=== PATIENT | female | born 1970 | race Caucasian/White ===

== ENCOUNTER → 2016-11-12 | Outpatient (CLI) | payer MEDICARE, OTHER ==
--- NOTE | 2016-11-12 15:37 | MR ---
EXAMINATION TYPE: MR shoulder RT wo con DATE OF EXAM: 11/12/2016 3:28 PM COMPARISON: NONE HISTORY: right shoulder pain TECHNIQUE: Multiplanar, multisequence imaging of the right shoulder is performed without contrast. FINDINGS: There is no evidence of an os acromiale. There are mild hypertrophic and inflammatory grijalva es in the right AC joint. There is a downward sloping acromion. The pseudocystic change in the humeral head, an indirect sign of impingement. There is diffuse tendinosis of the supraspinatus tendon there is a 6.7 mm intrasubstance tear in the anterior fibers of the infraspinatus tendon. The subscapularis tendon appears normal. The cartilaginous glenoid labrum appears intact. Biceps tendon is normally situated within the biceps tendon groove and inserts normally upon the johny ps anchor. IMPRESSION: 1. DIFFUSE TENDINOSIS OF THE SUPRASPINATUS TENDON. 2. 7 MM INTRASUBSTANCE TEAR INVOLVING THE ANTERIOR FIBERS OF THE INFRASPINATUS TENDON. 3. HYPERTROPHIC AND INFLAMMATORY CHANGES IN THE RIGHT AC JOINT. 4. PSEUDOCYSTIC CHANGE IN THE HUMERAL HEAD, INDIRECT SIGN OF IMPINGEMENT.
== END | disposition home or self-care (01) ==
LOC: RADMRIMAIN 14:56
PROVIDERS: ATTEND Orthopaedic Surgery
DX: S46.811A Strain of other muscles, fascia and tendons at shoulder and upper arm level, right arm, initial encounter (principal); M67.813 Other specified disorders of tendon, right shoulder; M13.811 Other specified arthritis, right shoulder

== ENCOUNTER → 2016-12-06 | Outpatient (CLI) | payer MEDICARE, OTHER ==
[2016-12-06 16:46] LABS: Basophils % (A) 0 %; CH 30.4; Eosinophils # (A) 0.2 k/uL (0-0.7); Eosinophils % (A) 2 %; HCT 42.2 % (34.0-46.0); HDW 2.92; HGB 14.5 gm/dL (11.4-16.0); Luc # (Auto) 0.11; Luc % (Auto) 1; Lymphocytes # (A) 3.7 k/uL (1.0-4.8); Lymphocytes % (A) 31 %; MCH 30.8 pg (25.0-35.0); MCHC 34.3 g/dL (31.0-37.0); MCV 89.9 fL (80.0-100.0); Mean Platelet Volume 6.8; Monocytes # (A) 0.4 k/uL (0-1.0); Monocytes % (A) 3 %; Neutrophils # (A) 7.7 k/uL (1.3-7.7); Neutrophils % (A) 63 %; RDW 13.6 % (11.5-15.5); WBC 12.2 k/uL (3.8-10.6); WBC (Perox) 12.28
[2016-12-06 16:56] LABS: Potassium 4.1 mmol/L (3.5-5.1)
== END ==
LOC: LABWHC1 15:52
PROVIDERS: ATTEND Orthopaedic Surgery
DX: Z01.812 Encounter for preprocedural laboratory examination (principal); M75.41 Impingement syndrome of right shoulder
CPT/HCPCS: 80051; 85025

== ENCOUNTER 2016-12-07 06:41 | Day surgery (SDC) | payer MEDICARE, OTHER ==
[2016-12-05 15:52] VITALS: BMI 32.8
--- NOTE | 2016-12-06 12:22 | HP ---
DATE OF ADMISSION: CHIEF COMPLAINT: Right shoulder pain and stiffness. HISTORY OF PRESENT ILLNESS: The patient is a 46-year-old, left-hand dominant female on disability who presents with progressive right shoulder pain and stiffness for the past several months. She has tried an injection along with therapy with only partial temporary relief. She continues to have pain with overhead use and at night. She has been taking Bucklin twice daily for this. PAST MEDICAL HISTORY: Significant for hypertension, postural orthostatic tachycardia syndrome, reflux disease, irritable bowel syndrome. PAST SURGICAL HISTORY: Significant for previous ankle surgery, left shoulder arthroscopic rotator cuff repair, previous knee surgery, cholecystectomy, hysterectomy. CURRENT MEDICATIONS: 1. Amiodarone. 2. Labetalol. 3. Seroquel. 4. Topamax. She has allergies to PENICILLIN and MORPHINE. FAMILY HISTORY: Significant for heart disease and hypertension. SOCIAL HISTORY: Negative for current tobacco or alcohol use. Sixteen-point review of systems otherwise reviewed and is noncontributory. On examination, the patient is approximately 5 feet 3 inches, 190 pounds of endomorphic habitus. HEENT exam is nonfocal. Neck is supple. On examination of her right shoulder, she is tender about the anterior subacromial space. She has moderate crepitus. Active range of motion, forward elevation 95 degrees, external rotation with arm at the side 15 degrees, internal rotation to the buttock. Motor strength is 5 minus over 5 for external rotation with the arm at the side and 5 minus over 5 for abduction. [place]ie, Neer and speed tests are positive. She has painless cross body adduction. Her distal neurovascular exam appears be intact in the right upper extremity. MRI report for the right shoulder from 11/12/2016 shows evidence of supraspinatus tendinosis with possible partial-thickness tear along with a AC joint synovitis. IMPRESSION: 1. Right shoulder impingement with possible partial-thickness rotator cuff tear. 2. Right shoulder adhesive capsulitis. 3. Right acromioclavicular joint synovitis. RECOMMENDATIONS: I talked to the patient at length regarding her treatment options. She remains quite symptomatic despite conservative measures. After thorough discussion, she opts to proceed with surgery. We will plan to proceed with arthroscopic evaluation with probable subacromial decompression, rotator cuff debridement versus repair, possible distal clavicular resection, and shoulder manipulation. Risks and benefits are discussed at length in layman's terms. We will likely perform that as an outpatient procedure.
[~2016-12-07 06:41] MED LIST: CLINDAMYCIN 900 MG in DEXTROSE 5% IN WATER 50 ML IVPB ONE; DEXAMETHASONE SOD PHOSPHATE 10 MG/ML 1 ML VIAL IV ONE; LACTATED RINGERS 1,000 ML IV SCH; MIDAZOLAM 2 MG/2 ML VIAL IV PRN; ONDANSETRON 4 MG/2 ML VIAL IVP ONE; SCOPOLAMINE 1.5MG/72HR PATCH TRANSDERM ONE
[2016-12-07 07:21] LABS: Glucose,Whole Blood 123 mg/dL (75-99)
[2016-12-07] MEDS ORDERED: LIDOCAINE 1% 20 ML VIAL (10MG/ML) FOR IV START INTRADERMA ONE (07:22)
[2016-12-07] MEDS ORDERED: GLYCOPYRROLATE 0.2 MG/ML 2 ML VIAL ONE (08:07)
[2016-12-07] MEDS ORDERED: PROPOFOL 10 MG/ML 20 ML VIAL IV ONE (08:07)
[2016-12-07] MEDS ORDERED: fentaNYL (PF) 50 MCG/ML 2 ML AMP ONE (08:07)
[2016-12-07] MEDS ORDERED: ROCURONIUM BROMIDE 10 MG/ML 10 ML VIAL IV ONE (08:07)
[2016-12-07] MEDS ORDERED: NEOSTIGMINE 1 MG/ML 10 ML VIAL ONE (08:07)
[2016-12-07] MEDS ORDERED: MIDAZOLAM 2 MG/2 ML VIAL ONE (08:07)
[2016-12-07] MEDS ORDERED: SUCCINYLCHOLINE CHLORIDE 100 MG/5 ML SYR IV ONE (08:07)
[2016-12-07] MEDS ORDERED: LIDOCAINE 1% INJ 10MG/ML (20 ML MDV) ONE (08:07)
[2016-12-07] MEDS ORDERED: SODIUM CHLORIDE 0.9% 100 ML with CLINDAMYCIN 900 MG IV ONE ×2 (08:27)
[2016-12-07] MEDS ORDERED: EPINEPHrine (PF) 1 ML in SODIUM CHLORIDE 0.9% IRRIGATIO 3,000 ML IRRIGATION ONE ×8 (08:36)
--- NOTE | 2016-12-07 09:26 | P.OP ---
Date of Procedure: 12/07/16 Preoperative Diagnosis: Right shoulder impingement/adhesive capsulitis/rotator cuff tendinitis Postoperative Diagnosis: Right total thickness rotator cuff tear/partial thickness biceps tendon tear Procedure(s) Performed: Right shoulder arthroscopic subacromial decompression/biceps tenotomy/rotator cuff debridement/manipulation under anesthesia Implants: Anesthesia: NOLAA Surgeon: Stephane Mazariegos Crew Clerk #1: [place] Estimated Blood Loss (ml): 10 Pathology: none sent Condition: stable Disposition: PACU Indications for Procedure: The patient's a 46-year-old female who presents with progressive right shoulder pain/ stiffness despite extensive conservative treatment. A discussion of the risks and benefits of operative intervention versus continued conservative measures was made with patient. She opted to proceed with surgery. Operative options were also discussed to include manipulation under anesthesia in addition to possible arthroscopic evaluation and treatment. She opted to proceed with surgery. Operative risks to include infection, neurovascular injury, development of blood clots, possible recurrence of stiffness, possible need for subsequent procedures was discussed. Informed consent was obtained. Operative Findings: As below Description of Procedure: The patient was brought to the operating room, and after induction of general anesthesia was positioned in the beachchair position. Bony prominences were appropriately padded. I examined the right shoulder and found significant mechanical blocks to external rotation and forward elevation. I gently manipulated her shoulder initially with the arm at the side externally rotating to 70 and then forward elevating fully. Moderate adhesions were encountered. The right upper extremity was then prepped and draped in normal fashion. The bony outlines of the acromion, distal clavicle, and coracoid process were outlined with a skin marker. A posterior portal was made through a 5 mm skin incision 1 cm medial and inferior to the posterior lateral border of the acromion. A blunt trocar was used to easily into the joint. Diagnostic arthroscopy was performed. An anterior portals made just lateral to the coracoid process entering the joint above the subscapularis tendon. The anterior labrum appeared to be intact. There was marked synovitis involving the rotator interval that was debrided with a motorized shaver. On inspection of the biceps, significant erythema and a high-grade partial-thickness tear was noted involving the intra-articular portion. It was elected to proceed with tenotomy at this point. The biceps was released from the superior labrum with electrocautery and lateral to retract to the bicipital groove. The subscapularis tendon appear to be intact. The rotator cuff tendons appeared to be intact on the articular surface. The posterior labrum was intact. No significant cartilage damage was noted. The arthroscope was then placed into the acromial space. An anterior portals made 2 cm lateral to the anterolateral border of the acromion. The soft tissue on the undersurface the acromion was debrided with a motorized shaver and with electrocautery. The anterior medial and lateral borders acromion in addition to the distal clavicle were then visualized. The coracoacromial ligament was detached from the anterior acromion with electrocautery. An anterior inferior acromioplasty was performed starting anterolateral then extending this posteriorly, then extending this medially. I was able to convert to a flat acromion. This was verified from the posterior and lateral viewing portals. Attention was then paid towards the rotator cuff. Significant bursitis was present and this was debrided with a motorized shaver. A partial thickness bursal surface tear involving the supraspinatus was noted involving approximately 10% of the tendon thickness. This was debrided back to stable base with a motorized shaver. The remaining supraspinatus and infraspinatus tendons appeared to be intact as well as the teres minor. The arthroscope was then removed. The portals were closed with Steri-Strips. A sterile dressing was applied in addition to a shoulder brace. The patient was awoken from general anesthesia and transferred to the recovery room in good condition. Blood loss was estimated at 10 mL. No complications were incurred. Sponge and needle counts were correct at the end the case.
[2016-12-07 09:41] VITALS: TEMP 97.2
[2016-12-07] MEDS: HYDROmorphone 1 MG/ML 1 ML SYRINGE IVP ONE ×6 (09:58→10:38)
[2016-12-07] MEDS ORDERED: KETOROLAC 30 MG/ML 1 ML VIAL IVP ONE (10:03)
[2016-12-07] MEDS ORDERED: LACTATED RINGERS 1,000 ML IV ONE ×2 (10:20)
[2016-12-07] MEDS ORDERED: ONDANSETRON 4 MG/2 ML VIAL IVP ONE (10:46)
[2016-12-07 11:36] VITALS: RESP 16
[2016-12-07] MEDS ORDERED: HYDROcodone/APAP 7.5-325MG 1 EACH TAB PO ONE (12:18)
[2016-12-07 15:09] VITALS: BP 104/60; PULSE 86
== END 2016-12-07 15:44 | disposition home or self-care (01) ==
LOC: OR 06:41
PROVIDERS: ATTEND Orthopaedic Surgery
DX: S46.011A Strain of muscle(s) and tendon(s) of the rotator cuff of right shoulder, initial encounter (principal); S46.211A Strain of muscle, fascia and tendon of other parts of biceps, right arm, initial encounter; M65.9 Synovitis and tenosynovitis, unspecified; M75.41 Impingement syndrome of right shoulder; I10 Essential (primary) hypertension; M75.01 Adhesive capsulitis of right shoulder; G43.909 Migraine, unspecified, not intractable, without status migrainosus; F41.1 Generalized anxiety disorder; I47.1 Supraventricular tachycardia; E66.9 Obesity, unspecified; E78.5 Hyperlipidemia, unspecified; F41.9 Anxiety disorder, unspecified; Z79.891 Long term (current) use of opiate analgesic; Z79.899 Other long term (current) drug therapy; Z88.5 Allergy status to narcotic agent; Z88.0 Allergy status to penicillin; Z82.49 Family history of ischemic heart disease and other diseases of the circulatory system; X58.XXXA Exposure to other specified factors, initial encounter
CPT/HCPCS: 29826; 29822; J2250; J1100; J2710; J2405; J0171; J2001; J3010; J1885; J1170; J0330; J2704

== ENCOUNTER 2017-02-26 08:55 | Day surgery (SDC) | payer MEDICARE, OTHER ==
[2017-02-25 09:25] VITALS: BMI 32.8
--- NOTE | 2017-02-25 18:05 | HP ---
CHIEF COMPLAINT: Right shoulder stiffness. HISTORY OF PRESENT ILLNESS: The patient is a 46-year-old left hand dominant female on disability who presents with left shoulder stiffness after undergoing previous arthroscopy in November of 2016. She notes some soreness intermittently as well. She has tried therapy and home exercises with minimal relief. PAST MEDICAL HISTORY: Significant for postural orthostatic tachycardia syndrome , depression, hypertension, and migraines. PAST SURGICAL HISTORY: Significant for previous ankle surgery, cholecystectomy , hysterectomy, left knee surgery and appendectomy along with right shoulder arthroscopy. CURRENT MEDICATIONS: Ambien, amiodarone, labetalol, Seroquel, Topamax. ALLERGIES: PENICILLIN AND MORPHINE. FAMILY HISTORY: Significant for heart disease, cancer and hypertension. SOCIAL HISTORY: Negative for current tobacco or alcohol use. Sixteen point review of systems otherwise reviewed and is noncontributory. On examination the patient is approximately 5'3", 190 pounds with endomorphic habitus. HEENT: Nonfocal. NECK: Supple. On examination of her right shoulder she is mildly tender about the anterior subacromial space. There is no warmth or erythema. Active range of motion. Forward elevation 95 degrees. External rotation with arm to side 20 degrees. Internal rotation to the buttock, passively I am able to forward elevate her to 100 degrees. Motor strength is 5/5 for external rotation with arm to the side. 5-/5 for abduction. Her distal neurovascular exam appears intact in the right upper extremity. IMPRESSION: Status post right shoulder arthroscopy with recurrent adhesive capsulitis. RECOMMENDATIONS: I talked to the patient at length regarding her treatment options. At this point she is quite limited because of stiffness. She opts to proceed with manipulation under anesthesia with subacromial cortisone injection. Risks and benefits were discussed at length in layman's terms. STEPHEN
[~2017-02-26 08:55] MED LIST changes: -CLINDAMYCIN 900 MG in DEXTROSE 5% IN WATER 50 ML IVPB ONE; -DEXAMETHASONE SOD PHOSPHATE 10 MG/ML 1 ML VIAL IV ONE; -MIDAZOLAM 2 MG/2 ML VIAL IV PRN; -ONDANSETRON 4 MG/2 ML VIAL IVP ONE; +Pre Op ABX Message 1 EACH MISC MISCELLANE ONE; -SCOPOLAMINE 1.5MG/72HR PATCH TRANSDERM ONE
[2017-02-26] MEDS ORDERED: LIDOCAINE 1% 20 ML VIAL (10MG/ML) FOR IV START INTRADERMA ONE (09:44)
[2017-02-26 09:55] LABS: Glucose,Whole Blood 148 mg/dL (75-99)
[2017-02-26] MEDS ORDERED: fentaNYL (PF) 50 MCG/ML 2 ML AMP ONE (10:06)
[2017-02-26] MEDS ORDERED: MIDAZOLAM 2 MG/2 ML VIAL ONE (10:06)
[2017-02-26] MEDS ORDERED: PROPOFOL 10 MG/ML 20 ML VIAL IV ONE (10:06)
[2017-02-26] MEDS ORDERED: LIDOCAINE 1% INJ 10MG/ML (20 ML MDV) ONE (10:06)
[2017-02-26] MEDS ORDERED: ONDANSETRON 4 MG/2 ML VIAL IVP ONE (10:08)
[2017-02-26] MEDS ORDERED: DEXAMETHASONE SOD PHOSPHATE 10 MG/ML 1 ML VIAL IV ONE (10:08)
[2017-02-26] MEDS ORDERED: BUPIVACAINE (PF) 0.25% 30 ML VIAL MISCELLANE ONE (10:23)
[2017-02-26] MEDS ORDERED: methylPREDNISolone ACETATE 80 MG/ML 1 ML VIAL MISCELLANE ONE (10:23)
--- NOTE | 2017-02-26 10:26 | P.OP ---
Date of Procedure: 02/26/17 Preoperative Diagnosis: Right shoulder adhesive capsulitis Postoperative Diagnosis: Same Procedure(s) Performed: right shoulder manipulation under anesthesia with subacromial cortisone injection Implants: Anesthesia: MAC Surgeon: Stephane Mazariegos Estimated Blood Loss (ml): 0 Pathology: none sent Condition: stable Disposition: PACU Indications for Procedure: The patient's a 46-year-old female who presents with persistent right shoulder stiffness after previous arthroscopy despite adequate rehabilitation. A discussion of the risks and benefits of manipulation under anesthesia was made with patient. She opted to proceed. Operative risks to include fracture, dislocation, possible tendon rerupture, possible recurrence of stiffness and need for subsequent procedures was discussed. Informed consent was obtained. Operative Findings: As below Description of Procedure: The patient was brought to the recovery room, and after induction of IV sedation I then gently manipulated the right shoulder. Initially with the arm at the side is able to obtain full external rotation. Moderate adhesions were encountered. I then obtained full forward elevation. Again there was moderate adhesions. I felt there was adequate release of the adhesions at this point. The posterior aspect the shoulder was prepped with ChloraPrep. 80 mg of Depo- Medrol along with 5 mL of quarter percent plain Marcaine was injected in the subacromial space. The patient was then monitored until fully awake. No complications were incurred.
[2017-02-26 10:39] VITALS: TEMP 97.2
[2017-02-26] MEDS: HYDROmorphone 1 MG/ML 1 ML SYRINGE IVP ONE ×2 (10:44→10:49)
[2017-02-26] MEDS ORDERED: KETOROLAC 30 MG/ML 1 ML VIAL IVP ONE (10:53)
[2017-02-26 11:05] VITALS: RESP 16
[2017-02-26] MEDS ORDERED: HYDROcodone/APAP 7.5-325MG 1 EACH TAB PO ONE (11:36)
[2017-02-26 12:27] VITALS: BP 100/53; PULSE 80
== END 2017-02-26 12:41 | disposition home or self-care (01) ==
LOC: OR 08:55
PROVIDERS: ATTEND Orthopaedic Surgery
DX: I11.9 Hypertensive heart disease without heart failure (principal); E78.5 Hyperlipidemia, unspecified; K21.9 Gastro-esophageal reflux disease without esophagitis; Z79.891 Long term (current) use of opiate analgesic; Z79.899 Other long term (current) drug therapy; Z88.5 Allergy status to narcotic agent; Z88.0 Allergy status to penicillin; Z91.030 Bee allergy status
CPT/HCPCS: 23700; 20610; J2250; J1040; J1100; J2405; J2001; J3010; J1885; J1170; J2704

== ENCOUNTER → 2017-07-26 | Outpatient (CLI) | payer MEDICARE, OTHER ==
[2017-07-26 15:21] LABS: Basophils % (A) 0 %; Eosinophils # (A) 0.1 k/uL (0-0.7); Eosinophils % (A) 1 %; HCT 46.3 % (34.0-46.0); HGB 14.8 gm/dL (11.4-16.0); Lymphocytes # (A) 3.1 k/uL (1.0-4.8); Lymphocytes % (A) 29 %; MCH 29.2 pg (25.0-35.0); MCHC 31.9 g/dL (31.0-37.0); MCV 91.5 fL (80.0-100.0); Mean Platelet Volume 7.7; Monocytes # (A) 0.4 k/uL (0-1.0); Monocytes % (A) 3 %; Neutrophils # (A) 6.8 k/uL (1.3-7.7); Neutrophils % (A) 65 %; Platelet Count 271 k/uL (150-450); RBC 5.06 m/uL (3.80-5.40); RDW 14.5 % (11.5-15.5); WBC 10.5 k/uL (3.8-10.6)
[2017-07-26 15:23] LABS: Appearance,Urine Cloudy (Clear); Bacteria,Urine Few /hpf; Bilirubin,Urine Negative (Negative); Blood,Urine Negative (Negative); Color,Urine Yellow; Glucose,Urine (UA) Negative (Negative); Hyaline Casts,Urine 1 /lpf (0-2); Ketones,Urine Negative (Negative); Leukocyte Esterase,Urine Negative (Negative); Mucus,Urine Few /hpf; Nitrite,Urine Negative (Negative); PH, Urine 5.5 (5.0-8.0); Protein,Urine Trace (Negative); RBC,Urine 1 /hpf (0-5); Specific Gravity,Urine 1.013 (1.001-1.035); Squamous Epithelial Cell,Urine 1 /hpf (0-4); WBC,Urine 2 /hpf (0-5)
[2017-07-26 15:24] LABS: ALT 46 U/L (9-52); AST 38 U/L (14-36); Albumin 4.3 g/dL (3.5-5.0); Alkaline Phosphatase 103 U/L (38-126); Anion Gap 15 mmol/L; Blood Urea Nitrogen 8 mg/dL (7-17); Calcium 9.3 mg/dL (8.4-10.2); Carbon Dioxide 24 mmol/L (22-30); Chloride 105 mmol/L (98-107); Cholesterol 228 mg/dL (<200); Glucose 199 mg/dL (74-99); HDL Cholesterol 29 mg/dL (40-60); LDL Cholesterol,Calculated 144 mg/dL (0-99); Potassium 3.5 mmol/L (3.5-5.1); Sodium 144 mmol/L (137-145); Total Bilirubin 0.4 mg/dL (0.2-1.3); Total Protein 7.3 g/dL (6.3-8.2); Triglycerides 273 mg/dL (<150)
== END | disposition home or self-care (01) ==
LOC: LABWHC1 14:46
PROVIDERS: ATTEND Internal Medicine
DX: E55.9 Vitamin D deficiency, unspecified (principal); I10 Essential (primary) hypertension; R41.3 Other amnesia
CPT/HCPCS: 36415; 80053; 80061; 81001; 82306; 82607; 84443; 85025

== ENCOUNTER → 2017-08-06 | Outpatient (CLI) | payer MEDICARE, OTHER ==
--- NOTE | 2017-08-07 07:47 | US ---
EXAMINATION TYPE: US pelvic complete DATE OF EXAM: 08/06/2017 COMPARISON: CLINICAL HISTORY: R10.32 Left Lower Quadrant Pain. Left side pain. Partial hysterectomy x 10 years a go, still has Left ovary TECHNIQUE: Transabdominal (TA) Date of LMP: Hysterectomy EXAM MEASUREMENTS: Left Ovary: 3.0 x 2.3 x 2.0 cm 1. Uterus: Surgically absent 2. Endometrium: Surgically absent 3. Right Ovary: Surgically absent 4. Left Ovary: wnl Color doppler imaging shows good vascular flow within the ovary; there is no evidence for ovarian t orsion. 5. Bilateral Adnexa: wnl, peristalsing bowel seen 6. Posterior cul-de-sac: no free fluid IMPRESSION: Postsurgical changes
== END | disposition home or self-care (01) ==
LOC: RADUSWWP 15:43
PROVIDERS: ATTEND Internal Medicine
DX: R10.32 Left lower quadrant pain (principal); Z98.890 Other specified postprocedural states
CPT/HCPCS: 76856

== ENCOUNTER → 2017-08-22 | Outpatient (CLI) | payer MEDICARE, OTHER ==
--- NOTE | 2017-08-23 10:57 | MM ---
Reason for exam: screening (asymptomatic). Last mammogram was performed 2 years and 8 months ago. History: Patient has history of breast cancer at age 37. Family history of premenopausal breast cancer in aunt and breast cancer in mother at age 59. Benign right breast needle localzation of both breasts, July 29, 2013. Excisional biopsy of the right breast, 2007. Benign excisional biopsy of the right breast, May 05, 2007. Physical Findings: A clinical breast exam by your physician is recommended on an annual basis and results should be correlated with mammographic findings. MG 3D Screening Mammo W/Cad Bilateral CC and MLO view(s) were taken. Prior study comparison: December 09, 2014, bilateral MG diagnostic mammo w CAD JENNI. January 26, 2011, CAD bilateral diagnostic mammogram. Finding: There is a 4 mm equal density (isodense), circumscribed oval mass located 5 cm from the nipple in the upper outer quadrant, middle position of the left breast. New finding since December 09, 2014 and January 26, 2011. ASSESSMENT: Incomplete: need additional imaging evaluation, BI-RAD 0 RECOMMENDATION: Special view mammogram of the left breast. Manage on a clinical basis with regard to nipple discharge. If lesion persists on supplemental views, image directed ultrasound is recommended. [facility] will attempt to contact patient to return for supplemental views and ultrasound if indicated.
== END | disposition home or self-care (01) ==
LOC: RADMAMWWP 15:21
PROVIDERS: ATTEND Internal Medicine
DX: Z12.31 Encounter for screening mammogram for malignant neoplasm of breast (principal)
CPT/HCPCS: 77063; 77067

== ENCOUNTER → 2017-08-28 | Outpatient (CLI) | payer MEDICARE, OTHER ==
--- NOTE | 2017-08-28 11:53 | MM ---
Reason for exam: additional evaluation requested from abnormal screening. Last mammogram was performed less than 1 month ago. History: Patient has history of breast cancer at age 37. Family history of premenopausal breast cancer in aunt and breast cancer in mother at age 59. Benign right breast needle localzation of both breasts, July 29, 2013. Excisional biopsy of the right breast, 2007. Benign excisional biopsy of the right breast, May 05, 2007. Lumpectomy of the right breast, 2006. Physical Findings: Nurse did not find any significant physical abnormalities on exam. MG 3D Work Up W/Cad LT Spot compression CC and LM view(s) were taken of the left breast. Prior study comparison: August 22, 2017, bilateral MG 3d screening mammo w/cad. December 09, 2014, bilateral MG diagnostic mammo w CAD JENNI. Finding: There is a 4 mm mass in the upper outer quadrant of the left breast. These results were verbally communicated with the patient and result sheet given to the patient on 08/28/17. ASSESSMENT: Probably benign, BI-RAD 3 RECOMMENDATION: Follow-up diagnostic mammogram of the left breast in 6 months.
--- NOTE | 2017-08-28 11:54 | USB ---
Reason for exam: additional evaluation requested from abnormal screening. History: Patient has history of breast cancer at age 37. Family history of premenopausal breast cancer in aunt and breast cancer in mother at age 59. Benign right breast needle localzation of both breasts, July 29, 2013. Excisional biopsy of the right breast, 2007. Benign excisional biopsy of the right breast, May 05, 2007. Lumpectomy of the right breast, 2006. US Breast Workup Limited LT Left breast ultrasound demonstrates a 0.4 x 0.4 x 0.2cm oval, cystic lesion at 3 o'clock. These results were verbally communicated with the patient and result sheet given to the patient on 08/28/17. ASSESSMENT: Probably benign, BI-RAD 3 RECOMMENDATION: Follow-up diagnostic mammogram of the left breast in 6 months.
== END | disposition home or self-care (01) ==
LOC: RADMAMWWP 10:11
PROVIDERS: ATTEND Internal Medicine
DX: N64.52 Nipple discharge (principal); R92.8 Other abnormal and inconclusive findings on diagnostic imaging of breast
CPT/HCPCS: 77065; 76642; G0279

== ENCOUNTER 2017-09-19 18:40 | Emergency (ER) | payer MEDICARE, OTHER ==
[2017-09-19 18:48] VITALS: TEMP 98.4
--- NOTE | 2017-09-19 19:14 | ED ---
General Adult HPI - General Chief complaint: Head Injury Stated complaint: Fall-Head Injury, Numbness in leg, blurredvision Time Seen by Provider: 09/19/17 18:49 Source: patient Mode of arrival: wheelchair Limitations: no limitations - History of Present Illness Initial comments: 47-year-old female patient presents to the emergency department today for evaluation of headache, neck pain, back pain, and numbness and tingling to her right arm and leg. Patient is also reporting visual disturbance on the right side. Patient reports that the vision on the right intermittently goes completely rinaldi. States that she is seeing black spots bilaterally in her vision. She states that last evening she fell out of bed. Family reports that that is approximately 3 feet off the ground. Patient states she landed on carpet. States that she laid on the ground for 20-25 minutes where she was unable to move. States that she did try to move her limbs and roll over, but states she felt paralyzed and was unable to move. Patient states today she is having numbness down her right leg to her knee. States she is having lower back spasms. States that she is having spinal pain from her neck down to her low back. States that she is having pain in the right shoulder and numbness down the right arm. States that she feels weak on her right side. She is also reporting severe generalized headache. Denies ever having headache similar to this. States she did take ibuprofen without relief. Patient denies any recent rash, fever, chills, shortness breath, chest pain, abdominal pain, nausea, vomiting, diarrhea, constipation, back pain, dizziness, weakness, hematuria, dysuria, urinary urgency, urinary frequency, or any other complaints. - Related Data Home Medications Medication Instructions Recorded Confirmed QUEtiapine XR [SEROquel XR] 50 mg PO HS 09/27/14 09/19/17 Zolpidem Tartrate [Ambien Cr] 12.5 mg PO HS 09/27/14 09/19/17 Butalb/APAP/Caff 50-325-40Mg 1 - 2 tab PO QID PRN 04/08/16 09/19/17 [Fioricet 50-325-40] Topiramate 100 mg PO BID 04/08/16 09/19/17 clonazePAM [Clonazepam] 1 mg PO BID 04/08/16 09/19/17 traZODone HCL [Desyrel] 100 mg PO BID 04/08/16 09/19/17 Atorvastatin Calcium [Lipitor] 10 mg PO HS 12/05/16 09/19/17 Sertraline HCl [Zoloft] 100 mg PO HS 12/05/16 09/19/17 amLODIPine [Norvasc] 2.5 mg PO DAILY 12/05/16 09/19/17 Alosetron HCl [Lotronex] 2 mg PO HS 09/19/17 09/19/17 Baclofen 10 mg PO TID 09/19/17 09/19/17 Cholestyramine (with Sugar) 4 gm PO DAILY 09/19/17 09/19/17 [Cholestyramine Powder] Colestipol HCl 2 gm PO DAILY 09/19/17 09/19/17 Digoxin [Lanoxin] 125 mcg PO DAILY 09/19/17 09/19/17 Ergocalciferol (Vitamin D2) 50,000 unit PO Q7D 09/19/17 09/19/17 [Vitamin D2] Januvia(Unknown Dose) 1 tab PO DAILY 09/19/17 09/19/17 cloNIDine HCL 0.3 mg PO BID 09/19/17 09/19/17 Previous Rx's Medication Instructions Recorded Acetaminophen-Codeine 300-30mg 1 tab PO Q6H PRN #15 tablet 09/19/17 [Tylenol #3] Cyclobenzaprine [Flexeril] 10 mg PO TID #15 tab 09/19/17 Allergies Allergy/AdvReac Type Severity Reaction Status Date / Time morphine Allergy Swelling, Verified 09/19/17 19:24 diff breathing Penicillins Allergy Unknown Verified 09/19/17 19:24 Childhood venom-honey bee Allergy Anaphylaxis-has Verified 09/19/17 19:24 [bee venom (honey bee)] epi-pen Review of Systems ROS Statement: Those systems with pertinent positive or pertinent negative responses have been documented in the HPI. ROS Other: All systems not noted in ROS Statement are negative. Past Medical History Past Medical History: Atrial Fibrillation, Diabetes Mellitus, Hyperlipidemia, Hypertension Additional Past Medical History / Comment(s): postural orthostatic tachycardia syndrome, migraines, IBS History of Any Multi-Drug Resistant Organisms: None Reported Past Surgical History: Appendectomy, Breast Surgery, Cardiac Ablation, Cholecystectomy, Heart Catheterization, Hysterectomy, Orthopedic Surgery Additional Past Surgical History / Comment(s): BIOPSY- RT BREAST x2, LT KNEE SURGERY X4 (2 arthroscopic), left ankle x 2, CARDIAC ABLATION X 2 Past Anesthesia/Blood Transfusion Reactions: No Reported Reaction Additional Past Anesthesia/Blood Transfusion Reaction / Comment(s): DIFFICULT INTUBATION-Can't find letter Past Psychological History: Anxiety, Depression Smoking Status: Never smoker Past Alcohol Use History: Rare Past Drug Use History: None Reported - Past Family History Father Family Medical History: Hypertension, Myocardial Infarction ([place]) Mother Family Medical History: Cancer Additional Family Medical History / Comment(s): Lymphatic [place] General Exam Limitations: no limitations General appearance: alert, in no apparent distress, other (This is a well- developed, well-nourished adult female patient in no acute distress. Vital signs upon presentation are temperature 98.4F, pulse 73, respirations 18, blood pressure 128/73, pulse ox 100% on room air.) Head exam: Present: atraumatic, normocephalic, normal inspection Eye exam: Present: normal appearance, PERRL, EOMI. Absent: scleral icterus, conjunctival injection, periorbital swelling ENT exam: Present: normal exam, normal oropharynx, mucous membranes moist Neck exam: Present: normal inspection, tenderness (Tenderness from C1 to C7.), full ROM (Increased pain with movement). Absent: meningismus, lymphadenopathy Respiratory exam: Present: normal lung sounds bilaterally. Absent: respiratory distress, wheezes, rales, rhonchi, stridor Cardiovascular Exam: Present: regular rate, normal rhythm, normal heart sounds. Absent: systolic murmur, diastolic murmur, rubs, gallop, clicks GI/Abdominal exam: Present: soft, normal bowel sounds. Absent: distended, tenderness, guarding, rebound, rigid Extremities exam: Present: normal inspection, full ROM, normal capillary refill. Absent: tenderness, pedal edema, joint swelling, calf tenderness Back exam: Present: normal inspection, vertebral tenderness (Midthoracic and lumbar tenderness) Neurological exam: Present: alert, oriented X3, CN II-XII intact Expanded Speech: Present: fluid speech Cranial nerves: EOM's Intact: Normal, Tongue Deviation: Normal, Nystagmus: Normal, Facial Sensation: Normal Motor strength exam: RUE: 3, LUE: 5, RLE: 4, LLE: 4 Eye Response: (4) open spontaneously Motor Response: (6) obeys commands Verbal Response: (5) oriented Psychiatric exam: Present: normal affect, normal mood Skin exam: Present: warm, dry, intact, normal color. Absent: rash Course Vital Signs 09/19/17 09/19/17 18:45 21:25 Temperature 98.4 F Pulse Rate 73 71 Respiratory 18 18 Rate Blood Pressure 128/73 140/67 O2 Sat by Pulse 100 96 Oximetry EKG Findings - EKG Comments: EKG Findings:: EKG obtained in 1919 shows normal sinus rhythm with a prolonged QT and nonspecific T-wave abnormality. Ventricular rate is 77, IN interval 164 , QRS duration 80, QT 420, QTC 475. No evidence of ST elevation or depression. Medical Decision Making - Medical Decision Making 47 year-old female patient presents to the emergency department today with multiple complaints. Patient is complaining of headache, visual disturbance, pain and tingling to her right arm, and numbness to the right lateral and anterior thigh down to her knee. NIH score was 0. CT of the C-spine and brain were negative for any acute process. X-rays of the thoracic and lumbar spines were negative. My attending Dr. Simpson did come in to evaluate patient at this time, added CT of the lumbar spine. CT of the lumbar spine did show some degenerative changes and requested correlation for S1 radiculopathy. I did discuss results with the patient. She did have a fall last evening there is concern for concussion. Patient is also experiencing muscle spasms in her lower back. We will treat her for muscle spasm, concussion, and lumbar radiculopathy. She is instructed to follow-up with her primary care physician and pre fabricator as soon as possible for reevaluation. Return parameters discussed in detail. She is instructed to return here immediately for any other new, worsening, or concerning symptoms. She verbalizes understanding and agrees with this plan. - Lab Data Result diagrams: 09/19/17 19:30 09/19/17 19:30 Lab Results 09/19/17 09/19/17 09/19/17 Range/Units 19:30 19:30 19:30 WBC 13.6 H (3.8-10.6) k/uL RBC 4.44 (3.80-5.40) m/uL Hgb 13.6 (11.4-16.0) gm/dL Hct 38.7 (34.0-46.0) % MCV 87.0 (80.0-100.0) fL MCH 30.6 (25.0-35.0) pg MCHC 35.2 (31.0-37.0) g/dL RDW 14.2 (11.5-15.5) % Plt Count 271 (150-450) k/uL Neutrophils % 65 % Lymphocytes % 29 % Monocytes % 4 % Eosinophils % 1 % Basophils % 0 % Neutrophils # 8.8 H (1.3-7.7) k/uL Lymphocytes # 3.9 (1.0-4.8) k/uL Monocytes # 0.5 (0-1.0) k/uL Eosinophils # 0.2 (0-0.7) k/uL Basophils # 0.1 (0-0.2) k/uL PT (9.0-12.0) sec INR (<1.2) APTT (22.0-30.0) sec Sodium 144 (137-145) mmol/L Potassium 3.5 (3.5-5.1) mmol/L Chloride 110 H (98-107) mmol/L Carbon Dioxide 22 (22-30) mmol/L Anion Gap 12 mmol/L BUN 10 (7-17) mg/dL Creatinine 0.70 (0.52-1.04) mg/dL Est GFR (CKD-EPI)AfAm >90 (>60 ml/min/1.73 sqM) Est GFR (CKD-EPI)NonAf >90 (>60 ml/min/1.73 sqM) Glucose 107 H (74-99) mg/dL Calcium 9.1 (8.4-10.2) mg/dL Total Bilirubin 0.4 (0.2-1.3) mg/dL AST 44 H (14-36) U/L ALT 48 (9-52) U/L Alkaline Phosphatase 104 (38-126) U/L Total Creatine Kinase 49 (30-135) U/L CK-MB (CK-2) <0.2 (0.0-2.4) ng/mL CK-MB (CK-2) Rel Index Troponin I <0.012 (0.000-0.034) ng/mL Total Protein 7.0 (6.3-8.2) g/dL Albumin 4.0 (3.5-5.0) g/dL 09/19/17 Range/Units 19:30 WBC (3.8-10.6) k/uL RBC (3.80-5.40) m/uL Hgb (11.4-16.0) gm/dL Hct (34.0-46.0) % MCV (80.0-100.0) fL MCH (25.0-35.0) pg MCHC (31.0-37.0) g/dL RDW (11.5-15.5) % Plt Count (150-450) k/uL Neutrophils % % Lymphocytes % % Monocytes % % Eosinophils % % Basophils % % Neutrophils # (1.3-7.7) k/uL Lymphocytes # (1.0-4.8) k/uL Monocytes # (0-1.0) k/uL Eosinophils # (0-0.7) k/uL Basophils # (0-0.2) k/uL PT 10.6 (9.0-12.0) sec INR 1.1 (<1.2) APTT 24.2 (22.0-30.0) sec Sodium (137-145) mmol/L Potassium (3.5-5.1) mmol/L Chloride (98-107) mmol/L Carbon Dioxide (22-30) mmol/L Anion Gap mmol/L BUN (7-17) mg/dL Creatinine (0.52-1.04) mg/dL Est GFR (CKD-EPI)AfAm (>60 ml/min/1.73 sqM) Est GFR (CKD-EPI)NonAf (>60 ml/min/1.73 sqM) Glucose (74-99) mg/dL Calcium (8.4-10.2) mg/dL Total Bilirubin (0.2-1.3) mg/dL AST (14-36) U/L ALT (9-52) U/L Alkaline Phosphatase (38-126) U/L Total Creatine Kinase (30-135) U/L CK-MB (CK-2) (0.0-2.4) ng/mL CK-MB (CK-2) Rel Index Troponin I (0.000-0.034) ng/mL Total Protein (6.3-8.2) g/dL Albumin (3.5-5.0) g/dL - Radiology Data Radiology results: report reviewed, image reviewed CT of the brain and C-spine without contrast was performed, report was reviewed in its entirety. Impression by Dr. Pabon shows no acute fracture or dislocation evident in the cervical spine. No acute intracranial hemorrhage, mass effect, or midline shift is seen. 5 views of the lumbosacral spine were obtained, report was reviewed in its entirety. Impression by Dr. Pabon shows no acute fracture or subluxation. 3 views of the thoracic spine are obtained, thoracic vertebral body show preserved height, alignment, and bone mineralization. There is multilevel spondylosis. This spaces are maintained. Impression by Dr. Pabon shows thoracic spondylosis, no acute fracture or subluxation. CT of the lumbar spine with contrast was obtained. A report was reviewed and entirety. Impression by Dr. Pabon shows no paraspinal masses are identified. Lumbar segments are intact. Degenerative disc disease, correlate for a right S1 radiculopathy. Additional findings as above. No acute fracture or subluxation. Disposition Clinical Impression: Spasm of muscle of lower back, Lumbar radiculopathy, Concussion Disposition: HOME SELF-CARE Condition: Good Instructions: Concussion (ED), Lumbar Radiculopathy (ED), Muscle Spasm (ED) Additional Instructions: Take medications as directed. Return here immediately for any new, worsening, or concerning symptoms. Follow-up with your primary care physician for recheck as soon as possible. Follow-up with ophthalmology as soon as possible. Return here immediately for any new, worsening, or concerning symptoms. Prescriptions: Acetaminophen-Codeine 300-30mg [Tylenol #3] 1 tab PO Q6H PRN #15 tablet PRN Reason: Pain Cyclobenzaprine [Flexeril] 10 mg PO TID #15 tab Referrals: Scott Johnson MD [Primary Care Provider] - 1-2 days Devon Wilkins MD [STAFF PHYSICIAN] - 1-2 days Time of Disposition: 22:58
[2017-09-19 19:44] LABS: Basophils # (A) 0.1 k/uL (0-0.2); Basophils % (A) 0 %; Eosinophils # (A) 0.2 k/uL (0-0.7); Eosinophils % (A) 1 %; HCT 38.7 % (34.0-46.0); HGB 13.6 gm/dL (11.4-16.0); Lymphocytes # (A) 3.9 k/uL (1.0-4.8); Lymphocytes % (A) 29 %; MCH 30.6 pg (25.0-35.0); MCHC 35.2 g/dL (31.0-37.0); Mean Platelet Volume 6.8; Monocytes # (A) 0.5 k/uL (0-1.0); Monocytes % (A) 4 %; Neutrophils # (A) 8.8 k/uL (1.3-7.7); Neutrophils % (A) 65 %; Platelet Count 271 k/uL (150-450); RBC 4.44 m/uL (3.80-5.40); RDW 14.2 % (11.5-15.5); WBC 13.6 k/uL (3.8-10.6)
[2017-09-19 20:01] LABS: ALT 48 U/L (9-52); AST 44 U/L (14-36); Alkaline Phosphatase 104 U/L (38-126); Anion Gap 12 mmol/L; Blood Urea Nitrogen 10 mg/dL (7-17); Calcium 9.1 mg/dL (8.4-10.2); Carbon Dioxide 22 mmol/L (22-30); Chloride 110 mmol/L (98-107); Glucose 107 mg/dL (74-99); Potassium 3.5 mmol/L (3.5-5.1); Sodium 144 mmol/L (137-145); Total Bilirubin 0.4 mg/dL (0.2-1.3)
[2017-09-19 20:03] LABS: Creatine Kinase 49 U/L (30-135)
[2017-09-19 20:16] LABS: Creatine Kinase MB <0.2 ng/mL (0.0-2.4); INR 1.1 (<1.2); Partial Thromboplastin Time 24.2 sec (22.0-30.0); Prothrombin Time 10.6 sec (9.0-12.0); Troponin I <0.012 ng/mL (0.000-0.034)
--- NOTE | 2017-09-19 20:29 | CT ---
EXAMINATION TYPE: CT brain zaine wo con DATE OF EXAM: 09/19/2017 COMPARISON: Prior head CT 10/21/2012 HISTORY: Fall injury, LUNA and neck pain CT DLP: 1499 mGycm Automated exposure control for dose reduction was used. TECHNIQUE: CT scan of the head and cervical spine are performed without contrast. FINDINGS: There is no acute intracranial hemorrhage, mass effect, or midline shift identified. The ventricles and sulci are within normal limits in size. The globes are intact and the visualized sin uses are clear. Cervical spine is visualized in its entirety from C1 through upper thoracic levels and demonstrates s atisfactory alignment without evidence of acute fracture or dislocation. Prevertebral soft tissue ap pears within normal limits. The C1-C2 articulation is unremarkable. IMPRESSION: 1. There is no acute fracture or dislocation evident in the cervical spine. 2. No acute intracranial hemorrhage, mass effect, or midline shift is seen.
--- NOTE | 2017-09-19 20:33 | XR ---
Lumbosacral spine HISTORY: Back pain 5 views of the lumbosacral spine Surgical clips present in the right upper quadrant. Lumbar vertebral bodies show preserved height, al ignment, and bone mineralization is mildly reduced. No spondylolysis. There is multilevel spondylosis . Loss of disc height at the intervertebral levels. Sclerosis present in the posterior elements of th e lower lumbar spine. IMPRESSION: No acute fracture or subluxation.
--- NOTE | 2017-09-19 20:34 | XR ---
Thoracic spine HISTORY: Trauma and pain 3 views of the thoracic spine Thoracic vertebral bodies show preserved height, alignment, and bone mineralization. There is multile trisha spondylosis. Disc spaces are maintained. IMPRESSION: Thoracic spondylosis. No acute fracture or subluxation.
[2017-09-19] MEDS ORDERED: diphenhydrAMINE 50 MG/ML 1 ML VIAL IVP STA (21:00)
[2017-09-19] MEDS ORDERED: KETOROLAC 30 MG/ML 1 ML VIAL IVP STA (21:00)
[2017-09-19] MEDS ORDERED: RX INFO: IV CONTRAST WAS GIVEN 1 EACH MISC MISCELLANE PRN (21:00)
[2017-09-19] MEDS ORDERED: SODIUM CHLORIDE 0.9% 500 ML IV ONE (21:00)
[2017-09-19] MEDS ORDERED: METOCLOPRAMIDE 5 MG/ML 2 ML VIAL IVP STA (21:00)
--- NOTE | 2017-09-19 21:44 | CT ---
EXAMINATION TYPE: CT lumbar spine w con DATE OF EXAM: 09/19/2017 COMPARISON: Plain film same date HISTORY: Fall injury with back pain CT DLP: 982 mGycm Automated exposure control for dose reduction was used. CONTRAST: CT scan of the lumbar is performed with IV Contrast, patient injected with 100 mL of Omnipaque [address] of the lumbar spine was performed. Bone and soft tissue window settings are submitted as well as coronal and sagittal reconstructions. FINDINGS: Lumbar vertebral bodies show preserved height and alignment. There is multilevel spondylosis as noted on plain film. No abnormal enhancement following contrast administration. Sclerotic focus within the fifth lumbar vertebral body is likely insurance representative of bone [place]. Visualized portions of the abdo jazz aorta are unremarkable. Right posterior paracentral extension of endplate disc complex at L5-S1 causes local mass effect on t he right S1 nerve root, anterior aspect of the thecal sac greater than left. Circumferential extensio n of endplate disc complex causes some foraminal encroachment on the right. L1-L2: Normal disc space height. No disc herniation protrusion or central stenosis. No facet joint arthropathy. No evidence for foraminal encroachment. L2-L3: Normal disc space height. No disc herniation protrusion or central stenosis. No facet joint arthropathy. No evidence for foraminal encroachment. L3-L4: Normal disc space height. No disc herniation protrusion or central stenosis. No facet joint arthropathy. No evidence for foraminal encroachment. L4-L5: Normal disc space height. No disc herniation protrusion or central stenosis. No facet joint arthropathy. No evidence for foraminal encroachment. IMPRESSION: No paraspinal masses are identified. Lumbar segments are intact. Degenerative disc disease, correlat e for right S1 radiculopathy. Additional findings above. No acute fracture or subluxation.
[2017-09-19 23:35] VITALS: BP 114/60; PULSE 70; RESP 19
== END 2017-09-19 23:35 | disposition home or self-care (01) ==
LOC: EC 18:40
DX: S06.0X0A Concussion without loss of consciousness, initial encounter (principal); M51.16 Intervertebral disc disorders with radiculopathy, lumbar region; M47.26 Other spondylosis with radiculopathy, lumbar region; M47.814 Spondylosis without myelopathy or radiculopathy, thoracic region; R29.700 NIHSS score 0; M54.2 Cervicalgia; M25.511 Pain in right shoulder; M79.601 Pain in right arm; R20.0 Anesthesia of skin; H53.8 Other visual disturbances; E78.5 Hyperlipidemia, unspecified; I10 Essential (primary) hypertension; I48.91 Unspecified atrial fibrillation; E11.9 Type 2 diabetes mellitus without complications; K58.9 Irritable bowel syndrome, unspecified; F32.9 Major depressive disorder, single episode, unspecified; F41.9 Anxiety disorder, unspecified; Z79.84 Long term (current) use of oral hypoglycemic drugs; Z79.899 Other long term (current) drug therapy; Z88.0 Allergy status to penicillin; Z88.5 Allergy status to narcotic agent; Z91.030 Bee allergy status; W06.XXXA Fall from bed, initial encounter
CPT/HCPCS: 36415; 93005; 80053; 80201; 82550; 82553; 80162; 84484; 85025; 85610; 85730; 72072; 72110; 72125; 72132; 70450; 99284; 96374; 96375 ×2; J1200; J2765; J1885; Q9967

== ENCOUNTER → 2018-06-13 | Outpatient (CLI) | payer MEDICARE, OTHER ==
[2018-06-13 18:07] LABS: HCT 44.4 % (34.0-46.0); HGB 14.7 gm/dL (11.4-16.0); MCH 30.5 pg (25.0-35.0); MCV 92.3 fL (80.0-100.0); Mean Platelet Volume 7.4; Platelet Count 248 k/uL (150-450); RBC 4.81 m/uL (3.80-5.40); RDW 13.9 % (11.5-15.5); WBC 9.7 k/uL (3.8-10.6)
[2018-06-14 03:14] LABS: Protein, Total 6.5 g/dL (6.2-8.2)
[2018-06-16 15:48] LABS: Gamma Globulin 0.96 g/dL (0.70-1.50)
== END | disposition home or self-care (01) ==
LOC: LABWHC1 15:38
PROVIDERS: ATTEND Orthopaedic Surgery Orthopaedic Surgery of the Spine
DX: M51.17 Intervertebral disc disorders with radiculopathy, lumbosacral region (principal); M50.322 Other cervical disc degeneration at C5-C6 level; M47.812 Spondylosis without myelopathy or radiculopathy, cervical region; R53.1 Weakness; I51.9 Heart disease, unspecified; I10 Essential (primary) hypertension; E78.5 Hyperlipidemia, unspecified; M54.5 Low back pain; E66.9 Obesity, unspecified; Z68.32 Body mass index [BMI] 32.0-32.9, adult
CPT/HCPCS: 36415; 84165; 85027

== ENCOUNTER → 2018-06-17 | Outpatient (CLI) | payer MEDICARE, OTHER ==
--- NOTE | 2018-06-17 16:14 | NM ---
EXAMINATION TYPE: NM bone scan whole body DATE OF EXAM: 06/17/2018 COMPARISON: NONE HISTORY: Lower back pain Delayed whole-body scanning was performed following the injection of 23.1 mCi Tc 99m MDP. Images acq uired 3.5 hours post injection. FINDINGS: There is degenerative uptake noted about the shoulders, sternoclavicular joints, mid thoracic spine, bilateral hips, knees and mid feet and ankles. No intense uptake to suggest bony lesion or fracture. IMPRESSION: Degenerative uptake as noted.
== END | disposition home or self-care (01) ==
LOC: RADNMMAIN 11:33
PROVIDERS: ATTEND Orthopaedic Surgery Orthopaedic Surgery of the Spine
DX: R94.8 Abnormal results of function studies of other organs and systems (principal)
CPT/HCPCS: 78306; A9503

== ENCOUNTER → 2018-06-23 | Outpatient (CLI) | payer MEDICARE, OTHER ==
[2018-06-23 16:29] LABS: Basophils % (A) 1 %; Eosinophils # (A) 0.1 k/uL (0-0.7); Eosinophils % (A) 1 %; HCT 45.9 % (34.0-46.0); HGB 14.7 gm/dL (11.4-16.0); Lymphocytes # (A) 2.7 k/uL (1.0-4.8); Lymphocytes % (A) 29 %; MCH 29.5 pg (25.0-35.0); MCHC 32.1 g/dL (31.0-37.0); Mean Platelet Volume 6.6; Monocytes # (A) 0.4 k/uL (0-1.0); Monocytes % (A) 4 %; Neutrophils # (A) 5.9 k/uL (1.3-7.7); Neutrophils % (A) 64 %; Platelet Count 234 k/uL (150-450); RBC 4.99 m/uL (3.80-5.40); RDW 13.6 % (11.5-15.5); WBC 9.2 k/uL (3.8-10.6)
[2018-06-23 16:39] LABS: ALT 43 U/L (9-52); AST 55 U/L (14-36); Albumin 4.3 g/dL (3.5-5.0); Alkaline Phosphatase 110 U/L (38-126); Anion Gap 7 mmol/L; Blood Urea Nitrogen 7 mg/dL (7-17); Calcium 9.2 mg/dL (8.4-10.2); Carbon Dioxide 23 mmol/L (22-30); Chloride 112 mmol/L (98-107); Glucose 109 mg/dL (74-99); LDH 371 U/L (313-618); Potassium 4.4 mmol/L (3.5-5.1); Sodium 142 mmol/L (137-145); Total Bilirubin 0.3 mg/dL (0.2-1.3); Total Protein 7.5 g/dL (6.3-8.2)
[2018-06-23 17:18] LABS: Erythrocyte Sedimentation Rate 58 mm/hr (0-20)
--- NOTE | 2018-06-23 22:29 | US ---
EXAMINATION TYPE: US liver DATE OF EXAM: 06/23/2018 COMPARISON: CT abdomen and pelvis 2015, CT lumbar spine September 19, 2017 CLINICAL HISTORY: K76.9 Liver disease. Liver disease, history of cholecystectomy EXAM MEASUREMENTS: Liver Length: 20.5 cm Gallbladder Wall: surgically absent CBD: 0.7 cm Right Kidney: 12.0 x 4.7 x 4.6 cm Difficult and limited study due to patient body habitus Pancreas: visualized portions wnl, limited by overlying midline bowel gas Liver: heterogeneous Gallbladder: surgically absent Evidence for sonographic Rodrigues's sign: no CBD: wnl Right Kidney: wnl There is heterogeneous hyperechoic liver redemonstrated consistent with diffuse fatty infiltration. E valuation for focal masses is suboptimal due to the heterogeneity. No suspicious ductal dilatation is noted. Gallbladder is surgically absent. IMPRESSION: Fatty infiltration of liver is redemonstrated.
[2018-06-24 06:19] LABS: Protein, Total 6.5 g/dL (6.2-8.2)
[2018-06-24 09:09] LABS: Immunoglobulin M 61.7 mg/dL (40.0-280.0)
[2018-06-25 10:17] LABS: Albumin 3.71 g/dL (3.20-5.60); Gamma Globulin 0.95 g/dL (0.50-1.60)
== END | disposition home or self-care (01) ==
LOC: RADUSWWP 15:50
PROVIDERS: ATTEND Internal Medicine
DX: K76.0 Fatty (change of) liver, not elsewhere classified (principal); R93.89 Abnormal findings on diagnostic imaging of other specified body structures
CPT/HCPCS: 76705; 80053; 82784; 82785; 83615; 84165; 85025; 85652

== ENCOUNTER → 2018-06-26 | Outpatient (CLI) | payer MEDICARE, OTHER | LOC: LABWHC1 16:01 | PROVIDERS: ATTEND Internal Medicine | DX: R93.89 Abnormal findings on diagnostic imaging of other specified body structures (principal) ==

== ENCOUNTER → 2018-07-14 | Outpatient (CLI) | payer MEDICARE, OTHER ==
[2018-07-14 12:36] LABS: Blood Urea Nitrogen 9 mg/dL (7-17)
--- NOTE | 2018-07-14 13:12 | CT ---
EXAMINATION TYPE: CT abdomen w con DATE OF EXAM: 07/14/2018 COMPARISON: 04/07/2016 INDICATION: Upper Abdominal pain with abnormal labs DLP: 1268.7 mGycm, Automated exposure control for dose reduction was used. CONTRAST: 100 mL of Isovue 300. Study performed with Oral Contrast TECHNIQUE: Axial images were obtained from above the diaphragm to the pubic rami in the axial plane a t 5 mm thick sections. Reconstructed images are reviewed on the computer in the coronal plane. FINDINGS: Limited CT sections are obtained the lung bases. The lung bases are clear. CT ABDOMEN: Liver: Normal Spleen: Normal Pancreas: Normal Adrenal glands: The adrenal glands are normal. Gallbladder: Surgically absent. Kidneys: No masses are evident. No hydronephrosis is present. No cysts are present. Delayed images were obtained through the kidneys, which remain unremarkable. Aorta: Normal Inferior vena cava: Normal. Loops of bowel within the abdomen and pelvis are normal. There are loops of bowel which are incom pletely distended or lack oral contrast limiting their evaluation. IMPRESSIONS: 1. No suspicious acute changes CT abdomen.
== END | disposition home or self-care (01) ==
LOC: RADCTMAIN 11:53
PROVIDERS: ATTEND Internal Medicine
DX: K76.9 Liver disease, unspecified (principal)
CPT/HCPCS: 82565; 84520; 74160; Q9967

== ENCOUNTER → 2018-07-24 | Outpatient (CLI) | payer MEDICARE, OTHER ==
[2018-07-25 03:29] LABS: Rheumatoid Factor 6 IU/mL (0-15)
== END ==
LOC: LABWHC1 16:04
PROVIDERS: ATTEND Internal Medicine
DX: R70.0 Elevated erythrocyte sedimentation rate (principal)
CPT/HCPCS: 36415; 82553; 86038; 86200; 86235; 86431

== ENCOUNTER → 2018-09-15 | Outpatient (CLI) | payer MEDICARE, OTHER ==
--- NOTE | 2018-09-15 17:04 | XR ---
EXAMINATION TYPE: XR Hip LT and AP Pelvis DATE OF EXAM: 09/15/2018 COMPARISON: NONE HISTORY: Pain in left hip TECHNIQUE: A single AP view of the pelvis is obtained. Two views of the left hip are obtained. FINDINGS: There is no acute fracture/dislocation evident in the pelvis. The hip and sacroiliac join ts appear symmetric and unremarkable. The overlying soft tissue appears unremarkable. Two views of left hip show no acute fracture or dislocation. Mild prominence along the femoral neck l aterally. No focal lytic or sclerotic lesion seen in the proximal left femur. The overlying soft tis wili is unremarkable. Probable vascular calcifications in the pelvis. IMPRESSION: There is no acute fracture or dislocation in the pelvis or left hip. Correlate for possi ble acetabular femoral impingement.
== END | disposition home or self-care (01) ==
LOC: RADXRMAIN 14:36
PROVIDERS: ATTEND Internal Medicine
DX: M25.552 Pain in left hip (principal)
CPT/HCPCS: 73502

== ENCOUNTER → 2018-09-22 | Outpatient (CLI) | payer MEDICARE, OTHER ==
--- NOTE | 2018-09-22 14:19 | MM ---
Reason for exam: additional evaluation requested from prior study. Last mammogram was performed 1 year and 1 month ago. History: Patient has history of breast cancer at age 37. Family history of premenopausal breast cancer in aunt and breast cancer in mother at age 59. Benign right breast needle localzation of both breasts, July 29, 2013. Excisional biopsy of the right breast, 2007. Benign excisional biopsy of the right breast, May 05, 2007. Lumpectomy of the right breast, 2006. Physical Findings: Nurse did not find any significant physical abnormalities on exam. MG 3D Diag Mammo W/Cad JENNI Bilateral CC and MLO view(s) were taken. Prior study comparison: August 28, 2017, left breast MG 3d work up w/cad LT. August 22, 2017, bilateral MG 3d screening mammo w/cad. There are scattered fibroglandular densities. Finding: Architectural distortion in the upper outer quadrant of the right breast consistent with known excisional biopsy changes. There is no discrete abnormality. These results were verbally communicated with the patient and result sheet given to the patient on 09/22/18. ASSESSMENT: Negative, BI-RAD 1 RECOMMENDATION: Follow-up diagnostic mammogram of both breasts in 1 year.
== END ==
LOC: RADMAMWWP 13:07
PROVIDERS: ATTEND Internal Medicine
DX: R92.8 Other abnormal and inconclusive findings on diagnostic imaging of breast (principal)
CPT/HCPCS: 77066; G0279; 77062

== ENCOUNTER 2018-10-15 08:28 | Day surgery (SDC) | payer MEDICARE, OTHER ==
[2018-10-13 18:23] VITALS: BMI 33.3
[~2018-10-15 08:28] MED LIST changes: -Pre Op ABX Message 1 EACH MISC MISCELLANE ONE
[2018-10-15 08:44] VITALS: TEMP 97.6
[2018-10-15] MEDS ORDERED: LIDOCAINE 1% 20 ML VIAL (10MG/ML) FOR IV START INTRADERMA ONE (08:55)
[2018-10-15 08:59] LABS: Glucose,Whole Blood 127 mg/dL (75-99)
[2018-10-15] MEDS ORDERED: MIDAZOLAM 2 MG/2 ML VIAL IVP ONE (09:00)
[2018-10-15] MEDS ORDERED: PROPOFOL 10 MG/ML 20 ML VIAL IV ONE (09:01)
--- NOTE | 2018-10-15 09:19 | P.PCN ---
Date of Procedure: 10/15/18 Procedure(s) Performed: BRIEF HISTORY: Patient is a 48-year-old pleasant female, scheduled for an elective colonoscopy as a part of lower abdominal pain and chronic diarrhea for the last 2 years duration. She has bowel movements anywhere from 10-12 a day which are loose to watery in consistency but denies any blood or mucus in the stool. PROCEDURE PERFORMED: Colonoscopy with random biopsy. PREOPERATIVE DIAGNOSIS: Chronic diarrhea and lower abdominal pain of 2 years duration. IV sedation per Anesthesia. PROCEDURE: After informed consent was obtained, the patient, was brought into the endoscopy unit. IV sedation was administered by Anesthesia under continuous monitoring. Digital rectal examination was normal. Initially the Olympus CF-160 flexible video colonoscope was then inserted in the rectum, gradually advanced into the cecum without any difficulty. Careful examination was performed as the scope was gradually being withdrawn. Ileocecal valve and the appendiceal orifice were visualized and appeared normal. Terminal ileum was intubated and 20 cm visualized and appeared normal. Prep was excellent. Mucosa of the cecum, ascending colon, transverse colon, descending colon, sigmoid colon, and rectum appeared normal. Random biopsies were done from ascending and descending colon to rule out microscopic/collagenous colitis. Retroflexion was performed in the rectum and no lesions were seen. The patient tolerated the procedure well. IMPRESSION: Normal-appearing colon from rectum to cecum with no evidence of colitis or colorectal neoplasia. RECOMMENDATIONS: Findings of this examination were discussed with the patient as well as her family. She was advised to follow with the biopsy results. She will continue with her current medications for irritable bowel syndrome..
[2018-10-15 09:33] VITALS: RESP 18
[2018-10-15 09:45] VITALS: BP 100/63; PULSE 80
== END 2018-10-15 10:24 | disposition home or self-care (01) ==
LOC: ORWHC2ENDO 08:28
PROVIDERS: ATTEND Internal Medicine Gastroenterology
DX: K52.9 Noninfective gastroenteritis and colitis, unspecified (principal); I10 Essential (primary) hypertension; E78.5 Hyperlipidemia, unspecified; E11.9 Type 2 diabetes mellitus without complications; I48.91 Unspecified atrial fibrillation; Z79.84 Long term (current) use of oral hypoglycemic drugs; Z88.0 Allergy status to penicillin; Z88.5 Allergy status to narcotic agent; Z79.899 Other long term (current) drug therapy; Z88.8 Allergy status to other drugs, medicaments and biological substances
CPT/HCPCS: 88305; 45380; J2250; J2704

== ENCOUNTER 2018-12-10 19:06 | Inpatient (IN) | payer MEDICARE, OTHER ==
[2018-12-10 19:51] LABS: ALT 59 U/L (9-52); AST 106 U/L (14-36); Albumin 4.9 g/dL (3.5-5.0); Alkaline Phosphatase 123 U/L (38-126); Anion Gap 13 mmol/L; Blood Urea Nitrogen 6 mg/dL (7-17); Calcium 9.5 mg/dL (8.4-10.2); Carbon Dioxide 21 mmol/L (22-30); Chloride 108 mmol/L (98-107); Glucose 109 mg/dL (74-99); Magnesium 2.2 mg/dL (1.6-2.3); Potassium 3.8 mmol/L (3.5-5.1); Sodium 142 mmol/L (137-145); Total Bilirubin 0.9 mg/dL (0.2-1.3)
[2018-12-10] MEDS ORDERED: ASPIRIN 81 MG PO STA (20:00)
[2018-12-10] MEDS ORDERED: NITROGLYCERIN SL TABS 0.4 MG TAB SUBLINGUAL STA ×2 (20:00)
[2018-12-10 20:03] LABS: Basophils % (A) 0 %; Eosinophils # (A) 0.1 k/uL (0-0.7); Eosinophils % (A) 1 %; HCT 45.9 % (34.0-46.0); HGB 15.2 gm/dL (11.4-16.0); Lymphocytes # (A) 3.8 k/uL (1.0-4.8); Lymphocytes % (A) 34 %; MCHC 33.2 g/dL (31.0-37.0); MCV 87.2 fL (80.0-100.0); Mean Platelet Volume 7.3; Monocytes # (A) 0.4 k/uL (0-1.0); Monocytes % (A) 4 %; Neutrophils # (A) 6.6 k/uL (1.3-7.7); Neutrophils % (A) 59 %; Platelet Count 212 k/uL (150-450); RBC 5.26 m/uL (3.80-5.40); RDW 15.2 % (11.5-15.5); WBC 11.2 k/uL (3.8-10.6)
--- NOTE | 2018-12-10 20:07 | ED ---
General Adult HPI - General Chief complaint: Chest Pain Stated complaint: Chest pain Time Seen by Provider: 12/10/18 19:49 Source: patient, family, RN notes reviewed Mode of arrival: wheelchair Limitations: no limitations - History of Present Illness Initial comments: Patient is a pleasant 48-year-old female presenting to the emergency Department with chest discomfort. Onset of symptoms was today. Symptoms have been waxing and waning throughout the day however is somewhat severe at this time. There may be some radiation towards the left jaw. Patient does have associated nausea and did vomit once. No sweating. Patient does feel slightly short of breath. No history of similar symptoms previously. Daughter is present and does add that patient has been having some symptoms over the past couple of days. She also adds that patient has had a couple episodes of incontinence over the past week. Patient is agreeable to the symptoms. Patient states she does have mild increase of her chronic back pain that was diagnosed one year ago. Patient did have a questionable MRI that was done approximately 6 months. Patient denies any urinary incontinence however states she does not know if she is actually urinated yet today. No abdominal pain. No upper back pain. - Related Data Home Medications Medication Instructions Recorded Confirmed QUEtiapine XR [SEROquel XR] 50 mg PO HS 09/27/14 10/15/18 Zolpidem Tartrate [Ambien Cr] 12.5 mg PO HS 09/27/14 10/15/18 Topiramate 100 mg PO BID 04/08/16 10/15/18 clonazePAM [Clonazepam] 0.5 mg PO TID 04/08/16 10/15/18 traZODone HCL [Desyrel] 100 mg PO BID 04/08/16 10/15/18 Atorvastatin Calcium [Lipitor] 10 mg PO HS 12/05/16 10/15/18 Sertraline HCl [Zoloft] 100 mg PO HS 12/05/16 10/15/18 amLODIPine [Norvasc] 2.5 mg PO DAILY 12/05/16 10/15/18 Alosetron HCl [Lotronex] 2 mg PO HS 09/19/17 10/15/18 cloNIDine HCL 0.1 mg PO DAILY PRN 09/19/17 10/15/18 Triamcinolone 0.1% Ointment 1 applic TOPICAL BID PRN 10/13/18 10/15/18 [Kenalog 0.1% Ointment] cloNIDine HCL [Catapres] 0.1 mg PO HS 10/13/18 10/15/18 sitaGLIPtin PHOSPHATE [Januvia] 100 mg PO DAILY 10/13/18 10/15/18 Allergies Allergy/AdvReac Type Severity Reaction Status Date / Time morphine Allergy Swelling, Verified 12/10/18 21:07 diff breathing Penicillins Allergy Unknown Verified 12/10/18 21:07 Childhood venom-honey bee Allergy Anaphylaxis-has Verified 12/10/18 21:07 [bee venom (honey bee)] epi-pen baclofen AdvReac Diarrhea Verified 12/10/18 21:07 Review of Systems ROS Statement: Those systems with pertinent positive or pertinent negative responses have been documented in the HPI. ROS Other: All systems not noted in ROS Statement are negative. Constitutional: Denies: fever Eyes: Denies: eye pain ENT: Denies: ear pain Respiratory: Reports: as per HPI. Denies: cough Cardiovascular: Reports: chest pain Endocrine: Reports: fatigue Gastrointestinal: Reports: nausea, vomiting. Denies: abdominal pain Genitourinary: Denies: dysuria Musculoskeletal: Reports: as per HPI, back pain Skin: Reports: rash (Chronic rash related to some autoimmune disease the patient is not aware of the name. This affects mostly her feet) Past Medical History Past Medical History: Atrial Fibrillation, Diabetes Mellitus, Hyperlipidemia, Hypertension Additional Past Medical History / Comment(s): Postural orthostatic tachycardia syndrome, Migraines, IBS. 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 History of Any Multi-Drug Resistant Organisms: None Reported Past Surgical History: Appendectomy, Breast Surgery, Cardiac Ablation, Cholecystectomy, Heart Catheterization, Hysterectomy, Orthopedic Surgery Additional Past Surgical History / Comment(s): BIOPSY- RT BREAST x2, RT LUMPECTOMY; LT KNEE SURGERY X4 (2 arthroscopic), Left ankle x 2, CARDIAC ABLATION X 2. COLONOSCOPY Past Anesthesia/Blood Transfusion Reactions: Previous Problems w/ Anesthesia Additional Past Anesthesia/Blood Transfusion Reaction / Comment(s): DIFFICULT INTUBATION W/ EMERG APPENDECTOMY-Can't find letter Past Psychological History: Anxiety, Depression Smoking Status: Never smoker Past Alcohol Use History: None Reported Past Drug Use History: None Reported - Past Family History Father Family Medical History: Hypertension, Myocardial Infarction ([place]), Pulmonary Embolus Mother Family Medical History: Cancer Additional Family Medical History / Comment(s): Lymphatic CA General Exam Limitations: no limitations General appearance: alert, in no apparent distress Head exam: Present: atraumatic Eye exam: Present: normal appearance, PERRL ENT exam: Present: normal oropharynx Neck exam: Present: normal inspection Respiratory exam: Present: normal lung sounds bilaterally Cardiovascular Exam: Present: regular rate, normal rhythm Expanded Peripheral pulses: 2+: Radial (R), Radial (L), Posterior Tibialis (R), Posterior Tibialis (L), Dorsalis Pedis (R), Dorsalis Pedis (L) GI/Abdominal exam: Present: soft. Absent: distended, tenderness Rectal exam: Present: normal rectal tone (RN Nirmala K is present) Extremities exam: Present: normal inspection, full ROM Back exam: Present: tenderness (Mild tenderness lumbar spine) Neurological exam: Present: alert. Absent: motor sensory deficit Expanded Sensory exam: Lower Extremity Light Touch: Normal Motor strength exam: RLE: 5, LLE: 5 Eye Response: (4) open spontaneously Motor Response: (6) obeys commands Verbal Response: (5) oriented Psychiatric exam: Present: normal affect, normal mood Skin exam: Present: rash (Discoloration left More than the right foot on the dorsal side) Course Vital Signs 12/10/18 12/10/18 12/10/18 19:08 20:40 20:51 Temperature 99.0 F Pulse Rate 85 81 92 Respiratory 16 18 18 Rate Blood Pressure 126/72 137/87 105/89 O2 Sat by Pulse 95 97 94 L Oximetry EKG Findings - EKG Comments: EKG Findings:: Normal sinus rhythm 78. ND 134. QRS 76. QT 456. QTC 519. Right axis. Normal QRS. No acute ST change. Medical Decision Making - Medical Decision Making Patient reevaluated and resting comfortably in bed. Patient and family updated on results and plan. Bladder scan has 42 mL present. Case was discussed in detail with Dr. Snell, covering for Dr. royal, who admits for Dr. Osborne. He will admit. Ramsey to be consult. He will review case before determining further imaging on the back or consult for Dr. Boswell as needed. - Lab Data Result diagrams: 12/10/18 19:36 12/10/18 19:36 Lab Results 12/10/18 12/10/18 12/10/18 Range/Units 19:36 19:36 19:36 WBC 11.2 H (3.8-10.6) k/uL RBC 5.26 (3.80-5.40) m/uL Hgb 15.2 (11.4-16.0) gm/dL Hct 45.9 (34.0-46.0) % MCV 87.2 (80.0-100.0) fL MCH 29.0 (25.0-35.0) pg MCHC 33.2 (31.0-37.0) g/dL RDW 15.2 (11.5-15.5) % Plt Count 212 (150-450) k/uL Neutrophils % 59 % Lymphocytes % 34 % Monocytes % 4 % Eosinophils % 1 % Basophils % 0 % Neutrophils # 6.6 (1.3-7.7) k/uL Lymphocytes # 3.8 (1.0-4.8) k/uL Monocytes # 0.4 (0-1.0) k/uL Eosinophils # 0.1 (0-0.7) k/uL Basophils # 0.0 (0-0.2) k/uL PT (9.0-12.0) sec INR (<1.2) APTT (22.0-30.0) sec D-Dimer (<0.60) mg/L FEU Sodium 142 (137-145) mmol/L Potassium 3.8 (3.5-5.1) mmol/L Chloride 108 H (98-107) mmol/L Carbon Dioxide 21 L (22-30) mmol/L Anion Gap 13 mmol/L BUN 6 L (7-17) mg/dL Creatinine 0.79 (0.52-1.04) mg/dL Est GFR (CKD-EPI)AfAm >90 (>60 ml/min/1.73 sqM) Est GFR (CKD-EPI)NonAf >90 (>60 ml/min/1.73 sqM) Glucose 109 H (74-99) mg/dL Calcium 9.5 (8.4-10.2) mg/dL Magnesium 2.2 (1.6-2.3) mg/dL Total Bilirubin 0.9 (0.2-1.3) mg/dL AST 106 H (14-36) U/L ALT 59 H (9-52) U/L Alkaline Phosphatase 123 (38-126) U/L Creatine Kinase (30-135) U/L Troponin I <0.012 (0.000-0.034) ng/mL Total Protein 8.0 (6.3-8.2) g/dL Albumin 4.9 (3.5-5.0) g/dL 12/10/18 12/10/18 Range/Units 19:36 20:14 WBC (3.8-10.6) k/uL RBC (3.80-5.40) m/uL Hgb (11.4-16.0) gm/dL Hct (34.0-46.0) % MCV (80.0-100.0) fL MCH (25.0-35.0) pg MCHC (31.0-37.0) g/dL RDW (11.5-15.5) % Plt Count (150-450) k/uL Neutrophils % % Lymphocytes % % Monocytes % % Eosinophils % % Basophils % % Neutrophils # (1.3-7.7) k/uL Lymphocytes # (1.0-4.8) k/uL Monocytes # (0-1.0) k/uL Eosinophils # (0-0.7) k/uL Basophils # (0-0.2) k/uL PT 10.9 (9.0-12.0) sec INR 1.0 (<1.2) APTT 25.7 (22.0-30.0) sec D-Dimer 0.20 (<0.60) mg/L FEU Sodium (137-145) mmol/L Potassium (3.5-5.1) mmol/L Chloride (98-107) mmol/L Carbon Dioxide (22-30) mmol/L Anion Gap mmol/L BUN (7-17) mg/dL Creatinine (0.52-1.04) mg/dL Est GFR (CKD-EPI)AfAm (>60 ml/min/1.73 sqM) Est GFR (CKD-EPI)NonAf (>60 ml/min/1.73 sqM) Glucose (74-99) mg/dL Calcium (8.4-10.2) mg/dL Magnesium (1.6-2.3) mg/dL Total Bilirubin (0.2-1.3) mg/dL AST (14-36) U/L ALT (9-52) U/L Alkaline Phosphatase (38-126) U/L Creatine Kinase 1016 H* (30-135) U/L Troponin I (0.000-0.034) ng/mL Total Protein (6.3-8.2) g/dL Albumin (3.5-5.0) g/dL - Radiology Data Interpreted by me: Chest x-ray interpreted by myself shows no acute process Disposition Clinical Impression: Chest pain Disposition: ADMITTED IP TO THIS HOSP Is patient prescribed a controlled substance at d/c from ED?: No Referrals: Scott Johnson MD [Primary Care Provider] - 1-2 days Decision Time: 21:13
[2018-12-10 20:38] LABS: D-Dimer 0.2 mg/L FEU (<0.60); Partial Thromboplastin Time 25.7 sec (22.0-30.0); Prothrombin Time 10.9 sec (9.0-12.0)
[2018-12-10] MEDS: NITROGLYCERIN SL TABS 0.4 MG TAB SUBLINGUAL STA ×2 (20:51→20:52)
[2018-12-10] MEDS ORDERED: NITROGLYCERIN SL TABS 0.4 MG TAB SUBLINGUAL PRN (21:13)
--- NOTE | 2018-12-10 21:32 | XR ---
EXAMINATION: XR chest 2V DATE AND TIME: 12/10/2018 8:58 PM CLINICAL INDICATION: PHH; Chest Pain TECHNIQUE: Departmental protocol COMPARISON: 06/07/2014 FINDINGS: The lungs are clear. The pleural spaces are negative. The cardiac silhouette is not enlarged. The remainder of the mediastinal silhouette is unremarkable. The skeletal structures and soft tissues are negative for acute findings. IMPRESSION: NO ACUTE PROCESS.
[2018-12-10 22:16] LABS: Appearance,Urine Turbid (Clear); Bacteria,Urine Many /hpf; Bilirubin,Urine Negative (Negative); Blood,Urine Negative (Negative); Color,Urine Yellow; Glucose,Urine (UA) Negative (Negative); Ketones,Urine Negative (Negative); Leukocyte Esterase,Urine Large (Negative); Mucus,Urine Many /hpf; Nitrite,Urine Negative (Negative); Protein,Urine 1+ (Negative); RBC,Urine 5 /hpf (0-5); Specific Gravity,Urine 1.023 (1.001-1.035); Squamous Epithelial Cell,Urine 33 /hpf (0-4); WBC,Urine 56 /hpf (0-5)
[2018-12-10 22:46] LABS: Glucose,Whole Blood 102 mg/dL (75-99)
[2018-12-11] MEDS ORDERED: cloNIDine HCL 0.1 MG TAB PO PRN (00:37)
[2018-12-11] MEDS ORDERED: ATORVASTATIN 10 MG TAB PO SCH (00:45)
[2018-12-11] MEDS ORDERED: [UNRECOGNIZED DRUG - OTHER] PO SCH (00:45)
[2018-12-11] MEDS ORDERED: ZOLPIDEM 5 MG TAB PO SCH (00:45)
[2018-12-11] MEDS ORDERED: MAG HYDROX/AL HYDROX/SIMETH 30 ML CUP PO PRN (00:59)
--- NOTE | 2018-12-11 01:05 | P.HPIM ---
History of Present Illness H&P Date: 12/10/18 Chief Complaint: chest pain 48-year-old female with history of by mouth TS, A. fib status post ablation no pacemaker, diabetes mellitus, hypertension. Patient came into the hospital due to chest pain mainly. She reports it started in the afternoon while laying down doing nothing and resting. She claims that she felt pressure central chest rated 8 out of 10 in severity radiating to the neck and jaw. Was associated with some sweating nausea and vomiting she actually threw up. Then she adds it lasted 10 minutes and then the pain improved however she kept on getting frequent episodes of milder form of the pain and discomfort. She tried nitro at home but didn't help with the pain. She reports that she was having frequent episodes of nausea and vomiting over the past week for which her primary care doctor prescribed her Protonix. EKG in the ED showed prolonged QT interval. She reports that she had a left heart cath done over a year ago and was negative Patient then adds that she has frequent loose bowel movements she had 10 episodes since last night. Then she reports having loose bowel movements for the past 2-1/2 years, she also gets episodes of stool incontinence that happens very frequently this has been going on for the past 2 months for which she follows up with GI as an outpatient she had a colonoscopy and EGD over 5 years ago and was reported to be normal then she had another colonoscopy recently however she did not get the results yet. She also have chronic low back pain which has been increasing in severity over the past couple months. She reports that all started back in September 2017 when she fell out of the bed she was later diagnosed with L4 5 ruptured disc she is to follow-up with Dr. Elliott, she received a steroid shot in her low back September [address] and she walks around on her own does not use any assistive devices. She denies any focal weakness numbness or tingling in her lower extremities. Patient reports decreased urine output she claims that over the past 20 hours she only had 10 drops of urine that denies any lower abdominal pain, any urinary incontinence, any urgency to peak, any dysuria or hematuria, bladder scan in the ED showed that she has less than 47 mL of urine further workup in the ED suggested elevated creatine kinase at 1016. However her basic metabolic panel was unremarkable Patient also questioning the possibility of autoimmune disease that she has, due to the rash that has over her bilateral feet. Then she indicates that she followed up with dermatology who performed a punch biopsy and diagnosed her with granuloma annulare. Review of Systems Pertinent positives as noted in HPI. All other systems were reviewed and are negative Past Medical History Past Medical History: Atrial Fibrillation, Diabetes Mellitus, Hyperlipidemia, Hypertension Additional Past Medical History / Comment(s): Postural orthostatic tachycardia syndrome, Migraines, IBS. 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 Granuloma annulare History of Any Multi-Drug Resistant Organisms: None Reported Past Surgical History: Appendectomy, Breast Surgery, Cardiac Ablation, Cholecystectomy, Heart Catheterization, Hysterectomy, Orthopedic Surgery Additional Past Surgical History / Comment(s): BIOPSY- RT BREAST x2, RT LUM PECTOMY; LT KNEE SURGERY X4 (2 arthroscopic), Left ankle x 2, CARDIAC ABLATION X 2. COLONOSCOPY Past Anesthesia/Blood Transfusion Reactions: Previous Problems w/ Anesthesia Additional Past Anesthesia/Blood Transfusion Reaction / Comment(s): DIFFICULT INTUBATION W/ EMERG APPENDECTOMY-Can't find letter Past Psychological History: Anxiety, Depression Smoking Status: Never smoker Past Alcohol Use History: None Reported Past Drug Use History: None Reported - Past Family History Father Family Medical History: Hypertension, Myocardial Infarction ([place]), Pulmonary Embolus Mother Family Medical History: Cancer Additional Family Medical History / Comment(s): Lymphatic CA Medications and Allergies Home Medications Medication Instructions Recorded Confirmed Type Zolpidem Tartrate [Ambien Cr] 12.5 mg PO HS 09/27/14 12/10/18 History Topiramate 100 mg PO BID 04/08/16 12/10/18 History clonazePAM [Clonazepam] 1 mg PO BID 04/08/16 12/10/18 History traZODone HCL [Desyrel] 100 mg PO BID 04/08/16 12/10/18 History Atorvastatin Calcium [Lipitor] 10 mg PO HS 12/05/16 12/10/18 History Sertraline HCl [Zoloft] 100 mg PO HS 12/05/16 12/10/18 History Alosetron HCl [Lotronex] 2 mg PO HS 09/19/17 12/10/18 History cloNIDine HCL 0.1 mg PO DAILY PRN 09/19/17 12/10/18 History Diltiazem HCl [Cartia Xt] 120 mg PO HS 12/10/18 12/10/18 History Galcanezumab-Gnlm [Emgality] 120 mg SQ Q30D 12/10/18 12/10/18 History Pantoprazole Sodium [Protonix] 20 mg PO DAILY 12/10/18 12/10/18 History Allergies Allergy/AdvReac Type Severity Reaction Status Date / Time morphine Allergy Swelling, Verified 12/10/18 21:07 diff breathing Penicillins Allergy Unknown Verified 12/10/18 21:07 Childhood venom-honey bee Allergy Anaphylaxis-has Verified 12/10/18 21:07 [bee venom (honey bee)] epi-pen baclofen AdvReac Diarrhea Verified 12/10/18 21:07 Physical Exam Vitals: Vital Signs Temp Pulse Pulse Resp BP BP Pulse Ox 12/10/18 23:21 73 16 12/10/18 23:08 98.3 F 73 15 112/64 98 12/10/18 21:48 98.0 F 74 18 122/78 96 12/10/18 20:51 92 18 105/89 94 L 12/10/18 20:40 81 18 137/87 97 12/10/18 19:08 99.0 F 85 16 126/72 95 Intake and Output 12/10/18 12/10/18 12/11/18 14:59 22:59 06:59 Other: Voiding Method Toilet # Voids 1 1 Weight 80.286 kg Constitutional: No acute distress, conversant, pleasant Eyes: Anicteric sclerae, moist conjunctiva, no lid-lag Pupils equal round reactive to light ENMT: NC/AT Oropharynx clear, no erythema, or exudates Neck: Supple, FROM, no masses, or JVD No carotid bruits No thyromegaly Lungs: Clear to auscultation Clear to percussion Normal respiratory effort, no accessory muscle use Cardiovascular: Heart regular in rate and rhythm, No murmurs, gallops, or rubs No peripheral edema Abdominal: Soft, multiple stria over lower abdomen Nontender, no guarding, rebound or rigidity Abdomen moving with respiration Normoactive bowel sounds No hepatomegaly, No splenomegaly No palpable mass No abdominal wall hernia noted Skin: Normal temperature, tone, texture, turgor No induration No subcutaneous nodules Annular rash over bilateral feet No ulcers Extremities: No digital cyanosis No clubbing Pedal pulses intact and symmetrical Radial pulses intact and symmetrical No calf tenderness Psychiatric: Alert and oriented to person, place and time Appropriate affect fair judgment Neuro Muscles Strength 5/5 in all 4 extremities Sensation to light touch grossly present throughout Cranial nerves II-XII grossly intact No focal sensory deficits Lymphatics: no palpable cervical or supraclavicular , or inguinal lymph nodes Results CBC & Chem 7: 12/10/18 19:36 12/10/18 19:36 Labs: Abnormal Lab Results - Last 24 Hours (Table) 12/10/18 12/10/18 12/10/18 Range/Units 19:36 19:36 19:36 WBC 11.2 H (3.8-10.6) k/uL Chloride 108 H (98-107) mmol/L Carbon Dioxide 21 L (22-30) mmol/L BUN 6 L (7-17) mg/dL Glucose 109 H (74-99) mg/dL POC Glucose (mg/dL) (75-99) mg/dL AST 106 H (14-36) U/L ALT 59 H (9-52) U/L Creatine Kinase 1016 H* (30-135) U/L Urine Appearance (Clear) Urine Protein (Negative) Ur Leukocyte Esterase (Negative) Urine WBC (0-5) /hpf Urine WBC Clumps (None) /hpf Ur Squamous Epith Cells (0-4) /hpf Urine Bacteria (None) /hpf Urine Mucus (None) /hpf 12/10/18 12/10/18 Range/Units 20:47 22:44 WBC (3.8-10.6) k/uL Chloride (98-107) mmol/L Carbon Dioxide (22-30) mmol/L BUN (7-17) mg/dL Glucose (74-99) mg/dL POC Glucose (mg/dL) 102 H (75-99) mg/dL AST (14-36) U/L ALT (9-52) U/L Creatine Kinase (30-135) U/L Urine Appearance Turbid H (Clear) Urine Protein 1+ H (Negative) Ur Leukocyte Esterase Large H (Negative) Urine WBC 56 H (0-5) /hpf Urine WBC Clumps Occasional H (None) /hpf Ur Squamous Epith Cells 33 H (0-4) /hpf Urine Bacteria Many H (None) /hpf Urine Mucus Many H (None) /hpf Thrombosis Risk Factor Assmnt - Choose All That Apply Each Factor Represents 1 point: Age 41-60 years, Hx of IBD, Obesity (BMI >25) Thrombosis Risk Factor Assessment Total Risk Factor Score: 3 Thrombosis Risk Factor Assessment Level: Moderate Risk Assessment and Plan Assessment: 48-year-old female with history of diabetes hypertension hyperlipidemia A. fib nothing by mouth TS. 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 Boswell who patient seen in the past Decreased urine output, rule out acute kidney injury. Close monitoring on urine output. Continue with IV fluid hydration for now, urine analysis reviewed contaminated sample Diabetes mellitus, insulin sliding scale A. fib status post ablation currently rate controlled continue with aspirin History of breast cancer status post lumpectomy Bilateral feet rash secondary to granuloma annulare currently stable Prophylaxis heparin subcu 3 times a day Surrogate decision-maker: Patient daughter CODE STATUS: Full code Discussed with: Patient, ER, RN Anticipated discharge: Less than [address]: Home A total of 60 minutes was spent on the care of this complex patient more than 50% of the time was spent in counseling and care coordination.
[2018-12-11] MEDS: NITROGLYCERIN OINT 1 INCH/GM PACKET TOPICAL SCH ×3 (01:33→12:48)
[2018-12-11] MEDS: clonazePAM 1 MG TAB PO SCH ×3 (01:46→21:03)
[2018-12-11] MEDS: DILTIAZEM CD 120 MG CAP.ER.24H PO SCH ×2 (01:47→21:03)
[2018-12-11] MEDS: SERTRALINE 100 MG TAB PO SCH ×2 (01:47→21:03)
[2018-12-11] MEDS: traZODone HCL 100 MG TAB PO SCH ×3 (01:48→21:03)
[2018-12-11] MEDS: SODIUM CHLORIDE 0.9% 1,000 ML IV SCH ×2 (01:48→13:10)
[2018-12-11] MEDS: TOPIRAMATE 100 MG TAB PO SCH ×3 (01:48→21:03)
[2018-12-11 06:56] LABS: Glucose,Whole Blood 110 mg/dL (75-99)
[2018-12-11 08:10] LABS: Basophils % (A) 0 %; Eosinophils # (A) 0.1 k/uL (0-0.7); Eosinophils % (A) 1 %; HCT 42.1 % (34.0-46.0); HGB 13.8 gm/dL (11.4-16.0); Lymphocytes # (A) 3.3 k/uL (1.0-4.8); Lymphocytes % (A) 35 %; MCH 28.6 pg (25.0-35.0); MCHC 32.7 g/dL (31.0-37.0); MCV 87.4 fL (80.0-100.0); Mean Platelet Volume 7.3; Monocytes # (A) 0.4 k/uL (0-1.0); Monocytes % (A) 4 %; Neutrophils # (A) 5.6 k/uL (1.3-7.7); Neutrophils % (A) 59 %; Platelet Count 204 k/uL (150-450); RBC 4.81 m/uL (3.80-5.40); RDW 14.8 % (11.5-15.5); WBC 9.6 k/uL (3.8-10.6)
[2018-12-11] MEDS ORDERED: DOBUTamine DRIP for NUC MED 500 MG in DEXTROSE/WATER 1 250ML.BAG IV ONE (08:14)
[2018-12-11 08:27] LABS: ALT 53 U/L (9-52); AST 78 U/L (14-36); Albumin 4.1 g/dL (3.5-5.0); Alkaline Phosphatase 95 U/L (38-126); Anion Gap 9 mmol/L; Blood Urea Nitrogen 6 mg/dL (7-17); Calcium 8.7 mg/dL (8.4-10.2); Carbon Dioxide 25 mmol/L (22-30); Chloride 110 mmol/L (98-107); Cholesterol 173 mg/dL (<200); Creatine Kinase 966 U/L (30-135); Glucose 110 mg/dL (74-99); HDL Cholesterol 28 mg/dL (40-60); LDL Cholesterol,Calculated 107 mg/dL (0-99); Sodium 144 mmol/L (137-145); Total Bilirubin 0.8 mg/dL (0.2-1.3); Total Protein 6.7 g/dL (6.3-8.2); Triglycerides 189 mg/dL (<150)
[2018-12-11 08:37] LABS: Potassium 2.7 mmol/L (3.5-5.1)
[2018-12-11] MEDS ORDERED: ASPIRIN 325 MG TAB PO SCH (09:00)
--- NOTE | 2018-12-11 10:06 | P.CNOR ---
History of Present Illness - HPI Consult date: 12/11/18 Consult reason: low back pain History of present illness: Patient's pleasant 48-year-old female who has long-standing history of low back pain. She had been seen Redd 7 months ago in our office for evaluation. She is experiencing back pain has continued extremes back pain since then. She also admits to some loose stools and urgency to having bowel movements. She also admits to having urgency with urination. She is admitted in observation in terms of new onset of chest pain yesterday and is continuing her workup for cardiac issues. In terms of her back she says that she has had continued problems with her back after seeing us. When we saw her she did not have significant stenosis or any evidence of instability at her lumbar spine. She had some bone signal inconsistency and had workup in terms of follow-up body bone scan and computed tomography scan and lab work with serum protein electrophoresis which apparently came back negative. Since that time she has had some further evaluation and [facility]. She still feels that the injections did make some difference for her in terms of improving her pain but she had such a bad experience that she no longer wants to return to [facility] for further care. She denies any weakness in her lower extremities. She is able to ambulate independently. She denies any fevers chills. Denies any new injury. Denies any specific trauma. Review of Systems As stated in HPI. She says her stools are loose and watery she has not had normal bowel movement in months. She says comes on with significant urgency where she occasionally has bowel movements without being able to make it to the bathroom. She is aware that she is having bowel movements when she has them. Past Medical History Past Medical History: Atrial Fibrillation, Diabetes Mellitus, Hyperlipidemia, Hypertension Additional Past Medical History / Comment(s): Postural orthostatic tachycardia syndrome, Migraines, IBS. 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 Granuloma annulare History of Any Multi-Drug Resistant Organisms: None Reported Past Surgical History: Appendectomy, Breast Surgery, Cardiac Ablation, Cholecystectomy, Heart Catheterization, Hysterectomy, Orthopedic Surgery Additional Past Surgical History / Comment(s): BIOPSY- RT BREAST x2, RT LUMPECTOMY; LT KNEE SURGERY X4 (2 arthroscopic), Left ankle x 2, CARDIAC ABLATION X 2. COLONOSCOPY Past Anesthesia/Blood Transfusion Reactions: Previous Problems w/ Anesthesia Additional Past Anesthesia/Blood Transfusion Reaction / Comm: DIFFICULT INTUBATION W/ EMERG APPENDECTOMY-Can't find letter Past Psychological History: Anxiety, Depression Smoking Status: Never smoker Past Alcohol Use History: None Reported Past Drug Use History: None Reported - Past Family History Father Family Medical History: Hypertension, Myocardial Infarction ([place]), Pulmonary Embolus Mother Family Medical History: Cancer Additional Family Medical History / Comment(s): Lymphatic CA Medications and Allergies Home Medications Medication Instructions Recorded Confirmed Type Zolpidem Tartrate [Ambien Cr] 12.5 mg PO HS 09/27/14 12/10/18 History Topiramate 100 mg PO BID 04/08/16 12/10/18 History clonazePAM [Clonazepam] 1 mg PO BID 04/08/16 12/10/18 History traZODone HCL [Desyrel] 100 mg PO BID 04/08/16 12/10/18 History Atorvastatin Calcium [Lipitor] 10 mg PO HS 12/05/16 12/10/18 History Sertraline HCl [Zoloft] 100 mg PO HS 12/05/16 12/10/18 History Alosetron HCl [Lotronex] 2 mg PO HS 09/19/17 12/10/18 History cloNIDine HCL 0.1 mg PO DAILY PRN 09/19/17 12/10/18 History Diltiazem HCl [Cartia Xt] 120 mg PO HS 12/10/18 12/10/18 History Galcanezumab-Gnlm [Emgality] 120 mg SQ Q30D 12/10/18 12/10/18 History Pantoprazole Sodium [Protonix] 20 mg PO DAILY 12/10/18 12/10/18 History Allergies Allergy/AdvReac Type Severity Reaction Status Date / Time morphine Allergy Swelling, Verified 12/10/18 21:07 diff breathing Penicillins Allergy Unknown Verified 12/10/18 21:07 Childhood venom-honey bee Allergy Anaphylaxis-has Verified 12/10/18 21:07 [bee venom (honey bee)] epi-pen baclofen AdvReac Diarrhea Verified 12/10/18 21:07 Physical Examination Osteopathic Statement: *. No significant issues noted on an osteopathic structural exam other than those noted in the History and Physical/Consult. - L Spine: dermatomal strength & reflexes bilateral Strength: hip flexion: 5/5 (Lower extremities she has full active and passive range of motion with 5 out of 5 strength. There is no pain with interelectrode dictation. There is no saddle paresthesias. She has some paravertebral spasm. Her abdomen is soft.) Results I reviewed her bone scan as well as her computed tomography scan from the end of 2018 as well as report from her MRI in 2018. Those show mild degenerative disc and facet at versus at her lumbar spine without significant stenosis. There is no significant herniation or stenotic change. There is no evidence of instability at her lumbar spine. - Labs Labs: Abnormal Lab Results - Last 24 Hours (Table) 12/10/18 12/10/18 12/10/18 Range/Units 19:36 19:36 19:36 WBC 11.2 H (3.8-10.6) k/uL Potassium (3.5-5.1) mmol/L Chloride 108 H (98-107) mmol/L Carbon Dioxide 21 L (22-30) mmol/L BUN 6 L (7-17) mg/dL Glucose 109 H (74-99) mg/dL POC Glucose (mg/dL) (75-99) mg/dL AST 106 H (14-36) U/L ALT 59 H (9-52) U/L Creatine Kinase 1016 H* (30-135) U/L Triglycerides (<150) mg/dL LDL Cholesterol, Calc (0-99) mg/dL HDL Cholesterol (40-60) mg/dL Urine Appearance (Clear) Urine Protein (Negative) Ur Leukocyte Esterase (Negative) Urine WBC (0-5) /hpf Urine WBC Clumps (None) /hpf Ur Squamous Epith Cells (0-4) /hpf Urine Bacteria (None) /hpf Urine Mucus (None) /hpf 12/10/18 12/10/18 12/11/18 Range/Units 20:47 22:44 06:55 WBC (3.8-10.6) k/uL Potassium (3.5-5.1) mmol/L Chloride (98-107) mmol/L Carbon Dioxide (22-30) mmol/L BUN (7-17) mg/dL Glucose (74-99) mg/dL POC Glucose (mg/dL) 102 H 110 H (75-99) mg/dL AST (14-36) U/L ALT (9-52) U/L Creatine Kinase (30-135) U/L Triglycerides (<150) mg/dL LDL Cholesterol, Calc (0-99) mg/dL HDL Cholesterol (40-60) mg/dL Urine Appearance Turbid H (Clear) Urine Protein 1+ H (Negative) Ur Leukocyte Esterase Large H (Negative) Urine WBC 56 H (0-5) /hpf Urine WBC Clumps Occasional H (None) /hpf Ur Squamous Epith Cells 33 H (0-4) /hpf Urine Bacteria Many H (None) /hpf Urine Mucus Many H (None) /hpf 12/11/18 Range/Units 07:47 WBC (3.8-10.6) k/uL Potassium 2.7 L* (3.5-5.1) mmol/L Chloride 110 H (98-107) mmol/L Carbon Dioxide (22-30) mmol/L BUN 6 L (7-17) mg/dL Glucose 110 H (74-99) mg/dL POC Glucose (mg/dL) (75-99) mg/dL AST 78 H (14-36) U/L ALT 53 H (9-52) U/L Creatine Kinase 966 H (30-135) U/L Triglycerides 189 H (<150) mg/dL LDL Cholesterol, Calc 107 H (0-99) mg/dL HDL Cholesterol 28 L (40-60) mg/dL Urine Appearance (Clear) Urine Protein (Negative) Ur Leukocyte Esterase (Negative) Urine WBC (0-5) /hpf Urine WBC Clumps (None) /hpf Ur Squamous Epith Cells (0-4) /hpf Urine Bacteria (None) /hpf Urine Mucus (None) /hpf H & H 12/10/18 12/11/18 Range/Units 19:36 07:47 Hgb 15.2 13.8 (11.4-16.0) gm/dL Hct 45.9 42.1 (34.0-46.0) % Coagulation 12/10/18 Range/Units 20:14 INR 1.0 (<1.2) Result Diagrams: 12/11/18 07:47 12/11/18 07:47 Assessment and Plan Assessment: Chronic low back pain without significant stenosis or instability Acute chest pain currently being worked up for cardiac etiology Bowel and bladder change, chronic Plan: Chronic low back pain without significant stenosis or instability Acute chest pain currently being worked up for cardiac etiology Bowel and bladder change, chronic It is difficult to ascertain the source of the patient's low back continued symptoms. She has significant pain and has been having chronic changes in bowel or bladder function with watery stools. She has had workup with GI as well as with our service and pain management. I do not think that she is a candidate for surgical intervention for her lumbar spine. She has no significant stenosis or inability to indicate or attribute to neurologic change at her conus or GI symptoms and I do not recommend surgical intervention. She should continue conservative management. She had some relief after doing injections at [facility]. She is unwilling to go back to [facility] due to her overall experience there but may have some benefit with return [facility] m anagement with Dr. King she is seen in the past. She can do this on an outpatient basis. It is difficult to determine her overall etiology for her GI and low back symptoms. Prior workup with bone scan labs and imaging and GI workup has not shown obvious source. She could consider further imaging at her mid and upper spine through her thoracic and cervical spine on outpatient basis if her s ymptoms persist though it is difficult to achieve with this to specific neurologic origin. I do not plan any specific intervention from a surgical spine standpoint and she can follow-up on an as-needed basis. I discussed this with her her and her daughter at length at bedside. I answered all their questions best my ability and they are agreeable. From a orthopedic spine standpoint is okay for her to discharge home when she is clear with cardiology and medicine in regards to her chest pain.
[2018-12-11] MEDS ORDERED: Potassium Replacement Protocol 1 EACH MISC MISCELLANE PRN (10:09)
--- NOTE | 2018-12-11 10:39 | P.CRDCN ---
History of Present Illness History of present illness: This is a pleasant 48-year-old female past medical history significant for diabetes mellitus, hypertension, dyslipidemia, POTS and history of ablation in the past. Exact details unknown, she states this was many years ago by Dr. Mascorro. She follows with an wooden furniture polisher out of [place] to manage her POTS. She has not followed in our office since 2014. We have been asked to see her in consultation for chest pain. She states for the last week or so she has been experiencing a burning in the mid-sternal region intermittently, not associated with oral intake. She saw her PCP and was started on protonix, which didn't really seem to the help. The discomfort was not related to exertion or activity. No specific aggravating or alleviating factors. She has also been experiencing palpitations with her heart rate getting as high as 200 per her pulse oximeter at home. The burning in her chest and palpitations don't seem to be related. Then yesterday while she was laying down trying to take a nap she started feeling a pain in the left jaw described as an ache. With all of her symptoms combined she came to ED to rule out an acute coronary event. EKG reveals sinus mechanism with non-specific T-wave abnormalities. Chest xray is negative for an acute cardiopulmonary process. Laboratory data reviewed, WBC 11.2 on admission repeat today 9.6, hemoglobin 13.8, platelets 204, d-dimer 0.2, sodium 144, potassium on admission 3. 8 repeat today 2.7, creatinine 0.76 with a GFR greater than 90, magnesium 2.2, AST 78, ALT 53, CPK and admission 1016 repeat 966, troponins negative 3, LDL 107, HDL 28 and TSH 3.22. Current cardiac medications include atorvastatin 10 mg daily, diltiazem 120 mg at bedtime and clonidine 0.1 mg daily as needed for tachycardia. Most recent cardiac catheterization performed May 2014 revealed normal coronary arteries, echocardiogram obtained at that time revealed preserved LV systolic function with ejection fraction 55-60%. At the time of my exam: CONSTITUTIONAL: Denies fever. Denies chills. EYES: Denies blurred vision. Denies vision changes. Denies eye pain. EARS, NOSE, MOUTH & THROAT: Denies headache. Denies sore throat. Denies ear pain. CARDIOVASCULAR: Denies chest pain. Denies shortness of breath. Denies orthopnea. Denies PND. Denies palpitations. RESPIRATORY: Denies cough. GASTROINTESTINAL: Denies abdominal pain. Denies diarrhea. Denies constipation. Denies nausea. Denies vomiting. MUSCULOSKELETAL: Denies myalgias. INTEGUMENTARY: Denies pruitis. Denies rash. NEUROLOGIC: Denies numbness. Denies tingling. Denies weakness. PSYCHIATRIC: Denies anxiety. Denies depression. ENDOCRINE: Denies fatigue. Denies weight change. Denies polydipsia. Denies polyurina. GENITOURINARY: Denies burning, hematuria or urgency with micturation. HEMATOLOGIC: Denies history of anemia. Denies bleeding. Blood pressure 114/74 heart rate 71 afebrile maintaining oxygen saturation on room air GENERAL: This is a 48-year-old female in no apparent distress at the time of my examination. HEENT: Head is atraumatic, normocephalic. Pupils are equal, round. Sclerae anicteric. Conjunctivae are clear. Mucous membranes of the mouth are moist. Neck is supple. There is no jugular venous distention. No carotid bruit is heard. LUNGS: Clear to auscultation no wheezes, rales or rhonchi. No chest wall tenderness is noted on palpation or with deep breathing. HEART: Regular rate and rhythm without murmurs, rubs or gallops. S1 and S2 heard. ABDOMEN: Soft, nontender. Bowel sounds are heard. No organomegaly noted. EXTREMITIES: No evidence of peripheral edema and no calf tenderness noted. VASCULAR: Radial and dorsalis pedis pulses palpated, no evidence of clubbing. NEUROLOGIC: Patient is awake, alert and oriented x3. ASSESSMENT Chest pain, atypical for angina. An acute coronary event has been ruled out. Palpitations, history of arrhythmia s/p ablation. Exact detail unavailable. Hypokalemia, severe Rhabdomyolysis Leukocytosis Urinary tract infection Diabetes mellitus Hypertension Dyslipidemia PLAN An acute coronary event has been ruled out. Will consider stress testing when electrolytes have normalized. Palpitations most likely related to hypokalemia. Replace potassium per protocol. Ongoing telemetry monitoring. Obtain 2D echocardiogram and doppler study to assess cardiac structure and function. TSH checked came in to be unremarkable. We will continue to follow and make recommendations accordingly. Thank you kindly for this consultation. Nurse Practitioner note has been reviewed, I agree with a documented findings and plan of care. Patient was seen and examined. Past Medical History Past Medical History: Atrial Fibrillation, Diabetes Mellitus, Hyperlipidemia, Hypertension Additional Past Medical History / Comment(s): Postural orthostatic tachycardia syndrome, Migraines, IBS. 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 Granuloma annulare History of Any Multi-Drug Resistant Organisms: None Reported Past Surgical History: Appendectomy, Breast Surgery, Cardiac Ablation, Cholecystectomy, Heart Catheterization, Hysterectomy, Orthopedic Surgery Additional Past Surgical History / Comment(s): BIOPSY- RT BREAST x2, RT LUMPECTOMY; LT KNEE SURGERY X4 (2 arthroscopic), Left ankle x 2, CARDIAC ABLATION X 2. COLONOSCOPY Past Anesthesia/Blood Transfusion Reactions: Previous Problems w/ Anesthesia Additional Past Anesthesia/Blood Transfusion Reaction / Comment(s): DIFFICULT INTUBATION W/ EMERG APPENDECTOMY-Can't find letter Past Psychological History: Anxiety, Depression Smoking Status: Never smoker Past Alcohol Use History: None Reported Past Drug Use History: None Reported - Past Family History Father Family Medical History: Hypertension, Myocardial Infarction ([place]), Pulmonary Embolus Mother Family Medical History: Cancer Additional Family Medical History / Comment(s): Lymphatic CA Medications and Allergies Home Medications Medication Instructions Recorded Confirmed Type Zolpidem Tartrate [Ambien Cr] 12.5 mg PO HS 09/27/14 12/10/18 History Topiramate 100 mg PO BID 04/08/16 12/10/18 History clonazePAM [Clonazepam] 1 mg PO BID 04/08/16 12/10/18 History traZODone HCL [Desyrel] 100 mg PO BID 04/08/16 12/10/18 History Atorvastatin Calcium [Lipitor] 10 mg PO HS 12/05/16 12/10/18 History Sertraline HCl [Zoloft] 100 mg PO HS 12/05/16 12/10/18 History Alosetron HCl [Lotronex] 2 mg PO HS 09/19/17 12/10/18 History cloNIDine HCL 0.1 mg PO DAILY PRN 09/19/17 12/10/18 History Diltiazem HCl [Cartia Xt] 120 mg PO HS 12/10/18 12/10/18 History Galcanezumab-Gnlm [Emgality] 120 mg SQ Q30D 12/10/18 12/10/18 History Pantoprazole Sodium [Protonix] 20 mg PO DAILY 12/10/18 12/10/18 History Allergies Allergy/AdvReac Type Severity Reaction Status Date / Time morphine Allergy Swelling, Verified 12/10/18 21:07 diff breathing Penicillins Allergy Unknown Verified 12/10/18 21:07 Childhood venom-honey bee Allergy Anaphylaxis-has Verified 12/10/18 21:07 [bee venom (honey bee)] epi-pen baclofen AdvReac Diarrhea Verified 12/10/18 21:07 Physical Exam Vitals: Vital Signs Temp Pulse Pulse Pulse Resp BP BP 12/11/18 08:00 98.2 F 71 16 114/74 12/11/18 05:02 97.9 F 66 14 128/74 12/11/18 04:00 75 16 12/10/18 23:21 73 16 12/10/18 23:08 98.3 F 73 15 112/64 12/10/18 21:48 98.0 F 74 18 122/78 12/10/18 20:51 92 18 105/89 12/10/18 20:40 81 18 137/87 12/10/18 19:08 99.0 F 85 16 126/72 Pulse Ox 12/11/18 08:00 98 12/11/18 05:02 98 12/11/18 04:00 12/10/18 23:21 12/10/18 23:08 98 12/10/18 21:48 96 12/10/18 20:51 94 L 12/10/18 20:40 97 12/10/18 19:08 95 Intake and Output 12/10/18 12/11/18 12/11/18 22:59 06:59 14:59 Intake Total 0 Balance 0 Intake: Oral 0 Other: Voiding Method Toilet # Voids 1 1 Weight 80.286 kg Results 12/11/18 07:47 12/11/18 07:47 Cardiac Enzymes 12/10/18 12/10/18 12/11/18 Range/Units 19:36 19:36 02:12 AST 106 H (14-36) U/L Troponin I <0.012 <0.012 (0.000-0.034) ng/mL 12/11/18 12/11/18 Range/Units 07:47 07:47 AST 78 H (14-36) U/L Troponin I <0.012 (0.000-0.034) ng/mL Coagulation 12/10/18 Range/Units 20:14 PT 10.9 (9.0-12.0) sec APTT 25.7 (22.0-30.0) sec Lipids 12/11/18 Range/Units 07:47 Triglycerides 189 H (<150) mg/dL Cholesterol 173 (<200) mg/dL HDL Cholesterol 28 L (40-60) mg/dL CBC 12/10/18 12/11/18 Range/Units 19:36 07:47 WBC 11.2 H 9.6 (3.8-10.6) k/uL RBC 5.26 4.81 (3.80-5.40) m/uL Hgb 15.2 13.8 (11.4-16.0) gm/dL Hct 45.9 42.1 (34.0-46.0) % Plt Count 212 204 (150-450) k/uL Comprehensive Metabolic Panel 12/10/18 12/11/18 Range/Units 19:36 07:47 Sodium 142 144 (137-145) mmol/L Potassium 3.8 2.7 L* (3.5-5.1) mmol/L Chloride 108 H 110 H (98-107) mmol/L Carbon Dioxide 21 L 25 (22-30) mmol/L BUN 6 L 6 L (7-17) mg/dL Creatinine 0.79 0.76 (0.52-1.04) mg/dL Glucose 109 H 110 H (74-99) mg/dL Calcium 9.5 8.7 (8.4-10.2) mg/dL AST 106 H 78 H (14-36) U/L ALT 59 H 53 H (9-52) U/L Alkaline Phosphatase 123 95 (38-126) U/L Total Protein 8.0 6.7 (6.3-8.2) g/dL Albumin 4.9 4.1 (3.5-5.0) g/dL Current Medications Generic Name Dose Route Start Last Admin Trade Name Freq PRN Reason Stop Dose Admin Al Hydroxide/Mg Hydroxide 30 ml 12/11/18 00:59 Maalox PO Q4HR PRN GI Upset Aspirin 325 mg 12/11/18 09:00 Aspirin PO DAILY STEPHEN Clonazepam 1 mg 12/11/18 00:45 12/11/18 01:46 Klonopin PO 1 mg BID STEPHEN Administration Diltiazem HCl 120 mg 12/11/18 00:45 12/11/18 01:47 Cardizem Cd PO 120 mg HS STEPHEN Administration Heparin Sodium (Porcine) 5,000 unit 12/11/18 08:00 Heparin SQ Q8HR STEPHEN Sodium Chloride 1,000 mls @ 150 mls/hr 12/11/18 01:00 12/11/18 01:48 Saline 0.9% IV 150 mls/hr .[id number] STEPHEN Administration Dobutamine HCl/Dextrose 500 mg 250 mls @ 24.086 mls/hr 12/11/18 08:14 / IV Solution IV 12/11/18 18:36 .[id number] ONE Protocol 10 MCG/KG/MIN Insulin Aspart 0 unit 12/11/18 07:30 Novolog SQ ACHS [facility] Protocol Nitroglycerin 1 inch 12/11/18 00:00 12/11/18 01:33 Nitro-Bid Oint TOPICAL Not Given Q6HR [facility] Nitroglycerin 0.4 mg 12/10/18 21:13 Nitrostat SUBLINGUAL Q5M PRN Chest Pain Non-Formulary Medication 2 mg 12/11/18 00:45 12/11/18 03:19 Alosetron Hcl [Lotronex] PO Not Given HS [facility] Pantoprazole Sodium 40 mg 12/11/18 09:00 Protonix PO DAILY [facility] Sertraline HCl 100 mg 12/11/18 01:00 12/11/18 01:47 Zoloft PO 100 mg HS STEPHEN Administration Topiramate 100 mg 12/11/18 01:00 12/11/18 01:48 Topamax PO 100 mg BID STEPHEN Administration Trazodone HCl 100 mg 12/11/18 01:00 12/11/18 01:48 Desyrel PO 100 mg BID STEPHEN Administration Zolpidem Tartrate 5 mg 12/11/18 00:45 12/11/18 01:47 Ambien PO Not Given HS STEPHEN Intake and Output 12/10/18 12/11/18 12/11/18 22:59 06:59 14:59 Intake Total 0 Balance 0 Intake: Oral 0 Other: Voiding Method Toilet # Voids 1 1 Weight 80.286 kg 12/11/18 07:47 12/11/18 07:47
[2018-12-11] MEDS: INSULIN ASPART (NovoLOG) 100 UNIT/ML VIAL SQ SCH ×4 (10:55→21:04)
[2018-12-11] MEDS ORDERED: POTASSIUM CHLORIDE 20 MEQ in WATER FOR INJECTION 1 100ML.BAG IVPB SCH (11:00)
[2018-12-11] MEDS: HEPARIN SODIUM,PORCINE 5,000 UNIT/ML 1 ML VIAL SQ SCH ×2 (11:40→16:22)
[2018-12-11] MEDS: PANTOPRAZOLE 40 MG TABLET PO SCH (11:41)
[2018-12-11 12:10] LABS: Glucose,Whole Blood 118 mg/dL (75-99)
[2018-12-11] MEDS ORDERED: 0.9% NACL WITH KCL 40 MEQ/L 1,000 ML IV ONE (12:13)
[2018-12-11] MEDS: POTASSIUM CHLORIDE ER 20 MEQ TAB.ER PO SCH ×3 (12:48→16:24)
--- NOTE | 2018-12-11 14:05 | P.CONS ---
History of Present Illness - Reason for Consult Consult date: 12/11/18 Diarrhea Requesting physician: Cathy Ghosh - Chief Complaint Chest discomfort - History of Present Illness 48-year-old female past medical history of chronic diarrhea 2 years duration IBS-D, diabetes, hypertension, hyperlipidemia, atrial fibrillation, cholecystectomy, admitted with chest discomfort nausea vomiting diarrhea. White count 9.6-11.2. Hemoglobin 13.8. Sodium 142. Potassium 3.8. BUN 6. creatinine 0.7. Creatinine kinase [id number]. Patient states her diarrhea 10-15 times a day nonbloody associated with diffuse abdominal discomfort cramping bloatedness sometimes incontinence and waking her up to the night. She was prescribed Lotonex her primary with no improvement. She has tried Imodium in the past without success but not Lomotil. No history of Bentyl. Diarrhea was evaluated last month Dr. Hough performed colonoscopy with findings of a normal-appearing colon from rectum to cecum with no evidence of colitis or colorectal neoplasia. Biopsies reported no features of chronicity acute self limited colitis of undetermined etiology result. Review of Systems Constitutional: Denies fever, chills, sweats, weight gain, or loss. HEENT: Negative for migraines, blurred vision or loss, earaches, drainage, ti nnitus, oral mucosal lesions, dysphagia, or odynophagia. CARDIAC: Positive for chest pain, denies arrhythmias, or palpitation. RESPIRATORY: Negative for shortness of breath, hemoptysis, cough, or sputum production. GI: See HPI for pertinent findings. : Negative for hematuria, urgency, frequency, polyuria, or dysuria. GYNc: Denies possibility of . Negative vaginal discharge. MUSCULOSKELETAL: Negative for muscle aches, swelling, arthritis, and arthralgias. NEUROLOGIC: Negative for stroke or TIA. ENDOCRINE: Negative for thyroid problems. SKIN: Negative for rash or itching. PSYCHIATRIC: Negative history for depression and anxiety Past Medical History Past Medical History: Atrial Fibrillation, Diabetes Mellitus, Hyperlipidemia, Hypertension Additional Past Medical History / Comment(s): Postural orthostatic tachycardia syndrome, Migraines, IBS. 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 Granuloma annulare History of Any Multi-Drug Resistant Organisms: None Reported Past Surgical History: Appendectomy, Breast Surgery, Cardiac Ablation, Cholecystectomy, Heart Catheterization, Hysterectomy, Orthopedic Surgery Additional Past Surgical History / Comment(s): BIOPSY- RT BREAST x2, RT LUMPECTOMY; LT KNEE SURGERY X4 (2 arthroscopic), Left ankle x 2, CARDIAC ABLATION X 2. COLONOSCOPY Past Anesthesia/Blood Transfusion Reactions: Previous Problems w/ Anesthesia Additional Past Anesthesia/Blood Transfusion Reaction / Comm: DIFFICULT INTUBATION W/ EMERG APPENDECTOMY-Can't find letter Past Psychological History: Anxiety, Depression Smoking Status: Never smoker Past Alcohol Use History: None Reported Past Drug Use History: None Reported - Past Family History Father Family Medical History: Hypertension, Myocardial Infarction (ND), Pulmonary Embolus Mother Family Medical History: Cancer Additional Family Medical History / Comment(s): Lymphatic CA Medications and Allergies Home Medications Medication Instructions Recorded Confirmed Type Zolpidem Tartrate [Ambien Cr] 12.5 mg PO HS 09/27/14 12/10/18 History Topiramate 100 mg PO BID 04/08/16 12/10/18 History clonazePAM [Clonazepam] 1 mg PO BID 04/08/16 12/10/18 History traZODone HCL [Desyrel] 100 mg PO BID 04/08/16 12/10/18 History Atorvastatin Calcium [Lipitor] 10 mg PO HS 12/05/16 12/10/18 History Sertraline HCl [Zoloft] 100 mg PO HS 12/05/16 12/10/18 History Alosetron HCl [Lotronex] 2 mg PO HS 09/19/17 12/10/18 History cloNIDine HCL 0.1 mg PO DAILY PRN 09/19/17 12/10/18 History Diltiazem HCl [Cartia Xt] 120 mg PO HS 12/10/18 12/10/18 History Galcanezumab-Gnlm [Emgality] 120 mg SQ Q30D 12/10/18 12/10/18 History Pantoprazole Sodium [Protonix] 20 mg PO DAILY 12/10/18 12/10/18 History Allergies Allergy/AdvReac Type Severity Reaction Status Date / Time morphine Allergy Swelling, Verified 12/10/18 21:07 diff breathing Penicillins Allergy Unknown Verified 12/10/18 21:07 Childhood venom-honey bee Allergy Anaphylaxis-has Verified 12/10/18 21:07 [bee venom (honey bee)] epi-pen baclofen AdvReac Diarrhea Verified 12/10/18 21:07 Physical Exam Vitals: Vital Signs Temp Pulse Pulse Pulse Resp BP BP 12/11/18 08:00 98.2 F 71 16 114/74 12/11/18 05:02 97.9 F 66 14 128/74 12/11/18 04:00 75 16 12/10/18 23:21 73 16 12/10/18 23:08 98.3 F 73 15 112/64 12/10/18 21:48 98.0 F 74 18 122/78 12/10/18 20:51 92 18 105/89 12/10/18 20:40 81 18 137/87 12/10/18 19:08 99.0 F 85 16 126/72 Pulse Ox 12/11/18 08:00 98 12/11/18 05:02 98 12/11/18 04:00 12/10/18 23:21 12/10/18 23:08 98 12/10/18 21:48 96 12/10/18 20:51 94 L 12/10/18 20:40 97 12/10/18 19:08 95 Intake and Output 12/10/18 12/11/18 12/11/18 22:59 06:59 14:59 Intake Total 0 Balance 0 Intake: Oral 0 Other: Voiding Method Toilet # Voids 1 1 Weight 80.286 kg General appearance: The patient is alert, oriented, in no acute distress. HET: Head is normocephalic and atraumatic. Pupils are equal and reactive. Oropharynx is clear without lesions. Neck: Supple without lymphadenopathy. Trachea midline. Heart: S1 S2. Regular rate and rhythm. Lungs: No crackles or wheezes are heard. Abdomen: Soft, nontender, nondistended with bowel sounds. No peritoneal signs. No palpable organomegaly or masses. Extremities: Normal skin color and turgor. No cyanosis, rash, ulceration, clubbing, or edema. Radial and pedal pulses are 2/4 bilaterally. Neurological: No focal deficits. Strength and sensation are grossly intact.m Results CBC & Chem 7: 12/11/18 07:47 12/11/18 07:47 Labs: Abnormal Lab Results - Last 24 Hours (Table) 12/10/18 12/10/18 12/10/18 Range/Units 19:36 19:36 19:36 WBC 11.2 H (3.8-10.6) k/uL Potassium (3.5-5.1) mmol/L Chloride 108 H (98-107) mmol/L Carbon Dioxide 21 L (22-30) mmol/L BUN 6 L (7-17) mg/dL Glucose 109 H (74-99) mg/dL POC Glucose (mg/dL) (75-99) mg/dL AST 106 H (14-36) U/L ALT 59 H (9-52) U/L Creatine Kinase 1016 H* (30-135) U/L Triglycerides (<150) mg/dL LDL Cholesterol, Calc (0-99) mg/dL HDL Cholesterol (40-60) mg/dL Urine Appearance (Clear) Urine Protein (Negative) Ur Leukocyte Esterase (Negative) Urine WBC (0-5) /hpf Urine WBC Clumps (None) /hpf Ur Squamous Epith Cells (0-4) /hpf Urine Bacteria (None) /hpf Urine Mucus (None) /hpf 12/10/18 12/10/18 12/11/18 Range/Units 20:47 22:44 06:55 WBC (3.8-10.6) k/uL Potassium (3.5-5.1) mmol/L Chloride (98-107) mmol/L Carbon Dioxide (22-30) mmol/L BUN (7-17) mg/dL Glucose (74-99) mg/dL POC Glucose (mg/dL) 102 H 110 H (75-99) mg/dL AST (14-36) U/L ALT (9-52) U/L Creatine Kinase (30-135) U/L Triglycerides (<150) mg/dL LDL Cholesterol, Calc (0-99) mg/dL HDL Cholesterol (40-60) mg/dL Urine Appearance Turbid H (Clear) Urine Protein 1+ H (Negative) Ur Leukocyte Esterase Large H (Negative) Urine WBC 56 H (0-5) /hpf Urine WBC Clumps Occasional H (None) /hpf Ur Squamous Epith Cells 33 H (0-4) /hpf Urine Bacteria Many H (None) /hpf Urine Mucus Many H (None) /hpf 12/11/18 Range/Units 07:47 WBC (3.8-10.6) k/uL Potassium 2.7 L* (3.5-5.1) mmol/L Chloride 110 H (98-107) mmol/L Carbon Dioxide (22-30) mmol/L BUN 6 L (7-17) mg/dL Glucose 110 H (74-99) mg/dL POC Glucose (mg/dL) (75-99) mg/dL AST 78 H (14-36) U/L ALT 53 H (9-52) U/L Creatine Kinase 966 H (30-135) U/L Triglycerides 189 H (<150) mg/dL LDL Cholesterol, Calc 107 H (0-99) mg/dL HDL Cholesterol 28 L (40-60) mg/dL Urine Appearance (Clear) Urine Protein (Negative) Ur Leukocyte Esterase (Negative) Urine WBC (0-5) /hpf Urine WBC Clumps (None) /hpf Ur Squamous Epith Cells (0-4) /hpf Urine Bacteria (None) /hpf Urine Mucus (None) /hpf Assessment and Plan (1) Chronic diarrhea Narrative/Plan: 48-year-old female admitted with chest discomfort and nausea vomiting acute on chronic diarrhea with a history of IBS-D. Patient was placed on Lotronex without success. Recent outpatient colonoscopy reported no evidence of colorectal neoplasia biopsies consistent with a resolving colitis without chronicity. Current Visit: Yes Status: Acute Code(s): K52.9 - NONINFECTIVE GASTROENTERITIS AND COLITIS, UNSPECIFIED SNOMED Code(s): 268455158 (2) History of IBS Current Visit: No Status: Acute Code(s): Z87.19 - PERSONAL HISTORY OF OTHER DISEASES OF THE DIGESTIVE SYSTEM SNOMED Code(s): 87404619381333 Plan: 1. Bentyl 10 mg 4 times a day may increase to 20 mg 4 times a day for abdominal discomfort spasms. Regards to diarrhea discontinue Lotronex will try Lomotil 2 .5 mg 4 times a day and titrate as needed. Patient declined Imodium as it has not helped in the past. We'll request celiac panel. 2. Patient has a scheduled GI follow-up next week with Dr. Hough. We'll follow closely with you. Thank you for this kind referral and the opportunity to participate in the care of your patient. This consultation was discussed with Dr. Luong. The impression and plan of care have been directed as dictated.
[2018-12-11] MEDS: DIPHENOX-ATROP 2.5-0.025 MG 1 EACH TAB PO SCH ×3 (14:36→22:24)
[2018-12-11] MEDS: DICYCLOMINE 10 MG CAP PO SCH ×3 (14:36→21:03)
[2018-12-11 16:48] LABS: Glucose,Whole Blood 105 mg/dL (75-99)
[2018-12-11 20:42] LABS: Glucose,Whole Blood 123 mg/dL (75-99)
[2018-12-11] MEDS ORDERED: ZOLPIDEM PO SCH (21:00)
[2018-12-11] MEDS ORDERED: ZOLPIDEM 12.5 MG PO SCH (21:00)
--- NOTE | 2018-12-11 22:50 | PN ---
PROGRESS NOTE DATE OF SERVICE: 12/11/2018 PRESENTING COMPLAINT: Multiple symptoms. INTERVAL HISTORY: This patient has multiple symptoms going on. The patient was diagnosed with POTS syndrome over 15 years ago. She did see Dr. Mascorro, and he referred her to an outside physician. Patient is being followed at [facility]. Different medications have been tried, not with much help, and some of these have been changed by Dr. Johnson because of side effects. The patient is not very active because of the POTS syndrome. Patient was also having episodes of diarrhea, for which she did see Dr. Daysi Hough and actually underwent a colonoscopy over 3 weeks ago. Descending colon revealed minimal nonspecific acute colitis. Rare neutrophil was identified. The patient also had some chest pain, for which Cardiology is working her up. The patient has also had some low back pain, and they are going to approach that conservatively. The patient's daughter and son are present. REVIEW OF SYSTEMS: Done for constitutional, cardiovascular, GI, pulmonary; relevant findings as above. CURRENT MEDICATIONS: Reviewed. PHYSICAL EXAMINATION: VITAL SIGNS: Temperature 98.3, pulse 73, respiration 16, blood pressure 111/71, pulse ox 97% on room air. GENERAL APPEARANCE: Lying in bed. BMI 31.4. EYES: Pupils equal. Conjunctivae normal. NECK: JVD unable to assess. Mass not palpable. RESPIRATORY: Effort normal. Lungs are clear. CARDIOVASCULAR: First and second sounds normal. No edema. ABDOMEN: Soft, non-tender. Liver and spleen not palpable. PSYCHIATRY: Alert and oriented x3. Mood and affect normal. DERMATOLOGICAL: There are areas of skin abnormality on the foot; has been diagnosed with granuloma annulare. INVESTIGATIONS: White count 9.6, hemoglobin 13.8, potassium 2.7. Repeat 3.6. BUN 6, creatinine 0.76. LDL 107. TSH normal. ASSESSMENT: 1. Intermittent diarrhea. Need to consider low-grade microscopic colitis. 2. Obesity; body mass index 31.4. 3. Severe hypokalemia from diarrhea which does appear to be non-infectious, is periodic. 4. Longstanding POTS syndrome. Not any particular medication has helped her. 5. Mild acute rhabdomyolysis. Could be from electrolyte abnormalities. 6. Diabetes mellitus, type 2, on oral hypoglycemic. 7. Hyperlipidemia. 8. Essential hypertension. 9. Granuloma annulare. Has followed up with Dr. Machado. 10.Anxiety and depression not otherwise specified. PLAN: I had a very lengthy talk with the patient and her family. Will see what GI has to offer. In the meantime, we will add Metamucil, hopefully to firm up the stool a bit more. Will have the patient follow up with Dr. Machado's office for the granuloma annulare, which has not really improved and may need more systemic treatment for the same. Will also get the patient to follow up with Neurology as an outpatient for further workup to make sure there is no autonomic dysfunction going on. Total of about 45 minutes was spent, with over 25 minutes of discussion. MMODL / IJN: [id number] /
[2018-12-11 23:29] LABS: Gliadin AB IgA, Unit <0.2 U/mL
[2018-12-12] MEDS: NITROGLYCERIN OINT 1 INCH/GM PACKET TOPICAL SCH ×4 (02:46→09:26)
[2018-12-12] MEDS: PSYLLIUM HUSK 100% 6 GM PACKET PO SCH ×2 (02:46→09:22)
[2018-12-12] MEDS ORDERED: POTASSIUM CHLORIDE ER 20 MEQ TAB.ER PO STA (07:03)
[2018-12-12 07:30] LABS: Glucose,Whole Blood 137 mg/dL (75-99)
[2018-12-12] MEDS: INSULIN ASPART (NovoLOG) 100 UNIT/ML VIAL SQ SCH (07:50)
--- NOTE | 2018-12-12 07:57 | P.PN ---
Subjective Progress Note Date: 12/12/18 Principal diagnosis: Atypical chest discomfort This is a pleasant 48-year-old female patient with a past medical history significant for diabetes, hypertension, dyslipidemia, was admitted to the hospital with atypical chest discomfort. An acute coronary syndrome was ruled out. Initially the patient scheduled to undergo dobutamine stress echocardiogram but she was found to be severe lead hypokalemic and because of that the stress test was canceled. Subsequently she was found to have urinary tract infection and also she has been complaining of diarrhea. On follow-up with the patient today, December 122018, the patient denies any symptoms of chest pain or discomfort. We would advise a conservative medical approach at this point. The potassium treated as well as the UTI and diarrhea. Please note that the patient underwent a heart catheterization in 2013 and that revealed normal coronaries. Objective - Vital Signs Vital signs: Vital Signs Temp 98.4 F 12/12/18 03:37 Pulse 82 12/12/18 04:00 Resp 16 12/12/18 04:00 BP 113/67 12/12/18 03:37 Pulse Ox 97 12/12/18 03:37 Intake & Output 12/11/18 12/12/18 12/12/18 18:59 06:59 18:59 Intake Total 342 490 Output Total 2 Balance 340 490 Weight 80.286 kg Intake: IV 10 0.9 10 Oral 342 480 Output: Stool 2 Other: Voiding Method Toilet # Voids 1 2 # Bowel Movements 2 - Constitutional General appearance: Present: no acute distress - Labs CBC & Chem 7: 12/11/18 07:47 12/12/18 06:07 Labs: Abnormal Lab Results - Last 24 Hours (Table) 12/11/18 12/11/18 12/11/18 Range/Units 07:47 12:07 16:45 Potassium 2.7 L* (3.5-5.1) mmol/L Chloride 110 H (98-107) mmol/L BUN 6 L (7-17) mg/dL Glucose 110 H (74-99) mg/dL POC Glucose (mg/dL) 118 H 105 H (75-99) mg/dL AST 78 H (14-36) U/L ALT 53 H (9-52) U/L Creatine Kinase 966 H (30-135) U/L Triglycerides 189 H (<150) mg/dL LDL Cholesterol, Calc 107 H (0-99) mg/dL HDL Cholesterol 28 L (40-60) mg/dL 12/11/18 12/12/18 Range/Units 20:16 07:04 Potassium (3.5-5.1) mmol/L Chloride (98-107) mmol/L BUN (7-17) mg/dL Glucose (74-99) mg/dL POC Glucose (mg/dL) 123 H 137 H (75-99) mg/dL AST (14-36) U/L ALT (9-52) U/L Creatine Kinase (30-135) U/L Triglycerides (<150) mg/dL LDL Cholesterol, Calc (0-99) mg/dL HDL Cholesterol (40-60) mg/dL Assessment and Plan Assessment: Assessment #1 atypical chest discomfort. The patient currently is chest pain-free #2 multiple comorbid conditions including diabetes, hypertension, dyslipidemia #3 urinary tract infection #4 diarrhea of unknown etiology #5 rhabdomyolysis Plan #1 the patient was ruled out for acute coronary event #2 I would advise conservative medical approach for the chest discomfort #3 follow-up with the patient on when necessary case
[2018-12-12 08:03] VITALS: RESP 15; TEMP 98.3
[2018-12-12] MEDS ORDERED: ASPIRIN 81 MG PO SCH (09:00)
[2018-12-12] MEDS ORDERED: ENOXAPARIN 40 MG/0.4 ML SYRINGE SQ SCH (09:00)
[2018-12-12] MEDS: clonazePAM 1 MG TAB PO SCH (09:22)
[2018-12-12] MEDS: DIPHENOX-ATROP 2.5-0.025 MG 1 EACH TAB PO SCH (09:22)
[2018-12-12] MEDS: traZODone HCL 100 MG TAB PO SCH (09:23)
[2018-12-12] MEDS: DICYCLOMINE 10 MG CAP PO SCH (09:23)
[2018-12-12] MEDS: PANTOPRAZOLE 40 MG TABLET PO SCH (09:23)
[2018-12-12] MEDS: TOPIRAMATE 100 MG TAB PO SCH (09:24)
--- NOTE | 2018-12-12 10:04 | ECHOF ---
Referral Reason: MEASUREMENTS -------- HEIGHT: 160.0 cm WEIGHT: 80.3 kg BP: 114/74 RVIDd: 2.8 cm (< 3.3) IVSd: 0.7 cm (0.6 - 1.1) LVIDd: 4.6 cm (3.9 - 5.3) LVPWd: 0.8 cm (0.6 - 1.1) IVSs: 1.2 cm LVIDs: 2.8 cm LVPWs: 1.4 cm LA Diam: 3.0 cm (2.7 - 3.8) LAESV Index (A-L): 10.03 ml/m Ao Diam: 2.5 cm (2.0 - 3.7) AV Cusp: 1.9 cm (1.5 - 2.6) MV EXCURSION: 17.202 mm (> 18.000) MV EF SLOPE: 62 mm/s (70 - 150) EPSS: 0.4 cm MV E Navid: 0.70 m/s MV DecT: 215 ms MV A Navid: 0.72 m/s MV E/A Ratio: 0.97 FINDINGS -------- Sinus rhythm. This was a technically good study. The left ventricular size is normal. Left ventricular wall thickness is normal. Overall left vent ricular systolic function is normal with, an EF between 55 - 60 %. The right ventricle is normal in size. Normal LA size by volume 22+/-6 ml/m2. The right atrium is normal in size. Interatrial and interventricular septum intact. The aortic valve is trileaflet and appears structurally normal. The mitral valve is normal. The tricuspid valve appears structurally normal. Trace/mild (physiologic) pulmonic regurgitation. The aortic root size is normal. There is no pericardial effusion. CONCLUSIONS -------- 1. Sinus rhythm. 2. This was a technically good study. 3. The left ventricular size is normal. 4. Left ventricular wall thickness is normal. 5. Overall left ventricular systolic function is normal with, an EF between 55 - 60 %. 6. The right ventricle is normal in size. 7. Normal LA size by volume 22+/-6 ml/m2. 8. The right atrium is normal in size. 9. Interatrial and interventricular septum intact. 10. The aortic valve is trileaflet and appears structurally normal. 11. The mitral valve is normal. 12. The tricuspid valve appears structurally normal. 13. Trace/mild (physiologic) pulmonic regurgitation. 14. The aortic root size is normal. 15. There is no pericardial effusion. CANVAS SHRINKER: Shelly Voss RDCS
[2018-12-12 11:05] VITALS: BP 114/74; PULSE 78
[2018-12-12] MEDS ORDERED: FLUDROCORTISONE 0.1 MG TAB PO STA (11:49)
[2018-12-12 12:05] LABS: Glucose,Whole Blood 116 mg/dL (75-99)
--- NOTE | 2018-12-12 23:06 | DS ---
DISCHARGE SUMMARY DATE OF ADMISSION: 12/11/2018 DATE OF DISCHARGE: 12/12/2018 FINAL DIAGNOSES: 1. Anterior chest wall pain. Could be musculoskeletal. 2. Intermittent diarrhea. Could be irritable bowel syndrome. 3. Obesity; body mass index 31.4. 4. Severe hypokalemia from diarrhea. 5. POTS syndrome. 6. Mild acute rhabdomyolysis. Could be from electrolyte abnormalities. 7. Diabetes mellitus, type 2, on oral hypoglycemia. 8. Hyperlipidemia. 9. Essential hypertension. 10.Granuloma annulare on both feet. 11.Anxiety, depression not otherwise specified. HOSPITAL COURSE: Please see my H&P for more details. Long-standing history of POTS. Did follow up in [place] and also with the family doctor, Dr. Johnson. Did have some chest pain and was seen by Cardiology; felt to be atypical. They will follow up the patient as an outpatient. Patient also has granuloma annulare and patient is due to follow up with Dr. Machado for the same. Also had mild rhabdomyolysis. Hypokalemia was corrected. Patient has been put on Metamucil to see if it helps with the diarrhea. The patient's 2 daughters have orthostatic hypotension. This may be more of a systematic autonomic dysfunction. Patient is being referred to Neurology for the same. Care was discussed in detail with the patient. Patient was given a cane. Patient did have a 2D echocardiogram that showed preserved LV function. CONSULTATIONS: 1. Dr. Linda from Cardiology. 2. Dr. Luong from GI. PHYSICAL EXAMINATION: Temperature 98.3, pulse 77, respiration 15, blood pressure 110/68, pulse ox 98% on room air. Lungs are clear. CARDIOVASCULAR: First and second sounds normal. DISCHARGE MEDICATIONS: 1. Ambien CR 12.5 p.o. at bedtime. 2. Topamax 100 mg b.i.d. 3. Clonazepam 1 mg b.i.d. 4. Desyrel 100 mg b.i.d. 5. Lipitor 10 mg at bedtime. 6. Zoloft 100 mg at bedtime. 7. Lotronex 2 mg p.o. at bedtime. 8. Cartia XT 120 mg at bedtime. 9. Emgality Pen 120 mg subcutaneously every 30 days. 10.Protonix 20 mg p.o. daily. 11.Aspirin 81 mg p.o. daily. 12.Bentyl 10 mg p.o. q.i.d. 13.Florinef 0.1 mg p.o. b.i.d. 14.Metamucil 6 grams p.o. b.i.d. 15.Clonidine discontinued. Follow up with Dr. Linda on 12/26/2018. Follow up with Dr. Machado in one week. Follow up with Dr. Daysi Hough on 12/15/2018. Follow up with Dr. Scott Johnson in 3-4 days. Follow up with Dr. Quijano in one week. MMODL / IJN: [id number] /
--- NOTE | 2018-12-14 13:08 | CONS ---
CONSULTATION Mrs. Hernandez is a 48-year-old female who is seen for cardiac evaluation. This patient was just recently discharged from the hospital 2 days ago. This patient has been having intermittent chest pain for last week. She describes is a sharp pain in the midsternal area which comes and goes. Patient has been feeling nauseated and as well as vomiting and diarrhea. The patient was hypokalemic during the last admission and so she was advised a stress test as an outpatient. The patient has a past history of atypical chest pain. Her physical activities are limited. She had a cardiac catheterization done in 2013, which was normal. Patient also has been followed by motor setter at [facility] and has been diagnosed to have a however patient cannot afford the medications. PAST MEDICAL HISTORY: Past medical history includes a history of diabetes, hyperlipidemia, hypertension, history of biopsy of the right breast, right lumpectomy, left knee surgery, history of appendicectomy and cholecystectomy and history of headaches, hysterectomy, orthopedic surgery. HOME MEDICATIONS: Home medications include Ambien, topiramate 100 mg b.i.d., clonazepam, Desyrel, Lipitor, Zoloft, Cartia and Protonix. PHYSICAL EXAMINATION: At present reveals a 48-year-old female who does not appear to be in any acute distress. Patient is feeling slightly nauseated. Her heart rate is 85 per minute, respiratory rate is 16. Head/ENT examination is negative. Neck is supple. There is no increase in jugular venous pressure. Both the carotid pulses are felt. There is no bruit. Chest is symmetrical. Heart: The PMI is not felt. First and second heart sounds are normal. There is no evidence of any murmur. Lungs are clinically clear to auscultation and percussion. Abdomen is negative. Extremities peripheral pulsations are 2+. EKG shows normal sinus rhythm with nonspecific T-wave changes. Cardiac enzymes are normal. Initial potassium was 3.9. Repeat potassium is 3.4. FINAL IMPRESSION: This patient's chest pains are atypical chest pain. EKGs and cardiac enzymes are normal. Patient had a previous cardiac catheterization was normal. The patient has a history of and multiple psychiatric problems. RECOMMENDATIONS: We will give her an additional supplementation with potassium and the potassium is about 3.5. We will consider doing dobutamine echo. MMODL / IJN: [id number] /
== END 2018-12-12 13:12 | disposition home or self-care (01) | DRG 392 ==
LOC: EC 19:06 → 1SOBS 21:14 → OBSVTOIN 12-11 07:10
PROVIDERS: ADMIT Hospitalist; ATTEND Hospitalist
DX: K58.0 Irritable bowel syndrome with diarrhea (principal); M62.82 Rhabdomyolysis; N39.0 Urinary tract infection, site not specified; R07.89 Other chest pain; G89.29 Other chronic pain; I48.91 Unspecified atrial fibrillation; E11.9 Type 2 diabetes mellitus without complications; E78.5 Hyperlipidemia, unspecified; I10 Essential (primary) hypertension; F32.9 Major depressive disorder, single episode, unspecified; F41.9 Anxiety disorder, unspecified; L92.0 Granuloma annulare; I49.8 Other specified cardiac arrhythmias; M54.5 Low back pain; G43.909 Migraine, unspecified, not intractable, without status migrainosus; R15.9 Full incontinence of feces; D89.89 Other specified disorders involving the immune mechanism, not elsewhere classified; R11.2 Nausea with vomiting, unspecified; E66.9 Obesity, unspecified; E87.6 Hypokalemia; Z79.899 Other long term (current) drug therapy; Z79.4 Long term (current) use of insulin; Z88.5 Allergy status to narcotic agent; Z88.8 Allergy status to other drugs, medicaments and biological substances; Z91.030 Bee allergy status; Z90.710 Acquired absence of both cervix and uterus; Z90.49 Acquired absence of other specified parts of digestive tract; Z91.81 History of falling; Z68.31 Body mass index [BMI] 31.0-31.9, adult; Z85.3 Personal history of malignant neoplasm of breast; Z98.890 Other specified postprocedural states; Z82.49 Family history of ischemic heart disease and other diseases of the circulatory system; Z80.9 Family history of malignant neoplasm, unspecified
CPT/HCPCS: 36415; 71046; 80053; 80061; 81001; 82550; 83516; 83735; 84132; 84443; 84484; 85025; 85379; 85610; 85730; 93306; 94760; 99285

== ENCOUNTER 2018-12-13 18:09 | Observation (INO) | payer MEDICARE, OTHER ==
[2018-12-13] MEDS ORDERED: ONDANSETRON 4 MG/2 ML VIAL IVP STA (18:36)
[2018-12-13] MEDS ORDERED: SODIUM CHLORIDE 0.9% 500 ML 500 ML IV STA (18:36)
[2018-12-13] MEDS ORDERED: HYDROmorphone 1 MG/ML 1 ML SYRINGE IVP STA (18:36)
[2018-12-13] MEDS ORDERED: LORazepam 2 MG/ML INJ IV STA (18:37)
--- NOTE | 2018-12-13 18:45 | ED ---
General Adult HPI - General Chief complaint: Chest Pain Stated complaint: chest pain Time Seen by Provider: 12/13/18 18:16 Source: patient Mode of arrival: wheelchair Limitations: no limitations - History of Present Illness Initial comments: 48-year-old female patient presents to the emergency department today for evaluation of chest pain. Patient states the pain is substernal to left-sided chest pain states it does radiate into her left neck and jaw. Patient states that she has had these symptoms on and off since Saturday. Patient states she was seen and evaluated at the hospital and admitted for hypokalemia and cardiology evaluation. Patient states they're unable to perform any stress testing due to the low potassium level and she is scheduled for outpatient appointments. Patient states that the pain continued today. States she has bee n nauseated and short of breath with this. Patient states that she has vomited twice. Denies any sweats. States she does continue to have diarrhea today as her medication was unavailable at the pharmacy. Patient states she has had intermittent episodes of dizziness. Denies any syncope, numbness, or tingling. Patient denies any recent rash, fever, chills, abdominal pain, back pain, numbness, tingling, dizziness, weakness, hematuria, dysuria, urinary urgency, urinary frequency, headache, visual changes, or any other complaints. - Related Data Home Medications Medication Instructions Recorded Confirmed Zolpidem Tartrate [Ambien Cr] 12.5 mg PO HS 09/27/14 12/10/18 Topiramate 100 mg PO BID 04/08/16 12/10/18 clonazePAM [Clonazepam] 1 mg PO BID 04/08/16 12/10/18 traZODone HCL [Desyrel] 100 mg PO BID 04/08/16 12/10/18 Atorvastatin Calcium [Lipitor] 10 mg PO HS 12/05/16 12/10/18 Sertraline HCl [Zoloft] 100 mg PO HS 12/05/16 12/10/18 Alosetron HCl [Lotronex] 2 mg PO HS 09/19/17 12/10/18 Diltiazem HCl [Cartia Xt] 120 mg PO HS 12/10/18 12/10/18 Galcanezumab-Gnlm [Emgality Pen] 120 mg SQ Q30D 12/10/18 12/10/18 Pantoprazole Sodium [Protonix] 20 mg PO DAILY 12/10/18 12/10/18 Previous Rx's Medication Instructions Recorded Aspirin 81 mg PO DAILY chew 12/12/18 Dicyclomine [Bentyl] 10 mg PO QID #60 cap 12/12/18 Fludrocortisone [Florinef] 0.1 mg PO BID #60 tablet 12/12/18 Psyllium Husk 100% [Metamucil 6 gm PO BID #60 packet 12/12/18 Packet] Allergies Allergy/AdvReac Type Severity Reaction Status Date / Time morphine Allergy Swelling, Verified 12/13/18 18:13 diff breathing Penicillins Allergy Unknown Verified 12/13/18 18:13 Childhood venom-honey bee Allergy Anaphylaxis-has Verified 12/13/18 18:13 [bee venom (honey bee)] epi-pen baclofen AdvReac Diarrhea Verified 12/13/18 18:13 Review of Systems ROS Statement: Those systems with pertinent positive or pertinent negative responses have been documented in the HPI. ROS Other: All systems not noted in ROS Statement are negative. Past Medical History Past Medical History: Atrial Fibrillation, Diabetes Mellitus, Hyperlipidemia, Hypertension Additional Past Medical History / Comment(s): Postural orthostatic tachycardia syndrome, Migraines, IBS. 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 Granuloma annulare History of Any Multi-Drug Resistant Organisms: None Reported Past Surgical History: Appendectomy, Breast Surgery, Cardiac Ablation, Cholecystectomy, Heart Catheterization, Hysterectomy, Orthopedic Surgery Additional Past Surgical History / Comment(s): BIOPSY- RT BREAST x2, RT LUMPECTOMY; LT KNEE SURGERY X4 (2 arthroscopic), Left ankle x 2, CARDIAC ABLATION X 2. COLONOSCOPY Past Anesthesia/Blood Transfusion Reactions: Previous Problems w/ Anesthesia Additional Past Anesthesia/Blood Transfusion Reaction / Comment(s): DIFFICULT INTUBATION W/ EMERG APPENDECTOMY-Can't find letter Past Psychological History: Anxiety, Depression Smoking Status: Never smoker Past Alcohol Use History: None Reported Past Drug Use History: None Reported - Past Family History Father Family Medical History: Hypertension, Myocardial Infarction ([place]), Pulmonary Em bolus Mother Family Medical History: Cancer Additional Family Medical History / Comment(s): Lymphatic CA General Exam Limitations: no limitations General appearance: alert, in no apparent distress, other (Physical well- developed, well-nourished adult female patient in no acute distress. Vital signs upon presentation are temperature 98.1F, pulse 88, respirations 18, blood pressure 136/75, pulse ox 98% on room air.) Eye exam: Present: normal appearance, PERRL, EOMI. Absent: scleral icterus, conjunctival injection, periorbital swelling ENT exam: Present: normal exam, normal oropharynx, mucous membranes moist Respiratory exam: Present: normal lung sounds bilaterally. Absent: respiratory distress, wheezes, rales, rhonchi, stridor Cardiovascular Exam: Present: regular rate, normal rhythm, normal heart sounds. Absent: systolic murmur, diastolic murmur, rubs, gallop, clicks GI/Abdominal exam: Present: soft, normal bowel sounds. Absent: distended, tenderness, guarding, rebound, rigid Neurological exam: Present: alert, oriented X3, CN II-XII intact Psychiatric exam: Present: normal affect, normal mood Skin exam: Present: warm, dry, intact, normal color. Absent: rash Course Vital Signs 12/13/18 18:11 Temperature 98.1 F Pulse Rate 88 Respiratory 18 Rate Blood Pressure 136/75 O2 Sat by Pulse 98 Oximetry EKG Findings - EKG Comments: EKG Findings:: EKG obtained at 1823 shows normal sinus rhythm with a ventricular rate of 84, WA interval 146, QRS duration 64, QT 392, QTc 463. No evidence of ST elevation or depression. Medical Decision Making - Medical Decision Making 48-year-old female patient presents to the emergency department today for evaluation of substernal chest pain radiating to the left jaw. Patient is also reporting nausea, vomiting, and shortness of breath with this. Physical examination is unremarkable. Lungs are clear to auscultation with good air movement. Vital signs are within normal limits. Labs reviewed and were relatively unremarkable. Initial troponin is negative. Patient was discharged from this facility yesterday after being admitted for hypokalemia and chest pain. Potassium level is normal today. Given patient's symptoms we will admit for further evaluation by cardiology. Patient is requesting [facility], Dr. Ghosh is accepting. - Lab Data Result diagrams: 12/13/18 18:33 12/13/18 18:33 Lab Results 12/13/18 12/13/18 12/13/18 Range/Units 18:33 18:33 18:33 WBC 10.9 H (3.8-10.6) k/uL RBC 4.86 (3.80-5.40) m/uL Hgb 13.7 (11.4-16.0) gm/dL Hct 42.3 (34.0-46.0) % MCV 87.0 (80.0-100.0) fL MCH 28.3 (25.0-35.0) pg MCHC 32.5 (31.0-37.0) g/dL RDW 15.1 (11.5-15.5) % Plt Count 233 (150-450) k/uL Neutrophils % 61 % Lymphocytes % 32 % Monocytes % 4 % Eosinophils % 2 % Basophils % 0 % Neutrophils # 6.6 (1.3-7.7) k/uL Lymphocytes # 3.4 (1.0-4.8) k/uL Monocytes # 0.5 (0-1.0) k/uL Eosinophils # 0.2 (0-0.7) k/uL Basophils # 0.0 (0-0.2) k/uL PT 10.6 (9.0-12.0) sec INR 1.0 (<1.2) APTT 24.1 (22.0-30.0) sec Sodium 145 (137-145) mmol/L Potassium 3.9 (3.5-5.1) mmol/L Chloride 113 H (98-107) mmol/L Carbon Dioxide 21 L (22-30) mmol/L Anion Gap 11 mmol/L BUN 7 (7-17) mg/dL Creatinine 0.70 (0.52-1.04) mg/dL Est GFR (CKD-EPI)AfAm >90 (>60 ml/min/1.73 sqM) Est GFR (CKD-EPI)NonAf >90 (>60 ml/min/1.73 sqM) Glucose 117 H (74-99) mg/dL Calcium 9.3 (8.4-10.2) mg/dL Magnesium 2.2 (1.6-2.3) mg/dL Total Bilirubin 0.5 (0.2-1.3) mg/dL AST 52 H (14-36) U/L ALT 43 (9-52) U/L Alkaline Phosphatase 96 (38-126) U/L Troponin I (0.000-0.034) ng/mL Total Protein 7.5 (6.3-8.2) g/dL Albumin 4.5 (3.5-5.0) g/dL 12/13/18 Range/Units 18:33 WBC (3.8-10.6) k/uL RBC (3.80-5.40) m/uL Hgb (11.4-16.0) gm/dL Hct (34.0-46.0) % MCV (80.0-100.0) fL MCH (25.0-35.0) pg MCHC (31.0-37.0) g/dL RDW (11.5-15.5) % Plt Count (150-450) k/uL Neutrophils % % Lymphocytes % % Monocytes % % Eosinophils % % Basophils % % Neutrophils # (1.3-7.7) k/uL Lymphocytes # (1.0-4.8) k/uL Monocytes # (0-1.0) k/uL Eosinophils # (0-0.7) k/uL Basophils # (0-0.2) k/uL PT (9.0-12.0) sec INR (<1.2) APTT (22.0-30.0) sec Sodium (137-145) mmol/L Potassium (3.5-5.1) mmol/L Chloride (98-107) mmol/L Carbon Dioxide (22-30) mmol/L Anion Gap mmol/L BUN (7-17) mg/dL Creatinine (0.52-1.04) mg/dL Est GFR (CKD-EPI)AfAm (>60 ml/min/1.73 sqM) Est GFR (CKD-EPI)NonAf (>60 ml/min/1.73 sqM) Glucose (74-99) mg/dL Calcium (8.4-10.2) mg/dL Magnesium (1.6-2.3) mg/dL Total Bilirubin (0.2-1.3) mg/dL AST (14-36) U/L ALT (9-52) U/L Alkaline Phosphatase (38-126) U/L Troponin I <0.012 (0.000-0.034) ng/mL Total Protein (6.3-8.2) g/dL Albumin (3.5-5.0) g/dL - Radiology Data Radiology results: report reviewed, image reviewed Two-view x-ray of the chest is obtained. Report was reviewed in its entirety. Impression by Dr. Acosta shows no acute cardio pulmonary process. No significant change from prior. Disposition Clinical Impression: Chest pain Disposition: ADMITTED IP TO THIS [facility] Condition: Serious Referrals: Scott Johnson MD [Primary Care Provider] - 1-2 days Decision to Admit Reason: Admit from [facility] Decision Date: 12/13/18 Decision Time: 20:39
[2018-12-13 18:51] LABS: Basophils % (A) 0 %; Eosinophils # (A) 0.2 k/uL (0-0.7); Eosinophils % (A) 2 %; HCT 42.3 % (34.0-46.0); HGB 13.7 gm/dL (11.4-16.0); Lymphocytes # (A) 3.4 k/uL (1.0-4.8); Lymphocytes % (A) 32 %; MCH 28.3 pg (25.0-35.0); MCHC 32.5 g/dL (31.0-37.0); Mean Platelet Volume 7.1; Monocytes # (A) 0.5 k/uL (0-1.0); Monocytes % (A) 4 %; Neutrophils # (A) 6.6 k/uL (1.3-7.7); Neutrophils % (A) 61 %; Platelet Count 233 k/uL (150-450); RBC 4.86 m/uL (3.80-5.40); RDW 15.1 % (11.5-15.5); WBC 10.9 k/uL (3.8-10.6)
[2018-12-13 19:00] LABS: Partial Thromboplastin Time 24.1 sec (22.0-30.0); Prothrombin Time 10.6 sec (9.0-12.0)
[2018-12-13 19:13] LABS: ALT 43 U/L (9-52); AST 52 U/L (14-36); Albumin 4.5 g/dL (3.5-5.0); Alkaline Phosphatase 96 U/L (38-126); Anion Gap 11 mmol/L; Blood Urea Nitrogen 7 mg/dL (7-17); Calcium 9.3 mg/dL (8.4-10.2); Carbon Dioxide 21 mmol/L (22-30); Chloride 113 mmol/L (98-107); Glucose 117 mg/dL (74-99); Magnesium 2.2 mg/dL (1.6-2.3); Potassium 3.9 mmol/L (3.5-5.1); Sodium 145 mmol/L (137-145); Total Bilirubin 0.5 mg/dL (0.2-1.3); Total Protein 7.5 g/dL (6.3-8.2)
--- NOTE | 2018-12-13 19:17 | XR ---
EXAMINATION TYPE: XR chest 2V DATE OF EXAM: 12/13/2018 COMPARISON: Chest x-ray October 10, 2018. HISTORY: Chest pain for a few days. TECHNIQUE: Frontal and lateral views of the chest are obtained. FINDINGS: Elevation and eventration anterior aspect right hemidiaphragm is redemonstrated. Overlying EKG leads are again seen. There is no focal air space opacity, pleural effusion, or pneumothorax seen . The cardiac silhouette size is within normal limits. The osseous structures are intact. IMPRESSION: No acute cardiopulmonary process. No significant change from prior.
[2018-12-13] MEDS ORDERED: NALOXONE 0.4 MG/ML 1 ML VIAL IV PRN (20:36)
[2018-12-13] MEDS ORDERED: ONDANSETRON 4 MG/2 ML VIAL IVP PRN (20:36)
[2018-12-13] MEDS ORDERED: HYDROmorphone 0.5 MG/0.5 ML SYRINGE IVP STA (21:31)
[2018-12-13] MEDS: HYDROmorphone 1 MG/ML 1 ML SYRINGE IVP PRN (21:38)
[2018-12-13 22:31] VITALS: BMI 31.3
--- NOTE | 2018-12-13 23:18 | P.HPIM ---
History of Present Illness H&P Date: 12/13/18 Chief Complaint: Atypical chest pain 48-year-old female with history of PTOT S, A. fib status post ablation, hypertension, diabetes. Patient was recently hospitalized under observation discharged yesterday from the hospital to rule out acute coronary syndrome. Cardiology evaluated the patient and recommended outpatient stress test however since yesterday patient continued to have chest pain she actually reports that chest pain has been the same symptoms started 4 days ago. She described it as central chest pain radiating to the left neck rated as 8 out of 10 in severity comes and frequent episodes lasting about 10 minutes each associated with feeling nauseous tired and dizzy. At times associated with vomiting nonbilious nonbloody. Patient also gets diaphoresis with these attacks. These attacks are not associated with any specific movement or activity most of them are actually happening at rest as she spending the whole day resting doing nothing. There is no certain position associated with worsening or improvement of pain no medications helping with the pain. Patient is growing increasingly concerned regarding her cardiac condition as she reports family history of massive heart attack and she is worried about her heart at this time. Currently she reports pain of 6 out of 10 in severity nitro is not helping much with the pain. She still reports her chronic conditions diarrhea which has happened twice today nonbloody patient was evaluated by GI who updated her with results of colonoscopy that were normal showing resolving colitis. GI recommended to continue the patient on Bentyl and Lomotil and to follow up outpatient She also reports act pain which was evaluated by orthopedic service during her most recent hospitalization and recommended no immediate surgical intervention and to follow up outpatient to continue steroid injections. Patient is also recalls that she had negative heart cath back in 2013. Today in the ER her initial workup and EKG and chest x-ray were all unremarkable Past Medical History Past Medical History: Atrial Fibrillation, Diabetes Mellitus, Hyperlipidemia, Hypertension Additional Past Medical History / Comment(s): Postural orthostatic tachycardia syndrome, Migraines, IBS. 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 Granuloma annulare History of Any Multi-Drug Resistant Organisms: None Reported Past Surgical History: Appendectomy, Breast Surgery, Cardiac Ablation, Cholecystectomy, Heart Catheterization, Hysterectomy, Orthopedic Surgery Additional Past Surgical History / Comment(s): BIOPSY- RT BREAST x2, RT LUMPECTOMY; LT KNEE SURGERY X4 (2 arthroscopic), Left ankle x 2, CARDIAC ABLATION X 2. COLONOSCOPY Past Anesthesia/Blood Transfusion Reactions: Previous Problems w/ Anesthesia Additional Past Anesthesia/Blood Transfusion Reaction / Comment(s): DIFFICULT INTUBATION W/ EMERG APPENDECTOMY-Can't find letter Past Psychological History: Anxiety, Depression Smoking Status: Never smoker Past Alcohol Use History: None Reported Past Drug Use History: None Reported - Past Family History Father Family Medical History: Hypertension, Myocardial Infarction ([place]), Pulmonary Embolus Mother Family Medical History: Cancer Additional Family Medical History / Comment(s): Lymphatic CA Medications and Allergies Home Medications Medication Instructions Recorded Confirmed Type Zolpidem Tartrate [Ambien Cr] 12.5 mg PO HS 09/27/14 12/13/18 History Topiramate 100 mg PO BID 04/08/16 12/13/18 History clonazePAM [Clonazepam] 1 mg PO BID 04/08/16 12/13/18 History traZODone HCL [Desyrel] 100 mg PO BID 04/08/16 12/13/18 History Atorvastatin Calcium [Lipitor] 10 mg PO HS 12/05/16 12/13/18 History Sertraline HCl [Zoloft] 100 mg PO HS 12/05/16 12/13/18 History Alosetron HCl [Lotronex] 2 mg PO HS 09/19/17 12/13/18 History Diltiazem HCl [Cartia Xt] 120 mg PO HS 12/10/18 12/13/18 History Galcanezumab-Gnlm [Emgality Pen] 120 mg SQ Q30D 12/10/18 12/13/18 History Pantoprazole Sodium [Protonix] 20 mg PO DAILY 12/10/18 12/13/18 History Aspirin 81 mg PO DAILY chew 12/12/18 12/13/18 Rx Dicyclomine [Bentyl] 10 mg PO QID #60 cap 12/12/18 12/13/18 Rx Fludrocortisone [Florinef] 0.1 mg PO BID #60 tablet 12/12/18 12/13/18 Rx Allergies Allergy/AdvReac Type Severity Reaction Status Date / Time morphine Allergy Swelling, Verified 12/13/18 22:32 diff breathing Penicillins Allergy Unknown Verified 12/13/18 22:32 Childhood venom-honey bee Allergy Anaphylaxis-has Verified 12/13/18 22:32 [bee venom (honey bee)] epi-pen baclofen AdvReac Diarrhea Verified 12/13/18 22:32 Physical Exam Vitals: Vital Signs Temp Pulse Pulse Resp BP BP Pulse Ox 12/13/18 22:00 98.4 F 73 18 138/87 97 12/13/18 18:11 98.1 F 88 18 136/75 98 Intake and Output 12/13/18 12/13/18 12/14/18 14:59 22:59 06:59 Other: Weight 80.286 kg Constitutional: No acute distress, conversant, pleasant Eyes: Anicteric sclerae, moist conjunctiva, no lid-lag Pupils equal round reactive to light ENMT: NC/AT Oropharynx clear, no erythema, exudates Neck: Supple, FROM, no masses, or JVD No carotid bruits No thyromegaly Lungs: Clear to auscultation Clear to percussion Normal respiratory effort, no accessory muscle use Cardiovascular: Heart regular in rate and rhythm, No murmurs, gallops, or rubs No peripheral edema Abdominal: Soft Nontender, no guarding, rebound or rigidity Abdomen moving with respiration Normoactive bowel sounds No hepatomegaly, No splenomegaly No palpable mass No abdominal wall hernia noted Skin: Rash over bilateral feet stable from last time due to granuloma annulare Normal temperature, tone, texture, turgor No induration No subcutaneous nodules No lesions No ulcers Extremities: No digital cyanosis No clubbing Pedal pulses intact and symmetrical Radial pulses intact and symmetrical No calf tenderness Psychiatric: Alert and oriented to person, place and time Appropriate affect fair judgment Neuro Muscles Strength 5/5 in all 4 extremities Sensation to light touch grossly present throughout Cranial nerves II-XII grossly intact No focal sensory deficits Lymphatics: no palpable cervical or supraclavicular , or inguinal lymph nodes Results CBC & Chem 7: 12/13/18 18:33 12/13/18 18:33 Labs: Abnormal Lab Results - Last 24 Hours (Table) 12/13/18 12/13/18 Range/Units 18:33 18:33 WBC 10.9 H (3.8-10.6) k/uL Chloride 113 H (98-107) mmol/L Carbon Dioxide 21 L (22-30) mmol/L Glucose 117 H (74-99) mg/dL AST 52 H (14-36) U/L Thrombosis Risk Factor Assmnt - Choose All That Apply Each Factor Represents 1 point: Age 41-60 years, Hx of IBD, Obesity (BMI >25) Thrombosis Risk Factor Assessment Total Risk Factor Score: 3 Thrombosis Risk Factor Assessment Level: Moderate Risk Assessment and Plan Assessment: 48-year-old female with history of diabetes mellitus, hypertension, hyperlipidemia, A. 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 fib status post ablation Hypertension Diabetes mellitus on insulin sliding scale Chronic diarrhea continue with Bentyl and Lomotil, based on GI recommendations from most recent visit, follow-up outpatient Chronic low back pain, pain control, patient was cleared by orthopedic service last visit no recommendations for any immediate surgical intervention Bilateral feet rash due to granuloma annulare follow-up outpatient dermatology History of breast cancer status post lumpectomy DVT prophylaxis heparin subcu 3 times a day Preformed a thorough record review from recent hospitalization patient hospitalized and discharged yesterday for atypical chest pain recommendations from cardiology was to perform outpatient stress test Surrogate decision-maker: Patient daughter CODE STATUS: Full code Discussed with: Patient, ER, RN Anticipated discharge: <[address]: Home A total of 60 minutes was spent on the care of this complex patient more than 50% of the time was spent in counseling and care coordination.
[2018-12-13] MEDS ORDERED: DIPHENOX-ATROP 2.5-0.025 MG 1 EACH TAB PO PRN (23:30)
[2018-12-13] MEDS ORDERED: DICYCLOMINE 20 MG TAB PO PRN (23:30)
[2018-12-13] MEDS: HEPARIN SODIUM,PORCINE 5,000 UNIT/ML 1 ML VIAL SQ SCH (23:42)
[2018-12-13] MEDS: SERTRALINE 100 MG TAB PO SCH (23:43)
[2018-12-13] MEDS: TOPIRAMATE 100 MG TAB PO SCH (23:43)
[2018-12-13] MEDS: ATORVASTATIN 10 MG TAB PO SCH (23:44)
[2018-12-13] MEDS: FLUDROCORTISONE 0.1 MG TAB PO SCH (23:44)
[2018-12-13] MEDS: DILTIAZEM CD 120 MG CAP.ER.24H PO SCH (23:44)
[2018-12-13] MEDS: ZOLPIDEM TARTRATE 12.5 MG PO SCH (23:45)
[2018-12-13] MEDS: clonazePAM 1 MG TAB PO SCH (23:52)
[2018-12-13] MEDS: traZODone HCL 100 MG TAB PO SCH (23:52)
[2018-12-13] MEDS: SODIUM CHLORIDE 0.9% 1,000 ML IV SCH (23:53)
[2018-12-14] MEDS ORDERED: MAG HYDROX/AL HYDROX/SIMETH 30 ML CUP PO PRN
[2018-12-14] MEDS: HYDROmorphone 1 MG/ML 1 ML SYRINGE IVP PRN ×4 (04:15→21:38)
[2018-12-14 06:29] LABS: Basophils % (A) 0 %; Eosinophils # (A) 0.1 k/uL (0-0.7); Eosinophils % (A) 1 %; HCT 39.8 % (34.0-46.0); Lymphocytes # (A) 2.9 k/uL (1.0-4.8); Lymphocytes % (A) 30 %; MCH 28.9 pg (25.0-35.0); MCHC 32.7 g/dL (31.0-37.0); MCV 88.3 fL (80.0-100.0); Mean Platelet Volume 6.6; Monocytes # (A) 0.3 k/uL (0-1.0); Monocytes % (A) 3 %; Neutrophils # (A) 6.3 k/uL (1.3-7.7); Neutrophils % (A) 65 %; Platelet Count 192 k/uL (150-450); RDW 14.4 % (11.5-15.5); WBC 9.7 k/uL (3.8-10.6)
[2018-12-14] MEDS: INSULIN ASPART (NovoLOG) 100 UNIT/ML VIAL SQ SCH ×4 (06:43→20:38)
[2018-12-14 06:45] LABS: Glucose,Whole Blood 115 mg/dL (75-99)
[2018-12-14 06:49] LABS: Calcium 8.5 mg/dL (8.4-10.2); Potassium 3.4 mmol/L (3.5-5.1)
[2018-12-14] MEDS: SODIUM CHLORIDE 0.9% 1,000 ML IV SCH ×3 (06:49→14:31)
[2018-12-14] MEDS ORDERED: Potassium Replacement Protocol 1 EACH MISC MISCELLANE PRN (07:51)
[2018-12-14] MEDS: clonazePAM 1 MG TAB PO SCH ×2 (08:08→20:38)
[2018-12-14] MEDS: traZODone HCL 100 MG TAB PO SCH ×2 (08:08→20:38)
[2018-12-14] MEDS: ASPIRIN 81 MG PO SCH (08:08)
[2018-12-14] MEDS: FLUDROCORTISONE 0.1 MG TAB PO SCH ×2 (08:08→20:38)
[2018-12-14] MEDS: TOPIRAMATE 100 MG TAB PO SCH ×2 (08:08→20:39)
[2018-12-14] MEDS: PANTOPRAZOLE 40 MG TABLET PO SCH ×2 (08:08→15:39)
[2018-12-14] MEDS: POTASSIUM CHLORIDE ER 20 MEQ TAB.ER PO SCH ×3 (08:08→20:37)
[2018-12-14] MEDS: HEPARIN SODIUM,PORCINE 5,000 UNIT/ML 1 ML VIAL SQ SCH ×3 (08:09→21:39)
[2018-12-14 11:45] LABS: Glucose,Whole Blood 120 mg/dL (75-99)
[2018-12-14] MEDS: ACETAMINOPHEN TAB 325 MG TAB PO PRN (14:31)
[2018-12-14 16:34] LABS: Glucose,Whole Blood 107 mg/dL (75-99)
[2018-12-14 20:09] LABS: Glucose,Whole Blood 147 mg/dL (75-99)
[2018-12-14] MEDS: DILTIAZEM CD 120 MG CAP.ER.24H PO SCH (20:38)
[2018-12-14] MEDS: ATORVASTATIN 10 MG TAB PO SCH (20:38)
[2018-12-14] MEDS: SERTRALINE 100 MG TAB PO SCH (20:39)
[2018-12-14] MEDS: ZOLPIDEM TARTRATE 12.5 MG PO SCH (21:39)
[2018-12-15] MEDS: HYDROmorphone 1 MG/ML 1 ML SYRINGE IVP PRN ×3 (03:53→14:19)
[2018-12-15 06:54] LABS: Glucose,Whole Blood 95 mg/dL (75-99)
[2018-12-15] MEDS: INSULIN ASPART (NovoLOG) 100 UNIT/ML VIAL SQ SCH ×4 (07:40→21:31)
--- NOTE | 2018-12-15 08:08 | P.CRDCN ---
History of Present Illness Consult date: 12/15/18 Chief complaint: Chest pain History of present illness: This is another admission for this 48-year-old female patient with a chest discomfort. She is a pleasant lady with known history of diabetes, hypertension, dyslipidemia, by POTS and history of ablation in the past. She was admitted to the hospital last week with a chest discomfort and ruled out for acute coronary event. Initially was scheduled the patient wondered with dobutamine stress echocardiogram unfortunately she was quite hypokalemic and also she was diagnosed with UTI and for that reason we canceled the stress test on her. The patient stated that she was in her usual state of health but yesterday when she was at home and started experiencing discomfort across the chest, as a pressure on the chest, without any radiation to the arm or neck or shoulders but it was associated with extreme sweating. No dizziness or lightheadedness, heart racing or fluttering, or syncope. Since then she has been chest pain-free. The EKG showed sinus rhythm without any significant ST or T-wave abnormalities. The cardiac enzymes were checked and came in to be unremarkable. The rest of the blood work came in to be unremarkable. The chest x-ray did not show any acute abnormalities as well. The patient underwent a heart catheterization in 2013 and that revealed normal coronaries. The last echocardiogram revealed normal LV function was only mild valvular abnormalities. Past Medical History Past Medical History: Atrial Fibrillation, Diabetes Mellitus, Hyperlipidemia, Hypertension Additional Past Medical History / Comment(s): Postural orthostatic tachycardia syndrome, Migraines, IBS. 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 Granuloma annulare History of Any Multi-Drug Resistant Organisms: None Reported Past Surgical History: Appendectomy, Breast Surgery, Cardiac Ablation, Cholecystectomy, Heart Catheterization, Hysterectomy, Orthopedic Surgery Additional Past Surgical History / Comment(s): BIOPSY- RT BREAST x2, RT LUMPECTOMY; LT KNEE SURGERY X4 (2 arthroscopic), Left ankle x 2, CARDIAC ABLATION X 2. COLONOSCOPY Past Anesthesia/Blood Transfusion Reactions: Previous Problems w/ Anesthesia Additional Past Anesthesia/Blood Transfusion Reaction / Comment(s): DIFFICULT INTUBATION W/ EMERG APPENDECTOMY-Can't find letter Past Psychological History: Anxiety, Depression Smoking Status: Never smoker Past Alcohol Use History: None Reported Past Drug Use History: None Reported - Past Family History Father Family Medical History: Hypertension, Myocardial Infarction ([place]), Pulmonary Embolus Mother Family Medical History: Cancer Additional Family Medical History / Comment(s): Lymphatic CA Medications and Allergies Home Medications Medication Instructions Recorded Confirmed Type Zolpidem Tartrate [Ambien Cr] 12.5 mg PO HS 09/27/14 12/13/18 History Topiramate 100 mg PO BID 04/08/16 12/13/18 History clonazePAM [Clonazepam] 1 mg PO BID 04/08/16 12/13/18 History traZODone HCL [Desyrel] 100 mg PO BID 04/08/16 12/13/18 History Atorvastatin Calcium [Lipitor] 10 mg PO HS 12/05/16 12/13/18 History Sertraline HCl [Zoloft] 100 mg PO HS 12/05/16 12/13/18 History Alosetron HCl [Lotronex] 2 mg PO HS 09/19/17 12/13/18 History Diltiazem HCl [Cartia Xt] 120 mg PO HS 12/10/18 12/13/18 History Galcanezumab-Gnlm [Emgality Pen] 120 mg SQ Q30D 12/10/18 12/13/18 History Pantoprazole Sodium [Protonix] 20 mg PO DAILY 12/10/18 12/13/18 History Aspirin 81 mg PO DAILY chew 12/12/18 12/13/18 Rx Dicyclomine [Bentyl] 10 mg PO QID #60 cap 12/12/18 12/13/18 Rx Fludrocortisone [Florinef] 0.1 mg PO BID #60 tablet 12/12/18 12/13/18 Rx Allergies Allergy/AdvReac Type Severity Reaction Status Date / Time morphine Allergy Swelling, Verified 12/13/18 22:32 diff breathing Penicillins Allergy Unknown Verified 12/13/18 22:32 Childhood venom-honey bee Allergy Anaphylaxis-has Verified 12/13/18 22:32 [bee venom (honey bee)] epi-pen baclofen AdvReac Diarrhea Verified 12/13/18 22:32 Physical Exam Vitals: Vital Signs Temp Pulse Resp BP BP Pulse Ox 12/15/18 07:17 98.1 F 83 16 122/77 95 12/15/18 04:00 98.2 F 67 15 105/68 96 12/15/18 03:58 76 16 12/14/18 23:26 97.8 F 76 15 100/62 96 12/14/18 19:37 98.3 F 70 15 111/72 98 12/14/18 16:00 98.5 F 81 16 117/77 97 12/14/18 15:43 16 12/14/18 12:00 98.2 F 86 16 104/72 96 Intake and Output 12/14/18 12/15/18 12/15/18 22:59 06:59 14:59 Intake Total 1250 Balance 1250 Intake: Intake, IV Titration 1250 Amount Sodium Chloride 0.9% 1, 1250 000 ml @ 125 mls/hr IV . Q8H [facility] Rx#:[id number] Other: Voiding Method Toilet Toilet # Voids 5 # Bowel Movements 1 - Constitutional General appearance: no acute distress - Respiratory Respiratory: bilateral: CTA - Cardiovascular Rhythm: regular Heart sounds: normal: S1, S2 Results 12/14/18 05:48 12/14/18 05:48 Current Medications Generic Name Dose Route Start Last Admin Trade Name Freq PRN Reason Stop Dose Admin Acetaminophen 650 mg 12/14/18 14:21 12/14/18 14:31 Tylenol Tab PO 650 mg Q6HR PRN Administration Fever and/ or Pain Al Hydroxide/Mg Hydroxide 30 ml 12/14/18 00:00 Maalox PO Q4HR PRN GI Upset Aspirin 81 mg 12/14/18 09:00 12/14/18 08:08 Aspirin PO 81 mg DAILY STEPHEN Administration Atorvastatin Calcium 10 mg 12/13/18 23:15 12/14/18 20:38 Lipitor PO 10 mg HS STEPHEN Administration Clonazepam 1 mg 12/13/18 23:30 12/14/18 20:38 Klonopin PO 1 mg BID STEPHEN Administration Dicyclomine HCl 20 mg 12/13/18 23:30 12/13/18 23:43 Bentyl PO 20 mg QID PRN Administration Dyspepsia Diltiazem HCl 120 mg 12/13/18 23:15 12/14/18 20:38 Cardizem Cd PO 120 mg HS STEPHEN Administration Diphenoxylate HCl/Atropine 1 each 12/13/18 23:30 Lomotil PO Q6HR PRN Diarrhea Fludrocortisone Acetate 0.1 mg 12/13/18 23:30 12/14/18 20:38 Florinef PO 0.1 mg BID STEPHEN Administration Heparin Sodium (Porcine) 5,000 unit 12/14/18 00:00 12/14/18 21:39 Heparin SQ 5,000 unit Q8HR STEPHEN Administration Hydromorphone HCl 1 mg 12/13/18 21:31 12/15/18 03:53 Dilaudid IVP 1 mg Q4HR PRN Administration Pain Sodium Chloride 1,000 mls @ 125 mls/hr 12/13/18 23:15 12/14/18 14:31 Saline 0.9% IV 125 mls/hr .Q8H STEPHEN Administration Dobutamine HCl/Dextrose 500 mg 250 mls @ 24.086 mls/hr 12/15/18 09:00 / IV Solution IV 12/15/18 19:22 .[id number] ONE Protocol 10 MCG/KG/MIN Insulin Aspart 0 unit 12/14/18 07:30 12/15/18 07:40 Novolog SQ Not Given ACHS [facility] Protocol Miscellaneous Information 1 each 12/14/18 07:51 Potassium Per Protocol MISCELLANE DAILY PRN Per Protocol Protocol Naloxone HCl 0.2 mg 12/13/18 20:36 Narcan IV Q2M PRN Opioid Reversal Non-Formulary Medication 12.5 mg 12/13/18 23:15 12/14/18 21:39 Zolpidem Tartrate [Ambien Cr] PO 12.5 mg HS STEPHEN Administration Ondansetron HCl 4 mg 12/13/18 20:36 12/14/18 08:25 Zofran IVP 4 mg Q8HR PRN Administration Nausea And Vomiting Pantoprazole Sodium 40 mg 12/14/18 07:30 12/14/18 15:39 Protonix PO 40 mg AC-BID STEPHEN Administration Potassium Chloride 40 meq 12/14/18 16:00 12/14/18 20:37 K-Dur 20 PO 40 meq TID STEPHEN Administration Sertraline HCl 100 mg 12/13/18 23:30 12/14/18 20:39 Zoloft PO 100 mg HS STEPHEN Administration Topiramate 100 mg 12/13/18 23:30 12/14/18 20:39 Topamax PO 100 mg BID STEPHEN Administration Trazodone HCl 100 mg 12/13/18 23:30 12/14/18 20:38 Desyrel PO 100 mg BID STEPHEN Administration Intake and Output 12/14/18 12/15/18 12/15/18 22:59 06:59 14:59 Intake Total 1250 Balance 1250 Intake: Intake, IV Titration 1250 Amount Sodium Chloride 0.9% 1, 1250 000 ml @ 125 mls/hr IV . Q8H [facility] Rx#:[id number] Other: Voiding Method Toilet Toilet # Voids 5 # Bowel Movements 1 12/14/18 05:48 12/14/18 05:48 Assessment and Plan Assessment: Assessment #1 atypical chest discomfort #2 multiple risk factors for CAD Plan #1 acute coronary event was ruled out #2 I did recommend the patient to undergo a stress test #3 follow-up with the patient Thank you for allowing us participate in her care
[2018-12-15 08:12] LABS: Basophils % (A) 0 %; Eosinophils # (A) 0.2 k/uL (0-0.7); Eosinophils % (A) 2 %; HCT 37.8 % (34.0-46.0); HGB 12.4 gm/dL (11.4-16.0); Lymphocytes # (A) 2.9 k/uL (1.0-4.8); Lymphocytes % (A) 37 %; MCH 29.1 pg (25.0-35.0); MCHC 32.9 g/dL (31.0-37.0); MCV 88.3 fL (80.0-100.0); Mean Platelet Volume 7.1; Monocytes # (A) 0.3 k/uL (0-1.0); Monocytes % (A) 3 %; Neutrophils # (A) 4.4 k/uL (1.3-7.7); Neutrophils % (A) 56 %; Platelet Count 164 k/uL (150-450); RBC 4.28 m/uL (3.80-5.40); RDW 15.2 % (11.5-15.5); WBC 7.9 k/uL (3.8-10.6)
[2018-12-15 08:25] LABS: ALT 55 U/L (9-52); AST 56 U/L (14-36); Albumin 3.4 g/dL (3.5-5.0); Alkaline Phosphatase 97 U/L (38-126); Anion Gap 6 mmol/L; Blood Urea Nitrogen 6 mg/dL (7-17); Calcium 8.5 mg/dL (8.4-10.2); Carbon Dioxide 25 mmol/L (22-30); Chloride 114 mmol/L (98-107); Creatine Kinase 131 U/L (30-135); Glucose 106 mg/dL (74-99); Potassium 3.7 mmol/L (3.5-5.1); Sodium 145 mmol/L (137-145); Total Bilirubin 0.5 mg/dL (0.2-1.3); Total Protein 5.9 g/dL (6.3-8.2)
[2018-12-15] MEDS ORDERED: DOBUTamine DRIP for NUC MED 500 MG in DEXTROSE/WATER 1 250ML.BAG IV ONE (09:00)
[2018-12-15 11:44] LABS: Glucose,Whole Blood 117 mg/dL (75-99)
[2018-12-15] MEDS: HEPARIN SODIUM,PORCINE 5,000 UNIT/ML 1 ML VIAL SQ SCH ×3 (11:59→23:20)
[2018-12-15] MEDS: traZODone HCL 100 MG TAB PO SCH ×2 (11:59→20:42)
[2018-12-15] MEDS: ASPIRIN 81 MG PO SCH (11:59)
[2018-12-15] MEDS: PANTOPRAZOLE 40 MG TABLET PO SCH ×2 (11:59→17:30)
[2018-12-15] MEDS: POTASSIUM CHLORIDE ER 20 MEQ TAB.ER PO SCH ×3 (11:59→20:41)
[2018-12-15] MEDS: clonazePAM 1 MG TAB PO SCH ×2 (11:59→20:42)
[2018-12-15] MEDS: TOPIRAMATE 100 MG TAB PO SCH ×2 (12:01→20:41)
[2018-12-15] MEDS: FLUDROCORTISONE 0.1 MG TAB PO SCH ×2 (12:10→20:42)
[2018-12-15] MEDS: SODIUM CHLORIDE 0.9% 1,000 ML IV SCH ×2 (12:11→20:43)
--- NOTE | 2018-12-15 13:37 | ECHOS ---
STRESS ECHOCARDIOGRAM DATE OF SERVICE: 12/15/2018 INDICATIONS: Chest pain. MEDICATIONS: BASELINE HEART RATE: 77 BASELINE BLOOD PRESSURE: 102/64 MAXIMUM HEART RATE: 153 MAXIMUM BLOOD PRESSURE: 162/52 85% MPHR: 147 100% MPHR: 173 METS: MAXIMUM STAGE REACHED: TOTAL EXERCISE TIME: CLINICAL INFORMATION: STRESS DATA: Pretesting physical examination showed a heart rate of 77, pressure is 102/64 mmHg. Baseline EKG showed sinus mechanism. Dobutamine infusion at a dose of 10 mcg/kg per minute was initiated and increased to /kg per minute. Max heart rate was 153, which is about 88% of maximum predicted heart rate. Maximum blood pressure was 162/52 mmHg. Clinically, the patient did not have any symptoms of chest pain or discomfort. The EKG did not show any significant ST or T-wave abnormalities concerning for ischemia. ECHOCARDIOGRAM IMAGES: On echocardiogram images from parasternal long axis view show, parasternal short axis view, apical 4 chamber and apical 2 chamber view were obtained at the baseline images, at low dose dobutamine infusion, at peak heart rate, as well as on recovery. The echocardiogram images showed good augmentation in the left ventricular systolic function without any evidence of wall motion abnormalities concerning for ischemia. CONCLUSION: 1. Normal EKG in response to dobutamine. 2. Normal echocardiogram in response to dobutamine. 3. Essentially normal dobutamine stress echocardiogram for the patient. MMODL / IJN: [id number] /
--- NOTE | 2018-12-15 15:22 | P.PN ---
Subjective Progress Note Date: 12/14/18 Principal diagnosis: Chest pain Patient was seen and examined. No acute events overnight. Objective - Vital Signs Vital signs: Vital Signs Temp 98.3 F 12/14/18 08:00 Pulse 85 12/14/18 08:00 Resp 16 12/14/18 08:00 BP 108/68 12/14/18 08:00 Pulse Ox 96 12/14/18 08:00 Intake & Output 12/13/18 12/14/18 12/14/18 18:59 06:59 18:59 Weight 80.286 kg Other: Voiding Method Toilet # Voids 1 - Exam General: [non toxic], [no distress], [appears at stated age] Derm: [warm], [dry] Head: [atraumatic], [normocephalic], [symmetric] Eyes: [EOMI], [no lid lag], [anicteric sclera] Mouth: [no lip lesion], [mucus membranes moist] Cardiovascular: [S1S2 reg], [no murmur], [positive posterior tibial pulse bilateral], Lungs: [CTA bilateral], [no rhonchi, no rales] , [no accessory muscle use] Abdominal: [soft], [ nontender to palpation], [no guarding], [no appreciable organomegaly] Ext: [no gross muscle atrophy], [no edema], [no contractures] Neuro: [ CN II-XI grossly intact], [no focal neuro deficits] Psych: [Alert], [oriented], [appropriate affect] - Labs CBC & Chem 7: 12/15/18 07:43 12/15/18 07:43 Labs: Abnormal Lab Results - Last 24 Hours (Table) 12/13/18 12/13/18 12/14/18 Range/Units 18:33 18:33 05:48 WBC 10.9 H (3.8-10.6) k/uL Potassium 3.4 L (3.5-5.1) mmol/L Chloride 113 H 111 H (98-107) mmol/L Carbon Dioxide 21 L (22-30) mmol/L Glucose 117 H 118 H (74-99) mg/dL POC Glucose (mg/dL) (75-99) mg/dL AST 52 H (14-36) U/L 12/14/18 Range/Units 06:39 WBC (3.8-10.6) k/uL Potassium (3.5-5.1) mmol/L Chloride (98-107) mmol/L Carbon Dioxide (22-30) mmol/L Glucose (74-99) mg/dL POC Glucose (mg/dL) 115 H (75-99) mg/dL AST (14-36) U/L Assessment and Plan Assessment: Assessment and Plan 1. Chest pain 2. Atrial fibrillation post ablation 3. Hypertension 4. Diabetes mellitus 5. Hyperlipidemia 6. History of POTS 7. Chronic diarrhea, evaluated by GI, underwent colonoscopy that was benign, advised to continue Bentyl and Lomotil Chronic conditions include chronic lower back pain, bilateral feet rash due to granuloma annular, history of breast cancer status post lumpectomy. 1. Atypical but concerns for ACS given family history. Troponin less than 0.0123, EKG showing normal sinus rhythm. Echocardiogram performed during last admission was within normal limits. Chest x-ray shows no acute changes. Plans: Cardiology consulted, plans for stress test tomorrow. ACS ruled out. Continue aspirin and Lipitor. Trial of Klonopin for anxiety. Follow CPK. Telemetry monitoring. Follow cardiology recommendations. 2. Plans: Post ablation. Currently sinus rhythm. Continue diltiazem. Follow cardiology recommendations. 3. BP 108/68. Plans: Continue diltiazem. Monitor vitals, adjust medications as necessary. 4. Qbdrl-ce-zlgz glucose 115. Plans: Insulin sliding scale. Regular Accu-Cheks. Hypoglycemic precautions. 5. Lipid panel during previous admission shows LDL of 107. Plans: Continue Lipitor. 6. Plans: Monitor vitals. Continue Florinef. Continue normal saline at 101 25 mL per hour. 7. Plans: Continue Bentyl and Lomotil. Follow GI in the outpatient setting. Plans for stress test tomorrow. Likely DC tomorrow depending on stress test results.
--- NOTE | 2018-12-15 15:55 | P.PN ---
Subjective Progress Note Date: 12/15/18 Principal diagnosis: Chest pain Patient was seen and examined. No acute events overnight. Patient continues to report excruciating chest pain, 10 out of 10 in severity. Patient reports since her pain is relieved with Dilaudid but the chest pressure remains despite pain medication. She denies any shortness of breath or palpitations. No nausea or vomiting. No fever or chills. Her father in her 50s due to [place]. Objective - Vital Signs Vital signs: Vital Signs Temp 98.3 F 12/15/18 11:35 Pulse 87 12/15/18 11:35 Resp 16 12/15/18 11:35 BP 122/83 12/15/18 11:35 Pulse Ox 96 12/15/18 11:35 Intake & Output 12/14/18 12/15/18 12/15/18 18:59 06:59 18:59 Intake Total 1250 Balance 1250 Intake: Intake, IV Titration 1250 Amount Sodium Chloride 0.9% 1, 1250 000 ml @ 125 mls/hr IV . Q8H [facility] Rx#:[id number] Other: Voiding Method Toilet Toilet Toilet # Voids 5 # Bowel Movements 1 - Exam General: [non toxic], [no distress], [appears at stated age] Derm: [warm], [dry] Head: [atraumatic], [normocephalic], [symmetric] Eyes: [EOMI], [no lid lag], [anicteric sclera] Mouth: [no lip lesion], [mucus membranes moist] Cardiovascular: [S1S2 reg], [no murmur], [positive posterior tibial pulse bilateral], Lungs: [CTA bilateral], [no rhonchi, no rales] , [no accessory muscle use] Abdominal: [soft], [ nontender to palpation], [no guarding], [no appreciable organomegaly] Ext: [no gross muscle atrophy], [no edema], [no contractures] Neuro: [ CN II-XI grossly intact], [no focal neuro deficits] Psych: [Alert], [oriented], [appropriate affect] - Labs CBC & Chem 7: 12/15/18 07:43 12/15/18 07:43 Labs: Abnormal Lab Results - Last 24 Hours (Table) 06/09/0212/14/18 12/15/18 Range/Units 16:32 20:07 07:43 Chloride 114 H (98-107) mmol/L BUN 6 L (7-17) mg/dL Glucose 106 H (74-99) mg/dL POC Glucose (mg/dL) 107 H 147 H (75-99) mg/dL AST 56 H (14-36) U/L ALT 55 H (9-52) U/L Total Protein 5.9 L (6.3-8.2) g/dL Albumin 3.4 L (3.5-5.0) g/dL 12/15/18 Range/Units 11:42 Chloride (98-107) mmol/L BUN (7-17) mg/dL Glucose (74-99) mg/dL POC Glucose (mg/dL) 117 H (75-99) mg/dL AST (14-36) U/L ALT (9-52) U/L Total Protein (6.3-8.2) g/dL Albumin (3.5-5.0) g/dL Assessment and Plan Assessment: Assessment and Plan 1. Chest pain 2. Atrial fibrillation post ablation 3. Hypertension 4. Diabetes mellitus 5. Hyperlipidemia 6. History of POTS 7. Chronic diarrhea, evaluated by GI, underwent colonoscopy that was benign, advised to continue Bentyl and Lomotil Chronic conditions include chronic lower back pain, bilateral feet rash due to granuloma annular, history of breast cancer status post lumpectomy. 1. Atypical but concerns for ACS given family history. Troponin less than 0.0123, EKG showing normal sinus rhythm. Echocardiogram performed during last admission was within normal limits. Chest x-ray shows no acute changes. Plans: Cardiology consulted, recommends overnight observation. Stress is negative. CPK is within normal limits. ACS ruled out. Continue aspirin and Lipitor. Trial of Klonopin for anxiety. Telemetry monitoring. Follow cardiology recommendations. 2. Plans: Post ablation. Currently sinus rhythm. Continue diltiazem. Follow cardiology recommendations. 3. BP 122/83. Plans: Continue diltiazem. Monitor vitals, adjust medications as necessary. 4. Ptfwd-be-fryw glucose 117. Plans: Insulin sliding scale. Regular Accu-Cheks. Hypoglycemic precautions. 5. Lipid panel during previous admission shows LDL of 107. Plans: Continue Lipitor. 6. Plans: Monitor vitals. Continue Florinef. Continue normal saline at 125 mL per hour. 7. Plans: Continue Bentyl and Lomotil. Follow GI in the outpatient setting. ACS ruled out. Stress test negative. Patient with continued chest pain, cardiology recommending overnight evaluation. Patient is pending clinical improvement. Likely DC tomorrow.
[2018-12-15 16:49] LABS: Glucose,Whole Blood 115 mg/dL (75-99)
[2018-12-15] MEDS: NITROGLYCERIN OINT 1 INCH/GM PACKET TOPICAL SCH ×2 (18:08→23:20)
[2018-12-15] MEDS: ATORVASTATIN 10 MG TAB PO SCH (20:40)
[2018-12-15] MEDS: DILTIAZEM CD 120 MG CAP.ER.24H PO SCH (20:41)
[2018-12-15] MEDS: ZOLPIDEM TARTRATE 12.5 MG PO SCH (20:42)
[2018-12-15] MEDS: SERTRALINE 100 MG TAB PO SCH (20:42)
[2018-12-15 21:00] LABS: Glucose,Whole Blood 150 mg/dL (75-99)
[2018-12-15] MEDS: ACETAMINOPHEN TAB 325 MG TAB PO PRN (23:20)
[2018-12-16] MEDS: SODIUM CHLORIDE 0.9% 1,000 ML IV SCH ×3 (00:08→17:35)
[2018-12-16] MEDS: NITROGLYCERIN OINT 1 INCH/GM PACKET TOPICAL SCH ×3 (06:11→17:36)
[2018-12-16 06:54] LABS: Glucose,Whole Blood 114 mg/dL (75-99)
[2018-12-16 07:52] VITALS: TEMP 98.3
[2018-12-16] MEDS ORDERED: NITROGLYCERIN SL TABS 0.4 MG TAB SUBLINGUAL PRN (07:59)
[2018-12-16] MEDS ORDERED: SODIUM CHLORIDE 0.9% 1,000 ML in EMPTY BAG 1 BAG IV ONE (07:59)
[2018-12-16] MEDS: INSULIN ASPART (NovoLOG) 100 UNIT/ML VIAL SQ SCH ×3 (08:20→17:35)
[2018-12-16] MEDS: ACETAMINOPHEN TAB 325 MG TAB PO PRN (08:23)
[2018-12-16] MEDS: traZODone HCL 100 MG TAB PO SCH (08:23)
[2018-12-16] MEDS: clonazePAM 1 MG TAB PO SCH (08:25)
[2018-12-16] MEDS: PANTOPRAZOLE 40 MG TABLET PO SCH ×2 (08:25→17:36)
[2018-12-16] MEDS: TOPIRAMATE 100 MG TAB PO SCH (08:25)
[2018-12-16] MEDS: FLUDROCORTISONE 0.1 MG TAB PO SCH (08:25)
[2018-12-16] MEDS ORDERED: ASPIRIN 325 MG TAB PO SCH (09:00)
--- NOTE | 2018-12-16 09:20 | P.PN ---
Subjective This is a pleasant 48-year-old female past medical history significant for hypertension, dyslipidemia, diabetes mellitus and POTS. She underwent a dobutamine stress echocardiogram yesterday that was negative for stress induced ischemia. However, she continued to have chest discomfort through the afternoon and evening. Her pain is described as a heavy/tight sensation in the left precordial region with radiation to the left jaw. She denies having any associated shortness of breath, dizziness, nausea, vomiting or diaphoresis. Pain is at rest and not associated with exertion. Nitropaste was applied and seemed to resolve her chest pain. She is seen and examined laying flat resting comfortably in bed in no acute distress. She states her chest discomfort from last night is mildly starting to return. Blood pressure 107/64 heart rate 88 afebrile maintaining oxygen saturation on room air. Currently maintained on aspirin 81 mg daily, atorvastatin 10 mg daily, diltiazem 120 mg daily and Florinef 0.1 mg twice a day. GENERAL: Well-appearing, well-nourished and in no acute distress. NECK: Supple without JVD or thyromegaly. LUNGS: Breath sounds clear to auscultation bilaterally. Respiration equal and unlabored. No wheezes, rales or rhonchi. HEART: Regular rate and rhythm without murmurs, rubs or gallops. S1 and S2 heard. EXTREMITIES: Normal range of motion, no edema. No clubbing or cyanosis. Peripheral pulses intact. ASSESSMENT Ongoing chest discomfort, atypical for angina however relieved with nitro with multiple risk factors for CAD including family history. Negative stress test yesterday. Hypertension Dyslipidemia Diabetes mellitus POTS PLAN Due to ongoing chest discomfort and multiple risk factors we will proceed with cardiac catheterization to assess for obstructive CAD. I have discussed the risks, benefits and alternative therapies for the above-mentioned procedure and for both sedation/analgesia as well as necessary blood product administration, if indicated, as they pertain to this patient. The patient has indicated understanding and acceptance of the risks and procedures discussed. Questions have been answered appropriately and she is agreeable to move forward with above stated procedure. If cath is normal she may be discharged home later today. Nurse Practitioner note has been reviewed, I agree with a documented findings and plan of care. Patient was seen and examined. Objective - Vital Signs Vital signs: Vital Signs Temp 98.6 F 12/16/18 03:47 Pulse 81 12/16/18 03:47 Resp 18 12/16/18 03:47 BP 99/62 12/16/18 03:47 Pulse Ox 96 12/16/18 03:47 Intake & Output 12/15/18 12/16/18 12/16/18 18:59 06:59 18:59 Other: Voiding Method Toilet Toilet # Voids 2 - Labs CBC & Chem 7: 12/15/18 07:43 12/15/18 07:43 Labs: Abnormal Lab Results - Last 24 Hours (Table) 12/15/18 12/15/18 12/15/18 Range/Units 07:43 11:42 16:43 Chloride 114 H (98-107) mmol/L BUN 6 L (7-17) mg/dL Glucose 106 H (74-99) mg/dL POC Glucose (mg/dL) 117 H 115 H (75-99) mg/dL AST 56 H (14-36) U/L ALT 55 H (9-52) U/L Total Protein 5.9 L (6.3-8.2) g/dL Albumin 3.4 L (3.5-5.0) g/dL 12/15/18 12/16/18 Range/Units 20:58 06:45 Chloride (98-107) mmol/L BUN (7-17) mg/dL Glucose (74-99) mg/dL POC Glucose (mg/dL) 150 H 114 H (75-99) mg/dL AST (14-36) U/L ALT (9-52) U/L Total Protein (6.3-8.2) g/dL Albumin (3.5-5.0) g/dL
[2018-12-16 11:39] LABS: Glucose,Whole Blood 106 mg/dL (75-99)
--- NOTE | 2018-12-16 12:10 | P.PN ---
Subjective Progress Note Date: 12/16/18 Principal diagnosis: chest pain Patient was seen and examined. No acute events overnight. Patient reports chest pain, unchanged from admission. Denies any shortness of breath or palpitations. No nausea or vomiting. No fever or chills. Objective - Vital Signs Vital signs: Vital Signs Temp 98.3 F 12/16/18 11:35 Pulse 83 12/16/18 11:35 Resp 18 12/16/18 11:35 BP 105/63 12/16/18 11:35 Pulse Ox 96 12/16/18 11:35 Intake & Output 12/15/18 12/16/18 12/16/18 18:59 06:59 18:59 Other: Voiding Method Toilet Toilet Toilet # Voids 2 1 - Exam General: [non toxic], [no distress], [appears at stated age] Derm: [warm], [dry] Head: [atraumatic], [normocephalic], [symmetric] Eyes: [EOMI], [no lid lag], [anicteric sclera] Mouth: [no lip lesion], [mucus membranes moist] Cardiovascular: [S1S2 reg], [no murmur], [positive posterior tibial pulse bilateral], Lungs: [CTA bilateral], [no rhonchi, no rales] , [no accessory muscle use] Abdominal: [soft], [ nontender to palpation], [no guarding], [no appreciable organomegaly] Ext: [no gross muscle atrophy], [no edema], [no contractures] Neuro: [ CN II-XI grossly intact], [no focal neuro deficits] Psych: [Alert], [oriented], [appropriate affect] - Labs CBC & Chem 7: 12/15/18 07:43 12/15/18 07:43 Labs: Abnormal Lab Results - Last 24 Hours (Table) 12/15/18 12/15/18 12/16/18 Range/Units 16:43 20:58 06:45 POC Glucose (mg/dL) 115 H 150 H 114 H (75-99) mg/dL 12/16/18 Range/Units 11:36 POC Glucose (mg/dL) 106 H (75-99) mg/dL Assessment and Plan Assessment: Assessment and Plan 1. Chest pain 2. Atrial fibrillation post ablation 3. Hypertension 4. Diabetes mellitus 5. Hyperlipidemia 6. History of POTS 7. Chronic diarrhea, evaluated by GI, underwent colonoscopy that was benign, advised to continue Bentyl and Lomotil Chronic conditions include chronic lower back pain, bilateral feet rash due to granuloma annular, history of breast cancer status post lumpectomy. 1. Atypical but concerns for ACS given family history. Troponin less than 0.0123, EKG showing normal sinus rhythm. Echocardiogram performed during last admission was within normal limits. Chest x-ray shows no acute changes. Stress is negative. Plans: Cardiology consulted, recommends overnight observation. Plans for coronary catheterization. CPK is within normal limits. ACS ruled out. Continue aspirin and Lipitor. Trial of Klonopin for anxiety. Telemetry monitoring. Follow cardiology recommendations. 2. Plans: Post ablation. Currently sinus rhythm. Continue diltiazem. Follow cardiology recommendations. 3. BP 105/63. Plans: Continue diltiazem. Monitor vitals, adjust medications as necessary. 4. Vgqdx-nv-ncjs glucose 106. Plans: Insulin sliding scale. Regular Accu-Cheks. Hypoglycemic precautions. 5. Lipid panel during previous admission shows LDL of 107. Plans: Continue Lipitor. 6. Plans: Monitor vitals. Continue Florinef. Continue normal saline at 125 mL per hour. 7. Plans: Continue Bentyl and Lomotil. Follow GI in the outpatient setting. ACS ruled out. Stress test negative. Patient with continued chest pain, cardiology recommending cardiac cath. Patient is pending clinical improvement. Likely DC tomorrow.
[2018-12-16] MEDS: POTASSIUM CHLORIDE ER 20 MEQ TAB.ER PO SCH ×2 (12:20→17:35)
[2018-12-16] MEDS: HEPARIN SODIUM,PORCINE 5,000 UNIT/ML 1 ML VIAL SQ SCH ×2 (12:20→17:35)
[2018-12-16] MEDS ORDERED: LIDOCAINE 1% INJ 10MG/ML (20 ML MDV) ONE (12:40)
[2018-12-16] MEDS ORDERED: MIDAZOLAM (PF) 2 MG/2 ML VIAL IVP ONE (13:00)
[2018-12-16] MEDS ORDERED: fentaNYL (PF) 50 MCG/ML 2 ML AMP ONE (13:01)
[2018-12-16] MEDS ORDERED: LIDOCAINE 1% INJ 10MG/ML (20 ML MDV) SQ ONE (13:02)
[2018-12-16] MEDS ORDERED: fentaNYL (PF) 50 MCG/ML 2 ML AMP IV ONE (13:04)
[2018-12-16] MEDS ORDERED: IOPAMIDOL-370 100ML BTL INJ ONE (13:11)
[2018-12-16] MEDS ORDERED: IV FLUID CONTINUATION 1,000 ML IV ONE (13:11)
[2018-12-16 16:59] LABS: Glucose,Whole Blood 106 mg/dL (75-99)
[2018-12-16 18:02] VITALS: BP 138/65; PULSE 69; RESP 16
--- NOTE | 2018-12-16 19:59 | CC ---
CARDIAC CATHETERIZATION REPORT DATE OF SERVICE: 12/16/2018 PERFORMING PHYSICIAN: Mark Linda MD, endocrinology nurse. PROCEDURES PERFORMED: 1. Selective right and left coronary angiogram. 2. Left heart catheterization. INDICATION: This is a 48-year-old female patient who was experiencing chest discomfort. She does have diabetes, hypertension and dyslipidemia. Because of the ongoing chest discomfort, heart catheterization was advised. APPROACH: Right common femoral artery. COMPLICATIONS: None. LEVEL OF SEDATION: Moderate, with sedation length of 13 minutes. PROCEDURE DESCRIPTION: After obtaining informed consent, the patient was brought to the cardiac research laboratory specialist. The right common femoral artery was cannulated using micropuncture technique. The micropuncture wire passed easily. Then I placed a 6-Cambodian sheath in the right common femoral artery and after that I did selective right and left coronary angiogram using JR4 and JL4 catheters. The procedure was completed without any complication. Left heart catheterization was performed using a 6-Cambodian pigtail catheter. The procedure was completed without any complication. SELECTIVE CORONARY ANGIOGRAM: 1. The right coronary artery is a small- to medium-caliber vessel. It is a nondominant vessel and appeared to be angiographically normal. 2. The left main is angiographically normal. It bifurcates into left circumflex and LAD. 3. The left circumflex is a large-caliber vessel. It is a dominant vessel and appeared to be angiographically normal. In the mid portion it gives rise to an OM branch and distally bifurcates into PDA and PLV branches; both appeared to be angiographically normal. 4. The LAD is angiographically normal as well. It gives rise in its mid portion to a diagonal branch, which seems to be normal. HEMODYNAMICS: The left ventricular end-diastolic pressure was about 20 mmHg without significant gradient across the aortic valve. CONCLUSION: 1. Normal coronaries. 2. Elevated left ventricular end-diastolic pressure. POST-PROCEDURE MANAGEMENT: Medical treatment. MMODL / IJN: [id number] /
--- NOTE | 2018-12-17 15:37 | P.DS ---
Providers Date of admission: 12/13/18 20:11 Expected date of discharge: 12/16/18 Attending physician: Cathy Ghosh MD Consults: 12/13/18 20:37 Consult Physician Routine Consulting Provider: [facility] Consult Reason/Comments: Chest Pain Do you want consulting provider notified?: Yes Primary care physician: [facility] Course: 48-year-old female with history of PTOT S, A. fib status post ablation, hypertension, diabetes. Patient was recently hospitalized under observation discharged yesterday from the hospital to rule out acute coronary syndrome. Cardiology evaluated the patient and recommended outpatient stress test however since yesterday patient continued to have chest pain she actually reports that chest pain has been the same symptoms started 4 days ago. She described it as central chest pain radiating to the left neck rated as 8 out of 10 in severity comes and frequent episodes lasting about 10 minutes each associated with feeling nauseous tired and dizzy. At times associated with vomiting nonbilious nonbloody. Patient also gets diaphoresis with these attacks. These attacks are not associated with any specific movement or activity most of them are actually happening at rest as she spending the whole day resting doing nothing. There is no certain position associated with worsening or improvement of pain no medications helping with the pain. Patient is growing increasingly concerned regarding her cardiac condition as she reports family history of massive heart attack and she is worried about her heart at this time. Currently she reports pain of 6 out of 10 in severity nitro is not helping much with the pain. She still reports her chronic conditions diarrhea which has happened twice today nonbloody patient was evaluated by GI who updated her with results of colonoscopy that were normal showing resolving colitis. GI recommended to continue the patient on Bentyl and Lomotil and to follow up outpatient She also reports act pain which was evaluated by orthopedic service during her most recent hospitalization and recommended no immediate surgical intervention and to follow up outpatient to continue steroid injections. Patient is also recalls that she had negative heart cath back in 2013. Today in the ER her initial workup and EKG and chest x-ray were all unremarkable. Troponins was less than 0.0123 with EKG showing normal sinus rhythm. Echocardiogram performed during last admission was within normal limits. Chest x-ray showed no acute changes. Stress test was negative. Patient's chest pain persisted beyond that, cardiology recommended cardiac catheterization. Cardiac catheterization was within normal limits. Otherwise, her home medications were resumed for atrial fibrillation, hypertensi on, diabetes mellitus, hyperlipidemia and history of POTS along with chronic diarrhea. 1. Chest pain 2. Atrial fibrillation post ablation 3. Hypertension 4. Diabetes mellitus 5. Hyperlipidemia 6. History of POTS 7. Chronic diarrhea, evaluated by GI, underwent colonoscopy that was benign, advised to continue Bentyl and Lomotil Pertinent Studies: Stress test, chest x-ray Procedures: Cardiac catheterization Patient Condition at Discharge: Stable Plan - Discharge Summary Discharge Rx Participant: No New Discharge Prescriptions: Continue Zolpidem Tartrate [Ambien Cr] 12.5 mg PO HS Topiramate 100 mg PO BID traZODone HCL [Desyrel] 100 mg PO BID clonazePAM [Clonazepam] 1 mg PO BID Sertraline HCl [Zoloft] 100 mg PO HS Atorvastatin Calcium [Lipitor] 10 mg PO HS Alosetron HCl [Lotronex] 2 mg PO HS Pantoprazole Sodium [Protonix] 20 mg PO DAILY Diltiazem HCl [Cartia Xt] 120 mg PO HS Galcanezumab-Gnlm [Emgality Pen] 120 mg SQ Q30D Aspirin 81 mg PO DAILY chew Dicyclomine [Bentyl] 10 mg PO QID #60 cap Fludrocortisone [Florinef] 0.1 mg PO BID #60 tablet Discharge Medication List Zolpidem Tartrate [Ambien Cr] 12.5 mg PO HS 09/27/14 [History] Topiramate 100 mg PO BID 04/08/16 [History] clonazePAM [Clonazepam] 1 mg PO BID 04/08/16 [History] traZODone HCL [Desyrel] 100 mg PO BID 04/08/16 [History] Atorvastatin Calcium [Lipitor] 10 mg PO HS 12/05/16 [History] Sertraline HCl [Zoloft] 100 mg PO HS 12/05/16 [History] Alosetron HCl [Lotronex] 2 mg PO HS 09/19/17 [History] Diltiazem HCl [Cartia Xt] 120 mg PO HS 12/10/18 [History] Galcanezumab-Gnlm [Emgality Pen] 120 mg SQ Q30D 12/10/18 [History] Pantoprazole Sodium [Protonix] 20 mg PO DAILY 12/10/18 [History] Aspirin 81 mg PO DAILY chew 12/12/18 [Rx] Dicyclomine [Bentyl] 10 mg PO QID #60 cap 12/12/18 [Rx] Fludrocortisone [Florinef] 0.1 mg PO BID #60 tablet 12/12/18 [Rx] Follow up Appointment(s)/Referral(s): Mark Linda MD [STAFF PHYSICIAN] - 12/26/18 4:30 pm Scott Johnson MD [Primary Care Provider] - 1-2 days Patient Instructions/Handouts: *Surgery [facility] - After Heart Catheterization - Commercial Illustrator Instructions, Left Heart Catheterization (DC), Angio-Seal (DC) Activity/Diet/Wound Care/Special Instructions: Right groin site care Discharge Disposition: HOME SELF-CARE
== END 2018-12-16 18:38 | disposition home or self-care (01) ==
LOC: EC 18:09 → 1SOBS 20:11
PROVIDERS: ADMIT Internal Medicine; ATTEND Internal Medicine
DX: R07.2 Precordial pain (principal); R42 Dizziness and giddiness; R06.02 Shortness of breath; R53.83 Other fatigue; R11.2 Nausea with vomiting, unspecified; R61 Generalized hyperhidrosis; I48.0 Paroxysmal atrial fibrillation; I10 Essential (primary) hypertension; E11.9 Type 2 diabetes mellitus without complications; I49.8 Other specified cardiac arrhythmias; K58.0 Irritable bowel syndrome with diarrhea; E78.5 Hyperlipidemia, unspecified; L92.0 Granuloma annulare; F41.9 Anxiety disorder, unspecified; F32.9 Major depressive disorder, single episode, unspecified; G43.909 Migraine, unspecified, not intractable, without status migrainosus; E66.9 Obesity, unspecified; G89.29 Other chronic pain; M54.5 Low back pain; Z68.31 Body mass index [BMI] 31.0-31.9, adult; Z79.899 Other long term (current) drug therapy; Z79.82 Long term (current) use of aspirin; Z85.3 Personal history of malignant neoplasm of breast; Z88.5 Allergy status to narcotic agent; Z88.0 Allergy status to penicillin; Z88.8 Allergy status to other drugs, medicaments and biological substances; Z90.49 Acquired absence of other specified parts of digestive tract; Z91.030 Bee allergy status; Z82.49 Family history of ischemic heart disease and other diseases of the circulatory system; Z83.6 Family history of other diseases of the respiratory system; Z80.7 Family history of other malignant neoplasms of lymphoid, hematopoietic and related tissues
CPT/HCPCS: 96361 ×4; 96372 ×3; 96376 ×3; 96374; 96375; 99285; 36415; 93005; 93351; 93458; 80053 ×2; 80048; 82550; 83735; 84484 ×2; 85025 ×3; 85610; 85730; 71046; G0378 ×4; C1760; C1894; C1769 ×2; J2060; J1644 ×3; J2405 ×2; J2001; J3010; J1170 ×3; Q9967; J2250

== ENCOUNTER → 2018-12-26 | Outpatient (CLI) | payer MEDICARE, OTHER ==
[2018-12-26 23:00] LABS: African American GFR (CKD) 88.2 (60.0-200.0); Anion Gap 11.1 mmol/L (4.00-12.00); Calcium 9.8 mg/dL (8.7-10.3); Carbon Dioxide 21.9 mmol/L (21.6-31.8); Potassium 4.2 mmol/L (3.5-5.5)
== END | disposition home or self-care (01) ==
LOC: LABWHC1 16:02
PROVIDERS: ATTEND Internal Medicine
DX: R74.8 Abnormal levels of other serum enzymes (principal); K52.9 Noninfective gastroenteritis and colitis, unspecified
CPT/HCPCS: 36415; 80048; 82550

== ENCOUNTER 2019-01-12 11:45 | Emergency (ER) | payer MEDICARE, OTHER ==
[2019-01-12 11:52] VITALS: TEMP 99.4
[2019-01-12] MEDS ORDERED: ASPIRIN 81 MG PO STA (12:23)
[2019-01-12] MEDS ORDERED: NITROGLYCERIN OINT 1 INCH/GM PACKET TOPICAL STA (12:23)
--- NOTE | 2019-01-12 12:29 | ED ---
General Adult HPI - General Chief complaint: Chest Pain Stated complaint: chest pain Time Seen by Provider: 01/12/19 11:53 Source: patient, RN notes reviewed Mode of arrival: wheelchair Limitations: no limitations - History of Present Illness Initial comments: Patient is a pleasant 48-year-old female presenting to the emergency Department with chest discomfort. Patient has had symptoms over the past several days. Discomfort feels sharp or pressure like in the mid chest. Patient does have some mild associated dyspnea. Patient has had some nausea and diaphoresis associated. Symptoms worsened around 3 AM patient took a nitroglycerin with resolution of symptoms. Patient does have history of similar symptoms previously. Patient did have heart catheterization done just over a month ago. This was reported as negative to her. Patient states her bath mixer told her there was concern for spasms. Currently patient is symptom-free. Patient has had syncopal episodes however this is chronic for her and has been evaluated for it previously. - Related Data Home Medications Medication Instructions Recorded Confirmed Zolpidem Tartrate [Ambien Cr] 12.5 mg PO HS 09/27/14 01/12/19 Topiramate 100 mg PO BID 04/08/16 01/12/19 clonazePAM [Clonazepam] 1 mg PO BID 04/08/16 01/12/19 traZODone HCL [Desyrel] 150 mg PO HS 04/08/16 01/12/19 Atorvastatin Calcium [Lipitor] 10 mg PO HS 12/05/16 01/12/19 Sertraline HCl [Zoloft] 100 mg PO HS 12/05/16 01/12/19 Alosetron HCl [Lotronex] 1 mg PO BID 09/19/17 01/12/19 Diltiazem HCl [Cartia Xt] 120 mg PO HS 12/10/18 01/12/19 Galcanezumab-Gnlm [Emgality Pen] 240 mg SQ QMONTH 12/10/18 01/12/19 Pantoprazole Sodium [Protonix] 20 mg PO DAILY 12/10/18 01/12/19 EPINEPHrine [Epipen 2-Deven] 0.3 mg IM ONCE PRN 01/12/19 01/12/19 Fludrocortisone [Florinef] 0.1 mg PO DAILY 01/12/19 01/12/19 Naproxen 500 mg PO BID 01/12/19 01/12/19 Rifaximin [Xifaxan] 550 mg PO TID 01/12/19 01/12/19 amLODIPine BESYLATE [Norvasc] 2.5 mg PO DAILY 01/12/19 01/12/19 cloNIDine HCL [Catapres] 0.3 mg PO BID 01/12/19 01/12/19 sitaGLIPtin PHOSPHATE [Januvia] 100 mg PO DAILY 01/12/19 01/12/19 tiZANidine HCL [Zanaflex] 2 mg PO DAILY 01/12/19 01/12/19 Previous Rx's Medication Instructions Recorded Aspirin 81 mg PO DAILY chew 12/12/18 Dicyclomine [Bentyl] 10 mg PO QID #60 cap 12/12/18 Allergies Allergy/AdvReac Type Severity Reaction Status Date / Time morphine Allergy Swelling, Verified 01/12/19 12:28 diff breathing Penicillins Allergy Unknown Verified 01/12/19 12:28 Childhood venom-honey bee Allergy Anaphylaxis-has Verified 01/12/19 12:28 [bee venom (honey bee)] epi-pen baclofen AdvReac Diarrhea Verified 01/12/19 12:28 Review of Systems ROS Statement: Those systems with pertinent positive or pertinent negative responses have been documented in the HPI. ROS Other: All systems not noted in ROS Statement are negative. Constitutional: Denies: fever Eyes: Denies: eye pain ENT: Denies: ear pain Respiratory: Denies: cough Cardiovascular: Reports: chest pain Endocrine: Denies: fatigue Gastrointestinal: Reports: nausea. Denies: abdominal pain Genitourinary: Denies: dysuria Musculoskeletal: Denies: back pain Skin: Denies: rash Neurological: Denies: headache Psychiatric: Denies: anxiety Past Medical History Past Medical History: Atrial Fibrillation, Diabetes Mellitus, Hyperlipidemia, Hypertension Additional Past Medical History / Comment(s): Postural orthostatic tachycardia syndrome, Migraines, IBS. 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 Granuloma annulare History of Any Multi-Drug Resistant Organisms: None Reported Past Surgical History: Appendectomy, Breast Surgery, Cardiac Ablation, Cholecystectomy, Heart Catheterization, Hysterectomy, Orthopedic Surgery Additional Past Surgical History / Comment(s): BIOPSY- RT BREAST x2, RT LUMPECTOMY; LT KNEE SURGERY X4 (2 arthroscopic), Left ankle x 2, CARDIAC ABLATION X 2. COLONOSCOPY Past Anesthesia/Blood Transfusion Reactions: Previous Problems w/ Anesthesia Additional Past Anesthesia/Blood Transfusion Reaction / Comment(s): DIFFICULT INTUBATION W/ EMERG APPENDECTOMY-Can't find letter Past Psychological History: Anxiety, Depression Smoking Status: Never smoker Past Alcohol Use History: None Reported Past Drug Use History: None Reported - Past Family History Father Family Medical History: Hypertension, Myocardial Infarction ([place]), Pulmonary Embolus Mother Family Medical History: Cancer Additional Family Medical History / Comment(s): Lymphatic CA General Exam Limitations: no limitations General appearance: alert, in no apparent distress Head exam: Present: atraumatic Eye exam: Present: normal appearance, PERRL ENT exam: Present: normal oropharynx Neck exam: Present: normal inspection Respiratory exam: Present: normal lung sounds bilaterally Cardiovascular Exam: Present: regular rate, normal rhythm Expanded Peripheral pulses: 2+: Radial (R), Radial (L), Dorsalis Pedis (R), Dorsalis Pedis (L) GI/Abdominal exam: Present: soft. Absent: tenderness Extremities exam: Present: normal inspection. Absent: pedal edema, calf tenderness Neurological exam: Present: alert Psychiatric exam: Present: normal affect, normal mood Skin exam: Present: other (Bilateral dorsal foot rash which patient states is chronic from autoimmune disease.) Course Vital Signs 01/12/19 01/12/19 01/12/19 11:50 12:36 12:45 Temperature 99.4 F Pulse Rate 115 H 96 Respiratory 18 20 Rate Blood Pressure 136/79 130/86 130/86 O2 Sat by Pulse 97 96 Oximetry 01/12/19 01/12/19 01/12/19 13:00 13:15 13:30 Temperature Pulse Rate 91 92 Respiratory 20 20 16 Rate Blood Pressure 122/90 128/83 128/83 O2 Sat by Pulse 96 100 Oximetry 01/12/19 01/12/19 13:52 14:30 Temperature Pulse Rate Respiratory 16 16 Rate Blood Pressure 124/71 124/71 O2 Sat by Pulse 98 98 Oximetry EKG Findings - EKG Comments: EKG Findings:: Sinus tachycardia 107. AK 152. QRS 90. QT 362. QTC 43. Normal axis. Normal QRS. No acute ST change. Medical Decision Making - Medical Decision Making Patient reevaluated and resting comfortably in bed. Patient updated on results and plan. Case was discussed with Dr. Pastor, who will admit covering for Dr. Arenas, who admits for Dr. Osborne. - Lab Data Result diagrams: 01/12/19 12:40 01/12/19 12:40 Lab Results 01/12/19 01/12/19 01/12/19 Range/Units 12:40 12:40 12:40 WBC 12.8 H (3.8-10.6) k/uL RBC 4.81 (3.80-5.40) m/uL Hgb 13.8 (11.4-16.0) gm/dL Hct 41.7 (34.0-46.0) % MCV 86.6 (80.0-100.0) fL MCH 28.7 (25.0-35.0) pg MCHC 33.1 (31.0-37.0) g/dL RDW 15.4 (11.5-15.5) % Plt Count 234 (150-450) k/uL Neutrophils % 71 % Lymphocytes % 24 % Monocytes % 3 % Eosinophils % 1 % Basophils % 0 % Neutrophils # 9.1 H (1.3-7.7) k/uL Lymphocytes # 3.0 (1.0-4.8) k/uL Monocytes # 0.4 (0-1.0) k/uL Eosinophils # 0.1 (0-0.7) k/uL Basophils # 0.0 (0-0.2) k/uL PT 10.5 (9.0-12.0) sec INR 1.0 (<1.2) APTT 25.1 (22.0-30.0) sec D-Dimer 0.25 (<0.60) mg/L FEU Sodium 143 (137-145) mmol/L Potassium 3.3 L (3.5-5.1) mmol/L Chloride 110 H (98-107) mmol/L Carbon Dioxide 19 L (22-30) mmol/L Anion Gap 14 mmol/L BUN 5 L (7-17) mg/dL Creatinine 0.75 (0.52-1.04) mg/dL Est GFR (CKD-EPI)AfAm >90 (>60 ml/min/1.73 sqM) Est GFR (CKD-EPI)NonAf >90 (>60 ml/min/1.73 sqM) Glucose 144 H (74-99) mg/dL Calcium 8.8 (8.4-10.2) mg/dL Magnesium 2.1 (1.6-2.3) mg/dL Total Bilirubin 0.5 (0.2-1.3) mg/dL AST 71 H (14-36) U/L ALT 46 (9-52) U/L Alkaline Phosphatase 116 (38-126) U/L Troponin I (0.000-0.034) ng/mL Total Protein 7.1 (6.3-8.2) g/dL Albumin 4.2 (3.5-5.0) g/dL 01/12/19 Range/Units 12:40 WBC (3.8-10.6) k/uL RBC (3.80-5.40) m/uL Hgb (11.4-16.0) gm/dL Hct (34.0-46.0) % MCV (80.0-100.0) fL MCH (25.0-35.0) pg MCHC (31.0-37.0) g/dL RDW (11.5-15.5) % Plt Count (150-450) k/uL Neutrophils % % Lymphocytes % % Monocytes % % Eosinophils % % Basophils % % Neutrophils # (1.3-7.7) k/uL Lymphocytes # (1.0-4.8) k/uL Monocytes # (0-1.0) k/uL Eosinophils # (0-0.7) k/uL Basophils # (0-0.2) k/uL PT (9.0-12.0) sec INR (<1.2) APTT (22.0-30.0) sec D-Dimer (<0.60) mg/L FEU Sodium (137-145) mmol/L Potassium (3.5-5.1) mmol/L Chloride (98-107) mmol/L Carbon Dioxide (22-30) mmol/L Anion Gap mmol/L BUN (7-17) mg/dL Creatinine (0.52-1.04) mg/dL Est GFR (CKD-EPI)AfAm (>60 ml/min/1.73 sqM) Est GFR (CKD-EPI)NonAf (>60 ml/min/1.73 sqM) Glucose (74-99) mg/dL Calcium (8.4-10.2) mg/dL Magnesium (1.6-2.3) mg/dL Total Bilirubin (0.2-1.3) mg/dL AST (14-36) U/L ALT (9-52) U/L Alkaline Phosphatase (38-126) U/L Troponin I <0.012 (0.000-0.034) ng/mL Total Protein (6.3-8.2) g/dL Albumin (3.5-5.0) g/dL - Radiology Data Radiology results: image reviewed ( x-ray shows no acute process) Disposition Clinical Impression: Chest pain Disposition: ADMITTED IP TO THIS HOSP Is patient prescribed a controlled substance at d/c from ED?: No Referrals: Scott Johnson MD [Primary Care Provider] - 1-2 days Decision Time: 14:55
[2019-01-12 13:07] LABS: Basophils % (A) 0 %; Eosinophils # (A) 0.1 k/uL (0-0.7); Eosinophils % (A) 1 %; HCT 41.7 % (34.0-46.0); HGB 13.8 gm/dL (11.4-16.0); Lymphocytes % (A) 24 %; MCH 28.7 pg (25.0-35.0); MCHC 33.1 g/dL (31.0-37.0); MCV 86.6 fL (80.0-100.0); Mean Platelet Volume 7.4; Monocytes # (A) 0.4 k/uL (0-1.0); Monocytes % (A) 3 %; Neutrophils # (A) 9.1 k/uL (1.3-7.7); Neutrophils % (A) 71 %; Platelet Count 234 k/uL (150-450); RBC 4.81 m/uL (3.80-5.40); RDW 15.4 % (11.5-15.5); WBC 12.8 k/uL (3.8-10.6)
[2019-01-12 13:21] LABS: D-Dimer 0.25 mg/L FEU (<0.60); Partial Thromboplastin Time 25.1 sec (22.0-30.0); Prothrombin Time 10.5 sec (9.0-12.0)
[2019-01-12 13:22] LABS: ALT 46 U/L (9-52); AST 71 U/L (14-36); African American GFR (CKD) >90 (>60 ml/min/1.73 sqM); Albumin 4.2 g/dL (3.5-5.0); Alkaline Phosphatase 116 U/L (38-126); Anion Gap 14 mmol/L; Blood Urea Nitrogen 5 mg/dL (7-17); Calcium 8.8 mg/dL (8.4-10.2); Carbon Dioxide 19 mmol/L (22-30); Chloride 110 mmol/L (98-107); Glucose 144 mg/dL (74-99); Magnesium 2.1 mg/dL (1.6-2.3); Sodium 143 mmol/L (137-145); Total Bilirubin 0.5 mg/dL (0.2-1.3); Total Protein 7.1 g/dL (6.3-8.2)
[2019-01-12 13:31] LABS: Potassium 3.3 mmol/L (3.5-5.1)
--- NOTE | 2019-01-12 13:41 | XR ---
EXAMINATION TYPE: XR chest 2V DATE OF EXAM: 01/12/2019 COMPARISON: 12/13/2018 TECHNIQUE: PA and lateral views submitted. HISTORY: Chest pain FINDINGS: The lungs are clear and there is no pneumothorax, pleural effusion, or focal pneumonia. Hypertrophi c change of the vertebral column. IMPRESSION: 1. No acute process.
[2019-01-12 14:39] VITALS: RESP 16
[2019-01-12] MEDS ORDERED: ONDANSETRON 4 MG/2 ML VIAL IVP STA (14:53)
[2019-01-12] MEDS ORDERED: HYDROmorphone 1 MG/ML 1 ML SYRINGE IVP STA (14:53)
[2019-01-12] MEDS ORDERED: NITROGLYCERIN SL TABS 0.4 MG TAB SUBLINGUAL PRN (14:55)
[2019-01-12] MEDS ORDERED: SODIUM CHLORIDE 0.9% 500 ML 500 ML IV STA (15:56)
[2019-01-12] MEDS ORDERED: SODIUM CHLORIDE 0.9% 500 ML 500 ML IV ONE (15:56)
--- NOTE | 2019-01-12 15:56 | ED ---
Medical Decision Making - Medical Decision Making Contacted by Dr. Gold and further discussion was had. He states with patient's presentation and recent negative heart catheterization patient does not qualify for admission and will need to be discharged. Patient was reevaluated and updated. Patient is advised close follow-up with her primary care physician as well as cardiology. - Lab Data Result diagrams: 01/12/19 12:40 01/12/19 12:40 Lab Results 01/12/19 01/12/19 01/12/19 Range/Units 12:40 12:40 12:40 WBC 12.8 H (3.8-10.6) k/uL RBC 4.81 (3.80-5.40) m/uL Hgb 13.8 (11.4-16.0) gm/dL Hct 41.7 (34.0-46.0) % MCV 86.6 (80.0-100.0) fL MCH 28.7 (25.0-35.0) pg MCHC 33.1 (31.0-37.0) g/dL RDW 15.4 (11.5-15.5) % Plt Count 234 (150-450) k/uL Neutrophils % 71 % Lymphocytes % 24 % Monocytes % 3 % Eosinophils % 1 % Basophils % 0 % Neutrophils # 9.1 H (1.3-7.7) k/uL Lymphocytes # 3.0 (1.0-4.8) k/uL Monocytes # 0.4 (0-1.0) k/uL Eosinophils # 0.1 (0-0.7) k/uL Basophils # 0.0 (0-0.2) k/uL PT 10.5 (9.0-12.0) sec INR 1.0 (<1.2) APTT 25.1 (22.0-30.0) sec D-Dimer 0.25 (<0.60) mg/L FEU Sodium 143 (137-145) mmol/L Potassium 3.3 L (3.5-5.1) mmol/L Chloride 110 H (98-107) mmol/L Carbon Dioxide 19 L (22-30) mmol/L Anion Gap 14 mmol/L BUN 5 L (7-17) mg/dL Creatinine 0.75 (0.52-1.04) mg/dL Est GFR (CKD-EPI)AfAm >90 (>60 ml/min/1.73 sqM) Est GFR (CKD-EPI)NonAf >90 (>60 ml/min/1.73 sqM) Glucose 144 H (74-99) mg/dL Calcium 8.8 (8.4-10.2) mg/dL Magnesium 2.1 (1.6-2.3) mg/dL Total Bilirubin 0.5 (0.2-1.3) mg/dL AST 71 H (14-36) U/L ALT 46 (9-52) U/L Alkaline Phosphatase 116 (38-126) U/L Troponin I (0.000-0.034) ng/mL Total Protein 7.1 (6.3-8.2) g/dL Albumin 4.2 (3.5-5.0) g/dL 01/12/19 Range/Units 12:40 WBC (3.8-10.6) k/uL RBC (3.80-5.40) m/uL Hgb (11.4-16.0) gm/dL Hct (34.0-46.0) % MCV (80.0-100.0) fL MCH (25.0-35.0) pg MCHC (31.0-37.0) g/dL RDW (11.5-15.5) % Plt Count (150-450) k/uL Neutrophils % % Lymphocytes % % Monocytes % % Eosinophils % % Basophils % % Neutrophils # (1.3-7.7) k/uL Lymphocytes # (1.0-4.8) k/uL Monocytes # (0-1.0) k/uL Eosinophils # (0-0.7) k/uL Basophils # (0-0.2) k/uL PT (9.0-12.0) sec INR (<1.2) APTT (22.0-30.0) sec D-Dimer (<0.60) mg/L FEU Sodium (137-145) mmol/L Potassium (3.5-5.1) mmol/L Chloride (98-107) mmol/L Carbon Dioxide (22-30) mmol/L Anion Gap mmol/L BUN (7-17) mg/dL Creatinine (0.52-1.04) mg/dL Est GFR (CKD-EPI)AfAm (>60 ml/min/1.73 sqM) Est GFR (CKD-EPI)NonAf (>60 ml/min/1.73 sqM) Glucose (74-99) mg/dL Calcium (8.4-10.2) mg/dL Magnesium (1.6-2.3) mg/dL Total Bilirubin (0.2-1.3) mg/dL AST (14-36) U/L ALT (9-52) U/L Alkaline Phosphatase (38-126) U/L Troponin I <0.012 (0.000-0.034) ng/mL Total Protein (6.3-8.2) g/dL Albumin (3.5-5.0) g/dL Disposition Clinical Impression: Chest pain Disposition: HOME SELF-CARE Instructions (If sedation given, give patient instructions): Chest Pain (ED) Additional Instructions: Please follow-up with your chief load dispatcher and primary care physician tomorrow. Return for increased pain, difficulty breathing, worsening or changing symptoms or other concerns. Is patient prescribed a controlled substance at d/c from ED?: No Referrals: Scott Johnson MD [Primary Care Provider] - 1-2 days Mark Linda MD [STAFF PHYSICIAN] - 1-2 days Time of Disposition: 15:55
[2019-01-12 16:58] VITALS: BP 106/67; PULSE 84
[2019-01-12] MEDS ORDERED: NITROGLYCERIN OINT 1 INCH/GM PACKET TOPICAL SCH (18:00)
[2019-01-13] MEDS ORDERED: ASPIRIN 325 MG TAB PO SCH (09:00)
== END 2019-01-12 17:15 | disposition home or self-care (01) ==
LOC: EC 11:45 → UNDOADMOB 14:55 → 1SOBS 14:55 → EC 17:15
DX: R07.89 Other chest pain (principal); Z76.0 Encounter for issue of repeat prescription; L92.0 Granuloma annulare; I48.91 Unspecified atrial fibrillation; E11.9 Type 2 diabetes mellitus without complications; E78.5 Hyperlipidemia, unspecified; I10 Essential (primary) hypertension; K58.9 Irritable bowel syndrome, unspecified; F32.9 Major depressive disorder, single episode, unspecified; F41.9 Anxiety disorder, unspecified; Z88.0 Allergy status to penicillin; Z88.5 Allergy status to narcotic agent; Z88.8 Allergy status to other drugs, medicaments and biological substances; Z91.030 Bee allergy status; Z79.1 Long term (current) use of non-steroidal anti-inflammatories (NSAID); Z79.52 Long term (current) use of systemic steroids; Z79.84 Long term (current) use of oral hypoglycemic drugs; Z79.899 Other long term (current) drug therapy; Z95.818 Presence of other cardiac implants and grafts; Z98.890 Other specified postprocedural states; Z86.69 Personal history of other diseases of the nervous system and sense organs; Z53.8 Procedure and treatment not carried out for other reasons
CPT/HCPCS: 36415; 93005; 85379; 80053; 83735; 84484; 85025; 85610; 85730; 71046; 99285; 96374; 96375; 96361; J2405; J1170

== ENCOUNTER 2019-01-15 07:51 | Emergency (ER) | payer MEDICARE, OTHER ==
[2019-01-15 07:57] VITALS: TEMP 98.7
[2019-01-15] MEDS ORDERED: ONDANSETRON 4 MG/2 ML VIAL IVP STA (08:19)
[2019-01-15] MEDS ORDERED: KETOROLAC 30 MG/ML 1 ML VIAL IVP STA (08:19)
[2019-01-15] MEDS ORDERED: SODIUM CHLORIDE 0.9% 500 ML 500 ML IV ONE (08:19)
[2019-01-15 08:20] LABS: Basophils % (A) 0 %; Eosinophils # (A) 0.2 k/uL (0-0.7); Eosinophils % (A) 2 %; HCT 43.8 % (34.0-46.0); HGB 14.4 gm/dL (11.4-16.0); Lymphocytes # (A) 2.9 k/uL (1.0-4.8); Lymphocytes % (A) 23 %; MCH 28.5 pg (25.0-35.0); MCHC 32.9 g/dL (31.0-37.0); MCV 86.5 fL (80.0-100.0); Mean Platelet Volume 6.8; Monocytes # (A) 0.4 k/uL (0-1.0); Monocytes % (A) 3 %; Neutrophils # (A) 9.1 k/uL (1.3-7.7); Neutrophils % (A) 72 %; Platelet Count 262 k/uL (150-450); RBC 5.07 m/uL (3.80-5.40); WBC 12.8 k/uL (3.8-10.6)
[2019-01-15 08:26] LABS: Partial Thromboplastin Time 26.5 sec (22.0-30.0); Prothrombin Time 10.5 sec (9.0-12.0)
[2019-01-15 08:30] LABS: ALT 67 U/L (9-52); AST 124 U/L (14-36); African American GFR (CKD) >90 (>60 ml/min/1.73 sqM); Albumin 4.5 g/dL (3.5-5.0); Alkaline Phosphatase 118 U/L (38-126); Anion Gap 13 mmol/L; Blood Urea Nitrogen 9 mg/dL (7-17); Calcium 9.3 mg/dL (8.4-10.2); Carbon Dioxide 24 mmol/L (22-30); Chloride 107 mmol/L (98-107); Glucose 144 mg/dL (74-99); Magnesium 2.1 mg/dL (1.6-2.3); Sodium 144 mmol/L (137-145); Total Bilirubin 0.7 mg/dL (0.2-1.3); Total Protein 7.5 g/dL (6.3-8.2)
--- NOTE | 2019-01-15 08:36 | XR ---
EXAMINATION TYPE: XR chest 2V DATE OF EXAM: 01/15/2019 COMPARISON: 01/12/2019 TECHNIQUE: PA and lateral views submitted. HISTORY: Chest pain FINDINGS: The lungs are clear and there is no pneumothorax, pleural effusion, or focal pneumonia. Hypertrophi c and degenerative change of the spine. Surgical clips in the abdomen noted. IMPRESSION: 1. No acute process.
[2019-01-15] MEDS ORDERED: POTASSIUM CHLORIDE ER 20 MEQ TAB.ER PO STA (08:58)
--- NOTE | 2019-01-15 09:17 | ED ---
Chest Pain HPI - General Chief Complaint: Chest Pain Stated Complaint: chest pain Time Seen by Provider: 01/15/19 07:56 Source: patient, RN notes reviewed Mode of arrival: wheelchair Limitations: no limitations - History of Present Illness Initial Comments: 48-year-old female presents emergency Department with chief chest pain. Patient states started around 2:30 this morning. Patient's been having ongoing chest pain issues in which she has been evaluated by cardiology. Patient has had cardiac cath just over one month ago which showed no blockage of her coronaries. Patient states that she does feel improved at this time. She did have some nausea and an episode of vomiting. Patient denies fever, chills, cough or chest congestion. Patient does take daily aspirin patient took nitroglycerin earlier today. Patient denies any current dizziness, headache or any pain and radiates from her chest. She does have a history of hyperlipidemia, diabetes and dyslipidemia - Related Data Home Medications Medication Instructions Recorded Confirmed Zolpidem Tartrate [Ambien Cr] 12.5 mg PO HS 09/27/14 01/15/19 Topiramate 100 mg PO BID 04/08/16 01/15/19 clonazePAM [Clonazepam] 1 mg PO BID 04/08/16 01/15/19 traZODone HCL [Desyrel] 150 mg PO HS 04/08/16 01/15/19 Atorvastatin Calcium [Lipitor] 10 mg PO HS 12/05/16 01/15/19 Sertraline HCl [Zoloft] 100 mg PO HS 12/05/16 01/15/19 Alosetron HCl [Lotronex] 1 mg PO BID 09/19/17 01/15/19 Diltiazem HCl [Cartia Xt] 120 mg PO HS 12/10/18 01/15/19 Galcanezumab-Gnlm [Emgality Pen] 240 mg SQ QMONTH 12/10/18 01/15/19 Pantoprazole Sodium [Protonix] 20 mg PO DAILY 12/10/18 01/15/19 EPINEPHrine [Epipen 2-Deven] 0.3 mg IM ONCE PRN 01/12/19 01/15/19 Fludrocortisone [Florinef] 0.1 mg PO DAILY 01/12/19 01/15/19 Naproxen 500 mg PO BID 01/12/19 01/15/19 Rifaximin [Xifaxan] 550 mg PO TID 01/12/19 01/15/19 amLODIPine BESYLATE [Norvasc] 2.5 mg PO DAILY 01/12/19 01/15/19 cloNIDine HCL [Catapres] 0.3 mg PO BID 01/12/19 01/15/19 sitaGLIPtin PHOSPHATE [Januvia] 100 mg PO DAILY 01/12/19 01/15/19 tiZANidine HCL [Zanaflex] 2 mg PO DAILY 01/12/19 01/15/19 Nitroglycerin Sl Tabs [Nitrostat] 0.4 mg SUBLINGUAL Q5M PRN 01/15/19 01/15/19 Previous Rx's Medication Instructions Recorded Aspirin 81 mg PO DAILY chew 12/12/18 Dicyclomine [Bentyl] 10 mg PO QID #60 cap 12/12/18 Dicyclomine [Bentyl] 20 mg PO QID #15 tablet 01/12/19 Allergies Allergy/AdvReac Type Severity Reaction Status Date / Time morphine Allergy Swelling, Verified 01/15/19 08:12 diff breathing Penicillins Allergy Unknown Verified 01/15/19 08:12 Childhood venom-honey bee Allergy Anaphylaxis-has Verified 01/15/19 08:12 [bee venom (honey bee)] epi-pen baclofen AdvReac Diarrhea Verified 01/15/19 08:12 Review of Systems ROS Statement: Those systems with pertinent positive or pertinent negative responses have been documented in the HPI. ROS Other: All systems not noted in ROS Statement are negative. EKG Findings - EKG Comments: EKG Findings:: EKG performed at 8:08 normal sinus rhythm with a rate of 90 NM 150 QRS 78 QT/QTC 398/46 no acute changes from prior EKG Past Medical History Past Medical History: Atrial Fibrillation, Diabetes Mellitus, Hyperlipidemia, Hypertension Additional Past Medical History / Comment(s): Postural orthostatic tachycardia syndrome, Migraines, IBS. 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 Granuloma annulare History of Any Multi-Drug Resistant Organisms: None Reported Past Surgical History: Appendectomy, Breast Surgery, Cardiac Ablation, Cholecystectomy, Heart Catheterization, Hysterectomy, Orthopedic Surgery Additional Past Surgical History / Comment(s): BIOPSY- RT BREAST x2, RT LUMPECTOMY; LT KNEE SURGERY X4 (2 arthroscopic), Left ankle x 2, CARDIAC ABLATION X 2. COLONOSCOPY Past Anesthesia/Blood Transfusion Reactions: Previous Problems w/ Anesthesia Additional Past Anesthesia/Blood Transfusion Reaction / Comment(s): DIFFICULT INTUBATION W/ EMERG APPENDECTOMY-Can't find letter Past Psychological History: Anxiety, Depression Smoking Status: Never smoker Past Alcohol Use History: None Reported Past Drug Use History: None Reported - Past Family History Father Family Medical History: Hypertension, Myocardial Infarction ([place]), Pulmonary Embolus Mother Family Medical History: Cancer Additional Family Medical History / Comment(s): Lymphatic CA General Exam Limitations: no limitations General appearance: alert, in no apparent distress Head exam: Present: atraumatic, normocephalic, normal inspection Eye exam: Present: normal appearance, PERRL, EOMI. Absent: scleral icterus, conjunctival injection, periorbital swelling ENT exam: Present: normal exam, normal oropharynx, mucous membranes moist Neck exam: Present: normal inspection, full ROM. Absent: tenderness, meningismus, lymphadenopathy Respiratory exam: Present: normal lung sounds bilaterally. Absent: respiratory distress, wheezes, rales, rhonchi, stridor Cardiovascular Exam: Present: regular rate, normal rhythm, normal heart sounds. Absent: systolic murmur, diastolic murmur, rubs, gallop, clicks GI/Abdominal exam: Present: soft, normal bowel sounds. Absent: distended, tenderness, guarding, rebound, rigid Back exam: Absent: CVA tenderness (R), CVA tenderness (L) Skin exam: Present: warm, dry, intact, normal color. Absent: rash Course Vital Signs 01/15/19 01/15/19 01/15/19 07:55 08:01 08:30 Temperature 98.7 F Pulse Rate 95 93 80 Respiratory 16 18 15 Rate Blood Pressure 120/84 129/66 129/66 O2 Sat by Pulse 97 98 96 Oximetry Chest Pain MDM - [facility] 48-year-old female presented for chest pain. Patient's had extensive workup recently for this chest pain. She did have recent negative d-dimer, negative cardiac cath. Patient has been diagnosed with spasms. Patient symptoms improved prior to arrival. Patient symptoms started over 5 hours prior arrival negative troponin at this time. Patient will be discharged to follow-up with cardiology, PCP. Patient continued medication regimen at this time. Disposition Clinical Impression: Chest pain, Hypokalemia Disposition: HOME SELF-CARE Condition: Stable Instructions (If sedation given, give patient instructions): Chest Pain (ED) Additional Instructions: Please return to the Emergency Department if symptoms worsen or any other concerns. Is patient prescribed a controlled substance at d/c from ED?: No Referrals: Scott Johnson MD [Primary Care Provider] - 1-2 days Time of Disposition: 09:17
[2019-01-15 09:59] VITALS: BP 114/50; PULSE 77; RESP 16
== END 2019-01-15 10:00 | disposition home or self-care (01) ==
LOC: EC 07:51
DX: R07.9 Chest pain, unspecified (principal); E87.6 Hypokalemia; R11.2 Nausea with vomiting, unspecified; I48.91 Unspecified atrial fibrillation; E11.9 Type 2 diabetes mellitus without complications; E78.5 Hyperlipidemia, unspecified; I10 Essential (primary) hypertension; G43.909 Migraine, unspecified, not intractable, without status migrainosus; F41.9 Anxiety disorder, unspecified; F32.9 Major depressive disorder, single episode, unspecified; Z98.890 Other specified postprocedural states; Z95.818 Presence of other cardiac implants and grafts; Z82.49 Family history of ischemic heart disease and other diseases of the circulatory system; Z79.52 Long term (current) use of systemic steroids; Z79.1 Long term (current) use of non-steroidal anti-inflammatories (NSAID); Z79.84 Long term (current) use of oral hypoglycemic drugs; Z79.899 Other long term (current) drug therapy; Z88.5 Allergy status to narcotic agent; Z88.0 Allergy status to penicillin; Z91.030 Bee allergy status; Z88.8 Allergy status to other drugs, medicaments and biological substances
CPT/HCPCS: 36415; 93005; 80053; 83735; 84484; 85025; 85610; 85730; 71046; 99285; 96374; 96375; 96361; J2405; J1885

== ENCOUNTER → 2019-01-30 | Outpatient (CLI) | payer MEDICARE, OTHER ==
[2019-01-30 14:26] LABS: Appearance,Urine Clear (Clear); Bacteria,Urine Occasional /hpf; Bilirubin,Urine Negative (Negative); Blood,Urine Negative (Negative); Color,Urine Yellow; Glucose,Urine (UA) Negative (Negative); Ketones,Urine Negative (Negative); Leukocyte Esterase,Urine Trace (Negative); Mucus,Urine Rare /hpf; Nitrite,Urine Negative (Negative); Protein,Urine Negative (Negative); RBC,Urine 1 /hpf (0-5); Specific Gravity,Urine 1.017 (1.001-1.035); Squamous Epithelial Cell,Urine 5 /hpf (0-4); WBC,Urine 4 /hpf (0-5)
[2019-01-30 14:28] LABS: Basophils % (A) 0 %; Eosinophils # (A) 0.1 k/uL (0-0.7); Eosinophils % (A) 1 %; HCT 40.7 % (34.0-46.0); HGB 13.4 gm/dL (11.4-16.0); Hypochromasia Slight; Lymphocytes % (A) 28 %; MCH 28.3 pg (25.0-35.0); MCHC 32.8 g/dL (31.0-37.0); MCV 86.1 fL (80.0-100.0); Mean Platelet Volume 7.4; Monocytes # (A) 0.4 k/uL (0-1.0); Monocytes % (A) 3 %; Neutrophils # (A) 7.3 k/uL (1.3-7.7); Neutrophils % (A) 67 %; Platelet Count 234 k/uL (150-450); Poikilocytosis Slight; RBC 4.73 m/uL (3.80-5.40); RDW 15.5 % (11.5-15.5)
[2019-01-30 18:01] LABS: Iron Saturation 36.18 (12.00-45.00)
[2019-01-30 18:12] LABS: African American GFR (CKD) 101.8 (60.0-200.0); Albumin 4.4 g/dL (3.80-4.90); Albumin/Globulin Ratio 2.1 (1.60-3.17); Anion Gap 11.8 mmol/L (4.00-12.00); BUN/Creat Ratio 11.25 Ratio (12.00-20.00); Bilirubin, Conjugated 0.2 mg/dL (0.20-0.40); Bilirubin,Unconjugated 0.2 mg/dL; Calcium 9.1 mg/dL (8.7-10.3); Carbon Dioxide 26.2 mmol/L (21.6-31.8); Globulin 2.1 g/dL (1.6-3.3); Potassium 3.5 mmol/L (3.5-5.5); Total Bilirubin 0.4 mg/dL (0.3-1.2); Total Protein 6.5 g/dL (6.2-8.2)
[2019-01-30 19:07] LABS: Gliadin AB IgA, Unit <0.2 U/mL
[2019-01-30 19:37] LABS: Hepatitis A Antibody IgM Non-Reactive (Non-Reactive); Hepatitis B Core IgM Non-Reactive (Non-Reactive)
[2019-01-31 14:44] LABS: Ceruloplasmin 32.1 mg/dL (20.0-60.0)
[2019-02-02 13:25] LABS: Liver/Kidney Microsome Antibod 1.1 UNITS (<=20)
== END | disposition home or self-care (01) ==
LOC: LABWHC1 13:07
PROVIDERS: ATTEND Internal Medicine
DX: I10 Essential (primary) hypertension (principal); R74.8 Abnormal levels of other serum enzymes
CPT/HCPCS: 36415; 80053; 80061; 80074; 81001; 82103; 82248; 82390; 82728; 82977; 83516; 83540; 83550; 85025; 86038; 86376

== ENCOUNTER 2019-03-03 09:26 | Day surgery (SDC) | payer MEDICARE, OTHER ==
[2019-02-26 15:24] VITALS: BMI 30.9
[~2019-03-03 09:26] MED LIST changes: +LIDOCAINE 1% 20 ML VIAL (10MG/ML) FOR IV START INTRADERMA PRN
--- NOTE | 2019-03-03 09:33 | P.PCN ---
Date of Procedure: 03/03/19 Description of Procedure: BRIEF HISTORY: Patient is a 48-year-old, pleasant, who presents for outpatient EGD for evaluation of dysphagia and uncontrolled reflux. PROCEDURE PERFORMED: Esophagogastroduodenoscopy with biopsy. PREOPERATIVE DIAGNOSIS: Esophageal dysphagia, GERD. ESTIMATED BLOOD LOSS: Minimal. IV sedation per anesthesia. PROCEDURE: After informed consent was obtained, the patient was brought into the endoscopy unit. IV sedation was administered by Anesthesia under continuous monitoring. Initially the Olympus GIF-190 video endoscope was inserted into the mouth. Esophagus intubated without any difficulty. It was gradually advanced into the stomach and duodenum and carefully examined. The bulb and the second part of the duodenum appeared normal, with biopsies taken. The scope at this time was withdrawn to the stomach, adequately insufflated with air, and upon careful examination, mucosa of the antrum, body, cardia and the fundus appeared normal, except for some mild scattered erythema in the antrum and body suggestive of mild gastritis with biopsies taken. The scope was then withdrawn into the esophagus. The GE junction was located at 35 cm from the incisors. A 3-4 cm hiatal hernia was noted. The esophagus appeared normal, with mid esophageal biopsies taken. There were no erosions or ulcerations seen and the patient tolerated the procedure well. IMPRESSION: 1. Multiple gastritis antrum and body, biopsied. 2. Hiatal hernia. 3. Duodenal biopsies. Mid esophageal biopsies. RECOMMENDATIONS: The findings of this examination were discussed with the patient and her . Continue current medical management. Follow-up with gastroenterology as previously scheduled. Await pathology from biopsies.
[2019-03-03 09:46] VITALS: TEMP 98.3
[2019-03-03 10:10] LABS: Glucose,Whole Blood 112 mg/dL (75-99)
[2019-03-03] MEDS ORDERED: KETAMINE 10 MG/ML 20 ML VIAL ONE (10:30)
[2019-03-03] MEDS ORDERED: LIDOCAINE 1% INJ 10MG/ML (20 ML MDV) ONE (10:30)
[2019-03-03] MEDS ORDERED: MIDAZOLAM 2 MG/2 ML VIAL ONE (10:30)
[2019-03-03] MEDS ORDERED: PROPOFOL 10 MG/ML 20 ML VIAL IV ONE (10:30)
[2019-03-03] MEDS ORDERED: EPINEPHrine 10 ML SYRINGE (0.1 MG/ML) INTRAOSSEO ONE (11:00)
--- NOTE | 2019-03-03 11:15 | P.PCN ---
Date of Procedure: 03/03/19 Description of Procedure: BRIEF HISTORY: 48-year-old female with medical history significant for GERD who presents for evaluation with outpatient EGD. PROCEDURE PERFORMED: Esophagogastroduodenoscopy. PREOPERATIVE DIAGNOSIS: GERD. ESTIMATED BLOOD LOSS: Minimal. IV sedation per anesthesia. PROCEDURE: After informed consent was obtained, the patient was brought into the endoscopy unit. IV sedation was administered by Anesthesia under continuous monitoring. Initially the Olympus GIF-190 video endoscope was inserted into the mouth. Esophagus intubated without any difficulty. It was gradually advanced into the stomach and duodenum and carefully examined. The bulb and the second part of the duodenum appeared normal, with biopsies taken. The scope at this time was withdrawn to the stomach, adequately insufflated with air, and upon careful examination, mucosa of the antrum, body, cardia and the fundus appeared except for linear scattered erythema in the antrum and body suggestive of mild gastritis with biopsies taken. Diminutive gastric polyps likely representing fu ndic gland polyps also removed with cold forceps. Minimal bleeding from the polypectomy site in the minor curvature of the stomach treated with epinephrine injection with 5 mL and hemostasis achieved. The scope was then withdrawn into the esophagus. The GE junction was located at 35 cm from the incisors, with biopsy. The esophagus appeared normal. There were no erosions or ulcerations seen and the patient tolerated the procedure well. IMPRESSION: 1. Mild gastritis antrum body, biopsied. 2. Diminutive gastric polyp removed with cold forceps. Epinephrine injection at site for hemostasis. 3. Duodenal biopsies. GE junction biopsies. RECOMMENDATIONS: The findings of this examination were discussed with the patient and her daughter. Okay to resume diet. Continue current medical management. Follow-up with gastroenterology as previously scheduled. Await pathology from biopsies.
[2019-03-03 11:51] VITALS: BP 120/58; PULSE 74; RESP 18
== END 2019-03-03 12:07 | disposition home or self-care (01) ==
LOC: ORWHC2ENDO 09:26
PROVIDERS: ATTEND Internal Medicine
DX: K21.0 Gastro-esophageal reflux disease with esophagitis (principal); K29.50 Unspecified chronic gastritis without bleeding; K29.80 Duodenitis without bleeding; K31.7 Polyp of stomach and duodenum; Z88.5 Allergy status to narcotic agent; Z88.0 Allergy status to penicillin; Z88.2 Allergy status to sulfonamides; I10 Essential (primary) hypertension; E78.5 Hyperlipidemia, unspecified; E11.9 Type 2 diabetes mellitus without complications; I48.91 Unspecified atrial fibrillation; Z79.84 Long term (current) use of oral hypoglycemic drugs; Z79.899 Other long term (current) drug therapy
CPT/HCPCS: 88305; 43239; 43243; J2250; J2001; J0171; J2704

== ENCOUNTER → 2019-05-01 | Outpatient (CLI) | payer MEDICARE, OTHER | LOC: RADMRIMAIN 14:44 | PROVIDERS: ATTEND Internal Medicine | DX: Z53.9 Procedure and treatment not carried out, unspecified reason (principal) ==

== ENCOUNTER → 2019-05-08 | Outpatient (CLI) | payer MEDICARE, OTHER ==
--- NOTE | 2019-05-09 11:12 | MR ---
EXAMINATION TYPE: MR cervical spine wo con DATE OF EXAM: 05/08/2019 5:50 PM COMPARISON: NONE HISTORY: Neck pain, fall Multiplanar MultiSpin echo imaging of the cervical spine was performed. Comparison: none C2-C3: No evidence for degenerative disc disease. No disc bulge/herniation or protrusion. No Canal stenosis. Foramina are patent bilaterally. C3-C4: No evidence for degenerative disc disease. No disc bulge/herniation or protrusion. No Canal stenosis. Foramina are patent bilaterally. C4-C5: Mild disc desiccation. Posterocentral disc bulge noted. Effacement ventral thecal sac. Spinal canal is congenitally diminutive in size. There is constriction noted without overt stenosis seen. Le ft foraminal encroachment identified. C5-C6: Mild disc desiccation. Posterocentral disc bulge noted. Effacement ventral thecal sac. Spinal canal is congenitally diminutive in size. There is constriction noted without overt stenosis seen. Mi ld bilateral foraminal encroachment identified. C6-C7: Mild disc desiccation. Mild posterocentral disc protrusion. Effacement ventral thecal sac and mild distortion ventral spinal cord. Constriction of the thecal sac without overt stenosis at this ti me. Mild left foraminal encroachment identified. C7-T1: No evidence for degenerative disc disease. No disc bulge/herniation or protrusion. No Canal stenosis. Foramina are patent bilaterally. Cervical segments are intact. There is normal alignment. Cervical spinal cord is of normal signal. Craniovertebral junction relationships are within normal limits. IMPRESSION: 1. Degenerative disc disease with disc bulging and protrusion noted as discussed above. Spinal canal is congenitally diminutive in size constriction noted however no overt stenosis present at this time. Foraminal encroachment as outlined above.
== END ==
LOC: RADMRIMAIN 17:12
PROVIDERS: ATTEND Internal Medicine
DX: M50.20 Other cervical disc displacement, unspecified cervical region (principal); M50.30 Other cervical disc degeneration, unspecified cervical region
CPT/HCPCS: 72141

== ENCOUNTER → 2019-08-21 | Outpatient (CLI) | payer MEDICARE, OTHER ==
--- NOTE | 2019-08-21 13:06 | CT ---
EXAMINATION TYPE: CT abdomen pelvis wo con DATE OF EXAM: 08/21/2019 COMPARISON: 07/14/2019 HISTORY: Left flank pain with decreased urination. CT DLP: 638.6 mGycm Automated exposure control for dose reduction was used. TECHNIQUE: Helical acquisition of images was performed from the lung bases through the pelvis. FINDINGS: LUNG BASES: 4 mm subpleural nodule right lower lobe. Trace of pericardial fluid. LIVER/GB: Liver measures 20 cm correlate for hepatomegaly. Gallbladder surgically absent. PANCREAS: No significant abnormality is seen. SPLEEN: Spleen measures 14 cm correlate for mild splenomegaly ADRENALS: No significant abnormality is seen. KIDNEYS: No significant abnormality is seen. Bladder is decompressed and therefore nondiagnostic in a ssessment. ADENOPATHY: None visualized. OSSEOUS STRUCTURES: Hypertrophic and degenerative change of the spine. Sclerotic density L5 likely r elated to bone island. BOWEL: Bowel gas pattern nonspecific. Assessment of bowel is articular limited due to lack of oral co ntrast. OTHER: Atherosclerotic change aorta which is of normal caliber. IMPRESSION: 1. Correlate for hepatosplenomegaly. Correlate with liver function studies.
== END | disposition home or self-care (01) ==
LOC: RADCTMAIN 11:47
PROVIDERS: ATTEND Internal Medicine
DX: R10.9 Unspecified abdominal pain (principal)
CPT/HCPCS: 74176

== ENCOUNTER → 2019-09-02 | Outpatient (CLI) | payer MEDICARE, OTHER ==
--- NOTE | 2019-09-02 11:56 | MM ---
Reason for exam: additional evaluation requested from prior study. Last mammogram was performed 11 months ago. History: Patient has history of breast cancer at age 37. Family history of premenopausal breast cancer in aunt and breast cancer in mother at age 59. Benign right breast needle localzation of both breasts, July 29, 2013. Excisional biopsy of the right breast, 2007. Benign excisional biopsy of the right breast, May 05, 2007. Lumpectomy of the right breast, 2006. Took other hormone for 5 years beginning at age 37. Physical Findings: Nurse did not find any significant physical abnormalities on exam. MG 3D Diag Mammo W/Cad JENNI Bilateral CC and MLO view(s) were taken. ML and spot compression CC view(s) were taken of the right breast. Prior study comparison: September 22, 2018, bilateral MG 3d diag mammo w/cad JENNI. August 28, 2017, left breast MG 3d work up w/cad LT. The breast tissue is heterogeneously dense. This may lower the sensitivity of mammography. Post surgical changes right breast. These results were verbally communicated with the patient and result sheet given to the patient on 09/02/19. ASSESSMENT: Benign, BI-RAD 2 RECOMMENDATION: Routine screening mammogram of both breasts in 1 year. Manage patient on a clinical basis.
--- NOTE | 2019-09-02 11:58 | USB ---
Reason for exam: additional evaluation requested from prior study. History: Patient has history of breast cancer at age 37. Family history of premenopausal breast cancer in aunt and breast cancer in mother at age 59. Benign right breast needle localzation of both breasts, July 29, 2013. Excisional biopsy of the right breast, 2007. Benign excisional biopsy of the right breast, May 05, 2007. Lumpectomy of the right breast, 2006. Took other hormone for 5 years beginning at age 37. US Breast RT Right complete breast ultrasound includes all four quadrants, the retroareolar region and axilla. Finding demonstrates no cystic or solid lesion seen. These results were verbally communicated with the patient and result sheet given to the patient on 09/02/19. ASSESSMENT: Negative, BI-RAD 1 RECOMMENDATION: Routine screening mammogram of both breasts in 1 year. Manage patient on a clinical basis.
== END | disposition home or self-care (01) ==
LOC: RADMAMWWP 10:09
PROVIDERS: ATTEND Surgery
DX: N64.52 Nipple discharge (principal)
CPT/HCPCS: 77066; 76641; G0279; 77062

== ENCOUNTER 2019-09-05 17:22 | Emergency (ER) | payer MEDICARE, OTHER ==
[2019-09-05 17:28] VITALS: RESP 18; TEMP 97.9
[2019-09-05] MEDS ORDERED: DIAZEPAM 5 MG/ML 2 ML INJ IVP STA (18:25)
[2019-09-05 18:47] VITALS: BP 118/72; PULSE 77
[2019-09-05] MEDS ORDERED: DEXAMETHASONE SOD PHOSPHATE 10 MG/ML 1 ML VIAL IM STA (18:57)
--- NOTE | 2019-09-05 18:57 | ED ---
Back Pain HPI - General Chief Complaint: Back Pain/Injury Stated Complaint: back pain/urinary incontinence Time Seen by Provider: 09/05/19 17:37 Source: patient Limitations: no limitations - History of Present Illness Initial Comments: Patient is a 48-year-old female presenting to emergency with a chief complaint of back pain. Patient denies a history of chronic back pain started about 2 years ago after she fell off her bed. States her laceration develop increased pain in the lumbosacral region with occasional radiation along the posterior aspect of the left thigh. She has seen her primary care once who prescribed her Toradol, [place] and steroids with minimal improvement in symptoms. States yesterday she went to the primary care again and received more pain medication with minimal improvement. States over the last 2 days she's developed a tingling sensation in the groin region. Also reports a numb and tingling sensation the start of the last several days in her left big toe and is now also present in the second toe as well. Does report some numbness on the left calf along with the foot. Does report taking bnyd-gqg-kqxoyef analgesics minimal improvement in symptoms. Denies bowel incontinence. Denies any abdominal pain, chest pain or shortness of breath. - Related Data Home Medications Medication Instructions Recorded Confirmed Zolpidem Tartrate [Ambien Cr] 12.5 mg PO HS 09/27/14 02/26/19 Topiramate 100 mg PO BID 04/08/16 03/03/19 clonazePAM [Clonazepam] 1 mg PO BID 04/08/16 03/03/19 traZODone HCL [Desyrel] 100 mg PO HS 04/08/16 03/03/19 Atorvastatin Calcium [Lipitor] 10 mg PO HS 12/05/16 02/26/19 Sertraline HCl [Zoloft] 100 mg PO HS 12/05/16 03/03/19 Alosetron HCl [Lotronex] 1 mg PO BID PRN 09/19/17 03/03/19 Galcanezumab-Gnlm [Emgality Pen] 120 mg SQ QMONTH 12/10/18 02/26/19 Pantoprazole Sodium [Protonix] 20 mg PO HS 12/10/18 03/03/19 EPINEPHrine [Epipen 2-Deven] 0.3 mg IM ONCE PRN 01/12/19 03/03/19 amLODIPine BESYLATE [Norvasc] 2.5 mg PO DAILY 01/12/19 02/26/19 sitaGLIPtin PHOSPHATE [Januvia] 100 mg PO DAILY 01/12/19 02/26/19 Nitroglycerin Sl Tabs [Nitrostat] 0.4 mg SUBLINGUAL Q5M PRN 01/15/19 03/03/19 Dicyclomine [Bentyl] 20 mg PO ACHS PRN 02/26/19 03/03/19 cloNIDine HCL [Catapres] 0.1 mg PO BID 02/26/19 03/03/19 Allergies Allergy/AdvReac Type Severity Reaction Status Date / Time morphine Allergy Swelling, Verified 09/05/19 17:28 diff breathing Penicillins Allergy Unknown Verified 09/05/19 17:28 Childhood venom-honey bee Allergy Anaphylaxis-has Verified 09/05/19 17:28 [bee venom (honey bee)] epi-pen baclofen AdvReac Diarrhea Verified 09/05/19 17:28 Review of Systems ROS Statement: Those systems with pertinent positive or pertinent negative responses have been documented in the HPI. ROS Other: All systems not noted in ROS Statement are negative. Past Medical History Past Medical History: Atrial Fibrillation, Diabetes Mellitus, Hyperlipidemia, Hypertension, Supraventricular Tachycardia (SVT) Additional Past Medical History / Comment(s): Postural orthostatic tachycardia syndrome (POTS), Hx of SVT, Migraines, IBS/D. 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 History of Any Multi-Drug Resistant Organisms: None Reported Past Surgical History: Appendectomy, Breast Surgery, Cardiac Ablation, Cholecystectomy, Heart Catheterization, Hysterectomy, Orthopedic Surgery Additional Past Surgical History / Comment(s): BIOPSY- RT BREAST x2, RT LUMPECTOMY; LT KNEE SURGERY X4 (2 arthroscopic), Right ankle x 2, CARDIAC ABLATION X 2. COLONOSCOPY Past Anesthesia/Blood Transfusion Reactions: Previous Problems w/ Anesthesia Additional Past Anesthesia/Blood Transfusion Reaction / Comment(s): DIFFICULT INTUBATION W/ EMERG APPENDECTOMY BY DR CAPUTO 04/08/2016 ([facility])-Can't find letter. Past Psychological History: Anxiety, Depression Smoking Status: Never smoker Past Alcohol Use History: Rare Past Drug Use History: None Reported - Past Family History Father Family Medical History: Hypertension, Myocardial Infarction ([place]), Pulmonary Embolus Mother Family Medical History: Cancer Additional Family Medical History / Comment(s): Lymphatic CA General Exam Limitations: no limitations General appearance: alert, in no apparent distress, obese Head exam: Present: atraumatic, normocephalic, normal inspection Eye exam: Present: normal appearance Pupils: Present: normal accommodation ENT exam: Present: normal exam Neck exam: Present: normal inspection, full ROM Respiratory exam: Present: normal lung sounds bilaterally Cardiovascular Exam: Present: regular rate, normal rhythm, normal heart sounds GI/Abdominal exam: Present: soft. Absent: distended, tenderness, guarding Rectal exam: Present: normal inspection, normal rectal tone Extremities exam: Present: normal inspection, full ROM, normal capillary refill, other (+2 dorsalis pedis and posterior tibialis bilaterally. Loss of sensation on the left foot and posterior aspect of the left lower leg.). Absent: pedal edema, joint swelling Back exam: Present: normal inspection, tenderness, muscle spasm, paraspinal tenderness (Left paraspinal tenderness in the lumbar sacral region.), vertebral tenderness (Vertebral tenderness in the lumbosacral region.). Absent: full ROM (Limited range of motion with left and right rotation, flexion and extension.) Neurological exam: Present: alert, oriented X3, abnormal gait (Abnormal gait due to pain), reflexes normal (+1 bilateral patellar reflex.) Psychiatric exam: Present: normal affect, normal mood Skin exam: Present: warm, dry, intact, normal color Course Vital Signs 09/05/19 17:24 Temperature 97.9 F Pulse Rate 85 Respiratory 18 Rate Blood Pressure 112/77 O2 Sat by Pulse 98 Oximetry Medical Decision Making - Medical Decision Making patient is a 48-year-old female presenting to emergency Department with a chief complaint of back pain. Has history of chronic back pain that started 2 years ago. Patient does report some saddle anesthesia along with loss of sensation in the left foot and posterior aspect of the left lower leg. On exam patient does have good rectal tone. Post void residual volume 30 mm. +1 patellar reflexes bilaterally. Loss of sensation in the left foot and posterior aspect of left lower leg. IV was started. Patient will need MRI to rule out possible cauda equina. also evaluated the patient and is in agreement with the treatment plan. I spoke with Dr. lópez from [facility] where patient will be transferred. Direct ED to ED transfer. Patient given IV Decadron in the ED prior to transfer. Disposition Clinical Impression: Back pain Disposition: OTHER INSTITUTION NOT DEFINED Condition: Stable Instructions (If sedation given, give patient instructions): Low Back Strain (ED) Additional Instructions: Patient will be transferred via ambulance. Is patient prescribed a controlled substance at d/c from ED?: No Referrals: Scott Johnson MD [Primary Care Provider] - 1-2 days Time of Disposition: 18:56 - Out of Hospital Transfer - Req. Specs Out of Hospital Transfer - Requested Specifics: Other Emergency Center ([facility])
[2019-09-05 19:54] LABS: Glucose,Whole Blood 78 mg/dL (75-99)
== END 2019-09-05 20:05 | disposition other institution (70) ==
LOC: EC 17:22
DX: M54.9 Dorsalgia, unspecified (principal); G89.29 Other chronic pain; R39.198 Other difficulties with micturition; R20.2 Paresthesia of skin; R26.89 Other abnormalities of gait and mobility; F41.9 Anxiety disorder, unspecified; F32.9 Major depressive disorder, single episode, unspecified; I48.91 Unspecified atrial fibrillation; E78.5 Hyperlipidemia, unspecified; E11.9 Type 2 diabetes mellitus without complications; I10 Essential (primary) hypertension; K58.9 Irritable bowel syndrome, unspecified; L92.0 Granuloma annulare; Z79.899 Other long term (current) drug therapy; Z79.84 Long term (current) use of oral hypoglycemic drugs; Z88.5 Allergy status to narcotic agent; Z88.0 Allergy status to penicillin; Z91.030 Bee allergy status; Z88.8 Allergy status to other drugs, medicaments and biological substances; Z95.5 Presence of coronary angioplasty implant and graft; Z90.49 Acquired absence of other specified parts of digestive tract; Z98.890 Other specified postprocedural states
CPT/HCPCS: 96372 ×2; 99284 ×2; 51798; 36415; J1100

== ENCOUNTER → 2019-11-27 | Outpatient (CLI) | payer MEDICARE, OTHER ==
--- NOTE | 2019-11-30 08:56 | BMR ---
EXAMINATION TYPE: MR breast BILAT wo/w con DATE OF EXAM: 11/27/2019 COMPARISON: Right breast ultrasound dated 09/02/2019 and mammogram also dated 09/02/2019 HISTORY: Discharge from Right Breast. Hx of an excisional biopsy of the right breast and lumpectomy p er patient history (personal history of right breast cancer at age 37). Discharge is described as int ermittent and sometimes bloody sometimes yellow for approximately 2 months. TECHNIQUE: A series of fat and water weighted images in the long and short axis views of both breasts are obtained in conjunction with dynamic contrast MRI with subtraction technique. The patient was i njected with 7.5 mL intravenous Gadavist gadolinium contrast. Three-dimensional and additional post processing imaging is created on independent workstation and reviewed during official interpretation of this study. FINDINGS: The breasts are composed of scattered fibroglandular tissue with mild symmetric background parenchymal enhancement. There is an 8 mm area of mild enhancement in the right retroareolar breast w ith tethering of the adjacent fibroglandular tissue however on T1 precontrast nonfat sat imaging ther e appears to be central fat signal suggesting fat necrosis in this patient with a history of right-si ded excisional biopsy and lumpectomy. Additionally on postprocessing DynaCAD kinetic evaluation enhan cement is not significant enough to demonstrate type I, type II, or type III kinetics. The right zabrina st is asymmetrically smaller than the left compatible with post surgical change. No suspicious mass or non mass enhancement is seen within the left breast. No suspicious nonmass enha ncement on the right. No suspicious axillary, or intramammary adenopathy within either breast. There is a very slightly prominent 5 mm short axis internal mammary lymph node on the right on postcontrast series 701 image 344. IMPRESSION: BI-RADS 2-benign findings. No MR evidence of malignancy. Right retroareolar findings appe ar as fat necrosis and postsurgical change however given the provided history of right-sided bloody n ipple discharge duct exploration is recommended. Additionally there is a mildly prominent but nonenla rged right internal mammary lymph node for which follow-up with CT chest is recommended in 3-6 months for reassessment.
== END | disposition home or self-care (01) ==
LOC: RADMRIMAIN 13:40
PROVIDERS: ATTEND Surgery
DX: N64.52 Nipple discharge (principal)
CPT/HCPCS: C8937; C8908; A9585; 77049

== ENCOUNTER → 2020-03-09 | Outpatient (CLI) | payer MEDICARE, OTHER ==
[2020-03-09 09:19] LABS: HCT 45.9 % (34.0-46.0); HGB 14.7 gm/dL (11.4-16.0); MCH 28.3 pg (25.0-35.0); MCHC 32.1 g/dL (31.0-37.0); Mean Platelet Volume 7.5; Platelet Count 197 k/uL (150-450); RBC 5.21 m/uL (3.80-5.40); RDW 13.9 % (11.5-15.5); WBC 8.8 k/uL (3.8-10.6)
[2020-03-09 16:30] LABS: African American GFR (CKD) 87.6 (60.0-200.0); Albumin 4.5 g/dL (3.80-4.90); Albumin/Globulin Ratio 2.14 (1.60-3.17); Anion Gap 9.8 mmol/L (4.00-12.00); BUN/Creat Ratio 8.89 Ratio (12.00-20.00); Calcium 9.3 mg/dL (8.7-10.3); Carbon Dioxide 24.2 mmol/L (21.6-31.8); Globulin 2.1 g/dL (1.6-3.3); Non-African American GFR(CKD) 75.6 (60.0-200.0); Potassium 4.2 mmol/L (3.5-5.5); Total Bilirubin 0.6 mg/dL (0.3-1.2); Total Protein 6.6 g/dL (6.2-8.2)
[2020-03-09 16:37] LABS: Follicle Stimulating Hormone 37.7 mIU/mL
== END | disposition home or self-care (01) ==
LOC: LABWHC1 07:28
PROVIDERS: ATTEND Surgery
DX: Z08 Encounter for follow-up examination after completed treatment for malignant neoplasm (principal); Z80.3 Family history of malignant neoplasm of breast
CPT/HCPCS: 36415; 80053; 82670; 83001; 85027

== ENCOUNTER → 2020-06-08 | Outpatient (CLI) | payer MEDICARE, OTHER ==
[2020-06-08 12:38] LABS: Basophils % (A) 1 %; Eosinophils # (A) 0.1 k/uL (0-0.7); Eosinophils % (A) 1 %; HCT 42.5 % (34.0-46.0); HGB 14.3 gm/dL (11.4-16.0); Lymphocytes # (A) 2.3 k/uL (1.0-4.8); Lymphocytes % (A) 29 %; MCHC 33.6 g/dL (31.0-37.0); MCV 86.2 fL (80.0-100.0); Mean Platelet Volume 6.7; Monocytes # (A) 0.3 k/uL (0-1.0); Monocytes % (A) 4 %; Neutrophils # (A) 5.2 k/uL (1.3-7.7); Neutrophils % (A) 65 %; Platelet Count 186 k/uL (150-450); RBC 4.94 m/uL (3.80-5.40)
[2020-06-08 18:41] LABS: INR 1.02 (0.90-1.11); Partial Thromboplastin Time 28.7 sec (23.5-31.0)
[2020-06-08 19:09] LABS: BUN/Creat Ratio 12.5 Ratio (12.00-20.00); Calcium 9.1 mg/dL (8.7-10.3); Non-African American GFR(CKD) 87.2 (60.0-200.0); Potassium 3.6 mmol/L (3.5-5.5)
== END | disposition home or self-care (01) ==
LOC: LABWHC1 11:54
DX: E11.9 Type 2 diabetes mellitus without complications (principal); I20.1 Angina pectoris with documented spasm; I49.8 Other specified cardiac arrhythmias; G47.00 Insomnia, unspecified; Z90.13 Acquired absence of bilateral breasts and nipples; Z85.3 Personal history of malignant neoplasm of breast; E66.09 Other obesity due to excess calories; Z68.30 Body mass index [BMI] 30.0-30.9, adult; G43.909 Migraine, unspecified, not intractable, without status migrainosus; M51.16 Intervertebral disc disorders with radiculopathy, lumbar region; Z86.000 Personal history of in-situ neoplasm of breast; K21.9 Gastro-esophageal reflux disease without esophagitis; F41.9 Anxiety disorder, unspecified; D35.00 Benign neoplasm of unspecified adrenal gland; Z86.79 Personal history of other diseases of the circulatory system
CPT/HCPCS: 36415; 80048; 85025; 85610; 85730

== ENCOUNTER 2020-08-14 13:27 | Emergency (ER) | payer MEDICARE, OTHER ==
[2020-08-14 13:32] VITALS: TEMP 98.4
[2020-08-14] MEDS ORDERED: ONDANSETRON 4 MG/2 ML VIAL IVP STA (14:04)
[2020-08-14] MEDS ORDERED: SODIUM CHLORIDE 0.9% 500 ML 500 ML IV STA (14:04)
[2020-08-14] MEDS ORDERED: HYDROmorphone 0.5 MG/0.5 ML SYRINGE IVP STA (14:05)
[2020-08-14 14:37] LABS: Basophils # (A) 0.1 k/uL (0-0.2); Basophils % (A) 1 %; Eosinophils # (A) 0.2 k/uL (0-0.7); Eosinophils % (A) 2 %; HCT 39.4 % (34.0-46.0); Lymphocytes # (A) 2.7 k/uL (1.0-4.8); Lymphocytes % (A) 27 %; MCH 28.5 pg (25.0-35.0); MCHC 33.1 g/dL (31.0-37.0); MCV 86.2 fL (80.0-100.0); Monocytes # (A) 0.4 k/uL (0-1.0); Monocytes % (A) 5 %; Neutrophils # (A) 6.3 k/uL (1.3-7.7); Neutrophils % (A) 65 %; Platelet Count 194 k/uL (150-450); RBC 4.57 m/uL (3.80-5.40); RDW 14.8 % (11.5-15.5); WBC 9.7 k/uL (3.8-10.6)
[2020-08-14 14:47] LABS: ALT 68 U/L (4-34); AST 57 U/L (14-36); African American GFR (CKD) >90 (>60 ml/min/1.73 sqM); Albumin 4.4 g/dL (3.5-5.0); Alkaline Phosphatase 107 U/L (38-126); Amylase 48 U/L (30-110); Anion Gap 12 mmol/L; Blood Urea Nitrogen 11 mg/dL (7-17); Calcium 9.5 mg/dL (8.4-10.2); Carbon Dioxide 21 mmol/L (22-30); Chloride 107 mmol/L (98-107); Glucose 117 mg/dL (74-99); Lipase 188 U/L (23-300); Non-African American GFR(CKD) >90 (>60 ml/min/1.73 sqM); Potassium 4.4 mmol/L (3.5-5.1); Sodium 140 mmol/L (137-145); Total Bilirubin 0.5 mg/dL (0.2-1.3); Total Protein 7.4 g/dL (6.3-8.2)
[2020-08-14 15:00] LABS: Prothrombin Time 10.4 sec (9.0-12.0)
[2020-08-14 15:01] LABS: Partial Thromboplastin Time 21.1 sec (22.0-30.0)
--- NOTE | 2020-08-14 15:08 | ED ---
Abdominal Pain HPI - General Chief Complaint: Abdominal Pain Stated Complaint: post op infection Time Seen by Provider: 08/14/20 13:39 Source: patient Mode of arrival: ambulatory Limitations: no limitations - History of Present Illness Initial Comments: Patient is a 49-year-old female presenting to the emergency Department with complaints of abdominal pain that started over the last 3-4 days. Patient states she has been going to [facility] for plastic surgery after having a double mastectomy. Patient has been going through a DEEP procedure. Patient states her most recent procedure was done 10 days ago and she had a debridement of her right breast as well as her lower abdominal incision. Patient states she was doing well until 3 days ago when she felt like her abdomen was warm to the touch. Patient states she did contact her surgeon who recommended that she go into the emergency department. Patient states she waited another day and then decided to come in today. Patient denies any fever or chills, she does have some mild nausea no vomiting. She has been having regular bowel movements, she's been passing gas. She denies any dysuria. She states that she changes her dressings daily and does have a visiting nurse once a week. Patient states she does have an appointment with her surgeon tomorrow to open up a wound on the left breast. Patient denies any chest pain or shortness of breath, no cough. She has no further complaints at this time. Upon arrival to the ER, her vital signs are stable. - Related Data Home Medications Medication Instructions Recorded Confirmed Zolpidem Tartrate [Ambien Cr] 12.5 mg PO HS PRN 09/27/14 08/14/20 Topiramate 100 mg PO BID 04/08/16 08/14/20 clonazePAM [Clonazepam] 1 mg PO BID 04/08/16 08/14/20 traZODone HCL [Desyrel] 200 mg PO HS 04/08/16 08/14/20 Atorvastatin Calcium [Lipitor] 10 mg PO HS 12/05/16 08/14/20 Sertraline HCl [Zoloft] 100 mg PO HS 12/05/16 08/14/20 Alosetron HCl [Lotronex] 1 mg PO BID PRN 09/19/17 08/14/20 Galcanezumab-Gnlm [Emgality Pen] 120 mg SQ QMONTH 12/10/18 08/14/20 EPINEPHrine [Epipen 2-Deven] 0.3 mg IM ONCE PRN 01/12/19 08/14/20 amLODIPine BESYLATE [Norvasc] 2.5 mg PO HS 01/12/19 08/14/20 Nitroglycerin Sl Tabs [Nitrostat] 0.4 mg SUBLINGUAL Q5M PRN 01/15/19 08/14/20 Docusate [Colace] 100 mg PO BID 08/14/20 08/14/20 HYDROcodone/APAP 10-325MG [[place] 1 tab PO QID PRN 08/14/20 08/14/20 10-325] Naproxen 500 mg PO BID 08/14/20 08/14/20 Nystatin 100,000 Unit/gm Powd 1 applic TOPICAL BID 08/14/20 08/14/20 [Mycostatin Powder] methocarbamoL [Robaxin] 500 mg PO TID 08/14/20 08/14/20 Previous Rx's Medication Instructions Recorded HYDROcodone/APAP 10-325MG [[place] 1 tab PO Q6H PRN #4 tab 08/14/20 10-325] Allergies Allergy/AdvReac Type Severity Reaction Status Date / Time morphine Allergy Swelling, Verified 08/14/20 14:11 diff breathing oxycodone Allergy Anaphylaxis Verified 08/14/20 14:11 Penicillins Allergy Unknown Verified 08/14/20 14:11 Childhood venom-honey bee Allergy Anaphylaxis-has Verified 08/14/20 14:11 [bee venom (honey bee)] epi-pen baclofen AdvReac Diarrhea Verified 08/14/20 14:11 Review of Systems ROS Statement: Those systems with pertinent positive or pertinent negative responses have been documented in the HPI. ROS Other: All systems not noted in ROS Statement are negative. Past Medical History Past Medical History: Atrial Fibrillation, Diabetes Mellitus, Hyperlipidemia, Hypertension, Supraventricular Tachycardia (SVT) Additional Past Medical History / Comment(s): Postural orthostatic tachycardia syndrome (POTS), Hx of SVT, Migraines, IBS/D. 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 History of Any Multi-Drug Resistant Organisms: None Reported Past Surgical History: Appendectomy, Breast Surgery, Cardiac Ablation, Cholecystectomy, Heart Catheterization, Hysterectomy, Orthopedic Surgery Additional Past Surgical History / Comment(s): BIOPSY- RT BREAST x2, RT LUMPECTOMY; LT KNEE SURGERY X4 (2 arthroscopic), Right ankle x 2, CARDIAC ABLATION X 2. COLONOSCOPY Past Anesthesia/Blood Transfusion Reactions: Previous Problems w/ Anesthesia Additional Past Anesthesia/Blood Transfusion Reaction / Comment(s): DIFFICULT INTUBATION W/ EMERG APPENDECTOMY BY DR CAPUTO 04/08/2016 ([facility])-Can't find letter. Past Psychological History: Anxiety, Depression Smoking Status: Never smoker Past Alcohol Use History: Rare Past Drug Use History: None Reported - Past Family History Father Family Medical History: Hypertension, Myocardial Infarction ([place]), Pulmonary Embolus Mother Family Medical History: Cancer Additional Family Medical History / Comment(s): Lymphatic CA General Exam - General Exam Comments Initial Comments: GENERAL: Patient is well-developed and well-nourished. Patient is nontoxic and in no acute distress. HEAD: Atraumatic, normocephalic. EYES: Pupils equal round and reactive to light, extraocular movements intact, sclera anicteric, conjunctiva are normal. Eyelids were unremarkable. ENT: TMs normal, nares patent, oropharynx clear without exudates. Moist mucous membranes. NECK: Normal range of motion, supple without lymphadenopathy or JVD. LUNGS: Unlabored respirations. Breath sounds clear to auscultation bilaterally and equal. No wheezes rales or rhonchi. HEART: Regular rate and rhythm without murmurs, rubs or gallops. ABDOMEN: Most areas of the abdomen are soft, she does have some increased shortness on the left side, pain on the right side of the abdomen. Patient's incision on the lower abdomen looks well, clean dry and intact, no signs of infection. There is no erythema of the abdomen. Normoactive bowel sounds. No guarding, no rebound. No masses appreciated. : Deferred MUSCULOSKELETAL: Normal extremities with adequate strength and normal range of motion, no pitting or edema. No clubbing or cyanosis. NEUROLOGICAL: Patient is alert and oriented x 3. Motor and sensory are also intact. Cranial nerves II through XII grossly intact. Symmetrical smile. Normal speech, normal gait. PSYCH: Normal mood, normal affect. SKIN: Warm, Dry, normal turgor, no rashes. Bilateral breast have recent incisions that look clean, dry and intact. There is no signs of an active infection and either one of the breast. She does have packing present in both of the breast. Limitations: no limitations Course Vital Signs 08/14/20 08/14/20 08/14/20 13:30 14:46 15:22 Temperature 98.4 F Pulse Rate 87 82 86 Respiratory 20 16 18 Rate Blood Pressure 122/83 124/72 130/71 O2 Sat by Pulse 99 96 97 Oximetry 08/14/20 16:34 Temperature 98.4 F Pulse Rate 84 Respiratory 18 Rate Blood Pressure 125/70 O2 Sat by Pulse 98 Oximetry Medical Decision Making - Medical Decision Making Patient is a 49-year-old female presenting for abdominal pain over the past few days. She is currently undergoing plastic surgery after having a DEEP procedure at [facility]. her vital signs are stable, she has been afebrile. Labs show a normal white count, normal lactic acid, no other acute abnormalities on her lab work. Urine shows no evidence of infection. I did do an CT of abdomen and pe lvis shows no evidence of any significant intra-abdominal or pelvic abnormality. Patient was given fluids and pain control and has been resting comfortably. I discussed these findings with the patient. Patient does have an appointment with her surgeon tomorrow. They will give patient a few tablets of [place]. Patient is stable for discharge. Patient is in agreement with this plan of care. Return parameters were discussed with the patient and they verbalized understanding. Case discussed with Dr. Lord. - Lab Data Result diagrams: 08/14/20 14:27 08/14/20 14:27 Lab Results 08/14/20 08/14/20 08/14/20 Range/Units 14:27 14:27 14:27 WBC 9.7 (3.8-10.6) k/uL RBC 4.57 (3.80-5.40) m/uL Hgb 13.0 (11.4-16.0) gm/dL Hct 39.4 (34.0-46.0) % MCV 86.2 (80.0-100.0) fL MCH 28.5 (25.0-35.0) pg MCHC 33.1 (31.0-37.0) g/dL RDW 14.8 (11.5-15.5) % Plt Count 194 (150-450) k/uL MPV 7.0 Neutrophils % 65 % Lymphocytes % 27 % Monocytes % 5 % Eosinophils % 2 % Basophils % 1 % Neutrophils # 6.3 (1.3-7.7) k/uL Lymphocytes # 2.7 (1.0-4.8) k/uL Monocytes # 0.4 (0-1.0) k/uL Eosinophils # 0.2 (0-0.7) k/uL Basophils # 0.1 (0-0.2) k/uL PT 10.4 (9.0-12.0) sec INR 1.0 (<1.2) APTT 21.1 L (22.0-30.0) sec Sodium 140 (137-145) mmol/L Potassium 4.4 (3.5-5.1) mmol/L Chloride 107 (98-107) mmol/L Carbon Dioxide 21 L (22-30) mmol/L Anion Gap 12 mmol/L BUN 11 (7-17) mg/dL Creatinine 0.75 (0.52-1.04) mg/dL Est GFR (CKD-EPI)AfAm >90 (>60 ml/min/1.73 sqM) Est GFR (CKD-EPI)NonAf >90 (>60 ml/min/1.73 sqM) Glucose 117 H (74-99) mg/dL Plasma Lactic Acid Rom (0.7-2.0) mmol/L Calcium 9.5 (8.4-10.2) mg/dL Total Bilirubin 0.5 (0.2-1.3) mg/dL AST 57 H (14-36) U/L ALT 68 H (4-34) U/L Alkaline Phosphatase 107 (38-126) U/L Total Protein 7.4 (6.3-8.2) g/dL Albumin 4.4 (3.5-5.0) g/dL Amylase 48 (30-110) U/L Lipase 188 (23-300) U/L Urine Color Urine Appearance (Clear) Urine pH (5.0-8.0) Ur Specific [place] (1.001-1.035) Urine Protein (Negative) Urine Glucose (UA) (Negative) Urine Ketones (Negative) Urine Blood (Negative) Urine Nitrite (Negative) Urine Bilirubin (Negative) Urine Urobilinogen (<2.0) mg/dL Ur Leukocyte Esterase (Negative) Urine RBC (0-5) /hpf Urine WBC (0-5) /hpf Ur Squamous Epith Cells (0-4) /hpf Urine Bacteria (None) /hpf Urine Mucus (None) /hpf 08/14/20 08/14/20 Range/Units 14:27 15:25 WBC (3.8-10.6) k/uL RBC (3.80-5.40) m/uL Hgb (11.4-16.0) gm/dL Hct (34.0-46.0) % MCV (80.0-100.0) fL MCH (25.0-35.0) pg MCHC (31.0-37.0) g/dL RDW (11.5-15.5) % Plt Count (150-450) k/uL MPV Neutrophils % % Lymphocytes % % Monocytes % % Eosinophils % % Basophils % % Neutrophils # (1.3-7.7) k/uL Lymphocytes # (1.0-4.8) k/uL Monocytes # (0-1.0) k/uL Eosinophils # (0-0.7) k/uL Basophils # (0-0.2) k/uL PT (9.0-12.0) sec INR (<1.2) APTT (22.0-30.0) sec Sodium (137-145) mmol/L Potassium (3.5-5.1) mmol/L Chloride (98-107) mmol/L Carbon Dioxide (22-30) mmol/L Anion Gap mmol/L BUN (7-17) mg/dL Creatinine (0.52-1.04) mg/dL Est GFR (CKD-EPI)AfAm (>60 ml/min/1.73 sqM) Est GFR (CKD-EPI)NonAf (>60 ml/min/1.73 sqM) Glucose (74-99) mg/dL Plasma Lactic Acid Rom 1.6 (0.7-2.0) mmol/L Calcium (8.4-10.2) mg/dL Total Bilirubin (0.2-1.3) mg/dL AST (14-36) U/L ALT (4-34) U/L Alkaline Phosphatase (38-126) U/L Total Protein (6.3-8.2) g/dL Albumin (3.5-5.0) g/dL Amylase (30-110) U/L Lipase (23-300) U/L Urine Color Yellow Urine Appearance Cloudy H (Clear) Urine pH 5.5 (5.0-8.0) Ur Specific [place] 1.015 (1.001-1.035) Urine Protein Negative (Negative) Urine Glucose (UA) Negative (Negative) Urine Ketones Negative (Negative) Urine Blood Negative (Negative) Urine Nitrite Negative (Negative) Urine Bilirubin Negative (Negative) Urine Urobilinogen <2.0 (<2.0) mg/dL Ur Leukocyte Esterase Negative (Negative) Urine RBC <1 (0-5) /hpf Urine WBC 3 (0-5) /hpf Ur Squamous Epith Cells 1 (0-4) /hpf Urine Bacteria Occasional H (None) /hpf Urine Mucus Rare H (None) /hpf Disposition Clinical Impression: Abdominal pain Disposition: HOME SELF-CARE Condition: Stable Instructions (If sedation given, give patient instructions): Abdominal Pain (ED) Additional Instructions: Please return to the Emergency Department if symptoms worsen or any other concerns. Continue alternating Tylenol and Motrin for discomfort, may take [place]'s for more severe pain. Follow up with your surgeon tomorrow as discussed. Prescriptions: HYDROcodone/APAP 10-325MG [[place] 10-325] 1 tab PO Q6H PRN #4 tab PRN Reason: pain Is patient prescribed a controlled substance at d/c from ED?: Yes When asked, does pt state using other controlled substances?: No If prescribed controlled substance>3 days was MAPS reviewed?: Prescribed <3 Days If opioid is for acute pain is fill amount 7 days or less?: Yes If Rx opioid, was Start Talking consent form obtained?: Yes Referrals: Scott Johnson MD [Primary Care Provider] - 1-2 days
[2020-08-14 15:23] VITALS: RESP 18
[2020-08-14 15:34] LABS: Appearance,Urine Cloudy (Clear); Bacteria,Urine Occasional /hpf; Bilirubin,Urine Negative (Negative); Blood,Urine Negative (Negative); Color,Urine Yellow; Glucose,Urine (UA) Negative (Negative); Ketones,Urine Negative (Negative); Leukocyte Esterase,Urine Negative (Negative); Mucus,Urine Rare /hpf; Nitrite,Urine Negative (Negative); PH, Urine 5.5 (5.0-8.0); Protein,Urine Negative (Negative); RBC,Urine <1 /hpf (0-5); Specific Gravity,Urine 1.015 (1.001-1.035); Squamous Epithelial Cell,Urine 1 /hpf (0-4); Urobilinogen,Urine <2.0 mg/dL (<2.0); WBC,Urine 3 /hpf (0-5)
--- NOTE | 2020-08-14 16:05 | CT ---
EXAMINATION TYPE: CT abdomen pelvis w con DATE OF EXAM: 08/14/2020 COMPARISON: 08/21/2019 HISTORY: PT recently had sx to create skin flaps for upcoming post-masectomy sx and states area is ho t, pain in R side abdomen. CT DLP: 1303.4 mGycm Automated exposure control for dose reduction was used. CONTRAST: Performed with IV Contrast, patient injected with 100 mL of Isovue 300. Images obtained from the diaphragm to the floor the pelvis with IV contrast. The lung bases are clear. There is no pleural effusion. There is minimal subsegmental atelectasis rig ht lung base. Heart size is normal. There is no pericardial effusion. Liver spleen pancreas stomach a ppear intact. Bile ducts are not dilated. There are clips from cholecystectomy. There is no adrenal mass. Kidneys show satisfactory contrast opacification. There is no hydronephrosi s. Bladder is almost empty. There is no inguinal hernia. There are surgical clips in the left groin. There is no evidence of a pelvic mass. There is no free fluid in the pelvis. There is no mesenteric e chuck. There is no ascites or free air. Delayed images show normal renal excretion. Appendix is not se en. There is no sign of a thickened appendix. Lumbar vertebra have normal alignment. There is no compression fracture. Bony pelvis is intact. Hip j oints are intact. There is anterior upper abdomen skin incisions with dehiscence. There is increased density at the inc ision site on the left side that could be inflammatory process. There is no evidence of a drainable p rocess fluid collection. There is linear subcutaneous density over the inferior left breast region wh ich measures up to 14 mm in thickness. There is a surgical clip. IMPRESSION: No evidence of any significant intra-abdominal or pelvic abnormality. Previous surgery on the anterior upper abdomen below the breast region with subcutaneous linear densi ty consistent with phlegmon or scar tissue or hematoma. . The density is higher than I would expect f or an abscess. There is dehiscence of the left and right side incisions. Abnormalities appear new com pared to old exam.
[2020-08-14 16:37] VITALS: BP 125/70; PULSE 84
== END 2020-08-14 16:36 | disposition home or self-care (01) ==
LOC: EC 13:27
DX: R10.9 Unspecified abdominal pain (principal); I10 Essential (primary) hypertension; E78.5 Hyperlipidemia, unspecified; G43.909 Migraine, unspecified, not intractable, without status migrainosus; F41.9 Anxiety disorder, unspecified; F32.9 Major depressive disorder, single episode, unspecified; Z79.899 Other long term (current) drug therapy; Z79.1 Long term (current) use of non-steroidal anti-inflammatories (NSAID); Z88.5 Allergy status to narcotic agent; Z88.0 Allergy status to penicillin; Z91.030 Bee allergy status; Z88.8 Allergy status to other drugs, medicaments and biological substances; Z90.49 Acquired absence of other specified parts of digestive tract; Z90.89 Acquired absence of other organs; Z90.710 Acquired absence of both cervix and uterus
CPT/HCPCS: 36415; 80053; 82150; 83605; 83690; 85025; 85610; 85730; 81001; 87040; 74177; 99284; 96374; 96375; 96361; J2405; J1170; Q9967

== ENCOUNTER → 2020-09-12 | Outpatient (CLI) | payer MEDICARE, OTHER ==
[2020-09-12 11:06] LABS: Basophils # (A) 0.03 X 10*3/uL (0.00-0.10); Basophils % (A) 0.4 %; Eosinophils # (A) 0.21 X 10*3/uL (0.04-0.35); Eosinophils % (A) 2.6 %; HCT 39.2 % (37.2-46.3); HGB 12.5 g/dL (12.0-15.0); MCH 27.4 pg (27.0-32.0); MCHC 31.9 g/dL (32.0-37.0); MCV 85.8 fL (80.0-97.0); Mean Platelet Volume 10.2 fL (9.5-12.2); Monocytes # (A) 0.51 X 10*3/uL (0.20-1.00); Monocytes % (A) 6.3 %; Neutrophils # (A) 4.28 X 10*3/uL (1.80-7.70); Neutrophils % (A) 52.3 %; Platelet Count 262 X 10*3/uL (140-440); RBC 4.57 X 10*6/uL (4.10-5.20); RDW 14.6 % (11.5-14.5); WBC 8.16 X 10*3/uL (4.50-10.00)
[2020-09-12 11:21] LABS: % Iron Saturation 13.4 (12.00-45.00); Albumin 4.3 g/dL (3.80-4.90); Albumin/Globulin Ratio 1.43 (1.60-3.17); Anion Gap 8.8 mmol/L (4.00-12.00); BUN/Creat Ratio 11.25 Ratio (12.00-20.00); Calcium 9.3 mg/dL (8.7-10.3); Carbon Dioxide 23.2 mmol/L (21.6-31.8); Non-African American GFR(CKD) 87.2 (60.0-200.0); Potassium 3.8 mmol/L (3.5-5.5); Total Bilirubin 0.4 mg/dL (0.3-1.2); Total Protein 7.3 g/dL (6.2-8.2)
[2020-09-12 14:02] LABS: Hemoglobin A1C 5.1 % (4.0-6.0)
== END | disposition home or self-care (01) ==
LOC: LABWHC1 07:50
PROVIDERS: ATTEND Internal Medicine
DX: E11.9 Type 2 diabetes mellitus without complications (principal); I10 Essential (primary) hypertension; D64.9 Anemia, unspecified
CPT/HCPCS: 36415; 80053; 83036; 83540; 83550; 85025

== ENCOUNTER → 2020-11-17 | Outpatient (CLI) | payer MEDICARE, OTHER ==
--- NOTE | 2020-11-17 14:45 | USB ---
Reason for exam: clinical finding. History: Patient has history of breast cancer at age 37. Family history of premenopausal breast cancer in aunt and breast cancer in mother at age 59. Benign right breast needle localzation of both breasts, July 29, 2013. Excisional biopsy of the right breast, 2007. Benign excisional biopsy of the right breast, May 05, 2007. Lumpectomy of the right breast, 2006. Took other hormone for 5 years beginning at age 37. Indicated problem(s): palpable abnormality in both breasts. Physical Findings: Nurse Summary: palpable left breast 2 o'clock 0.5cm tender, right breast 12 o'clock, right breast 7 o'clock BB on all palpable areas (nurse rasheed). US Breast Limited BILAT Right limited breast ultrasound including focal area of concern, retroareolar and axilla demonstrates a 1.0 x 0.4 x 1.0cm oval, solid, hypoechoic, dermal based lesion at 7 o'clock BB and a 4.2 x 1.8 x 3.5cm oval, solid, hypoechoic lesion at 12 o'clock BB. Left limited breast ultrasound including focal area of concern, retroareolar and axilla demonstrates a 4.6 x 2.9 x 4.8cm irregular, solid, hypoechoic lesion at 2 o'clock BB, most suspicious, uncertain as patient states prior complex resection and a 1.4cm oval lymph node at the axilla tail. These results were verbally communicated with the patient and result sheet given to the patient on 11/17/20. ASSESSMENT: Suspicious, BI-RAD 4 RECOMMENDATION: Surgical consultation of the left breast. Consider ultrasound core biopsy of the left breast. Patient is requesting to see previous [place] physician. Patient is unsure of name at present and has information at home. PRELIMINARY REPORT CALLED AND FAXED TO DR. JOSEPH ON 11/17/20.
== END | disposition home or self-care (01) ==
LOC: RADUSWWP 10:39
PROVIDERS: ATTEND Family Medicine
DX: N64.59 Other signs and symptoms in breast (principal); Z78.0 Asymptomatic menopausal state; Z80.3 Family history of malignant neoplasm of breast; Z85.3 Personal history of malignant neoplasm of breast

== ENCOUNTER → 2020-12-07 | Day surgery (SDC) | payer MEDICARE, OTHER ==
[2020-12-07 09:44] VITALS: RESP 16
--- NOTE | 2020-12-07 11:34 | USB ---
EXAMINATION TYPE: US biopsy breast VAD LT DATE OF EXAM: 12/07/2020 CLINICAL HISTORY: R68.89 Abnormal clinical findings. Patient has new palpable lump at the site of scar tissue in the left breast. Patient has had bilateral mastectomies. Patient had right mastectomy for cancer at age 37 with chemotherapy and radiation therapy. TECHNIQUE: Ultrasound guided core biopsy of left breast. COMPARISON: Left breast ultrasound 11/17/2020 FINDINGS: The procedure of ultrasound guided core biopsy was explained to the patient. Benefits, alternatives, and risks were discussed. An informed consent was then obtained. The patient was placed in supine positioning for imaging and for the procedure. The overlying skin was prepped and draped in usual sterile fashion. Lidocaine buffered with bicarbonate was used as anesthetic into the skin and subcutaneous tissue up to area of concern in the left breast. A skin racheal was made with surgical scalpel. Under ultrasound guidance, Celero assisted biopsy gun device was used to obtain 3 core samples. Following this, a biopsy marker clip was placed in lesion. The patient tolerated the procedure well without any immediate complication. The patient was kept in the radiology department for short stay after the procedure and then discharged home in stable condition. IMPRESSION: 1. Successful, uncomplicated ultrasound guided core biopsy of area of concern in the left breast. A biopsy marker clip was placed. Pathology Results: Benign LEFT BREAST, TWO O'CLOCK, ULTRASOUND CORE BIOPSY: Fat necrosis/scar with histiocytes and chronic inflammation. Negative for malignancy. Recommendation Follow up ultrasound of the left breast in 6 months. MTDD
[2020-12-07 11:35] VITALS: BP 113/76; PULSE 86; TEMP 98.3
--- NOTE | 2020-12-15 10:45 | MM ---
Reason for exam: additional evaluation requested from prior study. Last mammogram was performed 1 year and 3 months ago. History: Patient has history of breast cancer at age 37. Family history of premenopausal breast cancer in aunt and breast cancer in mother at age 59. Benign right breast needle localzation of both breasts, July 29, 2013. Excisional biopsy of the right breast, 2007. Benign excisional biopsy of the right breast, May 05, 2007. Lumpectomy of the right breast, 2006. Took other hormone for 5 years beginning at age 37. MG Diagnostic Mammo LT Wo CAD XCCL and LM view(s) were taken of the left breast. Prior study comparison: September 02, 2019, bilateral MG 3d diag mammo w/cad JENNI. September 22, 2018, bilateral MG 3d diag mammo w/cad JENNI. ASSESSMENT: Post procedure mammogram for marker placement RECOMMENDATION: Ultrasound of the left breast in 6 months. PENDING PATHOLOGY RESULTS.
== END ==
LOC: RADUSWWP 09:24
PROVIDERS: ATTEND Surgery
DX: R92.8 Other abnormal and inconclusive findings on diagnostic imaging of breast (principal); N64.1 Fat necrosis of breast; L90.5 Scar conditions and fibrosis of skin; Z90.13 Acquired absence of bilateral breasts and nipples; Z88.5 Allergy status to narcotic agent; Z88.0 Allergy status to penicillin; Z91.030 Bee allergy status
CPT/HCPCS: 88305; 77065; 19083; A4648; J2001

== ENCOUNTER 2021-01-25 16:45 | Observation (INO) | payer MEDICARE, OTHER ==
[2021-01-25] MEDS ORDERED: SODIUM CHLORIDE 0.9% 500 ML 500 ML IV STA (16:52)
--- NOTE | 2021-01-25 16:56 | ED ---
General Adult HPI - General Chief complaint: Syncope Stated complaint: syncope Time Seen by Provider: 01/25/21 16:45 Source: patient, EMS, RN notes reviewed, old records reviewed Mode of arrival: EMS Limitations: no limitations - History of Present Illness Initial comments: This is a 50-year-old female with past medical history significant for pots synd halina as well as Q-T prolongation and breast cancer. Patient presents to the emergency department today because she had to episodes where she passed out after she stood up in one episode when EMS was there when she stood up and passed out. EMS stated on the monitor she had no changes noted and her blood pressures remained stable the whole time. Patient's heart rate did not elevate either. Patient denied any headache patient denied any numbness weakness. Patient a chest pain difficulty breathing shortness of breath. Patient states she supposed to have back surgery she had a monitor on her chest however the monitor wasn't sticking at that time so she states that it would not hop picker anything when she passed out because it wasn't on her. Patient denies any palpitations. Patient denies any shortness of breath or difficulty breathing. Patient denies any abdominal pain. Patient states she felt like she was given a passout and she thought she might . Patient denies any recent fever chills or cough. - Related Data Home Medications Medication Instructions Recorded Confirmed Zolpidem Tartrate [Ambien Cr] 12.5 mg PO HS PRN 09/27/14 12/07/20 clonazePAM [Clonazepam] 1 mg PO BID 04/08/16 12/07/20 traZODone HCL [Desyrel] 200 mg PO HS 04/08/16 12/07/20 Atorvastatin Calcium [Lipitor] 10 mg PO HS 12/05/16 12/07/20 Sertraline HCl [Zoloft] 100 mg PO HS 12/05/16 12/07/20 Alosetron HCl [Lotronex] 1 mg PO BID PRN 09/19/17 12/07/20 Galcanezumab-Gnlm [Emgality Pen] 120 mg SQ QMONTH 12/10/18 12/07/20 EPINEPHrine [Epipen 2-Deven] 0.3 mg IM ONCE PRN 01/12/19 12/07/20 amLODIPine BESYLATE [Norvasc] 2.5 mg PO HS 01/12/19 12/07/20 Nitroglycerin Sl Tabs [Nitrostat] 0.4 mg SUBLINGUAL Q5M PRN 01/15/19 12/07/20 Docusate [Colace] 100 mg PO BID 08/14/20 12/07/20 HYDROcodone/APAP 10-325MG [[place] 1 tab PO QID PRN 08/14/20 12/07/20 10-325] Naproxen 500 mg PO BID 08/14/20 12/07/20 cloNIDine HCL [Catapres] 0.2 mg PO BID 11/29/20 12/07/20 cloNIDine [Catapres-TTS] 1 patch TRANSDERM Q7DAYS 11/29/20 12/07/20 Allergies Allergy/AdvReac Type Severity Reaction Status Date / Time morphine Allergy Swelling, Verified 12/07/20 09:37 diff breathing oxycodone Allergy Anaphylaxis Verified 12/07/20 09:37 Penicillins Allergy Unknown Verified 12/07/20 09:37 Childhood venom-honey bee Allergy Anaphylaxis-has Verified 12/07/20 09:37 [bee venom (honey bee)] epi-pen baclofen AdvReac Diarrhea Verified 12/07/20 09:37 Review of Systems ROS Statement: Those systems with pertinent positive or pertinent negative responses have been documented in the HPI. ROS Other: All systems not noted in ROS Statement are negative. Past Medical History Past Medical History: Atrial Fibrillation, Cancer, Diabetes Mellitus, Hyperlipidemia, Hypertension, Supraventricular Tachycardia (SVT) Additional Past Medical History / Comment(s): Postural orthostatic tachycardia syndrome (POTS), Hx of SVT, Migraines, IBS/D. 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 History of Any Multi-Drug Resistant Organisms: MRSA Date of last positivie culture/infection: Fall 2019 MDRO Source:: Hospital Past Surgical History: Appendectomy, Breast Surgery, Cardiac Ablation, Cholecystectomy, Heart Catheterization, Hysterectomy, Orthopedic Surgery Additional Past Surgical History / Comment(s): BIOPSY- RT BREAST x2, RT LUMPECTOMY; Bilateral Mastectomy with reconstruction, LT KNEE SURGERY X4 (2 arthroscopic), Right ankle x 2, CARDIAC ABLATION X 2. COLONOSCOPY Past Anesthesia/Blood Transfusion Reactions: Previous Problems w/ Anesthesia Additional Past Anesthesia/Blood Transfusion Reaction / Comment(s): DIFFICULT INTUBATION W/ EMERG APPENDECTOMY BY DR CAPUTO 04/08/2016 ([facility])-Can't find letter. Past Psychological History: Anxiety, Depression Smoking Status: Never smoker Past Alcohol Use History: Rare Past Drug Use History: None Reported - Past Family History Father Family Medical History: Hypertension, Myocardial Infarction ([place]), Pulmonary Embolus Mother Family Medical History: Cancer Additional Family Medical History / Comment(s): Breast/Lymphatic CA General Exam - General Exam Comments Initial Comments: GENERAL: Patient is well-developed and well-nourished. Patient is nontoxic and well- hydrated and is in mild distress. ENT: Neck is soft and supple. No significant lymphadenopathy is noted. Oropharynx is clear. Moist mucous membranes. Neck has full range of motion without eliciting any pain. EYES: The sclera were anicteric and conjunctiva were pink and moist. Extraocular movements were intact and pupils were equal round and reactive to light. Eyelids were unremarkable. PULMONARY: Unlabored respirations. Good breath sounds bilaterally. No audible rales rhonchi or wheezing was noted. CARDIOVASCULAR: There is a regular rate and rhythm without any murmurs gallops or rubs. ABDOMEN: Soft and nontender with normal bowel sounds. SKIN: Skin is clear with no lesions or rashes and otherwise unremarkable. NEUROLOGIC: Patient is alert and oriented x3. Cranial nerves II through XII are grossly int act. Motor and sensory are also intact. Normal speech, volume and content. Symmetrical smile. MUSCULOSKELETAL: Normal extremities with adequate strength and full range of motion. No lower extremity swelling or edema. No calf tenderness. LYMPHATICS: No significant lymphadenopathy is noted PSYCHIATRIC: Normal psychiatric evaluation. Limitations: no limitations Course Vital Signs 01/25/21 16:46 Temperature 97.7 F Pulse Rate 86 Respiratory 16 Rate Blood Pressure 151/86 O2 Sat by Pulse 100 Oximetry Medical Decision Making - Medical Decision Making EKG shows normal sinus rhythm at 72 bpm SC interval 258 QRS is 70 QT interval 414 QTC is 453. Patient's EKG shows no ST segment elevation or depression. Chest x-ray shows no acute abnormality. Patient had no more syncopal episodes while in the emergency department. I spoke with Dr. Linda about the patient and I spoke with Dr. Agee but the patient I we will admit the patient Dr. Agee and consult cardiology. - Lab Data Result diagrams: 01/25/21 17:13 01/25/21 17:13 Lab Results 01/25/21 01/25/21 01/25/21 Range/Units 17:10 17:13 17:13 WBC 8.8 (3.8-10.6) k/uL RBC 5.09 (3.80-5.40) m/uL Hgb 13.8 (11.4-16.0) gm/dL Hct 43.4 (34.0-46.0) % MCV 85.2 (80.0-100.0) fL MCH 27.0 (25.0-35.0) pg MCHC 31.8 (31.0-37.0) g/dL RDW 15.1 (11.5-15.5) % Plt Count 202 (150-450) k/uL MPV 7.2 Neutrophils % 63 % Lymphocytes % 27 % Monocytes % 5 % Eosinophils % 2 % Basophils % 1 % Neutrophils # 5.6 (1.3-7.7) k/uL Lymphocytes # 2.4 (1.0-4.8) k/uL Monocytes # 0.4 (0-1.0) k/uL Eosinophils # 0.2 (0-0.7) k/uL Basophils # 0.1 (0-0.2) k/uL PT 10.5 (9.0-12.0) sec INR 1.0 (<1.2) APTT 23.8 (22.0-30.0) sec D-Dimer 0.53 (<0.60) mg/L FEU Sodium (137-145) mmol/L Potassium (3.5-5.1) mmol/L Chloride (98-107) mmol/L Carbon Dioxide (22-30) mmol/L Anion Gap mmol/L BUN (7-17) mg/dL Creatinine (0.52-1.04) mg/dL Est GFR (CKD-EPI)AfAm (>60 ml/min/1.73 sqM) Est GFR (CKD-EPI)NonAf (>60 ml/min/1.73 sqM) Glucose (74-99) mg/dL Calcium (8.4-10.2) mg/dL Magnesium (1.6-2.3) mg/dL Total Bilirubin (0.2-1.3) mg/dL AST (14-36) U/L ALT (4-34) U/L Alkaline Phosphatase (38-126) U/L Troponin I (0.000-0.034) ng/mL NT-Pro-B Natriuret Pep 63 pg/mL Total Protein (6.3-8.2) g/dL Albumin (3.5-5.0) g/dL 01/25/21 01/25/21 Range/Units 17:13 17:13 WBC (3.8-10.6) k/uL RBC (3.80-5.40) m/uL Hgb (11.4-16.0) gm/dL Hct (34.0-46.0) % MCV (80.0-100.0) fL MCH (25.0-35.0) pg MCHC (31.0-37.0) g/dL RDW (11.5-15.5) % Plt Count (150-450) k/uL MPV Neutrophils % % Lymphocytes % % Monocytes % % Eosinophils % % Basophils % % Neutrophils # (1.3-7.7) k/uL Lymphocytes # (1.0-4.8) k/uL Monocytes # (0-1.0) k/uL Eosinophils # (0-0.7) k/uL Basophils # (0-0.2) k/uL PT (9.0-12.0) sec INR (<1.2) APTT (22.0-30.0) sec D-Dimer (<0.60) mg/L FEU Sodium 143 (137-145) mmol/L Potassium 4.3 (3.5-5.1) mmol/L Chloride 107 (98-107) mmol/L Carbon Dioxide 26 (22-30) mmol/L Anion Gap 10 mmol/L BUN 11 (7-17) mg/dL Creatinine 0.60 (0.52-1.04) mg/dL Est GFR (CKD-EPI)AfAm >90 (>60 ml/min/1.73 sqM) Est GFR (CKD-EPI)NonAf >90 (>60 ml/min/1.73 sqM) Glucose 102 H (74-99) mg/dL Calcium 9.4 (8.4-10.2) mg/dL Magnesium 2.1 (1.6-2.3) mg/dL Total Bilirubin 0.5 (0.2-1.3) mg/dL AST 37 H (14-36) U/L ALT 30 (4-34) U/L Alkaline Phosphatase 102 (38-126) U/L Troponin I <0.012 (0.000-0.034) ng/mL NT-Pro-B Natriuret Pep pg/mL Total Protein 7.4 (6.3-8.2) g/dL Albumin 4.6 (3.5-5.0) g/dL Disposition Clinical Impression: Syncopal episodes Disposition: ADMITTED IP TO THIS HOSP Referrals: Najma Givens MD [Primary Care Provider] - 1-2 days Time of Disposition: 18:10
[2021-01-25 17:24] LABS: Basophils # (A) 0.1 k/uL (0-0.2); Basophils % (A) 1 %; Eosinophils # (A) 0.2 k/uL (0-0.7); Eosinophils % (A) 2 %; HCT 43.4 % (34.0-46.0); HGB 13.8 gm/dL (11.4-16.0); Lymphocytes # (A) 2.4 k/uL (1.0-4.8); Lymphocytes % (A) 27 %; MCHC 31.8 g/dL (31.0-37.0); MCV 85.2 fL (80.0-100.0); Mean Platelet Volume 7.2; Monocytes # (A) 0.4 k/uL (0-1.0); Monocytes % (A) 5 %; Neutrophils # (A) 5.6 k/uL (1.3-7.7); Neutrophils % (A) 63 %; Platelet Count 202 k/uL (150-450); RBC 5.09 m/uL (3.80-5.40); RDW 15.1 % (11.5-15.5); WBC 8.8 k/uL (3.8-10.6)
[2021-01-25 17:35] LABS: ALT 30 U/L (4-34); AST 37 U/L (14-36); African American GFR (CKD) >90 (>60 ml/min/1.73 sqM); Albumin 4.6 g/dL (3.5-5.0); Alkaline Phosphatase 102 U/L (38-126); Anion Gap 10 mmol/L; Blood Urea Nitrogen 11 mg/dL (7-17); Calcium 9.4 mg/dL (8.4-10.2); Carbon Dioxide 26 mmol/L (22-30); Chloride 107 mmol/L (98-107); Glucose 102 mg/dL (74-99); Magnesium 2.1 mg/dL (1.6-2.3); Non-African American GFR(CKD) >90 (>60 ml/min/1.73 sqM); Potassium 4.3 mmol/L (3.5-5.1); Sodium 143 mmol/L (137-145); Total Bilirubin 0.5 mg/dL (0.2-1.3); Total Protein 7.4 g/dL (6.3-8.2)
--- NOTE | 2021-01-25 17:37 | XR ---
EXAMINATION TYPE: XR chest 2V DATE OF EXAM: 01/25/2021 COMPARISON: 01/15/2019 INDICATION: Chest pain TECHNIQUE: Frontal and lateral views of the chest are obtained. FINDINGS: The heart size is normal. The pulmonary vasculature is normal. The lungs are clear. Electronic device overlies the midline. IMPRESSION: 1. No acute pulmonary process.
[2021-01-25 17:40] LABS: D-Dimer 0.53 mg/L FEU (<0.60); Partial Thromboplastin Time 23.8 sec (22.0-30.0); Prothrombin Time 10.5 sec (9.0-12.0)
[2021-01-25] MEDS: SODIUM CHLORIDE 0.9% 1,000 ML IV ONE ×2 (18:40→20:59)
[2021-01-25] MEDS ORDERED: CYCLOBENZAPRINE 5 MG TAB PO PRN (23:43)
[2021-01-25] MEDS ORDERED: ZOLPIDEM 5 MG TAB PO PRN (23:43)
[2021-01-25] MEDS ORDERED: traZODone HCL 100 MG TAB PO SCH (23:45)
[2021-01-26] MEDS: HYDROmorphone 0.5 MG/0.5 ML SYRINGE IVP PRN ×6 (00:07→23:08)
--- NOTE | 2021-01-26 00:09 | P.HPIM ---
History of Present Illness H&P Date: 01/25/21 Chief Complaint: Syncope 50-year-old female with paroxysmal A. fib, POTS, breast cancer Patient comes in due to repeated episodes of syncope. 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 after which she noticed having frequent episodes of syncope normally she would have one episode per month but now she's having multiple episodes per day usually associated with standing up but sometimes even while laying down or sitting in chair she will have suspected episodes of syncope as she regains consciousness she will find herself positioned in an awkward situation or position which she thinks is probably due to having a syncopal episodes and then she is waking up from that she denies any associated chest pain or trouble breathing but says sometimes they're associated with some excessive sweating palpitations and dizziness. However most of the episodes are without any symptoms. She doesn't have any major injuries because of these episodes yet. She indicated that she does have history of POTS syndrome and history of paroxysmal A. fib status post ablation. She has a history of breast cancer status post mastectomy Otherwise denies any focal neuro deficits currently denies any nausea vomiting or abdominal pain she does report chronic low back pain requesting some pain medications. Denies any changes in her medications otherwise denies any alcohol drugs or smoking. EKG in the ED shows QTc interval of 451, blood work unremarkable Review of Systems Pertinent positives as noted in HPI. All other systems were reviewed and are negative Past Medical History Past Medical History: Atrial Fibrillation, Cancer, Diabetes Mellitus, Hyperlipidemia, Hypertension, Supraventricular Tachycardia (SVT) Additional Past Medical History / Comment(s): Postural orthostatic tachycardia syndrome (POTS), Hx of SVT, Migraines, IBS/D. 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 History of Any Multi-Drug Resistant Organisms: MRSA Date of last positivie culture/infection: Fall 2019 MDRO Source:: Hospital Past Surgical History: Appendectomy, Breast Surgery, Cardiac Ablation, Cholecystectomy, Heart Catheterization, Hysterectomy, Orthopedic Surgery Additional Past Surgical History / Comment(s): BIOPSY- RT BREAST x2, RT LUMPECTOMY; Bilateral Mastectomy with reconstruction, LT KNEE SURGERY X4 (2 arthroscopic), Right ankle x 2, CARDIAC ABLATION X 2. COLONOSCOPY Past Anesthesia/Blood Transfusion Reactions: Previous Problems w/ Anesthesia Additional Past Anesthesia/Blood Transfusion Reaction / Comment(s): DIFFICULT INTUBATION W/ EMERG APPENDECTOMY BY DR CAPUTO 04/08/2016 ([facility])-Can't find letter. Past Psychological History: Anxiety, Depression Smoking Status: Never smoker Past Alcohol Use History: Rare Past Drug Use History: None Reported - Past Family History Father Family Medical History: Hypertension, Myocardial Infarction ([place]), Pulmonary Embolus Mother Family Medical History: Cancer Additional Family Medical History / Comment(s): Breast/Lymphatic CA Medications and Allergies Home Medications Medication Instructions Recorded Confirmed Type Zolpidem Tartrate [Ambien Cr] 12.5 mg PO HS PRN 09/27/14 01/25/21 History clonazePAM [Clonazepam] 1 mg PO BID 04/08/16 01/25/21 History traZODone HCL [Desyrel] 200 mg PO HS 04/08/16 01/25/21 History Sertraline HCl [Zoloft] 100 mg PO HS 12/05/16 01/25/21 History Alosetron HCl [Lotronex] 1 mg PO BID PRN 09/19/17 01/25/21 History Galcanezumab-Gnlm [Emgality Pen] 120 mg SQ QMONTH 12/10/18 01/25/21 History EPINEPHrine [Epipen 2-Deven] 0.3 mg IM ONCE PRN 01/12/19 01/25/21 History Nitroglycerin Sl Tabs [Nitrostat] 0.4 mg SUBLINGUAL Q5M PRN 01/15/19 01/25/21 History Docusate [Colace] 100 mg PO BID 08/14/20 01/25/21 History HYDROcodone/APAP 10-325MG [[place] 1 tab PO TID PRN 08/14/20 01/25/21 History 10-325] cloNIDine HCL [Catapres] 0.2 mg PO BID 11/29/20 01/25/21 History cloNIDine [Catapres-TTS] 1 patch TRANSDERM Q7DAYS 11/29/20 01/25/21 History Cyclobenzaprine [Flexeril] 5 - 10 mg PO TID PRN 01/25/21 01/25/21 History Digoxin [Lanoxin] 125 mcg PO DAILY 01/25/21 01/25/21 History Allergies Allergy/AdvReac Type Severity Reaction Status Date / Time morphine Allergy Swelling, Verified 01/25/21 18:10 diff breathing oxycodone Allergy Anaphylaxis Verified 01/25/21 18:10 Penicillins Allergy Unknown Verified 01/25/21 18:10 Childhood venom-honey bee Allergy Anaphylaxis-has Verified 01/25/21 18:10 [bee venom (honey bee)] epi-pen baclofen AdvReac Diarrhea Verified 01/25/21 18:10 Physical Exam Vitals: Vital Signs Temp Pulse Pulse Resp BP BP Pulse Ox 01/25/21 20:00 98.2 F 68 18 144/83 100 01/25/21 19:20 75 20 01/25/21 18:40 76 16 100 01/25/21 16:46 97.7 F 86 16 151/86 100 Intake and Output 01/25/21 01/25/21 01/26/21 14:59 22:59 06:59 Other: Voiding Method Bedpan # Voids 1 Weight 80.286 kg Constitutional: No acute distress, conversant, pleasant Eyes: Anicteric sclerae, moist conjunctiva, Pupils equal round reactive to light ENMT: NC/AT Oropharynx clear, no erythema, or exudates Neck: Supple, FROM, no masses, or JVD No carotid bruits No thyromegaly Lungs: Clear to auscultation Clear to percussion Normal respiratory effort, no accessory muscle use Cardiovascular: Heart regular in rate and rhythm, No murmurs, gallops, or rubs No peripheral edema Abdominal: Soft Nontender, no guarding, rebound or rigidity Abdomen moving with respiration Normoactive bowel sounds No hepatomegaly, No splenomegaly No palpable mass No abdominal wall hernia noted Skin: Normal temperature, tone, texture, turgor No induration No subcutaneous nodules No rash, lesions No ulcers Extremities: No digital cyanosis No clubbing Pedal pulses intact and symmetrical Radial pulses intact and symmetrical No calf tenderness Psychiatric: Alert and oriented to person, place and time Appropriate affect fair judgement Neuro Muscles Strength 5/5 in all 4 extremities Sensation to light touch grossly present throughout Cranial nerves II-XII grossly intact No focal sensory deficits Lymphatics: no palpable cervical or supraclavicular , or inguinal lymph nodes Results CBC & Chem 7: 01/25/21 17:13 01/25/21 17:13 Labs: Abnormal Lab Results - Last 24 Hours (Table) 01/25/21 Range/Units 17:13 Glucose 102 H (74-99) mg/dL AST 37 H (14-36) U/L Thrombosis Risk Factor Assmnt - Choose All That Apply Any of the Below Risk Factors Present?: Yes Each Factor Represents 1 point: Age 41-60 years Thrombosis Risk Factor Assessment Total Risk Factor Score: 1 Thrombosis Risk Factor Assessment Level: Low Risk Assessment and Plan Assessment: Frequent episodes of syncope 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 fib resume cardiac meds Hypertension resume blood pressure meds CODE STATUS: Full code DVT prophylaxis: Lovenox daily Discussed with: Patient, ER, RN Anticipated length of stay less than [address]: Home A total of 75 minutes was spent on the care of this complex patient more than 50% of the time was spent in counseling and care coordination.
[2021-01-26] MEDS: SERTRALINE 100 MG TAB PO SCH ×2 (00:10→20:12)
[2021-01-26] MEDS: cloNIDine HCL 0.2 MG TAB PO SCH ×3 (00:10→20:12)
[2021-01-26] MEDS: clonazePAM 1 MG TAB PO SCH ×3 (01:42→20:11)
[2021-01-26 08:57] LABS: Basophils # (A) 0.03 X 10*3/uL (0.00-0.10); Basophils % (A) 0.3 %; Eosinophils # (A) 0.17 X 10*3/uL (0.04-0.35); HCT 39.7 % (37.2-46.3); HGB 12.6 g/dL (12.0-15.0); Lymphocytes # (A) 3.31 X 10*3/uL (0.90-5.00); Lymphocytes % (A) 38.1 %; MCH 27.6 pg (27.0-32.0); MCHC 31.7 g/dL (32.0-37.0); MCV 87.1 fL (80.0-97.0); Mean Platelet Volume 10.3 fL (9.5-12.2); Monocytes # (A) 0.55 X 10*3/uL (0.20-1.00); Monocytes % (A) 6.3 %; Neutrophils % (A) 53.1 %; Platelet Count 199 X 10*3/uL (140-440); RBC 4.56 X 10*6/uL (4.10-5.20); WBC 8.68 X 10*3/uL (4.50-10.00)
[2021-01-26] MEDS ORDERED: DIGOXIN 125 MCG TAB PO SCH (09:00)
[2021-01-26] MEDS: DOCUSATE 100 MG CAP PO SCH ×2 (09:58→20:12)
[2021-01-26] MEDS: ENOXAPARIN 40 MG/0.4 ML SYRINGE SQ SCH (09:59)
--- NOTE | 2021-01-26 10:13 | P.CRDCN ---
<Dolly Suárez - Last Filed: 01/26/21 09:59> History of Present Illness History of present illness: HISTORY OF PRESENTING ILLNESS This is a pleasant 50-year-old female past medical history significant for POTS, hypertension, depression, diabetes mellitus and breast cancer. She follows in the office with Dr. Linda. We have been asked to see in consultation for syncope. She saw Dr. Linda in the office recently and discussed these episodes of possible syncope she has been experiencing. He did an EKG in the office and noted a QTc of 485 ms. She is on trazadone which can prolong the QT. He suggested an outpatien event monitor and weaning off of trazadone. She states yesterday while in the bathroom standing up she passed out. She denies precipitating factors. Unfortunately, the event monitor was not on because she was having trouble with the stickiness of the patches. EMS was called. When they were there and she was standing in the kitchen it occurred again. According to EMS there nothing noted on telemetry, her heart rates were stable, blood pressure was stable and she had no seizure like activity. EMS had taken several EKG strips which were all reviewed by Dr. Mascorro. The QT of all 4 was less than 440ms. EKG obtained here in the hospital all reviewed extensively. Absolute QT has never been above 440ms. She is seen and examined laying flat in bed in no acute distress. She has no chest pain, dizziness, shortness of breath or palpitations. EKGs with no acute ST or T-wave abnormalities noted. Telemetry tracing reveal persistent SR. chest x-ray is negative for an acute cardiopulmonary process. Laboratory data reviewed, CBC unremarkable, d-dimer 0.53, sodium 143, potassium 4.3, creatinine 0.6, cardiac enzymes negative 2, magnesium 2.1, NT proBNP 63. Most recent echocardiogram obtained in the office in 2019 revealed preserved LV systolic function with mild MR and mild TR. The patient has had 3 cardiac catheterizations dating back to 2013 in 2019 all revealing normal coronary arteries. REVIEW OF SYSTEMS At the time of my exam: CONSTITUTIONAL: Denies fever or chills. CARDIOVASCULAR: Denies chest pain, shortness of breath, orthopnea, PND or palpitations. RESPIRATORY: Denies cough. GASTROINTESTINAL: Denies abdominal pain, diarrhea, constipation, nausea or vomiting. MUSCULOSKELETAL: Denies myalgias. NEUROLOGIC: Denies numbness, tingling, headacbe or weakness. ENDOCRINE: Denies fatigue, weight change, polydipsia or polyurina. GENITOURINARY: Denies burning, hematuria or urgency with micturation. HEMATOLOGIC: Denies history of anemia or bleeding. PHYSICAL EXAMINATION Blood pressure 124/81 heart rate 67 afebrile and maintaining oxygen saturation on room air. CONSTITUTIONAL: No apparent distress. HEENT: Head is normocephalic. Pupils are equal, round. Sclerae anicteric. Mucous membranes of the mouth are moist. No JVD. No carotid bruit. CHEST EXAMINATION: Lungs are clear to auscultation. No chest wall tenderness is noted on palpation or with deep breathing. HEART EXAMINATION: Regular rate and rhythm. S1, S2 heard. No murmurs, gallops or rub. ABDOMEN: Soft, nontender. Positive bowel sounds. EXTREMITIES: 2+ peripheral pulses, no lower extremity edema and no calf tenderness. NEUROLOGIC EXAMINATION: Patient is awake, alert and oriented x3. ASSESSMENT Syncope POTS Hypertension Diabetes mellitus Depression PLAN There is no evidence of QT prolongation from EMS or serial EKG's performed here. However, this can be transient and all QT prolonging drugs should be avoided. Specifically trazadone. This has been discussed with the patient in detail and will be discussed with pharmacy as well to ensure these medications are no longer prescribed. Check for orthostatic changes. Clinically stable, follow up with Dr. Linda upon discharge. Thank you kindly for this consultation. Nurse Practitioner note has been reviewed, I agree with a documented findings and plan of care. Patient was seen and examined. Past Medical History Past Medical History: Atrial Fibrillation, Cancer, Diabetes Mellitus, Hyperlipidemia, Hypertension, Supraventricular Tachycardia (SVT) Additional Past Medical History / Comment(s): Postural orthostatic tachycardia syndrome (POTS), Hx of SVT, Migraines, IBS/D. 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 History of Any Multi-Drug Resistant Organisms: MRSA Date of last positivie culture/infection: Fall 2019 MDRO Source:: Hospital Past Surgical History: Appendectomy, Breast Surgery, Cardiac Ablation, Cholecystectomy, Heart Catheterization, Hysterectomy, Orthopedic Surgery Additional Past Surgical History / Comment(s): BIOPSY- RT BREAST x2, RT LUMPEC ERYN; Bilateral Mastectomy with reconstruction, LT KNEE SURGERY X4 (2 arthroscopic), Right ankle x 2, CARDIAC ABLATION X 2. COLONOSCOPY Past Anesthesia/Blood Transfusion Reactions: Previous Problems w/ Anesthesia Additional Past Anesthesia/Blood Transfusion Reaction / Comment(s): DIFFICULT INTUBATION W/ EMERG APPENDECTOMY BY DR CAPUTO 04/08/2016 ([facility])-Can't find letter. Past Psychological History: Anxiety, Depression Smoking Status: Never smoker Past Alcohol Use History: Rare Past Drug Use History: None Reported - Past Family History Father Family Medical History: Hypertension, Myocardial Infarction (SD), Pulmonary Embolus Mother Family Medical History: Cancer Additional Family Medical History / Comment(s): Breast/Lymphatic CA Medications and Allergies Home Medications Medication Instructions Recorded Confirmed Type Zolpidem Tartrate [Ambien Cr] 12.5 mg PO HS PRN 09/27/14 01/25/21 History clonazePAM [Clonazepam] 1 mg PO BID 04/08/16 01/25/21 History traZODone HCL [Desyrel] 200 mg PO HS 04/08/16 01/25/21 History Sertraline HCl [Zoloft] 100 mg PO HS 12/05/16 01/25/21 History Alosetron HCl [Lotronex] 1 mg PO BID PRN 09/19/17 01/25/21 History Galcanezumab-Gnlm [Emgality Pen] 120 mg SQ QMONTH 12/10/18 01/25/21 History EPINEPHrine [Epipen 2-Deven] 0.3 mg IM ONCE PRN 01/12/19 01/25/21 History Nitroglycerin Sl Tabs [Nitrostat] 0.4 mg SUBLINGUAL Q5M PRN 01/15/19 01/25/21 History Docusate [Colace] 100 mg PO BID 08/14/20 01/25/21 History HYDROcodone/APAP 10-325MG [[place] 1 tab PO TID PRN 08/14/20 01/25/21 History 10-325] cloNIDine HCL [Catapres] 0.2 mg PO BID 11/29/20 01/25/21 History cloNIDine [Catapres-TTS] 1 patch TRANSDERM Q7DAYS 11/29/20 01/25/21 History Cyclobenzaprine [Flexeril] 5 - 10 mg PO TID PRN 01/25/21 01/25/21 History Digoxin [Lanoxin] 125 mcg PO DAILY 01/25/21 01/25/21 History Allergies Allergy/AdvReac Type Severity Reaction Status Date / Time morphine Allergy Swelling, Verified 01/25/21 18:10 diff breathing oxycodone Allergy Anaphylaxis Verified 01/25/21 18:10 Penicillins Allergy Unknown Verified 01/25/21 18:10 Childhood venom-honey bee Allergy Anaphylaxis-has Verified 01/25/21 18:10 [bee venom (honey bee)] epi-pen baclofen AdvReac Diarrhea Verified 01/25/21 18:10 Physical Exam Vitals: Vital Signs Temp Pulse Pulse Resp BP BP Pulse Ox 01/26/21 07:00 97.3 F L 67 16 124/81 96 01/26/21 02:00 98.2 F 69 16 126/79 98 01/25/21 20:00 98.2 F 68 18 144/83 100 01/25/21 19:20 75 20 01/25/21 18:40 76 16 100 01/25/21 16:46 97.7 F 86 16 151/86 100 Intake and Output 01/25/21 01/26/21 01/26/21 22:59 06:59 14:59 Other: Voiding Method Bedpan Bedpan # Voids 1 3 Weight 80.286 kg Results 01/26/21 05:05 01/25/21 17:13 Cardiac Enzymes 01/25/21 01/25/21 01/26/21 Range/Units 17:13 17:13 00:52 AST 37 H (14-36) U/L Troponin I <0.012 <0.012 (0.000-0.034) ng/mL Coagulation 01/25/21 Range/Units 17:13 PT 10.5 (9.0-12.0) sec APTT 23.8 (22.0-30.0) sec CBC 01/25/21 Range/Units 17:13 WBC 8.8 (3.8-10.6) k/uL RBC 5.09 (3.80-5.40) m/uL Hgb 13.8 (11.4-16.0) gm/dL Hct 43.4 (34.0-46.0) % Plt Count 202 (150-450) k/uL Comprehensive Metabolic Panel 01/25/21 Range/Units 17:13 Sodium 143 (137-145) mmol/L Potassium 4.3 (3.5-5.1) mmol/L Chloride 107 (98-107) mmol/L Carbon Dioxide 26 (22-30) mmol/L BUN 11 (7-17) mg/dL Creatinine 0.60 (0.52-1.04) mg/dL Glucose 102 H (74-99) mg/dL Calcium 9.4 (8.4-10.2) mg/dL AST 37 H (14-36) U/L ALT 30 (4-34) U/L Alkaline Phosphatase 102 (38-126) U/L Total Protein 7.4 (6.3-8.2) g/dL Albumin 4.6 (3.5-5.0) g/dL Current Medications Generic Name Dose Route Start Last Admin Trade Name Freq PRN Reason Stop Dose Admin Clonazepam 1 mg 01/25/21 23:45 01/26/21 01:42 Clonazepam 1 Mg Tab PO 1 mg BID STEPHEN Administration Clonidine 0.2 mg 01/25/21 23:45 01/26/21 00:10 Clonidine Hcl 0.2 Mg Tab PO 0.2 mg BID STEPHEN Administration Cyclobenzaprine HCl 5 mg 01/25/21 23:43 Cyclobenzaprine 5 Mg Tab PO TID PRN Muscle Spasm Digoxin 125 mcg 01/26/21 09:00 Digoxin 125 Mcg Tab PO DAILY STEPHEN Docusate Sodium 100 mg 01/26/21 09:00 Docusate 100 Mg Cap PO BID STEPHEN Enoxaparin Sodium 40 mg 01/26/21 09:00 Enoxaparin 40 Mg/0.4 Ml Syringe SQ DAILY STEPHEN Hydromorphone HCl 0.2 mg 01/25/21 23:44 01/26/21 06:02 Hydromorphone 0.5 Mg/0.5 Ml Syringe IVP 0.2 mg Q3HR PRN Administration Pain Sertraline HCl 100 mg 01/25/21 23:45 01/26/21 00:10 Sertraline 100 Mg Tab PO 100 mg HS STEPHEN Administration Trazodone HCl 200 mg 01/25/21 23:45 01/26/21 00:10 Trazodone Hcl 100 Mg Tab PO 200 mg HS STEPHEN Administration Zolpidem Tartrate 5 mg 01/25/21 23:43 Zolpidem 5 Mg Tab PO HS PRN sleep Intake and Output 01/25/21 01/26/21 01/26/21 22:59 06:59 14:59 Other: Voiding Method Bedpan Bedpan # Voids 1 3 Weight 80.286 kg 01/25/21 17:13 01/25/21 17:13 <SubhaCasey - Last Filed: 01/26/21 10:36> History of Present Illness History of present illness: Patient interviewed and examined 2 episodes of loss of consciousness. Dr. Linda had prescribed event monitor On both those occasions, one being when she was in the kitchen standing, she was not wearing the event monitor In the past she's been evaluated in detail for syncope No arrhythmic cause has ever been found She stated that the QT interval was abnormal I reviewed all the EKGs from EMS and 2 serial EKGs done here in the hospital Absolute QT interval ranges between 400-440 ms on different EKGs There is no evidence for QT prolongation On the monitor we have not found any torsade either However according to Dr. Schaefer her corrected QT interval was prolonged in the office I would recommend avoidance of all drugs and medications that could prolong the QT interval We have asked the pharmacy to review all the medications for the QT prolonging effects Clearly trazodone is one of them and needs to be discontinued Given the dynamic nature of the QT interval, I would recommend Avoiding all QT p rolonging drugs and medications Physical Exam Vitals: Vital Signs Temp Pulse Pulse Resp BP BP Pulse Ox 01/26/21 08:00 67 01/26/21 07:00 97.3 F L 67 16 124/81 96 01/26/21 02:00 98.2 F 69 16 126/79 98 01/25/21 20:00 98.2 F 68 18 144/83 100 01/25/21 19:20 75 20 01/25/21 18:40 76 16 100 01/25/21 16:46 97.7 F 86 16 151/86 100 Intake and Output 01/25/21 01/26/21 01/26/21 22:59 06:59 14:59 Other: Voiding Method Bedpan Bedpan Bedpan # Voids 1 3 1 Weight 80.286 kg Results 01/26/21 05:05 01/25/21 17:13 Cardiac Enzymes 01/25/21 01/25/21 01/26/21 Range/Units 17:13 17:13 00:52 AST 37 H (14-36) U/L Troponin I <0.012 <0.012 (0.000-0.034) ng/mL Coagulation 01/25/21 Range/Units 17:13 PT 10.5 (9.0-12.0) sec APTT 23.8 (22.0-30.0) sec CBC 01/25/21 01/26/21 Range/Units 17:13 05:05 WBC 8.8 8.68 (3.8-10.6) k/uL RBC 5.09 4.56 (3.80-5.40) m/uL Hgb 13.8 12.6 (11.4-16.0) gm/dL Hct 43.4 39.7 (34.0-46.0) % Plt Count 202 199 (150-450) k/uL Comprehensive Metabolic Panel 01/25/21 Range/Units 17:13 Sodium 143 (137-145) mmol/L Potassium 4.3 (3.5-5.1) mmol/L Chloride 107 (98-107) mmol/L Carbon Dioxide 26 (22-30) mmol/L BUN 11 (7-17) mg/dL Creatinine 0.60 (0.52-1.04) mg/dL Glucose 102 H (74-99) mg/dL Calcium 9.4 (8.4-10.2) mg/dL AST 37 H (14-36) U/L ALT 30 (4-34) U/L Alkaline Phosphatase 102 (38-126) U/L Total Protein 7.4 (6.3-8.2) g/dL Albumin 4.6 (3.5-5.0) g/dL Current Medications Generic Name Dose Route Start Last Admin Trade Name Freq PRN Reason Stop Dose Admin Clonazepam 1 mg 01/25/21 23:45 01/26/21 01:42 Clonazepam 1 Mg Tab PO 1 mg BID STEPHEN Administration Clonidine 0.2 mg 01/25/21 23:45 01/26/21 00:10 Clonidine Hcl 0.2 Mg Tab PO 0.2 mg BID STEPHEN Administration Cyclobenzaprine HCl 5 mg 01/25/21 23:43 Cyclobenzaprine 5 Mg Tab PO TID PRN Muscle Spasm Docusate Sodium 100 mg 01/26/21 09:00 01/26/21 09:58 Docusate 100 Mg Cap PO 100 mg BID STEPHEN Administration Enoxaparin Sodium 40 mg 01/26/21 09:00 01/26/21 09:59 Enoxaparin 40 Mg/0.4 Ml Syringe SQ 40 mg DAILY STEPHEN Administration Hydromorphone HCl 0.2 mg 01/25/21 23:44 01/26/21 09:59 Hydromorphone 0.5 Mg/0.5 Ml Syringe IVP 0.2 mg Q3HR PRN Administration Pain Sertraline HCl 100 mg 01/25/21 23:45 01/26/21 00:10 Sertraline 100 Mg Tab PO 100 mg HS STEPHEN Administration Zolpidem Tartrate 5 mg 01/25/21 23:43 Zolpidem 5 Mg Tab PO HS PRN sleep Intake and Output 01/25/21 01/26/21 01/26/21 22:59 06:59 14:59 Other: Voiding Method Bedpan Bedpan Bedpan # Voids 1 3 1 Weight 80.286 kg 01/26/21 05:05 01/25/21 17:13
[2021-01-26 10:42] LABS: Anion Gap 10.1 mmol/L (4.00-12.00); BUN/Creat Ratio 21.67 Ratio (12.00-20.00); Calcium 8.4 mg/dL (8.7-10.3); Carbon Dioxide 22.9 mmol/L (21.6-31.8); Magnesium 1.7 mg/dL (1.5-2.4); Potassium 4.1 mmol/L (3.5-5.5); Total Bilirubin 0.4 mg/dL (0.2-1.2)
--- NOTE | 2021-01-26 15:32 | P.PN ---
Subjective Progress Note Date: 01/26/21 Hospital course: Patient is a 50-year-old female with a past medical history of paroxysmal atrial fibrillation, Olivera, diabetes mellitus, depression and breast cancer status post bilateral mastectomy 1 year ago. Patient presented to the hospital on 01/26/21 with reports of recurrent syncopal episodes. Patient states she initially began having an occasional syncope approximately once per month and has been under outpatient treatment by admitting officer where she was found to have a prolonged QT interval upon assessment of EKG in office and was placed on Holter monitoring. Patient states yesterday she began having recurrent syncopal episodes while standing, sitting, and lying. 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 Physical exam: Patient seen and fully evaluated at bedside this morning. She reports that she continues to have dizziness and lightheadedness but has had no further reports of syncopal episodes. Patient denies any changes in her vision, hearing, tinnitus, chest pain, palpitations, or shortness of breath. She also denies experiencing any numbness/tingling/weakness in her extremities. Patient has been on telemetry monitoring, with no noted arrhythmia or QT prolongation. General: non toxic, no distress, appears at stated age Derm: warm, dry Head: atraumatic, normocephalic, symmetric Eyes: EOMI, no lid lag, anicteric sclera Mouth: no lip lesion, mucus membranes moist Cardiovascular: S1S2 reg, no murmur, positive posterior tibial pulse bilateral, Lungs: CTA bilateral, no rhonchi, no rales , no accessory muscle use Abdominal: soft, nontender to palpation, no guarding, no appreciable organomegaly Ext: no gross muscle atrophy, no edema, no contractures Neuro: CN II-XI grossly intact, no focal neuro deficits Psych: Alert, oriented, appropriate affect Plan of care: Syncopal episode with history of paroxysmal atrial fibrillation and Olivera -Trazodone discontinued by cardiology secondary to transient episode of prolonged QT. -Echocardiogram completed outpatient in 2019 reportedly revealed preserved LV systolic function with mild MR and TR. -Cardiology following, appreciate further recommendations. -Orthostatic vitals. -Telemetry monitoring. Hypertension -Monitor vital signs continue daily medication regimen. -Check orthostatic vitals. Depression with anxiety -Continue Zoloft and clonazepam. Trazodone discontinued. Diabetes mellitus 2 -Glycemic protocol with NovoLog sliding scale CODE STATUS: Full code DVT prophylaxis: Lovenox Discussed with: Patient, patient's daughter, and RN Anticipated discharge date: Clinical course to determine, possibly tomorrow. Anticipated discharge place: Home A total of 45 minutes was spent on the care of this complex patient more than 50% of the time was spent in counseling and care coordination. Objective - Vital Signs Vital signs: Vital Signs Temp 97.3 F L 01/26/21 07:00 Pulse 67 01/26/21 08:00 Resp 16 01/26/21 07:00 BP 124/81 01/26/21 07:00 Pulse Ox 96 01/26/21 07:00 Intake & Output 01/25/21 01/26/21 01/26/21 18:59 06:59 18:59 Weight 80.286 kg Other: Voiding Method Bedpan Bedpan # Voids 3 1 - Labs CBC & Chem 7: 01/26/21 05:05 01/26/21 05:05 Labs: Abnormal Lab Results - Last 24 Hours (Table) 01/25/21 01/26/21 01/26/21 Range/Units 17:13 05:05 05:05 MCHC 31.7 L (32.0-37.0) g/dL RDW 15.0 H (11.5-14.5) % BUN/Creatinine Ratio 21.67 H (12.00-20.00) Ratio Glucose 102 H (74-99) mg/dL Calcium 8.4 L (8.7-10.3) mg/dL AST 37 H 36 H (14-36) U/L Total Protein 6.0 L (6.2-8.2) g/dL
--- NOTE | 2021-01-27 07:57 | P.EPCON ---
Electrophysiology Consult - EP Consult Electrophysiology Consult: Update There was a question about QT prolongation. The patient states that when EMS arrived they felt that the QT was abnormal and prolonged! I reviewed her twelve-lead EKG that was recently performed in the office on 01/24/2021 Absolute QT interval is 400 ms, heart rate is in the 70s This QT interval is normal I reviewed the twelve-lead EKG from May 2020 Heart rate 85 beats a minute Absolute QT interval is at the most 400 ms This QT interval is normal I reviewed the EMS strips and the EMS EKGs The QT interval appears normal I reviewed the 2 EKGs that were performed in the hospital yesterday Her QT interval is normal However given the fact that QT abnormalities can be dynamic nature and the fact that she reports that she has had syncope, it would be prudent to discontinue all QT prolonging drugs However she had 2 syncopal spells at home She was given an event monitor a few days prior, in the office 1 episode occurred in the kitchen when she was standing The patient was not wearing a monitor at that time She has had recurrent syncopal spells in the past and has had multiple electrophysiologic evaluations in the past Please see nurse practitioner's full dictation
[2021-01-27] MEDS: cloNIDine HCL 0.2 MG TAB PO SCH ×2 (09:09→20:54)
[2021-01-27] MEDS: clonazePAM 1 MG TAB PO SCH ×2 (09:09→20:54)
[2021-01-27] MEDS: DOCUSATE 100 MG CAP PO SCH ×2 (09:09→20:54)
[2021-01-27] MEDS: ENOXAPARIN 40 MG/0.4 ML SYRINGE SQ SCH (09:10)
--- NOTE | 2021-01-27 13:00 | P.DS ---
<Macario Tilley - Last Filed: 01/27/21 12:50> Providers Expected date of discharge: 01/27/21 Hospital Course: Discharge Diagnosis: Syncopal episode Paroxysmal atrial fibrillation Olivera Hypertension Depression with anxiety Diabetes mellitus 2 Hospital Course: Patient is a 50-year-old female with a past medical history of paroxysmal atrial fibrillation, Olivera, diabetes mellitus, depression and breast cancer status post bilateral mastectomy 1 year ago. Patient presented to the hospital on 01/26/21 with reports of recurrent syncopal episodes. Patient states she initially began having an occasional syncope approximately once per month and has been under outpatient treatment by cash person where she was found to have a prolonged QT interval upon assessment of EKG in office and was placed on Holter monitoring. Patient states yesterday she began having recurrent syncopal episodes while standing, sitting, and lying. Patient states she was not wearing her monitoring and evaluation advisor at this time. Patient was admitted under our services with consultation to cardiology and electrophysiology. Dizziness/lightheadedness resolved. Patient had no further episodes of syncopal episodes, no noted arrhythmias, no noted QT prolongation, and vital signs monitored and stable. Labs monitored and unremarkable. Patient has been medically cleared for discharge home at this time. She has been instructed by cardiology to discontinue trazodone secondary to concerns of previously reported episode of QT prolongation. Patient to follow-up outpatient with her PCP in 1-2 days, cardiology in 1 week, and neurology for further outpatient evaluation in 1-2 weeks. Patient encouraged to wear a Holter monitor outpatient as previously provided. Physical exam: Patient seen and fully evaluated at bedside this morning. She reports that she continues to have dizziness and lightheadedness but has had no further reports of syncopal episodes. Patient denies any changes in her vision, hearing, tinnitus, chest pain, palpitations, or shortness of breath. She also denies experiencing any numbness/tingling/weakness in her extremities. Patient has been on telemetry monitoring, with no noted arrhythmia or QT prolongation. Patient seen and examined at bedside. She reports dizziness and lightheadedness have resolved and has had no further episodes of syncopal episodes. Patient denies any changes in her vision, hearing, tinnitus, chest pain, palpitations, shortness of breath, numbness, tingling, weakness, or swelling in her extremities. Vital signs reviewed and stable. General: Nontoxic, no distress and appears stated age. Derm: Skin warm and dry, normal coloration for ethnicity. Head: Atraumatic, normocephalic and symmetric. Eyes: EOMs intact, no lid lag, and anicteric sclera Mouth: no lip lesions, mucus membranes moist Cardiovascular: regular rate and rhythm with normal S1S2, no murmur, positive posterior tibial pulses bilaterally, and cap refill < 2 seconds. Lungs: Respirations even, regular, and unlabored on room air. Lungs CTA bilaterally, no rhonchi, no rales, no wheezing, and no accessory muscle usage. Abdominal: soft, nontender to palpation, no guarding, no appreciable organomegaly Ext: ROM intact. No gross muscle atrophy, no edema, no contractures Neuro: Speech clear, face symmetrical and CN II-XII grossly intact with no noted focal neuro deficits Psych: Alert and oriented to person, place, time, and situation. Appropriate and pleasant affect. A total of 45 minutes of time were spent preparing this complex discharge summary. Plan - Discharge Summary Discharge Rx Participant: No New Discharge Prescriptions: Continue Zolpidem Tartrate [Ambien Cr] 12.5 mg PO HS PRN PRN Reason: sleep clonazePAM [Clonazepam] 1 mg PO BID Sertraline HCl [Zoloft] 100 mg PO HS Alosetron HCl [Lotronex] 1 mg PO BID PRN PRN Reason: ibs Galcanezumab-Gnlm [Emgality Pen] 120 mg SQ QMONTH EPINEPHrine [Epipen 2-Deven] 0.3 mg IM ONCE PRN PRN Reason: Anaphylaxis Nitroglycerin Sl Tabs [Nitrostat] 0.4 mg SUBLINGUAL Q5M PRN PRN Reason: Chest Pain HYDROcodone/APAP 10-325MG [Maribel 10-325] 1 tab PO TID PRN PRN Reason: Pain Docusate [Colace] 100 mg PO BID cloNIDine HCL [Catapres] 0.2 mg PO BID Cyclobenzaprine [Flexeril] 5 - 10 mg PO TID PRN PRN Reason: Muscle Spasm Digoxin [Lanoxin] 125 mcg PO DAILY cloNIDine [Catapres-TTS] 1 patch TRANSDERM Q7DAYS Discontinued traZODone HCL [Desyrel] 200 mg PO HS Discharge Medication List Zolpidem Tartrate [Ambien Cr] 12.5 mg PO HS PRN 09/27/14 [History] clonazePAM [Clonazepam] 1 mg PO BID 04/08/16 [History] Sertraline HCl [Zoloft] 100 mg PO HS 12/05/16 [History] Alosetron HCl [Lotronex] 1 mg PO BID PRN 09/19/17 [History] Galcanezumab-Gnlm [Emgality Pen] 120 mg SQ QMONTH 12/10/18 [History] EPINEPHrine [Epipen 2-Deven] 0.3 mg IM ONCE PRN 01/12/19 [History] Nitroglycerin Sl Tabs [Nitrostat] 0.4 mg SUBLINGUAL Q5M PRN 01/15/19 [History] Docusate [Colace] 100 mg PO BID 08/14/20 [History] HYDROcodone/APAP 10-325MG [Maribel 10-325] 1 tab PO TID PRN 08/14/20 [History] cloNIDine HCL [Catapres] 0.2 mg PO BID 11/29/20 [History] cloNIDine [Catapres-TTS] 1 patch TRANSDERM Q7DAYS 11/29/20 [History] Cyclobenzaprine [Flexeril] 5 - 10 mg PO TID PRN 01/25/21 [History] Digoxin [Lanoxin] 125 mcg PO DAILY 01/25/21 [History] Follow up Appointment(s)/Referral(s): Mark Linda MD [STAFF PHYSICIAN] - 02/14/21 2:00 pm Landon Cavanaugh MD [Medical Doctor] - 1 Week Najma Givens MD [Primary Care Provider] - 1-2 days Ed Quijano DO [STAFF PHYSICIAN] - 1 Week Patient Instructions/Handouts: Syncope (GEN) Discharge Disposition: HOME SELF-CARE <Michelle Mack - Last Filed: 01/27/21 22:06> Providers Date of admission: 01/25/21 18:11 Attending physician: Linda Agee Consults: 01/25/21 18:11 Consult Physician Urgent Consulting Provider: Mark Linda Consult Reason/Comments: Multiple syncopal episodes Do you want consulting provider notified?: Yes 01/27/21 15:24 Consult Physician Routine Consulting Provider: Master Lieberman Consult Reason/Comments: dizziness, lightheadedness Do you want consulting provider notified?: Yes Primary care physician: Najma Givens MD Hospital Course: Macario Tilley NP rendered care for this patient independently, reviewed the findings and plan as documented in the note above. I did not physically speak with or examine the patient on this date. Patient developed a presyncopal episode when getting up to go to the bathroom. She had not yet been out of bed. Discussed with nurse practitioner note appears that this is likely consistent with patient's prior diagnosis of Olivera. We'll proceed with fluid resuscitation and recheck orthostatic vitals tomorrow and she did have an increase of heart rate greater than time. Suggest referral to Olivera clinic at [facility]. This was communicated with they patient's daughter who is a nurse by Macario tilley NP.
[2021-01-27] MEDS ORDERED: ACETAMINOPHEN TAB 325 MG TAB PO PRN (14:50)
[2021-01-27] MEDS ORDERED: SODIUM CHLORIDE 0.9% 1,000 ML IV ONE (15:19)
[2021-01-27] MEDS: SODIUM CHLORIDE 0.9% 1,000 ML IV SCH (17:23)
--- NOTE | 2021-01-27 18:31 | CT ---
EXAMINATION TYPE: CT brain wo con DATE OF EXAM: 01/27/2021 COMPARISON: 09/19/2017 INDICATION: dizziness, multiple syncopal episodes DLP: 1017.9 mGycm, Automated exposure control for dose reduction was used. CONTRAST: None CT of the brain is performed utilizing 3 mm thick sections through the posterior fossa and 3 mm thick sections through the remaining calvarium. Study is performed within 24 hours of arrival to the hosp ital. No abnormal hyperdensity is present to suggest an acute intracranial hemorrhage. No mass lesion is evident. No acute infarcts are evident. Ventricles and sulci are appropriate for the patient age. Minimal mucosal thickening is within the visualized right maxillary sinus. Remaining paranasal sinuse s are clear. Mastoid air cells are clear. IMPRESSIONS: 1. No acute intracranial process.
[2021-01-27] MEDS: HYDROmorphone 0.5 MG/0.5 ML SYRINGE IVP PRN (20:54)
[2021-01-27] MEDS: SERTRALINE 100 MG TAB PO SCH (20:54)
--- NOTE | 2021-01-27 23:36 | P.CNNES ---
History of Present Illness Consult date: 01/27/21 Requesting physician: Macario Tilley Reason for Consult: Dizziness, lightheadedness History of Present Illness: Patient is a 50-year-old female came to the hospital by ambulance on 01/25/2021 at 4:45 PM for recurrent syncopal spells. Per EMS flow sheet, when they arrived, patient was alert and oriented laying on the floor in the living room. Patient noted that she had 2 syncopal episodes prior to arrival. She had a ca rdiac monitor placed the same day secondary to prolonged QT interval. Patient's EKG shows normal sinus rhythm, borderline prolonged QT interval. Orthostatics were checked by the paramedics, and patient had another syncopal episode. Patient was then transferred to [facility] and during this time she had another syncopal episode. Patient was given fluids. Patient had no response to painful stimuli. Patient became alert and stated "I think I'm going to ". Patient's supine blood pressure 144/94, pulse rate 85, on sitting was blood pressure 149/88 pulse rate 87. On standing up her blood pressure was 148/87 with pulse of 84. Patient and her daughter were present at the time of this interview. Patient has long-standing history of a diagnosis of POTS for last 20 years. Patient is very used to presyncopal and syncopal symptoms. She has previously tried propranolol, Midrin, Florinef. She has even followed up with Dr. Costa in [place], who specializes in this condition. Patient gets symptoms of syncope or presyncope about once a month. In the last 1 month it has got frequent about once a week. In the last week it happened twice and prior to this admission, it happened about 4-5 times. Patient states that usually in her syncopal spells related to POTS, she gets presyncopal symptoms like sweating, dizziness, feels flushed, heart rate goes fast, but this time she did not have much warning. She did not have any convulsive activity, no tongue bite or loss of control of uri ne. Patient apparently had been in distress, because of recent anniversary of her father which was making her stressed out. Patient was evaluated by cardiology, had an EKG performed which was normal. Patient was ready for discharge, but while checking orthostatics she passed out again. The refore neurology consultation initiated. She does drink a lot of fluids. She had undergone cardiac ablation in the past which did not help. Patient's blood test shows normal CBC, PT/PTT, Chem-7 20. AST is mildly elevated 37. Patient's hemoglobin A1c 5.1 on 09/12/2020 vitamin B12 387 on 07/26/2017. Patient had a negative rheumatoid factor, quantitative immunoglobulins, Sjogren's antibodies, antigliadin antibodies, hepatitis panel. Computed tomography scan of head is normal. EKG normal sinus rhythm, chest x- ray normal. Patient had a previous MRI of brain on 12/09/2013, which revealed no abnormal enhancing intraparenchymal mass to suggest metastatic disease. Patient denies any tobacco, drinks alcohol rarely. Review of Systems As above in detail. All other review of systems unremarkable. Denies any abdominal pain nausea vomiting diarrhea. Patient has been stressed lately. All other 14 point review of systems reviewed and noncontributory. Denies any bowel or bladder issues. Denies any anemia or bleeding. Denies burning hematuria urinary urgency with micturition. No weight change, polydipsia. Denies numbness tingling. No myalgias. No cough. No fever or chills. Past Medical History Past Medical History: Atrial Fibrillation, Cancer, Diabetes Mellitus, Hyperlipidemia, Hypertension, Supraventricular Tachycardia (SVT) Additional Past Medical History / Comment(s): Postural orthostatic tachycardia syndrome (POTS), Hx of SVT, Migraines, IBS/D. 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 History of Any Multi-Drug Resistant Organisms: MRSA Date of last positivie culture/infection: Fall 2019 MDRO Source:: Hospital Past Surgical History: Appendectomy, Breast Surgery, Cardiac Ablation, Cholecy stectomy, Heart Catheterization, Hysterectomy, Orthopedic Surgery Additional Past Surgical History / Comment(s): BIOPSY- RT BREAST x2, RT LUMPECTOMY; Bilateral Mastectomy with reconstruction, LT KNEE SURGERY X4 (2 arthroscopic), Right ankle x 2, CARDIAC ABLATION X 2. COLONOSCOPY Past Anesthesia/Blood Transfusion Reactions: Previous Problems w/ Anesthesia Additional Past Anesthesia/Blood Transfusion Reaction / Comment(s): DIFFICULT INTUBATION W/ EMERG APPENDECTOMY BY DR CAPUTO 04/08/2016 ([facility])-Can't find letter. Past Psychological History: Anxiety, Depression Smoking Status: Never smoker Past Alcohol Use History: Rare Past Drug Use History: None Reported - Past Family History Father Family Medical History: Hypertension, Myocardial Infarction ([place]), Pulmonary Embolus Mother Family Medical History: Cancer Additional Family Medical History / Comment(s): Breast/Lymphatic CA Medications and Allergies Home Medications Medication Instructions Recorded Confirmed Type Zolpidem Tartrate [Ambien Cr] 12.5 mg PO HS PRN 09/27/14 01/25/21 History clonazePAM [Clonazepam] 1 mg PO BID 04/08/16 01/25/21 History Sertraline HCl [Zoloft] 100 mg PO HS 12/05/16 01/25/21 History Alosetron HCl [Lotronex] 1 mg PO BID PRN 09/19/17 01/25/21 History Galcanezumab-Gnlm [Emgality Pen] 120 mg SQ QMONTH 12/10/18 01/25/21 History EPINEPHrine [Epipen 2-Deven] 0.3 mg IM ONCE PRN 01/12/19 01/25/21 History Nitroglycerin Sl Tabs [Nitrostat] 0.4 mg SUBLINGUAL Q5M PRN 01/15/19 01/25/21 History Docusate [Colace] 100 mg PO BID 08/14/20 01/25/21 History HYDROcodone/APAP 10-325MG [[place] 1 tab PO TID PRN 08/14/20 01/25/21 History 10-325] cloNIDine HCL [Catapres] 0.2 mg PO BID 11/29/20 01/25/21 History cloNIDine [Catapres-TTS] 1 patch TRANSDERM Q7DAYS 11/29/20 01/25/21 History Cyclobenzaprine [Flexeril] 5 - 10 mg PO TID PRN 01/25/21 01/25/21 History Digoxin [Lanoxin] 125 mcg PO DAILY 01/25/21 01/25/21 History Fludrocortisone [Florinef] 0.2 mg PO DAILY 30 Days #60 tablet 01/28/21 Rx Allergies Allergy/AdvReac Type Severity Reaction Status Date / Time morphine Allergy Swelling, Verified 01/25/21 18:10 diff breathing oxycodone Allergy Anaphylaxis Verified 01/25/21 18:10 Penicillins Allergy Unknown Verified 01/25/21 18:10 Childhood venom-honey bee Allergy Anaphylaxis-has Verified 01/25/21 18:10 [bee venom (honey bee)] epi-pen baclofen AdvReac Diarrhea Verified 01/25/21 18:10 Physical Examination - Vital Signs Vital Signs: Vital Signs Temp Pulse Pulse Pulse Resp BP BP 01/27/21 19:47 98.1 F 72 17 01/27/21 15:00 97.9 F 92 74 18 113/76 126/82 01/27/21 07:00 97.5 F L 64 18 130/84 01/27/21 01:26 16 01/27/21 00:59 97.7 F 70 16 BP Pulse Ox 01/27/21 19:47 112/74 98 01/27/21 15:00 99 01/27/21 07:00 99 01/27/21 01:26 01/27/21 00:59 95/60 98 Intake and Output 01/27/21 01/27/21 01/27/21 06:59 14:59 22:59 Other: Voiding Method Bedpan Bedpan # Voids 1 1 Patient is a middle aged female, in no acute distress. Patient is alert awake oriented to time place and person. Speech and language functions are normal. Attention, concentration and fund of knowledge is adequate. On cranial examination, pupils are round and reacting to light, visual rae are full on confrontation, extraocular muscles are intact with no nystagmus. Face is symmetric, tongue protrudes to the midline. Palatal elevation and sensation normal, hearing and shoulder shrug normal, facial sensation normal. Shoulder shrug normal. On muscle strength testing, there is no pronator drift and the strength is normal in arms and legs distally and proximally. Deep tendon reflexes are symmetric, 2 in the upper limbs, 1 in the lower limbs and plantars downgoing. Sensory to touch is equal with no neglect. Cerebellar function showed no ataxia for [id number] testing. No dysdiadoc hokinesia. Tone and bulk of muscles normal. Gait normal. On general examination, there is no carotid bruit or murmur, S1-S2 audible. Abdomen is soft nontender. Chest is clear. Peripheral pulses are present. No edema. Results - Laboratory Findings CBC and BMP: 01/28/21 06:45 01/28/21 06:45 Abnormal Lab Findings: Abnormal Labs 01/25/21 01/26/21 01/26/21 17:13 05:05 05:05 MCHC 31.7 L RDW 15.0 H BUN/Creatinine Ratio 21.67 H Glucose 102 H Calcium 8.4 L AST 37 H 36 H Total Protein 6.0 L Assessment and Plan Assessment: * Postural orthostatic tachycardia syndrome. * Recurrent syncopal spells, most likely due to above. No arrhythmia documented on the telemetry. Plan: * Patient wants to resume Florinef to see if it helps with her symptoms. * If her syncopal/near-syncopal symptoms persist, then would consider trial of Northera. * Patient states she does drink a lot of fluids. Patient is also on Zoloft 100 mg daily which should be continued. * Cardiology already on the case. May consider rechecking the tilt table test (performed previously long time ago) * Suggest no driving unless free of symptoms for 6 months, climbing ladders or operating dangerous machinery or unsupervised swimming.
[2021-01-28] MEDS: HYDROmorphone 0.5 MG/0.5 ML SYRINGE IVP PRN ×2 (03:08→10:34)
[2021-01-28] MEDS: SODIUM CHLORIDE 0.9% 1,000 ML IV SCH (05:00)
[2021-01-28 07:42] VITALS: RESP 18; TEMP 97.8
[2021-01-28 08:54] LABS: African American GFR (CKD) 117.9 (60.0-200.0); Anion Gap 6.8 mmol/L (4.00-12.00); Calcium 8.5 mg/dL (8.7-10.3); Carbon Dioxide 23.2 mmol/L (21.6-31.8); Magnesium 2.3 mg/dL (1.5-2.4); Non-African American GFR(CKD) 101.7 (60.0-200.0); Potassium 4.3 mmol/L (3.5-5.5)
[2021-01-28 09:15] LABS: HCT 41.5 % (37.2-46.3); MCH 27.1 pg (27.0-32.0); MCHC 31.3 g/dL (32.0-37.0); MCV 86.6 fL (80.0-97.0); Mean Platelet Volume 10.2 fL (9.5-12.2); Platelet Count 193 X 10*3/uL (140-440); RBC 4.79 X 10*6/uL (4.10-5.20); RDW 14.4 % (11.5-14.5); WBC 8.77 X 10*3/uL (4.50-10.00)
[2021-01-28] MEDS: clonazePAM 1 MG TAB PO SCH (09:40)
[2021-01-28] MEDS: cloNIDine HCL 0.2 MG TAB PO SCH (09:40)
[2021-01-28] MEDS: DOCUSATE 100 MG CAP PO SCH (09:40)
[2021-01-28] MEDS: ENOXAPARIN 40 MG/0.4 ML SYRINGE SQ SCH (09:40)
--- NOTE | 2021-01-28 10:02 | P.DS ---
<Macario Tilley - Last Filed: 01/28/21 17:02> Providers Expected date of discharge: 01/28/21 Hospital Course: Discharge Diagnosis: Syncopal episodes secondary to Olivera Paroxysmal atrial fibrillation Hypertension Depression with anxiety Diabetes mellitus 2 Hospital Course: Patient is a 50-year-old female with a past medical history of paroxysmal atrial fibrillation, Olivera, diabetes mellitus, depression and breast cancer status post bilateral mastectomy 1 year ago. Patient presented to the hospital on 01/26/21 with reports of recurrent syncopal episodes. Patient states she initially began having an occasional syncope approximately once per month and has been under outpatient treatment by experimental [employer] where she was found to have a prolonged QT interval upon assessment of EKG in office and was placed on Holter monitoring. Patient states yesterday she began having recurrent syncopal episodes while standing, sitting, and lying. Patient states she was not wearing her potline monitor at this time. Patient was admitted under our services with consultation to cardiology and electrophysiology. Labs monitored and remained unremarkable. Patient had no noted episodes of arrhythmia as an no noted QT prolongation throughout hospitalization. CT head was completed negative for acute intercranial process. Patient's condition stable. She has been medically cleared for discharge home at this time. She has been instructed by cardiology to discontinue trazodone secondary to concerns of previously reported episode of QT prolongation. She was started on Florinef for treatment of Olivera. Patient to follow-up outpatient with her PCP in 1-2 days, cardiology in 1 week, and neurology for further outpatient evaluation in 1-2 weeks. Patient encouraged to wear a Holter monitor outpatient as previously provided. Patient given information to follow up with Olivera specialists at [facility]. Physical exam: Patient seen and examined at bedside. She reports dizziness and lightheadedness have resolved and has had no further episodes of syncopal episodes. Patient denies any changes in her vision, hearing, tinnitus, chest pain, palpitations, shortness of breath, numbness, tingling, weakness, or swelling in her extremities. Vital signs reviewed and stable. General: Nontoxic, no distress and appears stated age. Derm: Skin warm and dry, normal coloration for ethnicity. Head: Atraumatic, normocephalic and symmetric. Eyes: EOMs intact, no lid lag, and anicteric sclera Mouth: no lip lesions, mucus membranes moist Cardiovascular: regular rate and rhythm with normal S1S2, no murmur, positive posterior tibial pulses bilaterally, and cap refill < 2 seconds. Lungs: Respirations even, regular, and unlabored on room air. Lungs CTA bilaterally, no rhonchi, no rales, no wheezing, and no accessory muscle usage. Abdominal: soft, nontender to palpation, no guarding, no appreciable organomegaly Ext: ROM intact. No gross muscle atrophy, no edema, no contractures Neuro: Speech clear, face symmetrical and CN II-XII grossly intact with no noted focal neuro deficits Psych: Alert and oriented to person, place, time, and situation. Appropriate and pleasant affect. A total of 45 minutes of time were spent preparing this complex discharge summary. Patient Condition at Discharge: Good Plan - Discharge Summary Discharge Rx Participant: No New Discharge Prescriptions: New Fludrocortisone [Florinef] 0.2 mg PO DAILY 30 Days #60 tablet Continue Zolpidem Tartrate [Ambien Cr] 12.5 mg PO HS PRN PRN Reason: sleep clonazePAM [Clonazepam] 1 mg PO BID Sertraline HCl [Zoloft] 100 mg PO HS Alosetron HCl [Lotronex] 1 mg PO BID PRN PRN Reason: ibs Galcanezumab-Gnlm [Emgality Pen] 120 mg SQ QMONTH EPINEPHrine [Epipen 2-Deven] 0.3 mg IM ONCE PRN PRN Reason: Anaphylaxis Nitroglycerin Sl Tabs [Nitrostat] 0.4 mg SUBLINGUAL Q5M PRN PRN Reason: Chest Pain HYDROcodone/APAP 10-325MG [[place] 10-325] 1 tab PO TID PRN PRN Reason: Pain Docusate [Colace] 100 mg PO BID cloNIDine HCL [Catapres] 0.2 mg PO BID Cyclobenzaprine [Flexeril] 5 - 10 mg PO TID PRN PRN Reason: Muscle Spasm Digoxin [Lanoxin] 125 mcg PO DAILY cloNIDine [Catapres-TTS] 1 patch TRANSDERM Q7DAYS Discontinued traZODone HCL [Desyrel] 200 mg PO HS Discharge Medication List Zolpidem Tartrate [Ambien Cr] 12.5 mg PO HS PRN 09/27/14 [History] clonazePAM [Clonazepam] 1 mg PO BID 04/08/16 [History] Sertraline HCl [Zoloft] 100 mg PO HS 12/05/16 [History] Alosetron HCl [Lotronex] 1 mg PO BID PRN 09/19/17 [History] Galcanezumab-Gnlm [Emgality Pen] 120 mg SQ QMONTH 12/10/18 [History] EPINEPHrine [Epipen 2-Deven] 0.3 mg IM ONCE PRN 01/12/19 [History] Nitroglycerin Sl Tabs [Nitrostat] 0.4 mg SUBLINGUAL Q5M PRN 01/15/19 [History] Docusate [Colace] 100 mg PO BID 08/14/20 [History] HYDROcodone/APAP 10-325MG [[place] 10-325] 1 tab PO TID PRN 08/14/20 [History] cloNIDine HCL [Catapres] 0.2 mg PO BID 11/29/20 [History] cloNIDine [Catapres-TTS] 1 patch TRANSDERM Q7DAYS 11/29/20 [History] Cyclobenzaprine [Flexeril] 5 - 10 mg PO TID PRN 01/25/21 [History] Digoxin [Lanoxin] 125 mcg PO DAILY 01/25/21 [History] Fludrocortisone [Florinef] 0.2 mg PO DAILY 30 Days #60 tablet 01/28/21 [Rx] Follow up Appointment(s)/Referral(s): Mark Linda MD [STAFF PHYSICIAN] - 02/14/21 2:00 pm Landon Cavanaugh MD [Medical Doctor] - 1 Week Najma Givens MD [Primary Care Provider] - 1-2 days (office closed, patient needs to make) Ed Quijano DO [STAFF PHYSICIAN] - 1 Week Patient Instructions/Handouts: Syncope (GEN) Activity/Diet/Wound Care/Special Instructions: Activity: As tolerated, remember to rise slowly from seated or lying position. Diet: Heart healthy diet Special Instructions: This is the link as we discussed for you to follow up with MARTINEZ's specialist at [facility]. [email or web address] Thank you for allowing us to participate in your care, it was a pleasure having you for our patient! Discharge Disposition: HOME SELF-CARE <Michelle Mack - Last Filed: 01/28/21 17:34> Providers Date of admission: 01/25/21 18:11 Attending physician: Linda Agee Consults: 01/25/21 18:11 Consult Physician Urgent Consulting Provider: Mark Linda Consult Reason/Comments: Multiple syncopal episodes Do you want consulting provider notified?: Yes 01/27/21 15:24 Consult Physician Routine Consulting Provider: Master Lieberman Consult Reason/Comments: dizziness, lightheadedness Do you want consulting provider notified?: Yes Primary care physician: Najma Givens MD Hospital Course: Macario Tilley NP rendered care for this patient independently, reviewed the findings and plan as documented in the note above. I did not physically speak with or examine the patient on this date.
[2021-01-28] MEDS ORDERED: KETOROLAC 15 MG/ML 1 ML VIAL IVP STA (10:21)
[2021-01-28 10:37] VITALS: BP 115/68; PULSE 78
== END 2021-01-28 11:53 | disposition home or self-care (01) ==
LOC: EC 16:45 → 6NMEDSUR 18:11
PROVIDERS: ADMIT Internal Medicine; ATTEND Internal Medicine
DX: I49.8 Other specified cardiac arrhythmias (principal); I48.0 Paroxysmal atrial fibrillation; I10 Essential (primary) hypertension; F32.9 Major depressive disorder, single episode, unspecified; F41.9 Anxiety disorder, unspecified; E11.9 Type 2 diabetes mellitus without complications; G89.29 Other chronic pain; M54.5 Low back pain; R06.02 Shortness of breath; R07.9 Chest pain, unspecified; E78.5 Hyperlipidemia, unspecified; I47.1 Supraventricular tachycardia; G43.909 Migraine, unspecified, not intractable, without status migrainosus; L92.0 Granuloma annulare; Z85.3 Personal history of malignant neoplasm of breast; Z90.13 Acquired absence of bilateral breasts and nipples; Z86.14 Personal history of Methicillin resistant Staphylococcus aureus infection; Z90.49 Acquired absence of other specified parts of digestive tract; Z90.710 Acquired absence of both cervix and uterus; Z79.899 Other long term (current) drug therapy; Z88.5 Allergy status to narcotic agent; Z88.0 Allergy status to penicillin; Z88.8 Allergy status to other drugs, medicaments and biological substances; Z91.030 Bee allergy status; Z82.49 Family history of ischemic heart disease and other diseases of the circulatory system; Z80.3 Family history of malignant neoplasm of breast; Z80.7 Family history of other malignant neoplasms of lymphoid, hematopoietic and related tissues
CPT/HCPCS: 96376 ×3; 96361 ×3; 96372 ×3; 96374; 96375; 99285; 36415; 94760; 93005; 85379; 83880; 80053 ×2; 80048; 83735 ×3; 84484 ×2; 85025 ×2; 85027; 85610; 85730; 71046; 70450; G0378 ×4; J1650 ×3; J1885; J1170 ×3

== ENCOUNTER → 2021-02-09 | Outpatient (CLI) | payer MEDICARE, OTHER ==
[2021-02-09 12:17] LABS: Appearance,Urine Cloudy (Clear); Bacteria,Urine Many /hpf; Bilirubin,Urine Negative (Negative); Blood,Urine Small (Negative); Color,Urine Yellow; Glucose,Urine (UA) Negative (Negative); Ketones,Urine Negative (Negative); Leukocyte Esterase,Urine Negative (Negative); Mucus,Urine Rare /hpf; Nitrite,Urine Negative (Negative); Protein,Urine Negative (Negative); RBC,Urine 2 /hpf (0-5); Specific Gravity,Urine 1.012 (1.001-1.035); Squamous Epithelial Cell,Urine 4 /hpf (0-4); Urobilinogen,Urine <2.0 mg/dL (<2.0); WBC,Urine 3 /hpf (0-5)
[2021-02-09 18:51] LABS: Basophils # (A) 0.05 X 10*3/uL (0.00-0.10); Basophils % (A) 0.5 %; Eosinophils # (A) 0.14 X 10*3/uL (0.04-0.35); Eosinophils % (A) 1.5 %; HCT 44.6 % (37.2-46.3); HGB 14.3 g/dL (12.0-15.0); Lymphocytes # (A) 2.83 X 10*3/uL (0.90-5.00); Lymphocytes % (A) 29.5 %; MCH 27.7 pg (27.0-32.0); MCHC 32.1 g/dL (32.0-37.0); MCV 86.3 fL (80.0-97.0); Mean Platelet Volume 10.9 fL (9.5-12.2); Monocytes # (A) 0.62 X 10*3/uL (0.20-1.00); Monocytes % (A) 6.5 %; Neutrophils % (A) 61.6 %; Platelet Count 226 X 10*3/uL (140-440); RBC 5.17 X 10*6/uL (4.10-5.20); WBC 9.58 X 10*3/uL (4.50-10.00)
[2021-02-09 19:56] LABS: INR 1.05 (0.90-1.11); Partial Thromboplastin Time 29.1 sec (23.5-31.0); Prothrombin Time 11.4 sec (9.9-11.9)
[2021-02-10 03:00] LABS: Albumin 4.9 g/dL (3.80-4.90); Albumin/Globulin Ratio 1.88 (1.60-3.17); Anion Gap 13.9 mmol/L (4.00-12.00); BUN/Creat Ratio 15.56 Ratio (12.00-20.00); Calcium 9.5 mg/dL (8.7-10.3); Carbon Dioxide 20.1 mmol/L (21.6-31.8); Globulin 2.6 g/dL (1.6-3.3); Non-African American GFR(CKD) 75.1 (60.0-200.0); Potassium 4.6 mmol/L (3.5-5.5); Total Bilirubin 0.4 mg/dL (0.3-1.2); Total Protein 7.5 g/dL (6.2-8.2)
== END | disposition home or self-care (01) ==
LOC: LABWHC1 11:22
DX: M54.16 Radiculopathy, lumbar region (principal)
CPT/HCPCS: 36415; 80053; 81001; 83036; 84134; 85025; 85610; 85730; 93005

== ENCOUNTER 2021-05-16 19:39 | Inpatient (IN) | payer MEDICARE, OTHER ==
[2021-05-16] MEDS ORDERED: SODIUM CHLORIDE 0.9% 1,000 ML IV ONE (21:01)
[2021-05-16] MEDS ORDERED: HYDROmorphone 0.5 MG/0.5 ML SYRINGE IVP STA (21:01)
[2021-05-16] MEDS ORDERED: ACETAMINOPHEN TAB 500 MG TAB PO STA (21:01)
[2021-05-16] MEDS ORDERED: ONDANSETRON 4 MG/2 ML VIAL IVP STA (21:01)
[2021-05-16] MEDS ORDERED: KETOROLAC 15 MG/ML 1 ML VIAL IVP STA (21:01)
--- NOTE | 2021-05-16 21:13 | ED ---
General Adult HPI - General Chief complaint: Extremity Problem,Nontraumatic Stated complaint: Swollen L Leg Time Seen by Provider: 05/16/21 20:50 Source: patient, RN notes reviewed Mode of arrival: wheelchair Limitations: no limitations - History of Present Illness Initial comments: This is a 50-year-old female presents emergency Department chief complaint left knee pain, fever. Patient states on she had second part of her reconstructive breast surgery at [facility]. Patient states she was sore on Saturday in her breast, abdomen related to her that tissue. Patient states on Saturday she started having left knee pain and she was sore to stand on. Patient states it continues to swell, increasing pain the point that she is unable to bear weight secondary to pain. Patient states she started developing a fever last few days T-max was 102. Patient states she did not have any trauma turning she states that she does have a slight cough but felt that was just from her surgery. Denies ear pain, no pain flank pain no dysuria. Patient states that she had knee surgery 20 years ago and which she states she does have a "cleaning out". - Related Data Home Medications Medication Instructions Recorded Confirmed Zolpidem Tartrate [Ambien Cr] 12.5 mg PO HS PRN 09/27/14 05/16/21 clonazePAM [Clonazepam] 1 mg PO BID 04/08/16 05/16/21 Sertraline HCl [Zoloft] 100 mg PO HS 12/05/16 05/16/21 Galcanezumab-Gnlm [Emgality Pen] 120 mg SQ QMONTH 12/10/18 05/16/21 EPINEPHrine [Epipen 2-Deven] 0.3 mg IM ONCE PRN 01/12/19 05/16/21 Nitroglycerin Sl Tabs [Nitrostat] 0.4 mg SUBLINGUAL Q5M PRN 01/15/19 05/16/21 Docusate [Colace] 100 mg PO BID PRN 08/14/20 05/16/21 cloNIDine HCL [Catapres] 0.2 mg PO DAILY 11/29/20 05/16/21 Cyclobenzaprine [Flexeril] 5 - 10 mg PO TID PRN 01/25/21 05/16/21 Atorvastatin Calcium [Lipitor] 10 mg PO DAILY 05/16/21 05/16/21 cloNIDine HCL [Catapres] 0.1 mg PO DAILY 05/16/21 05/16/21 oxyCODONE HCL [OxyIR] 5 mg PO Q6H PRN 05/16/21 05/16/21 traZODone HCL 100 mg PO BID 05/16/21 05/16/21 Previous Rx's Medication Instructions Recorded Fludrocortisone [Florinef] 0.2 mg PO DAILY 30 Days #60 tablet 01/28/21 Allergies Allergy/AdvReac Type Severity Reaction Status Date / Time morphine Allergy Swelling, Verified 05/16/21 21:17 diff breathing oxycodone Allergy Anaphylaxis Verified 05/16/21 21:17 Penicillins Allergy Unknown Verified 05/16/21 21:17 Childhood venom-honey bee Allergy Anaphylaxis-has Verified 05/16/21 21:17 [bee venom (honey bee)] epi-pen baclofen AdvReac Diarrhea Verified 05/16/21 21:17 Review of Systems ROS Statement: Those systems with pertinent positive or pertinent negative responses have been documented in the HPI. ROS Other: All systems not noted in ROS Statement are negative. Past Medical History Past Medical History: Atrial Fibrillation, Cancer, Diabetes Mellitus, Hyperlipidemia, Hypertension, Supraventricular Tachycardia (SVT) Additional Past Medical History / Comment(s): Postural orthostatic tachycardia syndrome (POTS), Hx of SVT, Migraines, IBS/D. 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 History of Any Multi-Drug Resistant Organisms: MRSA Date of last positivie culture/infection: Fall 2019 MDRO Source:: Hospital Past Surgical History: Appendectomy, Breast Surgery, Cardiac Ablation, Cholec ystectomy, Heart Catheterization, Hysterectomy, Orthopedic Surgery Additional Past Surgical History / Comment(s): BIOPSY- RT BREAST x2, RT LUMPECTOMY; Bilateral Mastectomy with reconstruction, LT KNEE SURGERY X4 (2 arthroscopic), Right ankle x 2, CARDIAC ABLATION X 2. COLONOSCOPY Past Anesthesia/Blood Transfusion Reactions: Previous Problems w/ Anesthesia Additional Past Anesthesia/Blood Transfusion Reaction / Comment(s): DIFFICULT INTUBATION W/ EMERG APPENDECTOMY BY DR CAPUTO 04/08/2016 ([facility])-Can't find letter. Past Psychological History: Anxiety, Depression Smoking Status: Never smoker Past Alcohol Use History: Rare Past Drug Use History: None Reported - Past Family History Father Family Medical History: Hypertension, Myocardial Infarction ([place]), Pulmonary Embolus Mother Family Medical History: Cancer Additional Family Medical History / Comment(s): Breast/Lymphatic CA General Exam Limitations: no limitations General appearance: alert, in no apparent distress Head exam: Present: atraumatic, normocephalic, normal inspection Neck exam: Present: normal inspection. Absent: tenderness, meningismus, lymphadenopathy Respiratory exam: Present: normal lung sounds bilaterally. Absent: respiratory distress, wheezes, rales, rhonchi, stridor Cardiovascular Exam: Present: normal rhythm, tachycardia, normal heart sounds. Absent: systolic murmur, diastolic murmur, rubs, gallop, clicks Extremities exam: Present: other (Left knee there is moderate amount of swelling, increased warmth with palpation, certainly tender with palpation very limited range of motion secondary to pain neurovascular intact) Course Vital Signs 05/16/21 05/16/21 05/16/21 20:13 22:18 23:01 Temperature 101.5 F H 101.6 F H 99.6 F Pulse Rate 112 H 105 H 101 H Respiratory 20 18 18 Rate Blood Pressure 116/70 151/97 O2 Sat by Pulse 97 97 Oximetry Medical Decision Making - Medical Decision Making 50-year-old female presented for left knee pain. Patient's found to be febrile. Patient does have elevated CRP, ESR, leukocytosis. Patient's case discussed with [facility] on-call for orthopedics accepts admission recommends consult to medicine, ID. Patient was started on broad-spectrum antibiotics. Patient offered drainage of the knee but states that she had a poor expansion the past in states she only wants orthopedics to drain her knee. - Lab Data Result diagrams: 05/16/21 21:28 05/16/21 22:34 Lab Results 05/16/21 05/16/21 05/16/21 Range/Units 21:28 22:30 22:34 WBC 13.0 H (3.8-10.6) k/uL RBC 4.15 (3.80-5.40) m/uL Hgb 11.9 (11.4-16.0) gm/dL Hct 36.0 (34.0-46.0) % MCV 86.6 (80.0-100.0) fL MCH 28.6 (25.0-35.0) pg MCHC 33.1 (31.0-37.0) g/dL RDW 14.5 (11.5-15.5) % Plt Count 230 (150-450) k/uL MPV 7.7 Neutrophils % 74 % Lymphocytes % 18 % Monocytes % 4 % Eosinophils % 3 % Basophils % 0 % Neutrophils # 9.6 H (1.3-7.7) k/uL Lymphocytes # 2.3 (1.0-4.8) k/uL Monocytes # 0.6 (0-1.0) k/uL Eosinophils # 0.4 (0-0.7) k/uL Basophils # 0.0 (0-0.2) k/uL ESR Cancelled Sodium 136 L (137-145) mmol/L Potassium 3.6 (3.5-5.1) mmol/L Chloride 102 (98-107) mmol/L Carbon Dioxide 24 (22-30) mmol/L Anion Gap 10 mmol/L BUN 7 (7-17) mg/dL Creatinine 0.63 (0.52-1.04) mg/dL Est GFR (CKD-EPI)AfAm >90 (>60 ml/min/1.73 sqM) Est GFR (CKD-EPI)NonAf >90 (>60 ml/min/1.73 sqM) Glucose 138 H (74-99) mg/dL Plasma Lactic Acid Rom (0.7-2.0) mmol/L Uric Acid 7.0 (3.7-7.4) mg/dL Calcium 9.0 (8.4-10.2) mg/dL Total Bilirubin 1.5 H (0.2-1.3) mg/dL AST 33 (14-36) U/L ALT 37 H (4-34) U/L Alkaline Phosphatase 97 (38-126) U/L C-Reactive Protein 16.1 H (<1.0) mg/dL Total Protein 6.8 (6.3-8.2) g/dL Albumin 4.0 (3.5-5.0) g/dL Coronavirus (PCR) Not Detected (Not Detectd) 05/16/21 05/16/21 Range/Units 22:34 22:34 WBC (3.8-10.6) k/uL RBC (3.80-5.40) m/uL Hgb (11.4-16.0) gm/dL Hct (34.0-46.0) % MCV (80.0-100.0) fL MCH (25.0-35.0) pg MCHC (31.0-37.0) g/dL RDW (11.5-15.5) % Plt Count (150-450) k/uL MPV Neutrophils % % Lymphocytes % % Monocytes % % Eosinophils % % Basophils % % Neutrophils # (1.3-7.7) k/uL Lymphocytes # (1.0-4.8) k/uL Monocytes # (0-1.0) k/uL Eosinophils # (0-0.7) k/uL Basophils # (0-0.2) k/uL ESR 71 H Sodium (137-145) mmol/L Potassium (3.5-5.1) mmol/L Chloride (98-107) mmol/L Carbon Dioxide (22-30) mmol/L Anion Gap mmol/L BUN (7-17) mg/dL Creatinine (0.52-1.04) mg/dL Est GFR (CKD-EPI)AfAm (>60 ml/min/1.73 sqM) Est GFR (CKD-EPI)NonAf (>60 ml/min/1.73 sqM) Glucose (74-99) mg/dL Plasma Lactic Acid Rom 1.3 (0.7-2.0) mmol/L Uric Acid (3.7-7.4) mg/dL Calcium (8.4-10.2) mg/dL Total Bilirubin (0.2-1.3) mg/dL AST (14-36) U/L ALT (4-34) U/L Alkaline Phosphatase (38-126) U/L C-Reactive Protein (<1.0) mg/dL Total Protein (6.3-8.2) g/dL Albumin (3.5-5.0) g/dL Coronavirus (PCR) (Not Detectd) Disposition Clinical Impression: Fever, Infection of left knee Disposition: ADMITTED IP TO THIS HOSP Referrals: Najma Givens MD [Primary Care Provider] - 1-2 days
[2021-05-16 21:37] LABS: Basophils % (A) 0 %; Eosinophils # (A) 0.4 k/uL (0-0.7); Eosinophils % (A) 3 %; HGB 11.9 gm/dL (11.4-16.0); Lymphocytes # (A) 2.3 k/uL (1.0-4.8); Lymphocytes % (A) 18 %; MCH 28.6 pg (25.0-35.0); MCHC 33.1 g/dL (31.0-37.0); MCV 86.6 fL (80.0-100.0); Mean Platelet Volume 7.7; Monocytes # (A) 0.6 k/uL (0-1.0); Monocytes % (A) 4 %; Neutrophils # (A) 9.6 k/uL (1.3-7.7); Neutrophils % (A) 74 %; Platelet Count 230 k/uL (150-450); RBC 4.15 m/uL (3.80-5.40); RDW 14.5 % (11.5-15.5)
--- NOTE | 2021-05-16 22:41 | XR ---
EXAMINATION TYPE: XR chest 2V DATE OF EXAM: 05/16/2021 COMPARISON: 01/25/2021 HISTORY: Fever TECHNIQUE: 2 views FINDINGS: There is no heart failure nor confluent pneumonic infiltrate. Costophrenic angles are clear . Bony thorax is intact. IMPRESSION: No active cardiopulmonary disease. Normal heart. No change.
--- NOTE | 2021-05-16 22:42 | XR ---
EXAMINATION TYPE: XR knee complete LT DATE OF EXAM: 05/16/2021 COMPARISON: NONE HISTORY: Knee pain TECHNIQUE: 3 views FINDINGS: There is no evidence of fracture nor dislocation. There is dense meniscal cartilage calcifi cation. There is slight narrowing of the joint spaces. There is mild spurring of the femoral and tibi al condyles. There is mild knee joint effusion. There is a staple in the tibial tubercle. IMPRESSION: Previous surgery. Chondrocalcinosis. Mild osteoarthritis. Joint effusion.
[2021-05-16 22:51] LABS: ALT 37 U/L (4-34); AST 33 U/L (14-36); African American GFR (CKD) >90 (>60 ml/min/1.73 sqM); Alkaline Phosphatase 97 U/L (38-126); Anion Gap 10 mmol/L; Blood Urea Nitrogen 7 mg/dL (7-17); Carbon Dioxide 24 mmol/L (22-30); Chloride 102 mmol/L (98-107); Glucose 138 mg/dL (74-99); Non-African American GFR(CKD) >90 (>60 ml/min/1.73 sqM); Potassium 3.6 mmol/L (3.5-5.1); Sodium 136 mmol/L (137-145); Total Bilirubin 1.5 mg/dL (0.2-1.3); Total Protein 6.8 g/dL (6.3-8.2)
[2021-05-16 23:02] LABS: C Reactive Protein 16.1 mg/dL (<1.0)
--- NOTE | 2021-05-16 23:35 | US ---
EXAMINATION TYPE: US venous doppler duplex LE LT DATE OF EXAM: 05/16/2021 11:00 PM COMPARISON: NONE CLINICAL HISTORY: pain. Pain. No hx of DVT. Patient does not take blood thinners. Hx left knee surger y. SIDE PERFORMED: Left TECHNIQUE: The lower extremity deep venous system is examined utilizing real time linear array sonog michael with graded compression, doppler sonography and color-flow sonography. VESSELS IMAGED: Common Femoral Vein Deep Femoral Vein Greater Saphenous Vein * Femoral Vein Popliteal Vein Small Saphenous Vein * Proximal Calf Veins (* superficial vessels) Left Leg: No evidence of DVT in veins imaged at this time. IMPRESSION: No sign of deep vein thrombosis in the left leg.
[2021-05-17] MEDS ORDERED: ACETAMINOPHEN TAB 325 MG TAB PO PRN (00:32)
[2021-05-17] MEDS ORDERED: ONDANSETRON 4 MG/2 ML VIAL IVP PRN (00:32)
[2021-05-17] MEDS ORDERED: HYDROmorphone 1 MG/ML 1 ML SYRINGE IVP STA ×2 (00:32→02:48)
[2021-05-17] MEDS ORDERED: NALOXONE 0.4 MG/ML 1 ML VIAL IV PRN (00:32)
[2021-05-17] MEDS ORDERED: IBUPROFEN 400 MG TAB PO PRN (00:32)
[2021-05-17] MEDS ORDERED: VANCOMYCIN IV PER PHARMACY 1 EACH MISC MISCELLANE PRN (00:34)
[2021-05-17] MEDS ORDERED: VANCOMYCIN 1,500 MG in SODIUM CHLORIDE 0.9% 250 ML IVPB ONE (01:00)
[2021-05-17] MEDS: SODIUM CHLORIDE 0.9% 1,000 ML IV SCH ×2 (02:10→14:17)
[2021-05-17] MEDS: HYDROmorphone 1 MG/ML 1 ML SYRINGE IVP PRN ×6 (06:12→22:30)
[2021-05-17] MEDS ORDERED: ZOLPIDEM 5 MG TAB PO PRN (07:50)
--- NOTE | 2021-05-17 09:48 | P.CNOR ---
<Hudson Rivers - Last Filed: 05/17/21 09:39> History of Present Illness - [facility] Consult date: 05/17/21 Consult reason: joint pain (Left knee pain) History of present illness: Patient is a 50-year-old female who presented to [facility] late last night with regards to left knee pain. Patient developed the left knee pain over this past weekend, it's progressively gotten worse which prompted her to come to the emergency room. Patient has history of previous knee arthroscopies procedures, her most recent one was done by Dr. Mazariegos in 2016. Upon arrival to the hospital, imaging and lab tests were done. Patient was noted to have an elevated white blood cell count, ESR and CRP. Patient was also febrile. The emergency room staff to contact the other physician offset assistant press operator in a group Yemi Delgado, patient was admitted to the hospital for further workup, internal medicine and infectious disease are both on this case also. Patient was evaluated today in the emergency room, she is resting in her hospital bed. She is having significant discomfort in the left knee. patient denies any recent trauma, this including falls or awkward bends or twist of the knee. Patient recently underwent breast reconstructive surgery at the [facility] last week. She does have a history of breast cancer and has had a few different procedures over the last year or so. Patient does have a history of MRSA infections from these recent breast surgeries, she has been admitted on multiple occasions for IV antibiotic treatment. She states that the pain has gone worse since it initially started over the weekend. She states that she has had fevers throughout the weekend. She does have a history of chronic low back pain. She has no other acute orthopedic complaints this time. Review of Systems Constitutional: Reports as per HPI Past Medical History Past Medical History: Atrial Fibrillation, Cancer, Diabetes Mellitus, Hyperlipidemia, Hypertension, Supraventricular Tachycardia (SVT) Additional Past Medical History / Comment(s): Postural orthostatic tachycardia syndrome (POTS), Hx of SVT, Migraines, IBS/D. 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 History of Any Multi-Drug Resistant Organisms: MRSA Year Discovered:: Fall 2019 MDRO Source:: Hospital Past Surgical History: Appendectomy, Breast Surgery, Cardiac Ablation, Cho lecystectomy, Heart Catheterization, Hysterectomy, Orthopedic Surgery Additional Past Surgical History / Comment(s): BIOPSY- RT BREAST x2, RT LUMPECTOMY; Bilateral Mastectomy with reconstruction, LT KNEE SURGERY X4 (2 arthroscopic), Right ankle x 2, CARDIAC ABLATION X 2. COLONOSCOPY Past Anesthesia/Blood Transfusion Reactions: Previous Problems w/ Anesthesia Additional Past Anesthesia/Blood Transfusion Reaction / Comm: DIFFICULT INTUBATION W/ EMERG APPENDECTOMY BY DR CAPUTO 04/08/2016 ([facility])-Can't find letter. Past Psychological History: Anxiety, Depression Smoking Status: Never smoker Past Alcohol Use History: Rare Past Drug Use History: None Reported - Past Family History Father Family Medical History: Hypertension, Myocardial Infarction ([place]), Pulmonary Embolus Mother Family Medical History: Cancer Additional Family Medical History / Comment(s): Breast/Lymphatic CA Medications and Allergies Home Medications Medication Instructions Recorded Confirmed Type Zolpidem Tartrate [Ambien Cr] 12.5 mg PO HS PRN 09/27/14 05/16/21 History clonazePAM [Clonazepam] 1 mg PO BID 04/08/16 05/16/21 History Sertraline HCl [Zoloft] 100 mg PO HS 12/05/16 05/16/21 History Galcanezumab-Gnlm [Emgality Pen] 120 mg SQ QMONTH 12/10/18 05/16/21 History EPINEPHrine [Epipen 2-Deven] 0.3 mg IM ONCE PRN 01/12/19 05/16/21 History Nitroglycerin Sl Tabs [Nitrostat] 0.4 mg SUBLINGUAL Q5M PRN 01/15/19 05/16/21 History Docusate [Colace] 100 mg PO BID PRN 08/14/20 05/16/21 History cloNIDine HCL [Catapres] 0.2 mg PO DAILY 11/29/20 05/16/21 History Cyclobenzaprine [Flexeril] 5 - 10 mg PO TID PRN 01/25/21 05/16/21 History Fludrocortisone [Florinef] 0.2 mg PO DAILY 30 Days #60 tablet 01/28/21 05/16/21 Rx Atorvastatin Calcium [Lipitor] 10 mg PO DAILY 05/16/21 05/16/21 History cloNIDine HCL [Catapres] 0.1 mg PO DAILY 05/16/21 05/16/21 History oxyCODONE HCL [OxyIR] 5 mg PO Q6H PRN 05/16/21 05/16/21 History traZODone HCL 100 mg PO BID 05/16/21 05/16/21 History Allergies Allergy/AdvReac Type Severity Reaction Status Date / Time morphine Allergy Swelling, Verified 05/16/21 21:17 diff breathing oxycodone Allergy Anaphylaxis Verified 05/16/21 21:17 Penicillins Allergy Unknown Verified 05/16/21 21:17 Childhood venom-honey bee Allergy Anaphylaxis-has Verified 05/16/21 21:17 [bee venom (honey bee)] epi-pen baclofen AdvReac Diarrhea Verified 05/16/21 21:17 Physical Examination Left lower extremity: No obvious open lesions or sores are present at the extremity. Multiple well- healed scars are present over the anterior aspect of the knee. Moderate size effusion is present over the knee, there is no separate areas of erythema or areas of fluctuance appreciated Significant tenderness with palpation of the knee, both medial and lateral joint line along with suprapatellar region Range of motion is very limited due to pain, she holds knee with about 30 lack of full extension and can bend to about 50-60 Patient demonstrates no other areas of tenderness with palpation of the left lower extremity Calf is soft ,no tenderness with palpation Plantar flexion, dorsiflexion, EHL, FHL are intact Sensory exam to light touch throughout the extremity is intact, dorsalis pedis pulses 2+ Logroll maneuver of the lower extremity reproduces no groin pain Results - Labs Labs: Abnormal Lab Results - Last 24 Hours (Table) 05/16/21 05/16/21 05/16/21 Range/Units 21:28 22:34 22:34 WBC 13.0 H (3.8-10.6) k/uL Neutrophils # 9.6 H (1.3-7.7) k/uL ESR 71 H (0-20) mm/hr Sodium 136 L (137-145) mmol/L Glucose 138 H (74-99) mg/dL Total Bilirubin 1.5 H (0.2-1.3) mg/dL ALT 37 H (4-34) U/L C-Reactive Protein 16.1 H (<1.0) mg/dL H & H 05/16/21 Range/Units 21:28 Hgb 11.9 (11.4-16.0) gm/dL Hct 36.0 (34.0-46.0) % Result Diagrams: 05/16/21 21:28 05/16/21 22:34 - Diagnostic results Knee x-ray: report reviewed, image reviewed (X-rays reviewed of the left knee, no acute fractures or dislocations present. Mild osteophytic changes are present. Evidence of chondrocalcinosis present. Previous surgical hardware is visualized) Assessment and Plan Assessment: Left knee pain Left knee effusion Possible gout versus pseudogout versus septic arthropathy left knee History of previous left knee surgery Recent breast reconstructive surgery Other medical comorbidities Plan: We were able to discuss the case, including with physical exam findings and imaging studies my attending Dr. Macias. Patient was made nothing by mouth last night, we will continue this at this time. We did discuss the patient today at bedside the need for further evaluation of the left knee, we will likely proceed with a aspiration of the left knee. This is to be done at bedside, explained to the patient that fluid would then be sent off to the lab for further evaluation to rule out gout or pseudogout versus infection. Risk and benefits of the procedure were discussed the patient today because I, she is in good understanding would like to proceed. Please see procedure note for further detail. Pain control, Toradol IV will be ordered, narcotics for severe pain GI and DVT prophylaxis per primary medical service Other medical specialty recommendations Await fluid analysis for further recommendations for treatment Further recommendations to Time with Patient: Less than 30 <Claudio Macias - Last Filed: 05/17/21 20:58> Physical Examination Osteopathic Statement: *. No significant issues noted on an osteopathic struc tural exam other than those noted in the History and Physical/Consult. Results - Labs Labs: Abnormal Lab Results - Last 24 Hours (Table) 05/16/21 05/16/21 05/16/21 Range/Units 21:28 22:34 22:34 WBC 13.0 H (3.8-10.6) k/uL RBC (4.10-5.20) X 10*6/uL Hgb (12.0-15.0) g/dL Hct (37.2-46.3) % MCHC (32.0-37.0) g/dL Neutrophils # 9.6 H (1.3-7.7) k/uL ESR 71 H (0-20) mm/hr Sodium 136 L (137-145) mmol/L Potassium (3.5-5.5) mmol/L Anion Gap (4.00-12.00) mmol/L BUN (9.0-27.0) mg/dL BUN/Creatinine Ratio (12.00-20.00) Ratio Glucose 138 H (74-99) mg/dL Total Bilirubin 1.5 H (0.2-1.3) mg/dL AST (13-35) U/L ALT 37 H (4-34) U/L C-Reactive Protein 16.1 H (<1.0) mg/dL Total Protein (6.2-8.2) g/dL Urine Appearance (Clear) Urine Protein (Negative) Urine Ketones (Negative) Urine Blood (Negative) Ur Leukocyte Esterase (Negative) Urine WBC (0-5) /hpf Ur Squamous Epith Cells (0-4) /hpf Urine Bacteria (None) /hpf Urine Mucus (None) /hpf 05/17/21 05/17/21 05/17/21 Range/Units 10:35 10:35 11:15 WBC 10.17 H (3.8-10.6) k/uL RBC 3.83 L (4.10-5.20) X 10*6/uL Hgb 10.8 L (12.0-15.0) g/dL Hct 34.0 L (37.2-46.3) % MCHC 31.8 L (32.0-37.0) g/dL Neutrophils # (1.3-7.7) k/uL ESR (0-20) mm/hr Sodium (137-145) mmol/L Potassium 3.2 L (3.5-5.5) mmol/L Anion Gap 14.40 H (4.00-12.00) mmol/L BUN 7.2 L (9.0-27.0) mg/dL BUN/Creatinine Ratio 11.23 L (12.00-20.00) Ratio Glucose 124 H (74-99) mg/dL Total Bilirubin 1.40 H (0.2-1.3) mg/dL AST 59 H (13-35) U/L ALT (4-34) U/L C-Reactive Protein (<1.0) mg/dL Total Protein 6.1 L (6.2-8.2) g/dL Urine Appearance Cloudy H (Clear) Urine Protein Trace H (Negative) Urine Ketones 1+ H (Negative) Urine Blood Small H (Negative) Ur Leukocyte Esterase Small H (Negative) Urine WBC 7 H (0-5) /hpf Ur Squamous Epith Cells 5 H (0-4) /hpf Urine Bacteria Rare H (None) /hpf Urine Mucus Rare H (None) /hpf Microbiology - Last 24 Hours (Table) 05/17/21 07:30 Gram Stain - Preliminary Knee - Left Body Fluid Culture - Preliminary 05/17/21 07:30 Anaerobic Culture - Preliminary Knee - Left 05/17/21 07:30 Fungal Culture - Preliminary Knee - Left H & H 05/16/21 05/17/21 Range/Units 21:28 10:35 Hgb 11.9 10.8 L (11.4-16.0) gm/dL Hct 36.0 34.0 L (34.0-46.0) % Result Diagrams: 05/17/21 10:35 05/17/21 10:35 Assessment and Plan Plan: Patient seen and examined by myself at bedside. Left knee synovial fluid analysis revealed 27,700 WBCs and gram stain of synovial fluid revealed no organisms seen. Synovial fluid analysis is consistent with inflammatory arthriti s, low concern for septic arthritis with negative gram stain and synovial fluid WBC count of <50,000. Recommend anti-inflammatory treatment, rest, ice, and elevation. No orthopedic surgical intervention indicated at this time. -Claudio Macias DO Orthopedic Surgeon
--- NOTE | 2021-05-17 09:51 | P.PCN ---
Date of Procedure: 05/17/21 Preoperative Diagnosis: Left knee effusion Postoperative Diagnosis: Same Procedure(s) Performed: Left knee aspiration Anesthesia: none Surgeon: Hudson Rivers Estimated Blood Loss (ml): 0 Pathology: other (Left knee fluid was placed in a red top an green tattoo along with culture stick and sent to lab with proper identification) Condition: stable Indications for Procedure: Left knee pain, left knee effusion Description of Procedure: Risk and benefits of the procedure were discussed with the patient today at bedside, she is in good understanding and would like to proceed. Patient was placed in the supine position, the left knee was prepped with 1 chlorhexidine swab. A 18-gauge needle was used to aspirate via the suprapatellar approach about 40 mL of straw colored joint fluid. No obvious purulence was visualized. A bandages in place. Joint fluid was then placed in a red top tube, green topped tube and placed on a culture swab. Labs were placed for anaerobic, aerobic, fungal culture, cell count, Gram stain, synovial crystal analysis. Proper identification was placed on all tubes prior to sending to lab. Patient tolerated the procedure well.
[2021-05-17] MEDS ORDERED: KETOROLAC 15 MG/ML 1 ML VIAL IVP PRN (09:52)
[2021-05-17 11:58] LABS: Appearance,Urine Cloudy (Clear); Bacteria,Urine Rare /hpf; Bilirubin,Urine Negative (Negative); Blood,Urine Small (Negative); Color,Urine Yellow; Glucose,Urine (UA) Negative (Negative); Ketones,Urine 1+ (Negative); Leukocyte Esterase,Urine Small (Negative); Mucus,Urine Rare /hpf; Nitrite,Urine Negative (Negative); Protein,Urine Trace (Negative); RBC,Urine 2 /hpf (0-5); Squamous Epithelial Cell,Urine 5 /hpf (0-4); WBC,Urine 7 /hpf (0-5)
[2021-05-17] MEDS: clonazePAM 1 MG TAB PO SCH ×2 (12:34→20:24)
[2021-05-17] MEDS: ATORVASTATIN 10 MG TAB PO SCH (12:35)
[2021-05-17] MEDS: traZODone HCL 100 MG TAB PO SCH ×2 (12:36→20:24)
[2021-05-17] MEDS: cloNIDine HCL 0.1 MG TAB PO SCH (12:36)
[2021-05-17] MEDS: FLUDROCORTISONE 0.1 MG TAB PO SCH (12:36)
[2021-05-17] MEDS ORDERED: VANCOMYCIN 1,500 MG in SODIUM CHLORIDE 0.9% 250 ML IVPB SCH (14:00)
[2021-05-17 14:01] LABS: Appearance,BF Hazy; Nucleated Cells, Body Fluid 27700 /uL; RBC, Body Fluid 480 /uL
[2021-05-17 14:04] LABS: Mononuclear WBC,Body Fluid 10 %; Polynuclear WBC,Body Fluid 90 %; Total Cells Counted,Body Fluid 100
[2021-05-17] MEDS: cloNIDine HCL 0.2 MG TAB PO SCH (14:12)
[2021-05-17 16:32] LABS: HGB 10.8 g/dL (12.0-15.0); MCH 28.2 pg (27.0-32.0); MCHC 31.8 g/dL (32.0-37.0); MCV 88.8 fL (80.0-97.0); Platelet Count 228 X 10*3/uL (140-440); RBC 3.83 X 10*6/uL (4.10-5.20); RDW 14.5 % (11.5-14.5); WBC 10.17 X 10*3/uL (4.50-10.00)
[2021-05-17 19:00] LABS: African American GFR (CKD) 121.2 (60.0-200.0); Albumin 3.9 g/dL (3.8-4.9); Albumin/Globulin Ratio 1.76 (1.60-3.17); Anion Gap 14.4 mmol/L (4.00-12.00); BUN/Creat Ratio 11.23 Ratio (12.00-20.00); Blood Urea Nitrogen 7.2 mg/dL (9.0-27.0); Calcium 8.7 mg/dL (8.7-10.3); Carbon Dioxide 22.2 mmol/L (21.6-31.8); Globulin 2.2 g/dL (1.6-3.3); Non-African American GFR(CKD) 104.6 (60.0-200.0); Potassium 3.2 mmol/L (3.5-5.5); Total Bilirubin 1.4 mg/dL (0.30-1.20); Total Protein 6.1 g/dL (6.2-8.2)
--- NOTE | 2021-05-17 19:33 | P.HPIM ---
History of Present Illness H&P Date: 05/17/21 (called for admission this moring at 8 am) Chief Complaint: left knee pain Patient is a 50 yo CF with a hx of A fib, Breast Cnacer with masectomy and MRSA with multiple reconstructive surgeries, POTS, HTN, SVT, and Dyslipidema who presetned to the ED with complaints of left knee pain. In the ED she underwent an extensive evaluation. Vital signs on arrival showed a temperature of 101.5 and a pulse rate of 112. Laboratory analysis showed a white blood cell count of 13, sodium 136, T bili 1.5, ESR 71 and CRP 16.1. Left knee x-ry showed joint effusion, CXR negative. Venous Doppler was negative for DVT in the left knee. She was seen by ortho and had her left knee aspirated. She was given some vanco in the ED. Patient seen and examined at bedside. She complains of left knee pain that started over the weekend associated with fevers. She underwent reconstructive breast surgery at [facility] and on 06/11. She was discharged home and was doing well. She then started spiking fevers over the weekend with a T- max of 102. She states she initially had some swelling in her left knee and it just continued to worsen. She is having difficulty with range of motion and was so painful she was unable to ambulate. She reports some nausea, no diarrhea, she is having pain at the incisional site, chest, no shortness of breath, she reports decreased urination. Pertinent positives and negatives as discussed in HPI, a complete review of systems was performed and all other systems are negative. General: non toxic, mild distress secondary to pain, appears at stated age Derm: warm, dry, breast compression device in place Head: atraumatic, normocephalic, symmetric Eyes: EOMI, no lid lag, anicteric sclera, pupils equal round reactive to light ENT: Nose and ears atraumatic, no thrush, no pharyngeal erythema Neck: No thyromegaly, no cervical lymphadenopathy, trachea midline, supple Mouth: no lip lesion, mucus membranes moist Cardiovascular: S1S2 reg, no murmur, positive posterior tibial pulse bilateral, no edema, capillary refill less than 2 seconds Lungs: clear to ascultation bilateral, no ronchi, no rales, no wheeze, no accessory muscle use Abdominal: soft, nontender to palpation, no guarding, no appreciable organomegaly, normal bowel sounds Ext: no gross muscle atrophy, muscle strength muscle strength intact bilateral upper extremities, flexion and extension of the feet 5 out of 5 in bilateral lower extremities no contractures Neuro: CN II-XI grossly intact, light touch intact all 4 extremities Psych: Alert, oriented, appropriate affect Left knee pain with sepsis -Suspect septic arthritis -IV fluids -Vanco -Await cultures -Ortho recs -Pain control. Diabetes mellitus type 2 - diet controlled - follow BS - check A1C POTS - flornief - slow changes in position A. fib status post ablation - not chorincally on anticoagultion Chronic: Hypertension Dyslipidemia SVT Chronic dermatitis Migraine headaches The patient is admitted with an anticipated greater than 2 midnight stay for evaluation of Left knee infection with sepsis CODE STATUS:full DVT prophylaxis: SCDs Discussed with: Patient, nursing Anticipated discharge date: home Anticipated discharge place: in 2-3 days A total of 65 minutes was spent on the care of this complex patient more than 50% of the time was spent in counseling and care coordination. Past Medical History Past Medical History: Atrial Fibrillation, Cancer, Diabetes Mellitus, Hyperlipidemia, Hypertension, Supraventricular Tachycardia (SVT) Additional Past Medical History / Comment(s): Postural orthostatic tachycardia syndrome (POTS), Hx of SVT, Migraines, IBS/D. 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 History of Any Multi-Drug Resistant Organisms: MRSA Date of last positivie culture/infection: Fall 2019 MDRO Source:: Hospital Past Surgical History: Appendectomy, Breast Surgery, Cardiac Ablation, Cholecystectomy, Heart Catheterization, Hysterectomy, Orthopedic Surgery Additional Past Surgical History / Comment(s): BIOPSY- RT BREAST x2, RT LUMPECTOMY; Bilateral Mastectomy with reconstruction, LT KNEE SURGERY X4 (2 arthroscopic), Right ankle x 2, CARDIAC ABLATION X 2. COLONOSCOPY Past Anesthesia/Blood Transfusion Reactions: Previous Problems w/ Anesthesia Additional Past Anesthesia/Blood Transfusion Reaction / Comment(s): DIFFICULT INTUBATION W/ EMERG APPENDECTOMY BY DR CAPUTO 04/08/2016 ([facility])-Can't find letter. Past Psychological History: Anxiety, Depression Smoking Status: Never smoker Past Alcohol Use History: Rare Past Drug Use History: None Reported - Past Family History Father Family Medical History: Hypertension, Myocardial Infarction (PR), Pulmonary Embolus Mother Family Medical History: Cancer Additional Family Medical History / Comment(s): Breast/Lymphatic CA Medications and Allergies Home Medications Medication Instructions Recorded Confirmed Type Zolpidem Tartrate [Ambien Cr] 12.5 mg PO HS PRN 09/27/14 05/16/21 History clonazePAM [Clonazepam] 1 mg PO BID 04/08/16 05/16/21 History Sertraline HCl [Zoloft] 100 mg PO HS 12/05/16 05/16/21 History Galcanezumab-Gnlm [Emgality Pen] 120 mg SQ QMONTH 12/10/18 05/16/21 History EPINEPHrine [Epipen 2-Deven] 0.3 mg IM ONCE PRN 01/12/19 05/16/21 History Nitroglycerin Sl Tabs [Nitrostat] 0.4 mg SUBLINGUAL Q5M PRN 01/15/19 05/16/21 History Docusate [Colace] 100 mg PO BID PRN 08/14/20 05/16/21 History cloNIDine HCL [Catapres] 0.2 mg PO DAILY 11/29/20 05/16/21 History Cyclobenzaprine [Flexeril] 5 - 10 mg PO TID PRN 01/25/21 05/16/21 History Fludrocortisone [Florinef] 0.2 mg PO DAILY 30 Days #60 tablet 01/28/21 05/16/21 Rx Atorvastatin Calcium [Lipitor] 10 mg PO DAILY 05/16/21 05/16/21 History cloNIDine HCL [Catapres] 0.1 mg PO DAILY 05/16/21 05/16/21 History oxyCODONE HCL [OxyIR] 5 mg PO Q6H PRN 05/16/21 05/16/21 History traZODone HCL 100 mg PO BID 05/16/21 05/16/21 History Allergies Allergy/AdvReac Type Severity Reaction Status Date / Time morphine Allergy Swelling, Verified 05/16/21 21:17 diff breathing oxycodone Allergy Anaphylaxis Verified 05/16/21 21:17 Penicillins Allergy Unknown Verified 05/16/21 21:17 Childhood venom-honey bee Allergy Anaphylaxis-has Verified 05/16/21 21:17 [bee venom (honey bee)] epi-pen baclofen AdvReac Diarrhea Verified 05/16/21 21:17 Physical Exam Osteopathic Statement: *. No significant issues noted on an osteopathic structural exam other than those noted in the History and Physical/Consult. Vitals: Vital Signs Temp Pulse Resp BP Pulse Ox 05/17/21 06:16 98.5 F 84 17 114/69 96 05/17/21 02:11 83 18 113/54 97 05/16/21 23:01 99.6 F 101 H 18 151/97 97 05/16/21 22:18 101.6 F H 105 H 18 05/16/21 20:13 101.5 F H 112 H 20 116/70 97 Intake and Output 05/16/21 05/17/21 05/17/21 22:59 06:59 14:59 Other: Voiding Method Bedpan Weight 77.111 kg Results CBC & Chem 7: 05/17/21 10:35 05/17/21 10:35 Labs: Abnormal Lab Results - Last 24 Hours (Table) 05/16/21 05/16/21 05/16/21 Range/Units 21:28 22:34 22:34 WBC 13.0 H (3.8-10.6) k/uL Neutrophils # 9.6 H (1.3-7.7) k/uL ESR 71 H (0-20) mm/hr Sodium 136 L (137-145) mmol/L Glucose 138 H (74-99) mg/dL Total Bilirubin 1.5 H (0.2-1.3) mg/dL ALT 37 H (4-34) U/L C-Reactive Protein 16.1 H (<1.0) mg/dL
[2021-05-17] MEDS: SERTRALINE 100 MG TAB PO SCH (21:00)
[2021-05-18] MEDS: HYDROmorphone 1 MG/ML 1 ML SYRINGE IVP PRN ×3 (01:34→08:55)
[2021-05-18] MEDS: SODIUM CHLORIDE 0.9% 1,000 ML IV SCH ×2 (03:27→12:10)
[2021-05-18 08:10] LABS: HGB 10.7 gm/dL (11.4-16.0); MCHC 32.5 g/dL (31.0-37.0); MCV 89.1 fL (80.0-100.0); Mean Platelet Volume 7.2; Platelet Count 213 k/uL (150-450); RDW 14.6 % (11.5-15.5); WBC 8.6 k/uL (3.8-10.6)
[2021-05-18 08:22] LABS: INR 1.1 (<1.2); Prothrombin Time 11.6 sec (9.0-12.0)
[2021-05-18 08:30] LABS: African American GFR (CKD) >90 (>60 ml/min/1.73 sqM); Anion Gap 7 mmol/L; Blood Urea Nitrogen 5 mg/dL (7-17); Calcium 8.8 mg/dL (8.4-10.2); Carbon Dioxide 26 mmol/L (22-30); Chloride 108 mmol/L (98-107); Glucose 131 mg/dL (74-99); Non-African American GFR(CKD) >90 (>60 ml/min/1.73 sqM); Potassium 3.4 mmol/L (3.5-5.1); Sodium 141 mmol/L (137-145)
[2021-05-18] MEDS: ATORVASTATIN 10 MG TAB PO SCH (09:03)
[2021-05-18] MEDS: FLUDROCORTISONE 0.1 MG TAB PO SCH (09:03)
[2021-05-18] MEDS: clonazePAM 1 MG TAB PO SCH ×2 (09:03→20:50)
[2021-05-18] MEDS: cloNIDine HCL 0.2 MG TAB PO SCH (09:03)
[2021-05-18] MEDS: cloNIDine HCL 0.1 MG TAB PO SCH (09:03)
[2021-05-18] MEDS: traZODone HCL 100 MG TAB PO SCH ×2 (09:04→20:50)
[2021-05-18] MEDS: methylPREDNISolone 4 MG TAB PO SCH (09:47)
--- NOTE | 2021-05-18 11:18 | P.PN ---
Subjective Progress Note Date: 05/18/21 Principal diagnosis: Left knee pain, left knee effusion Patient was examined today at bedside, she is on the observation unit. She states that the left knee continues to bother her. She states that earlier this morning she did trip and fall on her left knee while attempting to go to the bathroom. She did receive some IV pain medication earlier which has helped. Denies any acute fevers or chills this time. She feels that he is moving a little bit better since yesterday. Objective - Vital Signs Vital signs: Vital Signs Temp 99.1 F 05/18/21 06:23 Pulse 106 H 05/18/21 06:23 Resp 20 05/18/21 06:23 BP 169/76 05/18/21 06:23 Pulse Ox 99 05/18/21 06:23 Intake & Output 05/17/21 05/18/21 05/18/21 18:59 06:59 18:59 Intake Total 340 100 Balance 340 100 Weight 77.111 kg Intake: Oral 340 100 Other: Voiding Method Bedpan Bedpan # Voids 1 - Exam No obvious open lesions or sores are present at the extremity. Multiple well- healed scars are present over the anterior aspect of the knee. Effusion is still present over the left knee Tenderness is appreciated with palpation to medial and lateral joint line and also suprapatellar region, it is improved Range of motion is improved, she lacks about 5-10 of full extension, she can flex to about 80 or pain is reproduced Patient demonstrates no other areas of tenderness with palpation of the left lower extremity Calf is soft ,no tenderness with palpation Plantar flexion, dorsiflexion, EHL, FHL are intact Sensory exam to light touch throughout the extremity is intact, dorsalis pedis pulses 2+ Logroll maneuver of the lower extremity reproduces no groin pain - Labs CBC & Chem 7: 05/18/21 07:21 05/18/21 07:21 Labs: Abnormal Lab Results - Last 24 Hours (Table) 05/17/21 05/17/21 05/17/21 Range/Units 10:35 10:35 11:15 WBC 10.17 H (4.50-10.00) X 10*3/uL RBC 3.83 L (4.10-5.20) X 10*6/uL Hgb 10.8 L (12.0-15.0) g/dL Hct 34.0 L (37.2-46.3) % MCHC 31.8 L (32.0-37.0) g/dL Potassium 3.2 L (3.5-5.5) mmol/L Chloride (98-107) mmol/L Anion Gap 14.40 H (4.00-12.00) mmol/L BUN 7.2 L (9.0-27.0) mg/dL BUN/Creatinine Ratio 11.23 L (12.00-20.00) Ratio Glucose 124 H (70-110) mg/dL Total Bilirubin 1.40 H (0.30-1.20) mg/dL AST 59 H (13-35) U/L Total Protein 6.1 L (6.2-8.2) g/dL Urine Appearance Cloudy H (Clear) Urine Protein Trace H (Negative) Urine Ketones 1+ H (Negative) Urine Blood Small H (Negative) Ur Leukocyte Esterase Small H (Negative) Urine WBC 7 H (0-5) /hpf Ur Squamous Epith Cells 5 H (0-4) /hpf Urine Bacteria Rare H (None) /hpf Urine Mucus Rare H (None) /hpf 05/18/21 05/18/21 Range/Units 07:21 07:21 WBC (4.50-10.00) X 10*3/uL RBC 3.70 L (4.10-5.20) X 10*6/uL Hgb 10.7 L (12.0-15.0) g/dL Hct 33.0 L (37.2-46.3) % MCHC (32.0-37.0) g/dL Potassium 3.4 L (3.5-5.5) mmol/L Chloride 108 H (98-107) mmol/L Anion Gap (4.00-12.00) mmol/L BUN 5 L (9.0-27.0) mg/dL BUN/Creatinine Ratio (12.00-20.00) Ratio Glucose 131 H (70-110) mg/dL Total Bilirubin (0.30-1.20) mg/dL AST (13-35) U/L Total Protein (6.2-8.2) g/dL Urine Appearance (Clear) Urine Protein (Negative) Urine Ketones (Negative) Urine Blood (Negative) Ur Leukocyte Esterase (Negative) Urine WBC (0-5) /hpf Ur Squamous Epith Cells (0-4) /hpf Urine Bacteria (None) /hpf Urine Mucus (None) /hpf Microbiology - Last 24 Hours (Table) 05/17/21 07:30 Gram Stain - Preliminary Knee - Left Body Fluid Culture - Preliminary 05/16/21 22:38 Blood Culture - Preliminary Blood No Growth after 24 hours 05/16/21 22:34 Blood Culture - Preliminary Blood No Growth after 24 hours 05/17/21 07:30 Anaerobic Culture - Preliminary Knee - Left 05/17/21 07:30 Fungal Culture - Preliminary Knee - Left Assessment and Plan Assessment: Left knee pain Left knee effusion Likely inflammatory arthritis left knee Low concern for septic arthropathy left knee History of previous left knee surgery Recent breast reconstructive surgery Other medical comorbidities Plan: Preliminary cultures are showing no acute growth of organisms from the left knee fluid. The cell count that was analyzed yesterday shows low concern process septic arthropathy. This is likely inflammatory arthropathy of the left knee. Pain control, recommend continued use of anti-inflammatories and Tylenol. Di scuss the patient to try to avoid IV Dilaudid at this time. Patient is taking oxycodone on her previous breast surgery, she can resume this GI and DVT prophylaxis per primary medical service Other medical specialty recommendations We will continue to monitor the culture results of the left knee fluid, at this time recommending no acute orthopedic surgical intervention Discharge planning: Orthopedic standpoint patient is stable for discharge with follow-up in the outpatient setting. Time with Patient: Less than 30
--- NOTE | 2021-05-18 14:14 | P.CONS ---
History of Present Illness - Reason for Consult Consult date: 05/17/21 Fever , left knee infection Requesting physician: Blake Ryan - Chief Complaint left knee pain and fever x few days - History of Present Illness History of Present Illness : Patient is a 50-year female with a past medical history significant for breast cancer status postmastectomy in this patient did have a previous MRSA infection and did have multiple reconstructive surgeries, who recently did have a bilateral breast reconstruction completed at the outside facility. Patient is presenting to the ER with concern for left knee pain that the pain started over the weekend patient denies having history of any trauma or fall she will be describing the pain to be the more of a throbbing to dull aching intensity 5-6 out of 10 with worsening with walking and weightbearing did not have significant redness and also started having for having a fever on presenta tion to the hospital but did have a fever of 101.5 F patient did have white count of 13,000 with a left shift creatinine was normal urine mildly positive patient did have synovial fluid collected this morning by orthopedic which was hazy with white cells of 27,090% PMNs crystals are pending chronic PCR was negative patient did have a chest x-ray no active cardiopulmonary disease patient did have an x-ray of the knee chondrocalcinosis mild osteoarthritis joint effusion patient be started on vancomycin infectious disease was consulted for further management of antibiotic therapy. Patient denies pain to bilateral breast reconstruction incisions or bilateral lateral lower abdominal graft site Review of system: CONSTITUTIONAL: Positive for weakness fever. EYES: No complaint. ENT: No complaint. RESPIRATORY: No complaint. CARDIOVASCULAR: No complaint. GENITOURINARY: No complaint. GASTROINTESTINAL: No complaint. MUSCULOSKELETAL: As per history of present illness. INTEGUMENTARY : As per history of present illness. PSYCHOLOGIC: No complaint. ENDOCRINE: No complaint. NEUROLOGIC: No complaint. Past medical history : Reviewed, documented below Past surgical history : Reviewed, documented below Social history: Reviewed, documented below Medications: Reviewed, as documented below EXAMINATION: Vital sigans= Reviewed and documented below GENERAL DESCRIPTION: Middle-aged female lying in bed, no distress. No tachypnea or accessory muscle of respiration use. HEENT: Shows Pallor , no scleral icterus. Oral mucous membrane is dry. NECK: Trachea central, no thyromegaly. LUNGS: Unlabored breathing. Clear to auscultation anteriorly. No wheeze or crackle. HEART: S1, S2, regular rate and rhythm. ABDOMEN: Soft, no tenderness , guarding or rigidity EXTREMITIES: Left knee with minimal swelling and warmth but no redness SKIN: Bilateral breast reconstruction incision as well as bilateral trunk graft site incision looks clean with no redness. NEUROLOGICAL: The patient is awake, alert, oriented x3, mood and affect normal. LABS AND RADIOLOGY: Reviewed results see below Assessment : Patient presented to hospital with fever and pain to the left knee area in this patient with no history of any trauma patient recently did have a bilateral breast reconstruction surgery done and those sites looks clean chest x-ray is negative urine is mildly positive left knee did have minimal swelling and minimal warmth with a question of possible inflammatory arthritis such as gout or pseudogout as the white count in the synovial fluid was not significantly elevated to be suspicious for septic arthritis though not entirely excluded, patient been concerned about side effect from the vancomycin Plan: 1-discontinue vancomycin 2-empirically add Rocephin 2 g daily while waiting for the culture to finalize 3-gentle IV fluid We will follow on clinical condition and cultures to further adjust medication if needed Thank you for this consultation we will follow the patient along with you Past Medical History Past Medical History: Atrial Fibrillation, Cancer, Diabetes Mellitus, Hyperlipidemia, Hypertension, Supraventricular Tachycardia (SVT) Additional Past Medical History / Comment(s): Postural orthostatic tachycardia syndrome (POTS), Hx of SVT, Migraines, IBS/D. 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 History of Any Multi-Drug Resistant Organisms: MRSA Year Discovered:: Fall 2019 MDRO Source:: Hospital Past Surgical History: Appendectomy, Breast Surgery, Cardiac Ablation, Cholecystectomy, Heart Catheterization, Hysterectomy, Orthopedic Surgery Additional Past Surgical History / Comment(s): BIOPSY- RT BREAST x2, RT LUMPECTOMY; Bilateral Mastectomy with reconstruction, LT KNEE SURGERY X4 (2 arthroscopic), Right ankle x 2, CARDIAC ABLATION X 2. COLONOSCOPY Past Anesthesia/Blood Transfusion Reactions: Previous Problems w/ Anesthesia Additional Past Anesthesia/Blood Transfusion Reaction / Comm: DIFFICULT INTUBATION W/ EMERG APPENDECTOMY BY DR CAPUTO 04/08/2016 ([facility])-Can't find letter. Past Psychological History: Anxiety, Depression Smoking Status: Never smoker Past Alcohol Use History: Rare Past Drug Use History: None Reported - Past Family History Father Family Medical History: Hypertension, Myocardial Infarction ([place]), Pulmonary Embolus Mother Family Medical History: Cancer Additional Family Medical History / Comment(s): Breast/Lymphatic CA Medications and Allergies Home Medications Medication Instructions Recorded Confirmed Type Zolpidem Tartrate [Ambien Cr] 12.5 mg PO HS PRN 09/27/14 05/16/21 History clonazePAM [Clonazepam] 1 mg PO BID 04/08/16 05/16/21 History Sertraline HCl [Zoloft] 100 mg PO HS 12/05/16 05/16/21 History Galcanezumab-Gnlm [Emgality Pen] 120 mg SQ QMONTH 12/10/18 05/16/21 History EPINEPHrine [Epipen 2-Deven] 0.3 mg IM ONCE PRN 01/12/19 05/16/21 History Nitroglycerin Sl Tabs [Nitrostat] 0.4 mg SUBLINGUAL Q5M PRN 01/15/19 05/16/21 History Docusate [Colace] 100 mg PO BID PRN 08/14/20 05/16/21 History cloNIDine HCL [Catapres] 0.2 mg PO DAILY 11/29/20 05/16/21 History Cyclobenzaprine [Flexeril] 5 - 10 mg PO TID PRN 01/25/21 05/16/21 History Fludrocortisone [Florinef] 0.2 mg PO DAILY 30 Days #60 tablet 01/28/21 05/16/21 Rx Atorvastatin Calcium [Lipitor] 10 mg PO DAILY 05/16/21 05/16/21 History cloNIDine HCL [Catapres] 0.1 mg PO DAILY 05/16/21 05/16/21 History oxyCODONE HCL [OxyIR] 5 mg PO Q6H PRN 05/16/21 05/16/21 History traZODone HCL 100 mg PO BID 05/16/21 05/16/21 History Allergies Allergy/AdvReac Type Severity Reaction Status Date / Time morphine Allergy Swelling, Verified 05/16/21 21:17 diff breathing oxycodone Allergy Anaphylaxis Verified 05/16/21 21:17 Penicillins Allergy Unknown Verified 05/16/21 21:17 Childhood venom-honey bee Allergy Anaphylaxis-has Verified 05/16/21 21:17 [bee venom (honey bee)] epi-pen baclofen AdvReac Diarrhea Verified 05/16/21 21:17 Physical Exam Vitals: Vital Signs Temp Pulse Resp BP Pulse Ox 05/17/21 06:16 98.5 F 84 17 114/69 96 05/17/21 02:11 83 18 113/54 97 05/16/21 23:01 99.6 F 101 H 18 151/97 97 05/16/21 22:18 101.6 F H 105 H 18 05/16/21 20:13 101.5 F H 112 H 20 116/70 97 Intake and Output 05/16/21 05/17/21 05/17/21 22:59 06:59 14:59 Other: Voiding Method Bedpan Weight 77.111 kg Results CBC & Chem 7: 05/18/21 07:21 05/18/21 07:21 Labs: Abnormal Lab Results - Last 24 Hours (Table) 05/16/21 05/16/21 05/16/21 Range/Units 21:28 22:34 22:34 WBC 13.0 H (3.8-10.6) k/uL Neutrophils # 9.6 H (1.3-7.7) k/uL ESR 71 H (0-20) mm/hr Sodium 136 L (137-145) mmol/L Glucose 138 H (74-99) mg/dL Total Bilirubin 1.5 H (0.2-1.3) mg/dL ALT 37 H (4-34) U/L C-Reactive Protein 16.1 H (<1.0) mg/dL Urine Appearance (Clear) Urine Protein (Negative) Urine Ketones (Negative) Urine Blood (Negative) Ur Leukocyte Esterase (Negative) Urine WBC (0-5) /hpf Ur Squamous Epith Cells (0-4) /hpf Urine Bacteria (None) /hpf Urine Mucus (None) /hpf 05/17/21 Range/Units 11:15 WBC (3.8-10.6) k/uL Neutrophils # (1.3-7.7) k/uL ESR (0-20) mm/hr Sodium (137-145) mmol/L Glucose (74-99) mg/dL Total Bilirubin (0.2-1.3) mg/dL ALT (4-34) U/L C-Reactive Protein (<1.0) mg/dL Urine Appearance Cloudy H (Clear) Urine Protein Trace H (Negative) Urine Ketones 1+ H (Negative) Urine Blood Small H (Negative) Ur Leukocyte Esterase Small H (Negative) Urine WBC 7 H (0-5) /hpf Ur Squamous Epith Cells 5 H (0-4) /hpf Urine Bacteria Rare H (None) /hpf Urine Mucus Rare H (None) /hpf
[2021-05-18] MEDS ORDERED: POTASSIUM CHLORIDE ER 20 MEQ TAB.ER PO STA (14:25)
--- NOTE | 2021-05-18 15:17 | P.PN ---
<Macario Tilley - Last Filed: 05/18/21 14:26> Subjective Progress Note Date: 05/18/21 Hospital course: Patient is a 50 yo CF with a past medical hx of A fib status post ablation no longer on anticoagulants, Breast Cancer with bilateral masectomy, MRSA with multiple reconstructive breast surgeries, POTS, HTN, SVT, and Dyslipidema. She presented to the ED on 05/16/21 with complaints of left knee pain, swelling, and fever. She was seen and fully evaluated in the emergency department. Her vital signs upon arrival were indicative of sepsis with a temperature of 101.5 and a pulse rate of 112. Laboratory analysis showed a white blood cell count of 13, sodium 136, T bili 1.5, ESR 71 and CRP 16.1. Left knee x-ry revealing joint effusion. CXR negative. Venous Doppler was negative for DVT in the left knee. She was seen by ortho whom performed left knee aspiration at bedside. She was then started on IV antibiotics with vancomycin and admitted under our service with consultation to active directory specialist and infectious disease. We will knee pain patient also reports undergoing reconstructive breast surgery at [facility] on 06/11/21. Physical examination: Patient seen and fully evaluated at bedside. She reports continued pain to left knee and was significantly tender upon palpation. No surrounding erythema or bruising noted. Elevated temps have remained controlled for greater than 24 hours with temperature high of 99.1F over past 24 hours. Morning labs revealing resolution of leukocytosis with WBC count of 8.6 and mild Hypokalemia with potassium of 3.4, orders placed for replacement. Urinalysis negative for infection. Blood cultures showing no growth after 24 hours. Synovial fluid cultures pending. Patient denies having any headache, lightheadedness, dizziness chest pain, palpitations, shortness of breath, or experiencing any numbness/tingling in her extremities. General: non toxic, mild distress secondary to pain, appears at stated age Derm: warm, dry, breast compression device in place, surgical incisions to bilateral breasts well approximated and intact with no signs of dehiscence, lana inage, edema, or surrounding erythema. Patient did have mild bruising to breast. Head: atraumatic, normocephalic, symmetric Eyes: EOMI, no lid lag, anicteric sclera, pupils equal round reactive to light ENT: Nose and ears atraumatic, no thrush, no pharyngeal erythema Neck: No thyromegaly, no cervical lymphadenopathy, trachea midline, supple Mouth: no lip lesion, mucus membranes moist Cardiovascular: S1S2 reg, no murmur, positive posterior tibial pulse bilateral, no edema, capillary refill less than 2 seconds Lungs: clear to ascultation bilateral, no ronchi, no rales, no wheeze, no accessory muscle use Abdominal: soft, nontender to palpation, no guarding, no appreciable organomegaly, normal bowel sounds Ext: no gross muscle atrophy, muscle strength muscle strength intact bilateral upper extremities, flexion and extension of the feet 5 out of 5 in bilateral lower extremities no contractures. Patient with moderate swelling to left knee accompanied by reports of tenderness upon palpation, No surrounding erythema or discoloration. Neuro: CN II-XI grossly intact, light touch intact all 4 extremities Psych: Alert, oriented, appropriate affect Assessment and plan of care: Left knee pain and swelling Sepsis Pyrexia -Continue IV antibiotics with Rocephin 2 g every 24 hours -Blood cultures showing no growth after 24 hours. -Synovial fluid cultures pending. -Orthopedic surgery following, performed left knee joint aspiration on 05/17/21, recommending no need for acute orthopedic surgical intervention at this time. -Infectious disease following -Safe and supportive care with Pain control. -Fall precautions Hypokalemia Replaced, we will continue to monitor with repeat a.m. labs and replace abnormal electrolyte values as needed. [id number] diabetes mellitus type 2, glucose levels stable Hemoglobin A1c 6.1%, diet-controlled. Glycemic protocol, blood glucose levels before meals at bedtime. POTS Continue Florinef - slow changes in position A. fib status post ablation -No longer on anticoagultion -DVT prophylaxis with SCDs Chronic medical conditions include: Hypertension Dyslipidemia SVT Chronic dermatitis Migraine headaches Breast cancer in remission status post bilateral mastectomy and multiple breast reconstructive surgeries with most recent surgery 05/11/21 CODE STATUS: Full code DVT prophylaxis: SCDs Discussed with: Patient, nursing Anticipated discharge date: home Anticipated discharge place: in 2-3 days A total of 45 minutes was spent on the care of this complex patient more than 50% of the time was spent in counseling and care coordination. Objective - Vital Signs Vital signs: Vital Signs Temp 98.4 F 05/18/21 13:46 Pulse 75 05/18/21 13:46 Resp 20 05/18/21 06:23 BP 101/68 05/18/21 13:46 Pulse Ox 97 05/18/21 13:46 Intake & Output 05/17/21 05/18/21 05/18/21 18:59 06:59 18:59 Intake Total 340 100 Balance 340 100 Weight 77.111 kg Intake: Oral 340 100 Other: Voiding Method Bedpan Bedpan # Voids 1 - Labs CBC & Chem 7: 05/18/21 07:21 05/18/21 07:21 Labs: Abnormal Lab Results - Last 24 Hours (Table) 05/17/21 05/17/21 05/18/21 Range/Units 10:35 10:35 07:21 WBC 10.17 H (4.50-10.00) X 10*3/uL RBC 3.83 L (4.10-5.20) X 10*6/uL Hgb 10.8 L (12.0-15.0) g/dL Hct 34.0 L (37.2-46.3) % MCHC 31.8 L (32.0-37.0) g/dL Potassium 3.2 L 3.4 L (3.5-5.5) mmol/L Chloride 108 H (98-107) mmol/L Anion Gap 14.40 H (4.00-12.00) mmol/L BUN 7.2 L 5 L (9.0-27.0) mg/dL BUN/Creatinine Ratio 11.23 L (12.00-20.00) Ratio Glucose 124 H 131 H (70-110) mg/dL Total Bilirubin 1.40 H (0.30-1.20) mg/dL AST 59 H (13-35) U/L Total Protein 6.1 L (6.2-8.2) g/dL 05/18/21 Range/Units 07:21 WBC (4.50-10.00) X 10*3/uL RBC 3.70 L (4.10-5.20) X 10*6/uL Hgb 10.7 L (12.0-15.0) g/dL Hct 33.0 L (37.2-46.3) % MCHC (32.0-37.0) g/dL Potassium (3.5-5.5) mmol/L Chloride (98-107) mmol/L Anion Gap (4.00-12.00) mmol/L BUN (9.0-27.0) mg/dL BUN/Creatinine Ratio (12.00-20.00) Ratio Glucose (70-110) mg/dL Total Bilirubin (0.30-1.20) mg/dL AST (13-35) U/L Total Protein (6.2-8.2) g/dL Microbiology - Last 24 Hours (Table) 05/17/21 07:30 Gram Stain - Preliminary Knee - Left Body Fluid Culture - Preliminary 05/16/21 22:38 Blood Culture - Preliminary Blood No Growth after 24 hours 05/16/21 22:34 Blood Culture - Preliminary Blood No Growth after 24 hours 05/17/21 07:30 Anaerobic Culture - Preliminary Knee - Left 05/17/21 07:30 Fungal Culture - Preliminary Knee - Left <Michelle Mack A - Last Filed: 05/18/21 22:05> Subjective Macario Tilley NP rendered care for this patient independently, reviewed the findings and plan as documented in the note above. I did not physically speak with or examine the patient on this date. Objective - Vital Signs Vital signs: Vital Signs Temp 98.4 F 05/18/21 13:46 Pulse 75 05/18/21 13:46 Resp 20 05/18/21 06:23 BP 101/68 05/18/21 13:46 Pulse Ox 97 05/18/21 13:46 Intake & Output 05/18/21 05/18/21 05/19/21 06:59 18:59 06:59 Intake Total 340 100 480 Balance 340 100 480 Intake: Oral 340 100 480 Other: Voiding Method Bedpan Toilet # Voids 1 1 - Labs CBC & Chem 7: 05/18/21 07:21 05/18/21 07:21 Labs: Abnormal Lab Results - Last 24 Hours (Table) 05/18/21 05/18/21 Range/Units 07: 07:21 RBC 3.70 L (3.80-5.40) m/uL Hgb 10.7 L (11.4-16.0) gm/dL Hct 33.0 L (34.0-46.0) % Potassium 3.4 L (3.5-5.1) mmol/L Chloride 108 H (98-107) mmol/L BUN 5 L (7-17) mg/dL Glucose 131 H (74-99) mg/dL Microbiology - Last 24 Hours (Table) 05/17/21 07:30 Gram Stain - Preliminary Knee - Left Body Fluid Culture - Preliminary 05/16/21 22:38 Blood Culture - Preliminary Blood No Growth after 24 hours 05/16/21 22:34 Blood Culture - Preliminary Blood No Growth after 24 hours
[2021-05-18] MEDS: HYDROmorphone 0.5 MG/0.5 ML SYRINGE IVP PRN ×2 (17:19→22:37)
[2021-05-18] MEDS: SERTRALINE 100 MG TAB PO SCH (20:50)
--- NOTE | 2021-05-18 23:10 | PN ---
PROGRESS NOTE DATE OF SERVICE: 05/18/2021 REASON FOR FOLLOWUP: Fever and a question of left knee septic arthritis. INTERVAL HISTORY: The patient's overall fever pattern has improved, with no fever recorded in the last 24 hours. The patient is still complaining of fevers and chills, though, and pain to the left knee area. She apparently did have a fall while trying to get to the bathroom. PHYSICAL EXAMINATION: Blood pressure 101/68 with a pulse of 75, temperature 98.4. She is 97% on room air. General description is a middle-aged female lying in bed in no distress. RESPIRATORY SYSTEM: Unlabored breathing. Clear to auscultation anteriorly. HEART: S1, S2. Regular rate and rhythm. ABDOMEN: Soft. No tenderness. Left knee seems to be slightly swollen. No redness or drainage. LABS: Hemoglobin is 10.6, white count 8.6, creatinine 0.57. Urine was mildly positive. Cultures are currently pending. DIAGNOSTIC IMPRESSION AND PLAN: Patient with a fever and left knee pain concerning for septic arthritis, though aspirate was not significantly positive. Suspicious for septic arthritis. Patient at this time is covered with Rocephin. That will be continued while waiting for the culture to finalize. Monitor clinical course closely. MMODL / IJN: [id number] /
[2021-05-19] MEDS: HYDROmorphone 0.5 MG/0.5 ML SYRINGE IVP PRN ×3 (02:51→13:06)
[2021-05-19] MEDS: SODIUM CHLORIDE 0.9% 1,000 ML IV SCH (06:01)
[2021-05-19 08:17] VITALS: BP 146/83; PULSE 78; RESP 16; TEMP 98
[2021-05-19] MEDS: clonazePAM 1 MG TAB PO SCH (08:25)
[2021-05-19] MEDS: ATORVASTATIN 10 MG TAB PO SCH (08:25)
[2021-05-19] MEDS: FLUDROCORTISONE 0.1 MG TAB PO SCH (08:25)
[2021-05-19] MEDS: cloNIDine HCL 0.1 MG TAB PO SCH (08:25)
[2021-05-19] MEDS: traZODone HCL 100 MG TAB PO SCH (08:25)
[2021-05-19] MEDS: cloNIDine HCL 0.2 MG TAB PO SCH (08:25)
[2021-05-19] MEDS: methylPREDNISolone 4 MG TAB PO SCH (08:25)
--- NOTE | 2021-05-19 13:20 | P.PN ---
Subjective Progress Note Date: 05/19/21 Principal diagnosis: left knee effusion Patient was seen at bedside this morning resting comfortably lying semirecumbent in bed. Patient states she is having difficulty bearing weight on that left knee. She says she feels her pain is a little bit better controlled over the past couple days. Patient states she is also able to fully extend her left leg today. However, patient says she is so concerned she is not able to put much weight on her left leg without being in significant amount of pain. Patient denies chest pain, fever, chest breath, nausea, vomiting, change in vision, loss of bowel/bladder control. Objective - Vital Signs Vital signs: Vital Signs Temp 98 F 05/19/21 07:40 Pulse 78 05/19/21 07:40 Resp 16 05/19/21 07:40 BP 146/83 05/19/21 07:40 Pulse Ox 95 05/19/21 07:40 Intake & Output 05/18/21 05/19/21 05/19/21 18:59 06:59 18:59 Intake Total 100 480 118 Balance 100 480 118 Intake: Oral 100 480 118 Other: Voiding Method Toilet Toilet # Voids 1 1 1 - Exam Effusion is still present over the left knee, however, effusion is much smaller compared to the encounter in the emergency department. scar is also present over the left knee. Tenderness to palpation of the medial joint line. Nontender to palpationt throughout rest exam. Sensation is equal, symmetric, bilaterally intact throughout upper and lower extremities. patient lacks 5 of full extension in left knee. Patient can flex to 70 in left knee without pain Neurovascular status - DP pulses present, intact 2+ bilaterally. Cap refill below 3 seconds bilaterally in digits. - Labs CBC & Chem 7: 05/18/21 07:21 05/18/21 07:21 Labs: Microbiology - Last 24 Hours (Table) 05/17/21 07:30 Gram Stain - Preliminary Knee - Left Body Fluid Culture - Preliminary 05/16/21 22:38 Blood Culture - Preliminary Blood No Growth after 48 hours 05/16/21 22:34 Blood Culture - Preliminary Blood No Growth after 48 hours Assessment and Plan Assessment: left knee effusion Plan: 1. left knee effusion -swelling in knee is down compared to the past couple days. Patient has better range of motion with the knee. I did discuss results of aspiration with the patient. At this time we do not recommend any urgent/emergent orthopedic surgical intervention. Patient stable for discharge home from an orthopedic standpoint. Orthopedics is signing off. Recommend patient to follow up in the outpatient setting. 2. Appreciate medical management 3. Pain Management - tylenol; oxycodone 4. DVT ppx/ GI ppx 5 PT/OT WBAT w/ walker if needed Time with Patient: Less than 30
--- NOTE | 2021-05-19 15:08 | PN ---
PROGRESS NOTE DATE OF SERVICE: 05/19/2021 REASON FOR FOLLOWUP: Fever and a question of left knee septic arthritis. INTERVAL HISTORY: Patient is afebrile. The patient is feeling better. Breathing comfortably. The patient denies having any chest pain, shortness of breath or cough. No abdominal pain. Pain to the left knee still complaining, but no worsening. PHYSICAL EXAMINATION: Blood pressure 146/83, pulse of 73, temperature 98. She is 95% on room air. General description is a middle-aged female lying in bed in no distress. Respiratory system: Unlabored breathing. Clear to auscultation anteriorly. Heart S1, S2. Regular rate and rhythm. Abdomen soft, no tenderness. Left knee swelling. No significant redness or any drainage. LABS: Hemoglobin is 10.1, white count 8.6, creatinine 0.57. DIAGNOSTIC IMPRESSION AND PLAN: Patient with a fever and pain to the left knee with concern for possible septic arthritis. However, cultures are negative. White count not significantly elevated. Overall, she responded to Rocephin. We will give a short course of oral Ceftin and close outpatient followup. Discussed with the admitting team. MMODL / IJN: [id number] /
--- NOTE | 2021-05-19 19:42 | P.DS ---
<Macario Tilley - Last Filed: 05/19/21 19:24> Providers Expected date of discharge: 05/19/21 Hospital Course: Discharge Diagnosis: Left knee pain and swelling Sepsis Pyrexia Hypokalemia Osn-pibboac-fducknedg diabetes mellitus type 2, glucose levels stable POTS A. fib status post ablation Hypertension Dyslipidemia History of SVT Chronic dermatitis Migraine headaches Breast cancer in remission status post bilateral mastectomy and multiple breast reconstructive surgeries with most recent surgery 05/11/21 Hospital Course: Patient is a 50 yo CF with a past medical hx of A fib status post ablation no longer on anticoagulants, Breast Cancer with bilateral masectomy, MRSA with multiple reconstructive breast surgeries, POTS, HTN, SVT, and Dyslipidema. She presented to the ED on 05/16/21 with complaints of left knee pain, swelling, and fever. She was seen and fully evaluated in the emergency department. Her vital signs upon arrival were indicative of sepsis with a temperature of 101.5 and a pulse rate of 112. Laboratory analysis showed a white blood cell count of 13, sodium 136, T bili 1.5, ESR 71 and CRP 16.1. Left knee x-ray revealing joint effusion. CXR negative. Venous Doppler was negative for DVT in the left knee. She was seen by ortho whom performed left knee aspiration at bedside. She was then started on IV antibiotics with vancomycin and admitted under our service with consultation to nutrient management specialist and infectious disease. In addition to reports of left knee pain, patient also reports recently undergoing reconstructive breast surgery at [facility] on 06/11/21. Throughout hospitalization and patient's condition improved. She remained afebrile for greater than 48 hours. Initial leukocytosis of 13.0 resolved and is now 8.6. Blood culture showed no growth after 48 hours. Preliminary Gram stain and synovial fluid cultures negative to date. Patient is medically stable at this time. Cleared by orthopedic surgery. Discussed case with infectious disease, home also cleared patient for discharge home at this time recommending continuation of Ceftin 5 days for a total of 7 day treatment of antibiotics. Discussed plan of care with patient, patient medically stable for discharge home at this time. Patient being discharged home with antibiotics Ceftin as recommended by infectious disease as well as oxycodone as she reports being out of home pain medications. Patient instructed to follow-up with PCP as well as orthopedic specialists as recommended. Physical examination: Patient seen and fully evaluated at bedside. She reports continued discomfort to left knee but reports improvement from yesterday. Patient has been ambulating in room to and from restroom without reported difficulties. There is no surrounding erythema or bruising noted to knee. Minimal swelling, scarring from previous knee surgery. She has been afebrile for greater than 48 hours. Vital signs stable. Patient shows no signs of acute distress at this time. General: non toxic, mild distress secondary to pain, appears at stated age Derm: warm, dry, breast compression device in place, surgical incisions to bilateral breasts well approximated and intact with no signs of dehiscence, drainage, edema, or surrounding erythema. Patient did have mild bruising to breast. Head: atraumatic, normocephalic, symmetric Eyes: EOMI, no lid lag, anicteric sclera, pupils equal round reactive to light ENT: Nose and ears atraumatic, no thrush, no pharyngeal erythema Neck: No thyromegaly, no cervical lymphadenopathy, trachea midline, supple Mouth: no lip lesion, mucus membranes moist Cardiovascular: S1S2 reg, no murmur, positive posterior tibial pulse bilateral, no edema, capillary refill less than 2 seconds Lungs: clear to ascultation bilateral, no ronchi, no rales, no wheeze, no accessory muscle use Abdominal: soft, nontender to palpation, no guarding, no appreciable organomegaly, normal bowel sounds Ext: no gross muscle atrophy, muscle strength muscle strength intact bilateral upper extremities, flexion and extension of the feet 5 out of 5 in bilateral lower extremities no contractures. Patient with moderate swelling to left knee accompanied by reports of tenderness upon palpation, No surrounding erythema or discoloration. Neuro: CN II-XI grossly intact, light touch intact all 4 extremities Psych: Alert, oriented, appropriate affect A total of 45 minutes of time were spent preparing this complex discharge summary. Patient Condition at Discharge: Stable Plan - Discharge Summary Discharge Rx Participant: No New Discharge Prescriptions: New Cefuroxime Axetil [Ceftin] 500 mg PO BID 5 Days #10 tab oxyCODONE HCL [OxyIR] 5 mg PO Q8H PRN 3 Days #9 tab PRN Reason: Pain methylPREDNISolone Dose Pack [Medrol Dose Pack] 4 mg PO DIRECTED #21 tab Continue Zolpidem Tartrate [Ambien Cr] 12.5 mg PO HS PRN PRN Reason: sleep clonazePAM [Clonazepam] 1 mg PO BID Sertraline HCl [Zoloft] 100 mg PO HS Galcanezumab-Gnlm [Emgality Pen] 120 mg SQ QMONTH EPINEPHrine [Epipen 2-Deven] 0.3 mg IM ONCE PRN PRN Reason: Anaphylaxis Nitroglycerin Sl Tabs [Nitrostat] 0.4 mg SUBLINGUAL Q5M PRN PRN Reason: Chest Pain Docusate [Colace] 100 mg PO BID PRN PRN Reason: Constipation cloNIDine HCL [Catapres] 0.2 mg PO DAILY Cyclobenzaprine [Flexeril] 5 - 10 mg PO TID PRN PRN Reason: Muscle Spasm Fludrocortisone [Florinef] 0.2 mg PO DAILY 30 Days #60 tablet traZODone HCL 100 mg PO BID cloNIDine HCL [Catapres] 0.1 mg PO DAILY Atorvastatin Calcium [Lipitor] 10 mg PO DAILY Discontinued oxyCODONE HCL [OxyIR] 5 mg PO Q6H PRN PRN Reason: Pain Discharge Medication List Zolpidem Tartrate [Ambien Cr] 12.5 mg PO HS PRN 09/27/14 [History] clonazePAM [Clonazepam] 1 mg PO BID 04/08/16 [History] Sertraline HCl [Zoloft] 100 mg PO HS 12/05/16 [History] Galcanezumab-Gnlm [Emgality Pen] 120 mg SQ QMONTH 12/10/18 [History] EPINEPHrine [Epipen 2-Deven] 0.3 mg IM ONCE PRN 01/12/19 [History] Nitroglycerin Sl Tabs [Nitrostat] 0.4 mg SUBLINGUAL Q5M PRN 01/15/19 [History] Docusate [Colace] 100 mg PO BID PRN 08/14/20 [History] cloNIDine HCL [Catapres] 0.2 mg PO DAILY 11/29/20 [History] Cyclobenzaprine [Flexeril] 5 - 10 mg PO TID PRN 01/25/21 [History] Fludrocortisone [Florinef] 0.2 mg PO DAILY 30 Days #60 tablet 01/28/21 [Rx] Atorvastatin Calcium [Lipitor] 10 mg PO DAILY 05/16/21 [History] cloNIDine HCL [Catapres] 0.1 mg PO DAILY 05/16/21 [History] traZODone HCL 100 mg PO BID 05/16/21 [History] Cefuroxime Axetil [Ceftin] 500 mg PO BID 5 Days #10 tab 05/19/21 [Rx] methylPREDNISolone Dose Pack [Medrol Dose Pack] 4 mg PO DIRECTED #21 tab 05/19/21 [Rx] oxyCODONE HCL [OxyIR] 5 mg PO Q8H PRN 3 Days #9 tab 05/19/21 [Rx] Follow up Appointment(s)/Referral(s): Claudio Macias DO [Doctor of Osteopathic Medicine] - 1 Week Najma Givens MD [Primary Care Provider] - 1-2 days Activity/Diet/Wound Care/Special Instructions: Activity: As tolerated. Take breaks as needed. Diet: Heart healthy and carb consistent diet. Avoid salts, or foods with hidden salts such as canned or boxed foods and frozen dinners. Extra salt makes your heart work harder and traps the fluid in your body for longer. Special Instructions: Take all of your medications as directed and remember to keep all of your doctor's appointments and follow-up as needed. Thank you for allowing us to participate in your care, it was truly a pleasure having you for our patient!!! Discharge Disposition: HOME SELF-CARE <Michelle Mack - Last Filed: 05/19/21 22:07> Providers Date of admission: 05/17/21 02:03 Attending physician: Michelle Mack DO Consults: 05/17/21 00:33 Consult Physician Urgent Consulting Provider: Jaymie Lazo Consult Reason/Comments: fever, left knee infection Do you want consulting provider notified?: Yes 05/17/21 09:15 Consult Physician Urgent Consulting Provider: Claudio Macias Consult Reason/Comments: Infection Do you want consulting provider notified?: Already Contacted Primary care physician: Najma Givens MD Hospital Course: Macario Tilley NP rendered care for this patient independently, reviewed the findin gs and plan as documented in the note above. I did not physically speak with or examine the patient on this date.
== END 2021-05-19 16:22 | disposition home or self-care (01) | DRG 872 ==
LOC: EC 19:39 → 4SSUR 05-17 02:03 → 1SOBS 05-17 09:58 → 6NMEDSUR 05-18 16:27
PROVIDERS: ADMIT Internal Medicine; ATTEND Internal Medicine
PROC: 0S9D3ZZ Drainage of Left Knee Joint, Percutaneous Approach (ICD-10-PCS; principal; 2021-05-17)
DX: A41.9 Sepsis, unspecified organism (principal); I47.1 Supraventricular tachycardia; Z16.24 Resistance to multiple antibiotics; E11.9 Type 2 diabetes mellitus without complications; E78.5 Hyperlipidemia, unspecified; E87.6 Hypokalemia; F32.9 Major depressive disorder, single episode, unspecified; F41.9 Anxiety disorder, unspecified; G43.909 Migraine, unspecified, not intractable, without status migrainosus; I10 Essential (primary) hypertension; I48.91 Unspecified atrial fibrillation; L30.9 Dermatitis, unspecified; M06.4 Inflammatory polyarthropathy; Z79.84 Long term (current) use of oral hypoglycemic drugs; Z79.899 Other long term (current) drug therapy; Z82.49 Family history of ischemic heart disease and other diseases of the circulatory system; Z85.3 Personal history of malignant neoplasm of breast; Z86.14 Personal history of Methicillin resistant Staphylococcus aureus infection; Z90.13 Acquired absence of bilateral breasts and nipples; Z90.710 Acquired absence of both cervix and uterus; I49.8 Other specified cardiac arrhythmias; G89.29 Other chronic pain; M54.9 Dorsalgia, unspecified; M54.5 Low back pain; L92.0 Granuloma annulare; R79.82 Elevated C-reactive protein (CRP)
CPT/HCPCS: 36415; 71046; 80048; 80053; 81001; 83605; 83735; 84550; 85025; 85027; 85610; 85652; 86140; 87040; 87070; 87075; 87102; 87205; 87635; 89050; 89060; 96361; 96374; 96375; 99285

== ENCOUNTER → 2021-08-22 | Outpatient (CLI) | payer MEDICARE, OTHER ==
--- NOTE | 2021-08-22 13:55 | USB ---
Reason for exam: clinical finding. History: Patient has history of breast cancer at age 37. Family history of premenopausal breast cancer in aunt and breast cancer in mother at age 59. Benign US biopsy breast VAD LT of the left breast, December 07, 2020. Benign right breast needle localzation of both breasts, July 29, 2013. Excisional biopsy of the right breast, 2007. Benign excisional biopsy of the right breast, May 05, 2007. Lumpectomy of the right breast, 2006. Took other hormone for 5 years beginning at age 37. Indicated problem(s): lump or thickening in the right breast. Physical Findings: Nurse Summary: 1.5cm palpable 2 o'clock chest wall, 8 o'clock laterall 1.5-2cm palpable (nurse db). US Breast RT Right complete breast ultrasound includes all four quadrants, the retroareolar region and axilla. Finding demonstrates a 3.6 x 2.4 x 1.9cm axilla node, a 0.6 x 0.5 x 0.4cm irregular, cystic lesion at 2 o'clock, a 1.9 x 2.5 x 1.0cm oval, irregular, mixed, hypoechoic lesion at 2 o'clock, correlate for infection, ultrasound biopsy/ aspiration recommended, a 0.7 x 0.7 x 0.6cm oval, mixed lesion at 3 o'clock, a 0.5 x 0.5 x 0.2cm oval, irregular, cystic lesion at 4 o'clock, a 0.5 x 0.4 x 0.3cm oval, irregular, complex, cystic lesion at 4 o'clock, a 0.2 x 0.3 x 0.2cm oval, hypoechoic lesion at 5 o'clock, a 2.5 x 1.5 x 0.7cm irregular, fluid area, hypoechoic lesion at 9 o'clock BB, correlate for infection, ultrasound biopsy/ aspiration recommended and a 0.5 x 0.5 x 0.3cm cystic cluster at 11 o'clock. These results were verbally communicated with the patient and result sheet given to the patient on 08/22/21. ASSESSMENT: Suspicious, BI-RAD 4 RECOMMENDATION: Ultrasound core biopsy of the right breast. (2 'clock and 9 o'clock) Manage on a clinical basis with regard to right axillary adenopathy. Called office with mammographic findings and has scheduled an appointment for the patient for 3/3/22 at 2:[address] Joseph. Biopsy/aspiration scheduled for 09/07/21 at 10:30. PRELIMINARY REPORT CALLED AND FAXED TO DR. JOSEPH ON 08/22/21.
[2021-08-22 18:18] LABS: Basophils # (A) 0.05 X 10*3/uL (0.00-0.10); Basophils % (A) 0.6 %; Eosinophils # (A) 0.18 X 10*3/uL (0.04-0.35); Eosinophils % (A) 2.1 %; HCT 45.1 % (37.2-46.3); HGB 14.1 g/dL (12.0-15.0); Immature Grans, Automated 0.3 %; Lymphocytes # (A) 2.51 X 10*3/uL (0.90-5.00); MCH 27.3 pg (27.0-32.0); MCHC 31.3 g/dL (32.0-37.0); MCV 87.4 fL (80.0-97.0); Mean Platelet Volume 10.7 fL (9.5-12.2); Monocytes # (A) 0.53 X 10*3/uL (0.20-1.00); Monocytes % (A) 6.1 %; NRBC Per 100 WBC 0 /100 WBCS (0.0-0.0); Neutrophils # (A) 5.36 X 10*3/uL (1.80-7.70); Neutrophils % (A) 61.9 %; Platelet Count 188 X 10*3/uL (140-440); RBC 5.16 X 10*6/uL (4.10-5.20); RDW 14.2 % (11.5-14.5); WBC 8.66 X 10*3/uL (4.50-10.00)
[2021-08-22 18:25] LABS: ALT 56 U/L (8-44); AST 54 U/L (13-35); African American GFR (CKD) 118.6 (60.0-200.0); Albumin 4.3 g/dL (3.8-4.9); Albumin/Globulin Ratio 1.53 (1.60-3.17); Alkaline Phosphatase 122 U/L (41-126); BUN/Creat Ratio 10.44 Ratio (12.00-20.00); Blood Urea Nitrogen 7.2 mg/dL (9.0-27.0); Calcium 9.4 mg/dL (8.7-10.3); Carbon Dioxide 23.8 mmol/L (20.0-27.5); Chloride 105 mmol/L (96-109); Chol/HDL Ratio 5.21 Ratio; Globulin 2.8 g/dL (1.6-3.3); Glucose 168 mg/dL (70-110); LDL Cholesterol,Calculated 83.9 mg/dL (0.0-131.0); Non-African American GFR(CKD) 102.4 (60.0-200.0); Sodium 142 mmol/L (135-145); Total Protein 7.2 g/dL (6.2-8.2)
== END | disposition home or self-care (01) ==
LOC: RADUSWWP 10:10
PROVIDERS: ATTEND Family Medicine
DX: N63.10 Unspecified lump in the right breast, unspecified quadrant (principal); E11.9 Type 2 diabetes mellitus without complications
CPT/HCPCS: 80053; 80061; 85025

== ENCOUNTER → 2021-09-07 | Day surgery (SDC) | payer MEDICARE, OTHER ==
[2021-09-07 09:55] VITALS: RESP 16
[2021-09-07 11:55] VITALS: BP 91/62; PULSE 81; TEMP 98.6
--- NOTE | 2021-09-07 15:15 | USB ---
EXAMINATION TYPE: US biopsy breast VAD RT DATE OF EXAM: 09/07/2021 CLINICAL HISTORY: 50-year-old female Z85.3 HX OF BREAST CA. Treated with double mastectomies at an outside institution. Presents with palpable area right 2:00 parasternal region. TECHNIQUE: Ultrasound guided core biopsy of the 2:00 right breast. COMPARISON: 08/22/2021 FINDINGS: The procedure of ultrasound guided core biopsy was explained to the patient. Benefits, alternatives, and risks were discussed. An informed consent was then obtained. The 2.3 x 1.7 x 1.1 cm oval solid cystic abnormality solid lesion at the right parasternal region is identified and targeted for biopsy. We note posterior through transmission and no internal vascularity. The 9:00 irregular area for which biopsy was recommended is also identified. During real-time scanning, this is located immediately below a surgical incision site and suggests scar tissue. This can be reassessed at 6 months. The patient was placed in supine positioning for imaging and for the procedure. The overlying skin was prepped and draped in usual sterile fashion. Lidocaine was used as anesthetic into the skin and subcutaneous tissue up to area of concern in the 2:00 left breast. Under ultrasound guidance, a 13-gauge vacuum-assisted mammotome biopsy gun was used to obtain 13 core samples (the first biopsy device malfunctioned; we did not identify any cores returning in the collection chamber). The second device functioned normally. Following this, a Hydromark clip was left in lesion. The patient tolerated the procedure well without any immediate complication. The patient was kept in the radiology department for short stay after the procedure and then discharged home in stable condition. No postbiopsy mammogram in this patient with bilateral mastectomies. IMPRESSION: Successful, uncomplicated ultrasound guided core biopsy of mixed oval 2.3 cm area within the 2 o'clock parasternal right breast palpable site in a patient with recent double mastectomy for right breast cancer. Full pathology results to follow. RECOMMENDATION: 1. If benign results, six-month follow-up right breast ultrasound to reassess the 2:00 biopsy site and also to a reassess the 9:00 area of suspected scarring. Pathology Results: Benign RIGHT BREAST, ULTRASOUND GUIDED NEEDLE CORE BIOPSY: Fat necrosis/scar with histiocytes and chronic inflammation. Negative for malignancy. Recommendation Follow up mammogram and ultrasound of the right breast in 6 months. [facility]
== END | disposition home or self-care (01) ==
LOC: RADUSWWP 09:28
PROVIDERS: ATTEND Family Medicine
DX: R92.8 Other abnormal and inconclusive findings on diagnostic imaging of breast (principal); N60.01 Solitary cyst of right breast; Z85.3 Personal history of malignant neoplasm of breast
CPT/HCPCS: 88305; 19083; A4648; J2001

== ENCOUNTER → 2022-04-11 | Outpatient (CLI) | payer MEDICARE, OTHER ==
--- NOTE | 2022-04-11 10:52 | CT ---
EXAMINATION TYPE: CT lumbar spine wo con DATE OF EXAM: 04/11/2022 COMPARISON: None HISTORY: Radiculopathy CT DLP: 868.80 mGycm CONTRAST: None TECHNIQUE: CT of the lumbar spine is performed on a spiral scan at 3 mm thick sections. Reconstructed images are performed in the coronal and sagittal planes. FINDINGS: T12-L1: No focal disc herniation or significant disc bulge is evident. No spinal canal stenosis or neural foraminal stenosis is present. L1-L2: No focal disc herniation or significant disc bulge is evident. No spinal canal stenosis or n eural foraminal stenosis is present L2-L3: No focal disc herniation or significant disc bulge is evident. No spinal canal stenosis or n eural foraminal stenosis is present L3-L4: There is some endplate changes causing moderate left foraminal stenosis. Correlate with left L 4 radicular symptoms. No suspicious disc herniation or significant disc bulge is evident. Some facet hypertrophy is present. L4-L5: Minimal disc bulge is present with anterior thecal sac contact. No AP spinal canal stenosis is present. Mild facet hypertrophy is present. The neural foramen appear patent. L5-S1: Facet hypertrophy is present. This is contributing to moderate left and severe right foraminal stenosis. Correlate with S1 radicular symptoms. No AP spinal canal stenosis present. No focal disc h erniation or significant disc bulge is evident. Some posterior endplate spurring of S1 is noted with mild anterior thecal sac impression greater in the right paracentral region. Vertebral alignment appears normal. IMPRESSION: 1. Foraminal stenosis L3-4 on the left and L5-S1 bilaterally, greater on the right. Correlate with ra dicular symptoms.
--- NOTE | 2022-04-11 10:56 | CT ---
EXAMINATION TYPE: CT cervical spine wo con DATE OF EXAM: 04/11/2022 COMPARISON: None HISTORY: Radiculopathy CT DLP: 655.80 mGycm CONTRAST: None CT of the cervical spine is performed in the axial plane at 2 mm thick sections. Reconstructed image s in the coronal, and sagittal plane are reviewed on the computer. No acute fractures are evident. Vertebral body alignment is normal. Very large anterior vertebral body spurs are present at C5-C6 to lesser degree C7. There is a central endplate calcification and C6-7 with mild anterior thecal sac impression. No cord deformity is identified in these images. Disc heights are preserved. Some endplate change at C6-7 may be present. Small central disc bulge may be present C2-C3 with minimal anterior thecal sac contact. No spinal can al stenosis is present. Minimal disc bulging may be present C3-4 with anterior thecal sac compression . Vertebral body heights are preserved. Mild spinal canal narrowing may be posterior to the spurring at C6-7. No neural foraminal stenosis is evident. IMPRESSIONS: 1. Endplate spurring and/or posterior longitudinal ligament calcification at C6-7 may have some mil d spinal canal narrowing at C6-7.
== END | disposition home or self-care (01) ==
LOC: RADCTMAIN 07:59
DX: M48.061 Spinal stenosis, lumbar region without neurogenic claudication (principal)
CPT/HCPCS: 72125; 72131

== ENCOUNTER 2022-06-04 06:12 | Emergency (ER) | payer MEDICARE, OTHER ==
[2022-06-04] MEDS ORDERED: METOCLOPRAMIDE 5 MG/ML 2 ML VIAL IVP STA (06:53)
[2022-06-04] MEDS ORDERED: KETOROLAC 15 MG/ML 1 ML VIAL IVP STA ×2 (06:53→10:08)
[2022-06-04] MEDS ORDERED: ACETAMINOPHEN TAB 325 MG TAB PO STA (06:53)
[2022-06-04] MEDS ORDERED: diphenhydrAMINE 50 MG/ML 1 ML VIAL IVP STA ×3 (06:53→10:07)
--- NOTE | 2022-06-04 07:12 | ED ---
General Adult HPI - General Chief complaint: Headache Stated complaint: headache,chest pain Time Seen by Provider: 06/04/22 06:47 Source: patient, RN notes reviewed Mode of arrival: wheelchair Limitations: no limitations - History of Present Illness Initial comments: 51-year-old female presents emergency Department chief complaint of severe headache, nausea, body aches. Patient states that this started around midnight has progressed. Patient states nothing is helping her headache. Patient does admit that she has history of migraines but this feels different. Patient states it's centralized headache. She does complain of mild chest discomfort b ut states that this is from her surgery in which she had breast reconstruction surgery at [facility]. She was hospitalized overnight. Patient denies any significant leg pain states she had some leg swelling after her surgery. - Related Data Home Medications Medication Instructions Recorded Confirmed Zolpidem Tartrate [Ambien Cr] 12.5 mg PO HS PRN 09/27/14 06/04/22 clonazePAM [Clonazepam] 1 mg PO BID PRN 04/08/16 06/04/22 Sertraline HCl [Zoloft] 100 mg PO HS 12/05/16 06/04/22 traZODone HCL 100 mg PO BID 05/16/21 06/04/22 Omeprazole [PriLOSEC] 20 mg PO HS 06/04/22 06/04/22 Sulfamethox-Tmp 800-160Mg [Bactrim 1 tab PO BID 06/04/22 06/04/22 DS 800-160 mg] cloNIDine HCL [Catapres] 0.2 mg PO BID 06/04/22 06/04/22 methocarbamoL [Robaxin-750] 750 mg PO TID PRN 06/04/22 06/04/22 oxyCODONE HCL [Oxycodone HCl] 10 mg PO Q4H PRN 06/04/22 06/04/22 Previous Rx's Medication Instructions Recorded Butalb/APAP/Caff 50-325-40Mg 1 tab PO Q4H PRN #10 tablet 06/04/22 [Fioricet 50-325-40] Allergies Allergy/AdvReac Type Severity Reaction Status Date / Time morphine Allergy Swelling, Verified 06/04/22 11:12 diff breathing oxycodone Allergy Anaphylaxis Verified 06/04/22 11:12 Penicillins Allergy Unknown Verified 06/04/22 11:12 Childhood venom-honey bee Allergy Anaphylaxis-has Verified 06/04/22 11:12 [bee venom (honey bee)] epi-pen baclofen AdvReac Diarrhea Verified 06/04/22 11:12 Review of Systems ROS Statement: Those systems with pertinent positive or pertinent negative responses have been documented in the HPI. ROS Other: All systems not noted in ROS Statement are negative. Past Medical History Past Medical History: Atrial Fibrillation, Cancer, Diabetes Mellitus, Hyperlipidemia, Hypertension, Supraventricular Tachycardia (SVT) Additional Past Medical History / Comment(s): Postural orthostatic tachycardia syndrome (POTS), Hx of SVT, Migraines, IBS/D. 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 History of Any Multi-Drug Resistant Organisms: MRSA Date of last positivie culture/infection: Fall 2019 MDRO Source:: Hospital Past Surgical History: Appendectomy, Breast Surgery, Cardiac Ablation, Camila cystectomy, Heart Catheterization, Hysterectomy, Orthopedic Surgery Additional Past Surgical History / Comment(s): BIOPSY- RT BREAST x2, RT LUMPECTOMY; Bilateral Mastectomy with reconstruction, LT KNEE SURGERY X4 (2 arthroscopic), Right ankle x 2, CARDIAC ABLATION X 2. COLONOSCOPY Past Anesthesia/Blood Transfusion Reactions: Previous Problems w/ Anesthesia Additional Past Anesthesia/Blood Transfusion Reaction / Comment(s): DIFFICULT INTUBATION W/ EMERG APPENDECTOMY BY DR CAPUTO 04/08/2016 ([facility])-Can't find letter. Past Psychological History: Anxiety, Depression Smoking Status: Never smoker Past Alcohol Use History: Rare Past Drug Use History: None Reported - Past Family History Father Family Medical History: Hypertension, Myocardial Infarction ([place]), Pulmonary Embolus Mother Family Medical History: Cancer Additional Family Medical History / Comment(s): Breast/Lymphatic CA General Exam Limitations: no limitations General appearance: alert, in no apparent distress Head exam: Present: atraumatic, normocephalic, normal inspection Eye exam: Present: normal appearance, PERRL, EOMI. Absent: scleral icterus, conjunctival injection, periorbital swelling ENT exam: Present: normal exam, normal oropharynx, mucous membranes moist Neck exam: Present: normal inspection, full ROM. Absent: tenderness, meningismus, lymphadenopathy Respiratory exam: Present: normal lung sounds bilaterally. Absent: respiratory distress, wheezes, rales, rhonchi, stridor Cardiovascular Exam: Present: normal rhythm, tachycardia, normal heart sounds. Absent: systolic murmur, diastolic murmur, rubs, gallop, clicks GI/Abdominal exam: Present: soft, normal bowel sounds. Absent: distended, tenderness, guarding, rebound, rigid Neurological exam: Present: alert, oriented X3 Skin exam: Present: warm, dry, intact, normal color. Absent: rash Course Vital Signs 06/04/22 06/04/22 06/04/22 06:18 07:50 09:31 Temperature 99.5 F Pulse Rate 108 H 97 83 Respiratory 20 18 21 Rate Blood Pressure 158/63 127/74 117/62 O2 Sat by Pulse 97 97 98 Oximetry 06/04/22 12:02 Temperature Pulse Rate 75 Respiratory 18 Rate Blood Pressure 107/60 O2 Sat by Pulse 97 Oximetry EKG Findings - EKG Comments: EKG Findings:: EKG performed at 6:26 sinus tachycardia rate of 12 GA 136 QRS 86 QT/QTC 358/460 - EKG Results: EKG: interpreted by ANTOLIN Medical Decision Making - Medical Decision Making 51-year-old female presented for multiple complaints, headache lesion for: No acute findings. Patient initially of some chest pain repeat labs performed no changes CTA was performed after discussing the case with . Patient states she feels improved to go home at this time. Patient has no meningismus. Patient pain or chest most likely related to surgery this is not a cardiac - Lab Data Result diagrams: 06/04/22 07:13 06/04/22 07:13 Lab Results 06/04/22 06/04/22 06/04/22 Range/Units 06:22 07:13 07:13 WBC 12.8 H (3.8-10.6) k/uL RBC 4.03 (3.80-5.40) m/uL Hgb 12.2 (11.4-16.0) gm/dL Hct 35.7 (34.0-46.0) % MCV 88.5 (80.0-100.0) fL MCH 30.3 (25.0-35.0) pg MCHC 34.2 (31.0-37.0) g/dL RDW 14.7 (11.5-15.5) % Plt Count 203 (150-450) k/uL MPV 7.8 Neutrophils % 77 % Lymphocytes % 16 % Monocytes % 4 % Eosinophils % 2 % Basophils % 0 % Neutrophils # 9.9 H (1.3-7.7) k/uL Lymphocytes # 2.0 (1.0-4.8) k/uL Monocytes # 0.5 (0-1.0) k/uL Eosinophils # 0.3 (0-0.7) k/uL Basophils # 0.0 (0-0.2) k/uL PT (9.0-12.0) sec INR (<1.2) APTT (22.0-30.0) sec Sodium 138 (137-145) mmol/L Potassium 4.4 (3.5-5.1) mmol/L Chloride 106 (98-107) mmol/L Carbon Dioxide 23 (22-30) mmol/L Anion Gap 9 mmol/L BUN 8 (7-17) mg/dL Creatinine 0.47 L (0.52-1.04) mg/dL Est GFR (CKD-EPI)AfAm >90 (>60 ml/min/1.73 sqM) Est GFR (CKD-EPI)NonAf >90 (>60 ml/min/1.73 sqM) Glucose 225 H (74-99) mg/dL Calcium 8.5 (8.4-10.2) mg/dL Total Bilirubin 1.8 H (0.2-1.3) mg/dL AST 51 H (14-36) U/L ALT 38 H (4-34) U/L Alkaline Phosphatase 110 (38-126) U/L Troponin I (0.000-0.034) ng/mL Total Protein 6.8 (6.3-8.2) g/dL Albumin 4.1 (3.5-5.0) g/dL Coronavirus (PCR) Not Detected (Not Detectd) Influenza Type A (PCR) (Not Detectd) Influenza Type B (PCR) (Not Detectd) RSV (PCR) (Not Detectd) SARS-CoV-2 (PCR) (Not Detectd) 06/04/22 06/04/22 06/04/22 Range/Units 07:13 07:13 07:50 WBC (3.8-10.6) k/uL RBC (3.80-5.40) m/uL Hgb (11.4-16.0) gm/dL Hct (34.0-46.0) % MCV (80.0-100.0) fL MCH (25.0-35.0) pg MCHC (31.0-37.0) g/dL RDW (11.5-15.5) % Plt Count (150-450) k/uL MPV Neutrophils % % Lymphocytes % % Monocytes % % Eosinophils % % Basophils % % Neutrophils # (1.3-7.7) k/uL Lymphocytes # (1.0-4.8) k/uL Monocytes # (0-1.0) k/uL Eosinophils # (0-0.7) k/uL Basophils # (0-0.2) k/uL PT 11.8 (9.0-12.0) sec INR 1.1 (<1.2) APTT 24.2 (22.0-30.0) sec Sodium (137-145) mmol/L Potassium (3.5-5.1) mmol/L Chloride (98-107) mmol/L Carbon Dioxide (22-30) mmol/L Anion Gap mmol/L BUN (7-17) mg/dL Creatinine (0.52-1.04) mg/dL Est GFR (CKD-EPI)AfAm (>60 ml/min/1.73 sqM) Est GFR (CKD-EPI)NonAf (>60 ml/min/1.73 sqM) Glucose (74-99) mg/dL Calcium (8.4-10.2) mg/dL Total Bilirubin (0.2-1.3) mg/dL AST (14-36) U/L ALT (4-34) U/L Alkaline Phosphatase (38-126) U/L Troponin I <0.012 (0.000-0.034) ng/mL Total Protein (6.3-8.2) g/dL Albumin (3.5-5.0) g/dL Coronavirus (PCR) (Not Detectd) Influenza Type A (PCR) Not Detected (Not Detectd) Influenza Type B (PCR) Not Detected (Not Detectd) RSV (PCR) Not Detected (Not Detectd) SARS-CoV-2 (PCR) Not Detected (Not Detectd) 06/04/22 Range/Units 10:27 WBC (3.8-10.6) k/uL RBC (3.80-5.40) m/uL Hgb (11.4-16.0) gm/dL Hct (34.0-46.0) % MCV (80.0-100.0) fL MCH (25.0-35.0) pg MCHC (31.0-37.0) g/dL RDW (11.5-15.5) % Plt Count (150-450) k/uL MPV Neutrophils % % Lymphocytes % % Monocytes % % Eosinophils % % Basophils % % Neutrophils # (1.3-7.7) k/uL Lymphocytes # (1.0-4.8) k/uL Monocytes # (0-1.0) k/uL Eosinophils # (0-0.7) k/uL Basophils # (0-0.2) k/uL PT (9.0-12.0) sec INR (<1.2) APTT (22.0-30.0) sec Sodium (137-145) mmol/L Potassium (3.5-5.1) mmol/L Chloride (98-107) mmol/L Carbon Dioxide (22-30) mmol/L Anion Gap mmol/L BUN (7-17) mg/dL Creatinine (0.52-1.04) mg/dL Est GFR (CKD-EPI)AfAm (>60 ml/min/1.73 sqM) Est GFR (CKD-EPI)NonAf (>60 ml/min/1.73 sqM) Glucose (74-99) mg/dL Calcium (8.4-10.2) mg/dL Total Bilirubin (0.2-1.3) mg/dL AST (14-36) U/L ALT (4-34) U/L Alkaline Phosphatase (38-126) U/L Troponin I <0.012 (0.000-0.034) ng/mL Total Protein (6.3-8.2) g/dL Albumin (3.5-5.0) g/dL Coronavirus (PCR) (Not Detectd) Influenza Type A (PCR) (Not Detectd) Influenza Type B (PCR) (Not Detectd) RSV (PCR) (Not Detectd) SARS-CoV-2 (PCR) (Not Detectd) Disposition Clinical Impression: Headache, Viral illness, Atypical chest pain Disposition: HOME SELF-CARE Condition: Stable Instructions (If sedation given, give patient instructions): Acute Headache (ED) Additional Instructions: Please return to the Emergency Department if symptoms worsen or any other concerns. Prescriptions: Butalb/APAP/Caff 50-325-40Mg [Fioricet 50-325-40] 1 tab PO Q4H PRN #10 tablet PRN Reason: Headache Is patient prescribed a controlled substance at d/c from ED?: Yes When asked, does pt state using other controlled substances?: Yes If prescribed controlled substance>3 days was MAPS reviewed?: Prescribed <3 Days Referrals: Reji Hernandez MD [Primary Care Provider] - 1-2 days
[2022-06-04 07:22] LABS: Basophils % (A) 0 %; Eosinophils # (A) 0.3 k/uL (0-0.7); Eosinophils % (A) 2 %; HCT 35.7 % (34.0-46.0); HGB 12.2 gm/dL (11.4-16.0); Lymphocytes % (A) 16 %; MCH 30.3 pg (25.0-35.0); MCHC 34.2 g/dL (31.0-37.0); MCV 88.5 fL (80.0-100.0); Mean Platelet Volume 7.8; Monocytes # (A) 0.5 k/uL (0-1.0); Monocytes % (A) 4 %; Neutrophils # (A) 9.9 k/uL (1.3-7.7); Neutrophils % (A) 77 %; Platelet Count 203 k/uL (150-450); RBC 4.03 m/uL (3.80-5.40); RDW 14.7 % (11.5-15.5); WBC 12.8 k/uL (3.8-10.6)
[2022-06-04 07:37] LABS: ALT 38 U/L (4-34); African American GFR (CKD) >90 (>60 ml/min/1.73 sqM); Anion Gap 9 mmol/L; Blood Urea Nitrogen 8 mg/dL (7-17); Calcium 8.5 mg/dL (8.4-10.2); Carbon Dioxide 23 mmol/L (22-30); Chloride 106 mmol/L (98-107); Glucose 225 mg/dL (74-99); Non-African American GFR(CKD) >90 (>60 ml/min/1.73 sqM); Sodium 138 mmol/L (137-145); Total Bilirubin 1.8 mg/dL (0.2-1.3); Total Protein 6.8 g/dL (6.3-8.2)
--- NOTE | 2022-06-04 07:40 | CT ---
EXAMINATION TYPE: CT brain wo con DATE OF EXAM: 06/04/2022 COMPARISON: 01/28/2020 HISTORY: severe LUNA CT DLP: 1096.[address] of the brain was performed. The ventricles, basal cisterns and sulci overlying the cerebral convexities demonstrate mild enlargem ent. There is no evidence for intracranial hemorrhage or sulcal effacement. There is decreased attenuation about the periventricular white matter and deep white matter of both c erebral hemispheres, compatible with chronic small vessel ischemia. Differential diagnosis does inclu de demyelination. No mass effects are seen.No midline shift. Osseous calvarium is intact. If symptoms persist consider MRI. IMPRESSION: 1. Age related atrophic and chronic small vessel ischemic change without acute intracranial process s een at this time.
[2022-06-04 07:51] LABS: AST 51 U/L (14-36); Albumin 4.1 g/dL (3.5-5.0); Alkaline Phosphatase 110 U/L (38-126); Potassium 4.4 mmol/L (3.5-5.1)
[2022-06-04 08:10] LABS: INR 1.1 (<1.2); Partial Thromboplastin Time 24.2 sec (22.0-30.0); Prothrombin Time 11.8 sec (9.0-12.0)
--- NOTE | 2022-06-04 08:15 | XR ---
EXAMINATION TYPE: XR chest 2V DATE OF EXAM: 06/04/2022 7:45 AM COMPARISON: Chest radiographs from 05/16/2021. TECHNIQUE: XR chest 2V Frontal and lateral views of the chest. CLINICAL INDICATION:Female, 51 years old with history of pain; FINDINGS: Lungs/Pleura: There is no evidence of pleural effusion, focal consolidation, or pneumothorax. Pulmonary vascularity: Unremarkable. Heart/mediastinum: Cardiomediastinal silhouette is unremarkable. Musculoskeletal: No acute osseous pathology. IMPRESSION: No acute cardiopulmonary disease/process.
[2022-06-04] MEDS ORDERED: HYDROmorphone 0.5 MG/0.5 ML SYRINGE IVP STA ×2 (09:22→10:07)
[2022-06-04] MEDS ORDERED: ONDANSETRON 4 MG/2 ML VIAL IVP STA (09:22)
--- NOTE | 2022-06-04 10:06 | CT ---
EXAMINATION TYPE: CT angio COW [facility] DATE OF EXAM: 06/04/2022 9:55 AM COMPARISON: 06/04/2022 HISTORY: atypical sudden onset of LUNA CT DLP: 1219.4 mGycm Automated exposure control for dose reduction was used. TECHNIQUE: Performed with IV Contrast, patient injected with 100 mL of Isovue 370. . FINDINGS: Vertebrobasilar and carotid systems visualized are intact. There is no evidence of sizable aneurysm o r vascular malformation. Posterior cerebral, anterior cerebral and middle cerebral arteries appear to be patent. IMPRESSION: NO SIZABLE ANEURYSM OR VASCULAR MALFORMATION.
[2022-06-04 12:03] VITALS: RESP 18
[2022-06-04 12:35] VITALS: BP 103/65; PULSE 72; TEMP 98.1
== END 2022-06-04 12:34 | disposition home or self-care (01) ==
LOC: EC 06:12
DX: B34.9 Viral infection, unspecified (principal); R07.89 Other chest pain; E11.9 Type 2 diabetes mellitus without complications; I10 Essential (primary) hypertension; E78.5 Hyperlipidemia, unspecified; F32.A Depression, unspecified; F41.9 Anxiety disorder, unspecified; Z20.822 Contact with and (suspected) exposure to COVID-19; Z85.9 Personal history of malignant neoplasm, unspecified; Z91.030 Bee allergy status; Z88.0 Allergy status to penicillin; Z88.5 Allergy status to narcotic agent; Z88.6 Allergy status to analgesic agent; Z88.8 Allergy status to other drugs, medicaments and biological substances; Z79.899 Other long term (current) drug therapy
CPT/HCPCS: 36415; 80053; 84484; 85025; 85610; 85730; 87635; 87636; 71046; 70496; 70450; 99285; 96374; 96375; 96376; J1200; J2765; J2405; J1885; J1170; Q9967; J1790

== ENCOUNTER 2022-12-10 22:21 | Observation (INO) | payer MEDICARE, OTHER ==
[2022-12-10] MEDS ORDERED: ONDANSETRON 4 MG/2 ML VIAL IVP STA (23:08)
[2022-12-10] MEDS ORDERED: fentaNYL (PF) 50 MCG/ML 2 ML AMP IVP STA (23:08)
[2022-12-10 23:25] LABS: Basophils % (A) 0 %; Eosinophils # (A) 0.1 k/uL (0-0.7); Eosinophils % (A) 1 %; HCT 47.9 % (34.0-46.0); HGB 15.9 gm/dL (11.4-16.0); Lymphocytes # (A) 3.5 k/uL (1.0-4.8); Lymphocytes % (A) 26 %; MCH 28.5 pg (25.0-35.0); MCHC 33.2 g/dL (31.0-37.0); MCV 85.9 fL (80.0-100.0); Mean Platelet Volume 7.3; Monocytes # (A) 0.5 k/uL (0-1.0); Monocytes % (A) 4 %; Neutrophils # (A) 9.2 k/uL (1.3-7.7); Neutrophils % (A) 68 %; Platelet Count 208 k/uL (150-450); RBC 5.58 m/uL (3.80-5.40); RDW 14.3 % (11.5-15.5); WBC 13.6 k/uL (3.8-10.6)
--- NOTE | 2022-12-10 23:56 | XR ---
EXAM: XR Chest, 2 Views CLINICAL HISTORY: ITS.REASON XR Reason: CP TECHNIQUE: Frontal and lateral views of the chest. COMPARISON: No relevant prior studies available. FINDINGS: Lungs: Unremarkable. No consolidation. Pleural space: Unremarkable. No pneumothorax. Heart: There is cardiomegaly. Mediastinum: Unremarkable. Bones/joints: Unremarkable. IMPRESSION: No focal infiltrate. Note, the technologist placed left-sided marker on the wrong side of the patient.
[2022-12-11 00:42] LABS: ALT 47 U/L (4-34); AST 82 U/L (14-36); African American GFR (CKD) >90 (>60 ml/min/1.73 sqM); Albumin 4.7 g/dL (3.5-5.0); Alkaline Phosphatase 122 U/L (38-126); Anion Gap 10 mmol/L; Blood Urea Nitrogen 18 mg/dL (7-17); Calcium 8.8 mg/dL (8.4-10.2); Carbon Dioxide 21 mmol/L (22-30); Chloride 106 mmol/L (98-107); Glucose 105 mg/dL (74-99); Lipase 173 U/L (23-300); Magnesium 2.2 mg/dL (1.6-2.3); Non-African American GFR(CKD) >90 (>60 ml/min/1.73 sqM); Sodium 137 mmol/L (137-145); Total Bilirubin 1.5 mg/dL (0.2-1.3); Total Protein 8.3 g/dL (6.3-8.2)
[2022-12-11 00:49] LABS: Potassium 5.2 mmol/L (3.5-5.1)
--- NOTE | 2022-12-11 02:01 | ED ---
General Adult HPI - General Chief complaint: Chest Pain Stated complaint: Chest Pain Time Seen by Provider: 12/10/22 22:36 Source: patient Mode of arrival: wheelchair Limitations: no limitations - History of Present Illness Initial comments: This is a 52-year-old female with a past medical history including diabetes, hypertension presents emergency department for chest pain. The patient stated this chest pain began one hour prior to arrival and was consistent with a pressure-like sensation in the center of her chest and did have some minor radiation to the left upper back. The patient did state that she was nauseous and did have episodes of diaphoresis. The patient also has a past medical history including POTS disease and she does pass out frequently. The patient denied any other acute pain or complaints at this time and did state that she has had previous chest pain in the past but stated that this is different. The patient did see her mine foreman last week and has a scheduled cardiac catheterization on December 18. The patient denied any other acute pain or complaints at this time. The patient did state that she had increasing fatigue as well as feeling that she had increasing fluid in her lower legs. - Related Data Home Medications Medication Instructions Recorded Confirmed Zolpidem Tartrate [Ambien Cr] 12.5 mg PO HS PRN 09/27/14 06/04/22 clonazePAM [Clonazepam] 1 mg PO BID PRN 04/08/16 06/04/22 Sertraline HCl [Zoloft] 100 mg PO HS 12/05/16 06/04/22 traZODone HCL 100 mg PO BID 05/16/21 06/04/22 Omeprazole [PriLOSEC] 20 mg PO HS 06/04/22 06/04/22 Sulfamethox-Tmp 800-160Mg [Bactrim 1 tab PO BID 06/04/22 06/04/22 DS 800-160 mg] cloNIDine HCL [Catapres] 0.2 mg PO BID 06/04/22 06/04/22 methocarbamoL [Robaxin-750] 750 mg PO TID PRN 06/04/22 06/04/22 oxyCODONE HCL [Oxycodone HCl] 10 mg PO Q4H PRN 06/04/22 06/04/22 Previous Rx's Medication Instructions Recorded Butalb/APAP/Caff 50-325-40Mg 1 tab PO Q4H PRN #10 tablet 06/04/22 [Fioricet 50-325-40] Allergies Allergy/AdvReac Type Severity Reaction Status Date / Time morphine Allergy Swelling, Verified 12/10/22 22:26 diff breathing oxycodone Allergy Anaphylaxis Verified 12/10/22 22:26 Penicillins Allergy Unknown Verified 12/10/22 22:26 Childhood venom-honey bee Allergy Anaphylaxis-has Verified 12/10/22 22:26 [bee venom (honey bee)] epi-pen baclofen AdvReac Diarrhea Verified 12/10/22 22:26 Review of Systems ROS Statement: Those systems with pertinent positive or pertinent negative responses have been documented in the HPI. ROS Other: All systems not noted in ROS Statement are negative. Past Medical History Past Medical History: Atrial Fibrillation, Coronary Artery Disease (CAD), Cancer, Diabetes Mellitus, Hyperlipidemia, Hypertension, Supraventricular Tachycardia (SVT) Additional Past Medical History / Comment(s): Postural orthostatic tachycardia syndrome (POTS), Hx of SVT, Migraines, IBS/D. 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 History of Any Multi-Drug Resistant Organisms: MRSA Date of last positivie culture/infection: Fall 2019 MDRO Source:: Hospital Past Surgical History: Appendectomy, Breast Surgery, Cardiac Ablation, Cholecystectomy, Heart Catheterization, Hysterectomy, Orthopedic Surgery Additional Past Surgical History / Comment(s): BIOPSY- RT BREAST x2, RT LUMPECTOMY; Bilateral Mastectomy with reconstruction, LT KNEE SURGERY X4 (2 arthroscopic), Right ankle x 2, CARDIAC ABLATION X 2. COLONOSCOPY Past Anesthesia/Blood Transfusion Reactions: Previous Problems w/ Anesthesia Additional Past Anesthesia/Blood Transfusion Reaction / Comment(s): DIFFICULT INTUBATION W/ EMERG APPENDECTOMY BY DR CAPUTO 04/08/2016 ([facility])-Can't find letter. Past Psychological History: Anxiety, Depression Smoking Status: Never smoker Past Alcohol Use History: Rare Past Drug Use History: None Reported - Past Family History Father Family Medical History: Hypertension, Myocardial Infarction (ID), Pulmonary Embolus Mother Family Medical History: Cancer Additional Family Medical History / Comment(s): Breast/Lymphatic CA General Exam Limitations: no limitations General appearance: alert, in no apparent distress Head exam: Present: atraumatic, normocephalic, normal inspection Eye exam: Present: normal appearance, PERRL Pupils: Present: normal accommodation ENT exam: Present: normal exam, normal oropharynx, mucous membranes moist Neck exam: Present: normal inspection, full ROM Respiratory exam: Present: normal lung sounds bilaterally. Absent: chest wall tenderness Cardiovascular Exam: Present: regular rate, normal rhythm, normal heart sounds GI/Abdominal exam: Present: soft, normal bowel sounds Extremities exam: Present: normal inspection, full ROM Back exam: Present: normal inspection, full ROM Neurological exam: Present: alert, oriented X3, CN II-XII intact Psychiatric exam: Present: normal affect, normal mood Skin exam: Present: warm, dry Course Vital Signs 12/10/22 12/10/22 22:23 23:23 Temperature 98.0 F Pulse Rate 115 H 94 Respiratory 22 18 Rate Blood Pressure 131/86 120/64 O2 Sat by Pulse 99 98 Oximetry EKG Findings - EKG Comments: EKG Findings:: An EKG was obtained and was interpreted by myself showing a rate of 99, MO interval 152, QRS duration of 73 and QTC of 408. This EKG showed a normal sinus rhythm with no ST segment elevation or depression noted. Medical Decision Making - Medical Decision Making Was pt. sent in by a medical professional or institution (, PA, DRAW BENCH OPERATOR HELPER, urgent care, hospital, or skilled nursing...) When possible be specific @ -No Did you speak to anyone other than the patient for history (EMS, parent, family, police, friend...)? What history was obtained from this source @ -No Did you review nursing and triage notes (agree or disagree)? Why? @ -I reviewed and agree with nursing and triage notes Were old charts reviewed (outside hosp., previous admission, EMS record, old EKG, old radiological studies, urgent care reports/EKG's, skilled nursing records)? Report findings @ -No old charts were reviewed Differential Diagnosis (chest pain, altered mental status, abdominal pain women, abdominal pain men, vaginal bleeding, weakness, fever, dyspnea, syncope, headache, dizziness, GI bleed, back pain, seizure, CVA, palpatations, mental health)? @ -ACS, chest wall muscle strain, pneumonia EKG interpreted by me (3pts min.). @ -As above X-rays interpreted by me (1pt min.). @ -Chest x-ray was obtained and was interpreted by myself showing no acute process CT interpreted by me (1pt min.). @ -None done U/S interpreted by me (1pt. min.). @ -None done What testing was considered but not performed or refused? (CT, X-rays, U/S, labs)? Why? @ -None What meds were considered but not given or refused? Why? @ -None Did you discuss the management of the patient with other professionals (professionals i.e. DrAdrian, PA, DRAW BENCH OPERATOR HELPER, lab, RT, psych nurse, 7th grade social studies teacher, technical support specialist, teacher, information assurance officer, field nurse case manager)? Give summary @ -Yes, admitting physician was contacted regarding patient admission to observation Was smoking cessation discussed for >3mins.? @ -No Was critical care preformed (if so, how long)? @ -No Were there social determinants of health that impacted care today? How? (Homelessness, low income, unemployed, alcoholism, drug addiction, transportation, low edu. Level, literacy, decrease access to med. care, long-term, rehab)? @ -No Was there de-escalation of care discussed even if they declined (Discuss DNR or withdrawal of care, Hospice)? DNR status @ -No What co-morbidities impacted this encounter? (DM, HTN, Smoking, COPD, CAD, C ancer, CVA, ARF, Chemo, Hep., AIDS, mental health diagnosis, sleep apnea, morbid obesity)? @ -Diabetes, hypertension, POTS disease Was patient admitted / discharged? Hospital course, mention meds given and route, prescriptions, significant lab abnormalities, going to OR and other pertinent info. @ -The patient was seen and evaluated emergency department. Physical exam, the patient did have mild anxiety second marriage for chest pain but vital signs were stable. There was also mild tachycardia noted. Due to the patient's complaints, laboratory workup, chest x-ray and EKG were obtained. Laboratory workup was within normal limits. Chest x-rays negative. The patient did receive Zofran and fentanyl for pain as the patient did have a slightly decreased blood pressure therefore was not given nitroglycerin or morphine. Due to the nature the patient's chest pain in the setting of a past medical history including hypertension and diabetes as well as the previously scheduled cardiac catheterization, the patient will be placed in observation for cardiology to evaluate in the morning. The patient on reevaluation stated that her symptoms were improved and she was agreeable to this plan. The patient was placed in observation in stable condition. Undiagnosed new problem with uncertain prognosis? @ -No Drug Therapy requiring intensive monitoring for toxicity (Heparin, Nitro, Insulin, Cardizem)? @ -No Were any procedures done? @ -No Diagnosis/symptom? @ -Chest pain, rule out ACS Acute, or Chronic, or Acute on Chronic? @ -Acute Uncomplicated (without systemic symptoms) or Complicated (systemic symptoms)? @ -Complicated Side effects of treatment? @ -No Exacerbation, Progression, or Severe Exacerbation? @ -No Poses a threat to life or bodily function? How? (Chest pain, USA, ID, pneumonia, PE, COPD, DKA, ARF, appy, cholecystitis, CVA, Diverticulitis, Homicidal, Suicidal, threat to staff... and all critical care pts) @ -Yes, chest pain can lead to ACS leading to permanent damage and possible . - Lab Data Result diagrams: 12/10/22 23:03 12/10/22 23:00 Lab Results 12/10/22 12/10/22 12/10/22 Range/Units 23:00 23:00 23:03 WBC 13.6 H (3.8-10.6) k/uL RBC 5.58 H (3.80-5.40) m/uL Hgb 15.9 (11.4-16.0) gm/dL Hct 47.9 H (34.0-46.0) % MCV 85.9 (80.0-100.0) fL MCH 28.5 (25.0-35.0) pg MCHC 33.2 (31.0-37.0) g/dL RDW 14.3 (11.5-15.5) % Plt Count 208 (150-450) k/uL MPV 7.3 Neutrophils % 68 % Lymphocytes % 26 % Monocytes % 4 % Eosinophils % 1 % Basophils % 0 % Neutrophils # 9.2 H (1.3-7.7) k/uL Lymphocytes # 3.5 (1.0-4.8) k/uL Monocytes # 0.5 (0-1.0) k/uL Eosinophils # 0.1 (0-0.7) k/uL Basophils # 0.0 (0-0.2) k/uL D-Dimer (<0.60) mg/L FEU Sodium 137 (137-145) mmol/L Potassium 5.2 H (3.5-5.1) mmol/L Chloride 106 (98-107) mmol/L Carbon Dioxide 21 L (22-30) mmol/L Anion Gap 10 mmol/L BUN 18 H (7-17) mg/dL Creatinine 0.62 (0.52-1.04) mg/dL Est GFR (CKD-EPI)AfAm >90 (>60 ml/min/1.73 sqM) Est GFR (CKD-EPI)NonAf >90 (>60 ml/min/1.73 sqM) Glucose 105 H (74-99) mg/dL Calcium 8.8 (8.4-10.2) mg/dL Magnesium 2.2 (1.6-2.3) mg/dL Total Bilirubin 1.5 H (0.2-1.3) mg/dL AST 82 H (14-36) U/L ALT 47 H (4-34) U/L Alkaline Phosphatase 122 (38-126) U/L Troponin I 0.014 (0.000-0.034) ng/mL NT-Pro-B Natriuret Pep pg/mL Total Protein 8.3 H (6.3-8.2) g/dL Albumin 4.7 (3.5-5.0) g/dL Lipase 173 (23-300) U/L 12/10/22 12/10/22 Range/Units 23:03 23:03 WBC (3.8-10.6) k/uL RBC (3.80-5.40) m/uL Hgb (11.4-16.0) gm/dL Hct (34.0-46.0) % MCV (80.0-100.0) fL MCH (25.0-35.0) pg MCHC (31.0-37.0) g/dL RDW (11.5-15.5) % Plt Count (150-450) k/uL MPV Neutrophils % % Lymphocytes % % Monocytes % % Eosinophils % % Basophils % % Neutrophils # (1.3-7.7) k/uL Lymphocytes # (1.0-4.8) k/uL Monocytes # (0-1.0) k/uL Eosinophils # (0-0.7) k/uL Basophils # (0-0.2) k/uL D-Dimer 0.28 (<0.60) mg/L FEU Sodium (137-145) mmol/L Potassium (3.5-5.1) mmol/L Chloride (98-107) mmol/L Carbon Dioxide (22-30) mmol/L Anion Gap mmol/L BUN (7-17) mg/dL Creatinine (0.52-1.04) mg/dL Est GFR (CKD-EPI)AfAm (>60 ml/min/1.73 sqM) Est GFR (CKD-EPI)NonAf (>60 ml/min/1.73 sqM) Glucose (74-99) mg/dL Calcium (8.4-10.2) mg/dL Magnesium (1.6-2.3) mg/dL Total Bilirubin (0.2-1.3) mg/dL AST (14-36) U/L ALT (4-34) U/L Alkaline Phosphatase (38-126) U/L Troponin I (0.000-0.034) ng/mL NT-Pro-B Natriuret Pep 25 pg/mL Total Protein (6.3-8.2) g/dL Albumin (3.5-5.0) g/dL Lipase (23-300) U/L Disposition Clinical Impression: Chest pain Disposition: ADMITTED IP TO THIS [facility] Condition: Stable Is patient prescribed a controlled substance at d/c from ED?: No Referrals: Reji Hernandez MD [Primary Care Provider] - 1-2 days Time of Disposition: 01:00 Decision to Admit Reason: Admit from EC Decision Date: 12/11/22 Decision Time: 01:00
[2022-12-11] MEDS ORDERED: NALOXONE 0.4 MG/ML 1 ML VIAL IV PRN (02:05)
[2022-12-11] MEDS ORDERED: MORPHINE SULFATE 4 MG/ML SYRINGE IVP STA (02:15)
[2022-12-11] MEDS ORDERED: clonazePAM 0.5 MG TAB PO STA (05:15)
[2022-12-11] MEDS ORDERED: HEPARIN SODIUM,PORCINE 10,000 UNIT in SODIUM CHLORIDE 0.9% 1,000 ML IRRIGATION PRN (07:00)
[2022-12-11] MEDS ORDERED: HEPARIN SODIUM,PORCINE 2,500 UNIT in SODIUM CHLORIDE 0.9% 250 ML IRRIGATION PRN (07:00)
[2022-12-11] MEDS ORDERED: ALPRAZolam 0.25 MG TAB PO PRN (07:26)
[2022-12-11] MEDS ORDERED: ATORVASTATIN 80 MG TAB PO STA (07:26)
[2022-12-11] MEDS ORDERED: ALPRAZolam 0.5 MG TAB PO PRN (07:26)
[2022-12-11] MEDS ORDERED: NITROGLYCERIN SL TABS 0.4 MG TAB SUBLINGUAL PRN (07:26)
[2022-12-11] MEDS ORDERED: ASPIRIN 325 MG TAB PO STA (07:26)
[2022-12-11] MEDS: MORPHINE SULFATE 4 MG/ML SYRINGE IVP PRN ×2 (08:33→16:19)
[2022-12-11 08:34] LABS: Glucose,Whole Blood 113 mg/dL (70-110)
[2022-12-11] MEDS ORDERED: clonazePAM 1 MG TAB PO PRN (11:22)
[2022-12-11] MEDS ORDERED: VERAPAMIL 2.5 MG/ML 2 ML AMP ONE (12:04)
[2022-12-11] MEDS ORDERED: IV FLUID CONTINUATION 1,000 ML IV ONE (12:20)
[2022-12-11] MEDS ORDERED: HEPARIN SODIUM 1,000 UN/ML (10ML VL) ONE (12:39)
[2022-12-11] MEDS ORDERED: MIDAZOLAM 2 MG/2 ML VIAL IV ONE ×2 (12:55→13:01)
[2022-12-11] MEDS ORDERED: LIDOCAINE 1% INJ 10MG/ML (5 ML VIAL-PF) SQ ONE (12:58)
[2022-12-11] MEDS ORDERED: VERAPAMIL SYRINGE (5 MG/10 ML) INTRAARTER ONE (12:59)
[2022-12-11] MEDS ORDERED: HEPARIN SODIUM 1,000 UN/ML (10ML VL) IV ONE (13:00)
[2022-12-11] MEDS ORDERED: RX INFO: IV CONTRAST WAS GIVEN 1 EACH MISC MISCELLANE PRN (13:07)
--- NOTE | 2022-12-11 13:09 | P.PCN ---
Date of Procedure: 12/11/22 Operative Findings: CARDIAC CATHETERIZATION PERFORMING PHYSICIAN: Mark Linda MD, RPVI PROCEDURE PERFORMED: 1. Selective right and left coronary angiogram 2. Left heart catheterization INDICATION: Unstable angina COMPLICATION: None APPROACH: Right radial artery LEVEL OF SEDATION: Moderate with a sedation length of 12 minutes PROCEDURE DESCRIPTION: After obtaining an informed consent, the patient was brought to cardiac laborer carpentry dock. Local anesthesia was performed using lidocaine subcutaneously. The right radial artery was cannulated using Seldinger technique, the guidewire passed easily, following that we advanced a 5-Salvadorean sheath dilator assembly, the wire and dilator were removed and sheath was flushed. Following that, 2 mg of verapamil along with 5000 unit heparin were given. Selective right and left coronary angiogram using a 6-Salvadorean JR4 and JL 3.5 catheters. Following that we did left heart catheterization using 6-Salvadorean pigtail catheter. The procedure was completed there was no complication. SELECTIVE CORONARY ANGIOGRAM: The right coronary artery: Medium caliber vessel nondominant vessel and appears to be angiographically normal Left main: Is angiographically normal. Bifurcates into an LCx and LAD The left circumflex: Large caliber vessel and dominant vessel. The LCx is angiographically normal and gives rises into an OM1 which appeared to be normal and distally bifurcates into PDA and PLV branches both appeared to be angiographically normal The left anterior descending artery: Large caliber vessel. The LAD is angiographically normal and gives rise into a diagonal branch which seems to be angiographically normal HEMODYNAMICS: The LVEDP was 8 mmHg was no significant gradient across aortic valve CONCLUSION: 1. Normal coronary angiogram 2. Normal left-sided filling pressure POSTPROCEDURE MANAGEMENT: Medical treatment
[2022-12-11] MEDS ORDERED: IOPAMIDOL-370 100ML BTL INJ ONE (13:10)
[2022-12-11] MEDS ORDERED: SODIUM CHLORIDE 0.9% 1,000 ML IV SCH (13:15)
[2022-12-11 16:24] LABS: Glucose,Whole Blood 100 mg/dL (70-110)
[2022-12-11] MEDS ORDERED: ONDANSETRON 4 MG/2 ML VIAL IVP PRN (17:56)
[2022-12-11] MEDS: CYCLOBENZAPRINE 10 MG TAB PO SCH (20:59)
[2022-12-11] MEDS: PANTOPRAZOLE 40 MG/10 ML VIAL IVP SCH (20:59)
[2022-12-11] MEDS: SERTRALINE 50 MG TAB PO SCH (20:59)
[2022-12-11] MEDS: cloNIDine HCL 0.2 MG TAB PO SCH (21:00)
[2022-12-11] MEDS: METOPROLOL SUCCINATE (ER) 25 MG TAB.ER.24H PO SCH (21:00)
[2022-12-11] MEDS: ZOLPIDEM 5 MG TAB PO SCH (21:00)
--- NOTE | 2022-12-11 21:17 | CONS ---
CONSULTATION HISTORY OF PRESENT ILLNESS: Dee Dee is a 52-year-old lady with multiple coronary risk factors including hypertension, diabetes, and dyslipidemia, who presented to hospital complaining of chest pain. She describes it as precordial chest pressure that radiated to her back. Since being admitted, she still has intermittent episodes of chest discomfort. EKG did not reveal acute ischemic changes. The patient was evaluated by my associate, Dr. Linad in the outpatient setup and was to undergo cardiac catheterization on December 18. Given her presentation consistent that could be due to unstable angina and the fact that she is already scheduled for an outpatient catheterization, I advised her to have the catheterization done today, and if this is normal, she can be discharged home. If there is stenosis, she will undergo cardiac stenting. Her creatinine is normal at 0.6. Troponin is negative. There is mild elevation in white cell count of unclear clinical significance. EKG does not reveal acute ischemic changes. PAST MEDICAL HISTORY: Significant for diabetes, hypertension, and dyslipidemia. MEDICATIONS AT HOME: Included: 1. Ozempic. 2. Toprol-XL. 3. Jardiance. 4. Flexeril. 5. Catapres. 6. Ambien. 7. Zoloft. 8. Clonazepam. ALLERGIES: 1. Morphine. 2. Codeine. 3. Penicillin. 4. Baclofen. FAMILY HISTORY: Negative for premature coronary artery disease. SOCIAL HISTORY: Negative for current smoking, EtOH abuse, or drug abuse. REVIEW OF SYSTEMS: HEENT: Unremarkable. CARDIAC: As described above. RESPIRATORY: Negative. GI: Negative. GENITOURINARY: Negative. ALLERGY/IMMUNOLOGY: Negative. SKIN: Negative. MUSCULOSKELETAL: Negative. DERM: Negative. CONSTITUTIONAL: Negative. ONCOLOGICAL: Negative. PARTNER CCO: Negative. Rest of the system review is not relevant. PHYSICAL EXAMINATION: GENERAL: Comfortable at rest. VITAL SIGNS: Stable. NECK: There is no jugular venous distention. Carotid upstroke is normal. There is no bruit. CHEST: Reveals good air entry bilaterally. HEART: Reveals first and second heart sounds. No gallop. No murmur. No rub. ABDOMEN: Soft and nontender. EXTREMITIES: Did not reveal any edema. Peripheral pulses are felt. ASSESSMENT: Unstable angina. PLAN: The patient will undergo cardiac catheterization, understands risks and benefits. MMODL / IJN: [id number] /
[2022-12-11 21:23] LABS: Glucose,Whole Blood 119 mg/dL (70-110)
[2022-12-12 08:22] LABS: Glucose,Whole Blood 126 mg/dL (70-110)
[2022-12-12] MEDS: PANTOPRAZOLE 40 MG/10 ML VIAL IVP SCH (08:41)
[2022-12-12] MEDS: cloNIDine HCL 0.2 MG TAB PO SCH ×2 (08:44→20:52)
[2022-12-12] MEDS: DAPAGLIFLOZIN PROPANEDIOL 5 MG TABLET PO SCH (08:46)
[2022-12-12] MEDS: CYCLOBENZAPRINE 10 MG TAB PO SCH ×2 (08:46→20:53)
[2022-12-12 12:28] LABS: Glucose,Whole Blood 201 mg/dL (70-110)
--- NOTE | 2022-12-12 14:23 | P.HPIM ---
History of Present Illness H&P Date: 12/11/22 Chief Complaint: Chest pain HISTORY OF PRESENT ILLNESS: This is a 52-year-old female with a previous medical history significant for hypertension and hypertensive cardio vascular disease, hyperlipidemia, migraine headaches, anxiety and depressive disorder, irritable bowel syndrome without diarrhea, postural orthostatic tachycardia syndrome POTS, GERD with esophagitis, diabetes mellitus type 2, breast cancer of the right breast, patient presented to the emergency department at [facility] with left-sided chest pain associated with increased shortness breath, patient was complaining of mid epigastric abdominal pain associated with significant chest pain associated with no shortness breath, she felt sweaty and clammy at that time, patient was scheduled to go for left heart catheterization as an outpatient, instead of that she was admitted to the hospital for evaluation by cardiology her laboratory evaluation came back negative, patient underwent left heart catheterization that was done by Dr. Linda that was negative and showed normal coronary arteries, with normal left putting pressure, patient continued to have some chest pressure associated with the epigastric pain, she continues to have significant sweating, she was given hospital for observation we will monitor the patient very closely. REVIEW OF SYSTEMS: Constitutional: No documented fever, no chills, no night sweats. No weight change. No weakness, fatigue or lethargy. No daytime sleepiness. HEENT: No headache. No blurred vision or double vision, no loss of vision. No loss of Hearing, no ringing in the ears, no dizziness. No nasal drainage or congestion. No epistaxis. No sore throat. Lungs: No shortness of breath, no cough, no sputum production. No wheezing. Reports dyspnea with activity. Cardiovascular: positive for chest pain, no lower extremity edema. No pal pitations. No paroxysmal nocturnal dyspnea. No orthopnea. No lightheadedness or dizziness. No syncopal episodes. Abdominal: Reports abdominal pain. No nausea, vomiting. occasional diarrhea. No constipation. No bloody or tarry stools reports loss of appetite. Genitourinary: No dysuria, increased frequency, urgency. No urinary retention. Musculoskeletal: No myalgias. No muscle weakness, no gait dysfunction, no frequent falls. No back pain. No neck pain. Integumentary: No wounds, no lesions. No rash or pruritus. No unusual bruising. No change in hair or nails. Neurologic: No aphasia. No facial droop. No change in mentation. No head injury. No headache. No paralysis. No paresthesia. Psychiatric: positive for depression and anxiety. No mood swings. Endocrine: No abnormal blood sugars. No weight change. PAST MEDICAL HISTORY: Hypertension and hypertensive cardio vascular disease. Hyperlipidemia. Migraine headaches. Right breast cancer. Anxiety. IBS. Depression. Postural orthostatic tachycardia syndrome Diabetes Mellitus type 2. GERD. Mild decrease in systolic function ejection fraction 45-50% possible nonischemic cardiomyopathy Aortic insufficiency Mitral insufficiency PAST SURGICAL HISTORY: Appendectomy. Back surgery. Left arthroscopic meniscal tear repair 4. Laparoscopic cholecystectomy. Right ankle surgery. Colonoscopy 2017. Bilateral tubal ligation. Breast biopsy. Hysterectomy with one ovary left. Bilateral mastectomy. SOCIAL HISTORY: Patient is a lifelong nonsmoker, she denies any alcohol ingestion, she denies any drug use or abuse. FAMILY HISTORY: Father at age of 49 from [place] and had CABG 4 at the age of 44 and he had a history of hypertension mother at age of 62 from breast cancer she had a history of hypertension, patient has one brother who is alive 54-year-old and okay patient has 2 sons no major medical problems and 2 daughters with clotting disorder. PHYSICAL EXAMINATION: General: 52-year-old female in out of bed in no apparent distress HEENT: Head is atraumatic, normocephalic, pupils were equal round reactive to light and recommendation, extraocular muscle movement were intact, sclera nonicteric, conjunctivae were pale, mucous membranes of the mouth are somewhat dry. Neck: Supple, no JVP, normal carotid upstroke bilaterally, no lymphadenopathy. Chest: Decreased breath sounds at the bases, few rhonchi, no expiratory wheezes, no chest wall tenderness, no intercostal retractions. Heart: First heart sound is normal, second heart sound is normal there is no gallop or murmur. Abdomen: Soft, nontender, nondistended, positive bowel sounds. Extremities: There is no edema no calf tenderness DP +2 bilaterally. Neurologic examination: Patient is awake alert and oriented X3, cranial nerves II-12 appear grossly intact, muscle power were 5 out of 5 in upper extremities and 5 out of 5 in bilateral lower extremities, deep tendon reflexes normal bilaterally. ASSESSMENT AND PLAN: 1. Chest pain/mid epigastric pain likely noncardiac. Patient underwent left heart catheterization that showed normal coronaries with normal left filling pressure, patient would be monitored very closely, start the patient on Zofran 4 mg IV push every 6 hours as needed, start the patient on Protonix 40 mg orally once every day, patient may need to have upper endoscopy done as an outpatient. 2. Diabetes mellitus type 2. Patient has been on Ozempic 1 mg subcu density once every week, continue patient on Jardiance 10 mg orally once every day, monitor the patient blood glucose levels before each meal and at bedtime. 3. Hypertension and hypertensive vascular disease, continue patient on low-salt diet, continue patient on metoprolol ER 25 mg once every day, continue clonidine 0.25 mg orally twice every day continue to monitor the patient blood pressure very closely. 4. Hyperlipidemia. Continue patient on low-cholesterol diet, monitor the patient with a pen, keep LDL 55-70. 5. GERD with esophagitis. Continue patient on Protonix 40 mg orally once every day. Patient is scheduled to go for EGD with Dr. Aleman. 6. Postural orthostatic tachycardia syndrome has been under the care of cardiology. 7. Irritable bowel syndrome without diarrhea. Has been stable at this time. 8. Migraine headaches. Start the patient undertake 75 mg orally once every day, continue Emgality 120 mg SC q month. 9. Anxiety disorder. Continue patient on Klonopin 1 mg orally twice every day as well as Zoloft 150 mg orally once every day. 10. Depression. Continue patient on Zoloft 150 mg orally once every day. 11. Breast cancer status post bilateral mastectomy currently in remission. 12. mildly decreased and the LV function with an ejection fraction of 45-50% with mild mitral regurgitation and aortic insufficiency. Continue metoprolol ER 25 milligrams orally once every day. 13. Admit to inpatient. Estimate a length of stay 2 midnights. 14. Full code. Past Medical History Past Medical History: Atrial Fibrillation, Coronary Artery Disease (CAD), Cancer, Diabetes Mellitus, Hyperlipidemia, Hypertension, Supraventricular Tachycardia (SVT) Additional Past Medical History / Comment(s): Postural orthostatic tachycardia syndrome (POTS), Hx of SVT, Migraines, IBS/D. 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 History of Any Multi-Drug Resistant Organisms: None Reported, MRSA Date of last positivie culture/infection: Fall 2019 MDRO Source:: Hospital Past Surgical History: Appendectomy, Breast Surgery, Cardiac Ablation, Cholecystectomy, Heart Catheterization, Hysterectomy, Orthopedic Surgery Additional Past Surgical History / Comment(s): BIOPSY- RT BREAST x2, RT LUMPECTOMY; Bilateral Mastectomy with reconstruction, LT KNEE SURGERY X4 (2 arthroscopic), Right ankle x 2, CARDIAC ABLATION X 2. COLONOSCOPY Past Anesthesia/Blood Transfusion Reactions: Previous Problems w/ Anesthesia Additional Past Anesthesia/Blood Transfusion Reaction / Comment(s): DIFFICULT INTUBATION W/ EMERG APPENDECTOMY BY DR CAPUTO 04/08/2016 ([facility])-Can't find letter. Past Psychological History: Anxiety, Depression Smoking Status: Never smoker Past Alcohol Use History: Rare Past Drug Use History: None Reported - Past Family History Father Family Medical History: Hypertension, Myocardial Infarction ([place]), Pulmonary Embolus Mother Family Medical History: Cancer Additional Family Medical History / Comment(s): Breast/Lymphatic CA Medications and Allergies Home Medications Medication Instructions Recorded Confirmed Type Zolpidem Tartrate [Ambien Cr] 12.5 mg PO HS 09/27/14 12/11/22 History clonazePAM [Clonazepam] 1 mg PO BID PRN 04/08/16 12/11/22 History Sertraline HCl [Zoloft] 150 mg PO HS 12/05/16 12/11/22 History cloNIDine HCL [Catapres] 0.2 mg PO BID 06/04/22 12/11/22 History Cyclobenzaprine [Flexeril] 10 mg PO BID 12/11/22 12/11/22 History Empagliflozin [Jardiance] 10 mg PO DAILY 12/11/22 12/11/22 History Metoprolol Succinate (ER) [Toprol 25 mg PO HS 12/11/22 12/11/22 History Xl] Semaglutide [Ozempic] 1 mg SQ MCGHEE@2100 12/11/22 12/11/22 History Allergies Allergy/AdvReac Type Severity Reaction Status Date / Time morphine Allergy Swelling, Verified 12/11/22 07:51 diff breathing oxycodone Allergy Anaphylaxis Verified 12/11/22 07:51 Penicillins Allergy Unknown Verified 12/11/22 07:51 Childhood venom-honey bee Allergy Anaphylaxis-has Verified 12/11/22 07:51 [bee venom (honey bee)] epi-pen baclofen AdvReac Diarrhea Verified 12/11/22 07:51 Physical Exam Vitals: Vital Signs Temp Pulse Pulse Resp BP BP Pulse Ox 12/11/22 07:30 97.9 F 94 12 120/78 97 12/11/22 07:00 90 16 120/78 97 12/11/22 02:32 90 16 116/97 98 12/10/22 23:23 94 18 120/64 98 12/10/22 22:23 98.0 F 115 H 22 131/86 99 Intake and Output 12/10/22 12/11/22 12/11/22 22:59 06:59 14:59 Other: Weight 73.936 kg 73.936 kg Results CBC & Chem 7: 12/10/22 23:03 12/10/22 23:00 Labs: Abnormal Lab Results - Last 24 Hours (Table) 12/10/22 12/10/22 12/11/22 Range/Units 23:00 23:03 08:23 WBC 13.6 H (3.8-10.6) k/uL RBC 5.58 H (3.80-5.40) m/uL Hct 47.9 H (34.0-46.0) % Neutrophils # 9.2 H (1.3-7.7) k/uL Potassium 5.2 H (3.5-5.1) mmol/L Carbon Dioxide 21 L (22-30) mmol/L BUN 18 H (7-17) mg/dL Glucose 105 H (74-99) mg/dL POC Glucose (mg/dL) 113 H (70-110) mg/dL Total Bilirubin 1.5 H (0.2-1.3) mg/dL AST 82 H (14-36) U/L ALT 47 H (4-34) U/L Total Protein 8.3 H (6.3-8.2) g/dL Thrombosis Risk Factor Assmnt - Choose All That Apply Each Factor Represents 1 point: Age 41-60 years Thrombosis Risk Factor Assessment Total Risk Factor Score: 1 Thrombosis Risk Factor Assessment Level: Low Risk
--- NOTE | 2022-12-12 17:04 | CA ---
Transthoracic Echo Report Name: Dee Dee Hernandez Age: 52 Gender: F : 1970 Exam Date: 12/12/2022 11:47 Exam Location: [facility] Ht (in): 62 Wt (lb): 163 Ordering Physician: Justyn Hough MD ([id number]) Attending/Referring Phys: [place] SOLARES [employer] Appraiser Rufino Christensen Procedure CPT: Indications: Chest Pain Cardiac Hx: Technical Quality: Fair Contrast 1: Lumason Total Dose (mL): 5 Contrast 2: Agitated Saline Total Dose (mL): 10 MEASUREMENTS (Male / Female) Normal Values 2D ECHO LV Diastolic Diameter PLAX 3.4 cm 4.2 - 5.9 / 3.9 - 5.3 cm LV Systolic Diameter PLAX 2.3 cm IVS Diastolic Thickness 1.0 cm 0.6 - 1.0 / 0.6 - 0.9 cm LVPW Diastolic Thickness 1.0 cm 0.6 - 1.0 / 0.6 - 0.9 cm LV Relative Wall Thickness 0.6 RV Internal Dim ED PLAX 2.1 cm LVOT Diameter 2.0 cm Aortic Root Diameter 2.5 cm LA Systolic Diameter LX 2.3 cm 3.0 - 4.0 / 2.7 - 3.8 cm LV Diastolic Volume MOD BP 26.2 cm??? 67 - 155 / 56 - 104 cm??? LV Systolic Volume MOD BP 11.8 cm??? 22 - 58 / 19 - 49 cm??? LV Ejection Fraction MOD BP 54.9 % >= 55 % LV Diastolic Volume MOD 4C 36.9 cm??? LV Systolic Volume MOD 4C 17.0 cm??? LV Ejection Fraction MOD 4C 53.9 % LV Diastolic Length 4C 5.8 cm LV Systolic Length 4C 4.9 cm LV Diastolic Volume MOD 2C 18.4 cm??? LV Systolic Volume MOD 2C 8.1 cm??? LV Ejection Fraction MOD 2C 56.0 % LV Diastolic Length 2C 5.9 cm LV Systolic Length 2C 5.0 cm LA Volume 41.4 cm??? 18 - 58 / 22 - 52 cm??? Ascending Aorta Diameter 2.3 cm DOPPLER AV Peak Velocity 117.6 cm/s AV Peak Gradient 5.5 mmHg LVOT Peak Velocity 75.4 cm/s LVOT Peak Gradient 2.3 mmHg AV Area Cont Eq pk 2.0 cm??? MV Peak Velocity 70.4 cm/s MV Peak Gradient 2.0 mmHg MV Mean Velocity 35.6 cm/s MV Mean Gradient 0.7 mmHg MV Velocity Time Integral 20.1 cm MV Area PHT 3.3 cm??? Mitral E Point Velocity 69.5 cm/s Mitral A Point Velocity 65.4 cm/s Mitral E to A Ratio 1.1 MV Deceleration Time 231.1 ms PV Peak Velocity 81.8 cm/s PV Peak Gradient 2.7 mmHg FINDINGS Left Ventricle Left ventricular ejection fraction is estimated at 50-55 %. Right Ventricle Normal right ventricular size. Right Atrium Normal right atrial size. Left Atrium Normal left atrial size. Mitral Valve Structurally normal mitral valve. Mild MR. Aortic Valve Trileaflet aortic valve. No aortic valve stenosis or regurgitation. Tricuspid Valve Tricuspid valve not well visualized. No tricuspid regurgitation. Pulmonic Valve Pulmonic valve not well visualized. Mild PI. Pericardium Normal pericardium. Aorta Normal size aortic root and proximal ascending aorta. CONCLUSIONS Left ventricular systolic function is normal Mild mitral regurgitation Previewed by: Dr. Justyn Hough MD (Electronically Signed) Final Date: 12 Dec 2022 17:04
--- NOTE | 2022-12-12 17:15 | US ---
EXAMINATION TYPE: US abdomen complete DATE OF EXAM: 12/12/2022 COMPARISON: CT 08/14/20 CLINICAL INDICATION: Female, 52 years old with history of abdominal pain; Abdominal pain. Hx cholecys tectomy, appendectomy, breast cancer with CASSI procedure. TECHNIQUE: Multiple sonographic images of the abdomen are obtained. FINDINGS: EXAM MEASUREMENTS: Liver Length: 16.8 cm Gallbladder Wall: Surgically absent CBD: 0.62 cm Spleen: 13.3 cm Right Kidney: 11.9 x 5.1 x 4.8 cm Left Kidney: 11.4 x 5.0 x 5.0 cm MACHINIST LINOTYPE NOTES: Pancreas: Not well seen due to gas. Liver: Appears heterogeneous. Measures upper limits*. Gallbladder: Surgically absent. CBD: Measures upper limits* Spleen: Measures upper limits Right Kidney: No hydronephrosis or masses seen Left Kidney: No hydronephrosis or masses seen Upper IVC: Slightly limited visibility Abd Aorta: Proximal segment appears ectatic measuring 2.7 cm AP. Iliacs were obscured. Pancreas is poorly visualized due to overlying bowel gas. Liver is diffusely hyperechoic and heteroge nous appearance which limits evaluation. No gross evidence of focal lesion. Gallbladder is surgically absent. Common bile duct within normal limits. Spleen is upper limits of normal in size. Both kidney s and adrenal evidence of shadowing calculi, hydronephrosis, or solid masses. Ectasia of the proximal abdominal aorta measuring up to 2.7 cm. The iliacs were secured by overlying bowel gas. Slightly ivey ited visibility upper IVC. IMPRESSION: 1. No acute process. 2. Hepatic steatosis. 3. Ectasia of the proximal abdominal aorta measuring up to 2.7 cm. 4. Postcholecystectomy changes.
[2022-12-12 17:46] LABS: Glucose,Whole Blood 178 mg/dL (70-110)
[2022-12-12 20:43] LABS: Glucose,Whole Blood 107 mg/dL (70-110)
--- NOTE | 2022-12-12 20:45 | PN ---
PROGRESS NOTE SUBJECTIVE: This is a 52-year-old lady, who is admitted to hospital with chest pain and ruled out for myocardial infarction. We made a diagnosis of unstable angina and she underwent cardiac catheterization by Dr. Linda, her primary [facility], which revealed normal coronary arteries. This morning, she is feeling better and free of symptoms. OBJECTIVE: GENERAL: Comfortable at rest. VITAL SIGNS: Stable. NECK: There is no jugular venous distention. CHEST: Reveals good air entry bilaterally. HEART: Reveals first and second heart sounds. No gallop. No murmur. ABDOMEN: Soft. EXTREMITIES: Did not reveal any edema. Peripheral pulses are felt. Right radial artery access site is free of bleeding, bruit, or hematoma. ASSESSMENT AND PLAN: Precordial chest pain, status post catheterization, normal coronaries. Stable for discharge from cardiac standpoint. MMODL / IJN: [id number] /
[2022-12-12] MEDS: METOPROLOL SUCCINATE (ER) 25 MG TAB.ER.24H PO SCH (20:53)
[2022-12-12] MEDS: SERTRALINE 50 MG TAB PO SCH (20:53)
[2022-12-12] MEDS: ZOLPIDEM 5 MG TAB PO SCH (20:53)
[2022-12-12] MEDS: MORPHINE SULFATE 4 MG/ML SYRINGE IVP PRN (23:33)
[2022-12-13 07:28] VITALS: BP 121/70; PULSE 73; RESP 18; TEMP 98
[2022-12-13] MEDS ORDERED: PANTOPRAZOLE 40 MG TABLET PO SCH (07:30)
[2022-12-13 08:47] LABS: Basophils # (A) 0.04 X 10*3/uL (0.00-0.10); Basophils % (A) 0.3 %; Eosinophils # (A) 0.17 X 10*3/uL (0.04-0.35); Eosinophils % (A) 1.4 %; HCT 43.2 % (37.2-46.3); HGB 14.1 g/dL (12.0-15.0); Immature Grans, Automated 0.7 %; Lymphocytes # (A) 3.48 X 10*3/uL (0.90-5.00); Lymphocytes % (A) 28.9 %; MCH 28.8 pg (27.0-32.0); MCHC 32.6 g/dL (32.0-37.0); MCV 88.2 fL (80.0-97.0); Monocytes # (A) 0.77 X 10*3/uL (0.20-1.00); Monocytes % (A) 6.4 %; NRBC Per 100 WBC 0 /100 WBCS (0.0-0.0); Neutrophils # (A) 7.49 X 10*3/uL (1.80-7.70); Neutrophils % (A) 62.3 %; Platelet Count 166 X 10*3/uL (140-440); RDW 14.3 % (11.5-14.5); WBC 12.03 X 10*3/uL (4.50-10.00)
[2022-12-13 08:50] LABS: African American GFR (CKD) 116.3 (60.0-200.0); Albumin 4.1 g/dL (3.8-4.9); Albumin/Globulin Ratio 1.86 (1.60-3.17); Anion Gap 13.1 mmol/L (10.00-18.00); Blood Urea Nitrogen 10.5 mg/dL (9.0-27.0); Calcium 8.8 mg/dL (8.7-10.3); Carbon Dioxide 24.9 mmol/L (20.0-27.5); Globulin 2.2 g/dL (1.6-3.3); Non-African American GFR(CKD) 100.3 (60.0-200.0); Potassium 3.5 mmol/L (3.5-5.5); Total Bilirubin 0.4 mg/dL (0.30-1.20); Total Protein 6.3 g/dL (6.2-8.2)
--- NOTE | 2022-12-13 09:13 | PN ---
PROGRESS NOTE SUBJECTIVE: Dee Dee is admitted to hospital with unstable angina and underwent cardiac catheterization by Dr. Linda, which did not reveal significant obstructive CAD. This morning, she is doing well and is free of symptoms. OBJECTIVE: GENERAL: Comfortable at rest. VITAL SIGNS: Stable. NECK: There is no jugular venous distention. CHEST: Reveals good air entry bilaterally. HEART: Reveals first and second heart sounds. No gallop. EXTREMITIES: Did not reveal any edema. Right radial artery access site appears normal. CONCLUSION: Chest pain, status post cardiac cath. PLAN: The patient will be treated with medications. Follow up with Dr. Linda. MMODL / IJN: [id number] /
[2022-12-13] MEDS: cloNIDine HCL 0.2 MG TAB PO SCH (09:29)
[2022-12-13] MEDS: DAPAGLIFLOZIN PROPANEDIOL 5 MG TABLET PO SCH (09:29)
[2022-12-13] MEDS: CYCLOBENZAPRINE 10 MG TAB PO SCH (09:29)
[2022-12-13] MEDS: MORPHINE SULFATE 4 MG/ML SYRINGE IVP PRN (09:53)
[2022-12-13 11:53] LABS: Glucose,Whole Blood 102 mg/dL (70-110)
--- NOTE | 2022-12-13 12:45 | P.PN ---
Subjective Progress Note Date: 12/12/22 HISTORY OF PRESENT ILLNESS: This is a 52-year-old female with a previous medical history signif icant for hypertension and hypertensive cardio vascular disease, hyperlipidemia, migraine headaches, anxiety and depressive disorder, irritable bowel syndrome without diarrhea, postural orthostatic tachycardia syndrome POTS, GERD with esophagitis, diabetes mellitus type 2, breast cancer of the right breast, patient presented to the emergency department at [facility] with left- sided chest pain associated with increased shortness breath, patient was complaining of mid epigastric abdominal pain associated with significant chest pain associated with no shortness breath, she felt sweaty and clammy at that time, patient was scheduled to go for left heart catheterization as an outpatient, instead of that she was admitted to the hospital for evaluation by cardiology her laboratory evaluation came back negative, patient underwent left heart catheterization that was done by Dr. Linda that was negative and showed normal coronary arteries, with normal left putting pressure, patient continued to have some chest pressure associated with the epigastric pain, she continues to have significant sweating, she was given hospital for observation we will monitor the patient very closely. 12/12: Patient is sitting up in bed she is feeling a bit better today, she continues to be somewhat nauseated, she was started on Protonix 40 mg once every day, she has been taking Zofran 4 mg IV push every 6 hours, ultrasound of the abdomen was ordered still pending at the time of dictation, patient will likely be discharged home in the next 24 hours. REVIEW OF SYSTEMS: Constitutional: No documented fever, no chills, no night sweats. No weight change. No weakness, fatigue or lethargy. No daytime sleepiness. HEENT: No headache. No blurred vision or double vision, no loss of vision. No loss of Hearing, no ringing in the ears, no dizziness. No nasal drainage or congestion. No epistaxis. No sore throat. Lungs: No shortness of breath, no cough, no sputum production. No wheezing. Reports dyspnea with activity. Cardiovascular: positive for chest pain, no lower extremity edema. No palpita tions. No paroxysmal nocturnal dyspnea. No orthopnea. No lightheadedness or dizziness. No syncopal episodes. Abdominal: Reports abdominal pain. No nausea, vomiting. occasional diarrhea. No constipation. No bloody or tarry stools reports loss of appetite. Genitourinary: No dysuria, increased frequency, urgency. No urinary retention. Musculoskeletal: No myalgias. No muscle weakness, no gait dysfunction, no frequent falls. No back pain. No neck pain. Integumentary: No wounds, no lesions. No rash or pruritus. No unusual bruising. No change in hair or nails. Neurologic: No aphasia. No facial droop. No change in mentation. No head injury. No headache. No paralysis. No paresthesia. Psychiatric: positive for depression and anxiety. No mood swings. Endocrine: No abnormal blood sugars. No weight change. PHYSICAL EXAMINATION: General: 52-year-old female in out of bed in no apparent distress HEENT: Head is atraumatic, normocephalic, pupils were equal round reactive to light and recommendation, extraocular muscle movement were intact, sclera nonicteric, conjunctivae were pale, mucous membranes of the mouth are somewhat dry. Neck: Supple, no JVP, normal carotid upstroke bilaterally, no lymphadenopathy. Chest: Decreased breath sounds at the bases, few rhonchi, no expiratory wheezes, no chest wall tenderness, no intercostal retractions. Heart: First heart sound is normal, second heart sound is normal there is no gallop or murmur. Abdomen: Soft, nontender, nondistended, positive bowel sounds. Extremities: There is no edema no calf tenderness DP +2 bilaterally. Neurologic examination: Patient is awake alert and oriented X3, cranial nerves II-12 appear grossly intact, muscle power were 5 out of 5 in upper extremities and 5 out of 5 in bilateral lower extremities, deep tendon reflexes normal bilaterally. ASSESSMENT AND PLAN: 1. Chest pain/mid epigastric pain likely noncardiac. Patient underwent left heart catheterization that showed normal coronaries with normal left filling pressure, patient would be monitored very closely, start the patient on Zofran 4 mg IV push every 6 hours as needed, start the patient on Protonix 40 mg orally once every day, patient may need to have upper endoscopy done as an outpatient. Check ultrasound of the abdomen. 2. Diabetes mellitus type 2. Patient has been on Ozempic 1 mg subcu density once every week, continue patient on Jardiance 10 mg orally once every day, monitor the patient blood glucose levels before each meal and at bedtime. 3. Hypertension and hypertensive vascular disease, continue patient on low-salt diet, continue patient on metoprolol ER 25 mg once every day, continue clonidine 0.25 mg orally twice every day continue to monitor the patient blood pressure very closely. 4. Hyperlipidemia. Continue patient on low-cholesterol diet, monitor the patient with a pen, keep LDL 55-70. 5. GERD with esophagitis. Continue patient on Protonix 40 mg orally once every day. Patient is scheduled to go for EGD with Dr. Aleman. 6. Postural orthostatic tachycardia syndrome has been under the care of cardiology. 7. Irritable bowel syndrome without diarrhea. Has been stable at this time. 8. Migraine headaches. Start the patient undertake 75 mg orally once every day, continue Emgality 120 mg SC q month. 9. Anxiety disorder. Continue patient on Klonopin 1 mg orally twice every day as well as Zoloft 150 mg orally once every day. 10. Depression. Continue patient on Zoloft 150 mg orally once every day. 11. Breast cancer status post bilateral mastectomy currently in remission. 12. mildly decreased and the LV function with an ejection fraction of 45-50% with mild mitral regurgitation and aortic insufficiency. Continue metoprolol ER 25 milligrams orally once every day. Objective - Vital Signs Vital signs: Vital Signs Temp 98.5 F 12/12/22 07:00 Pulse 63 12/12/22 07:00 Resp 18 12/12/22 07:00 BP 132/76 12/12/22 07:00 Pulse Ox 92 L 12/12/22 07:00 FiO2 Intake & Output 12/11/22 12/12/22 12/12/22 18:59 06:59 18:59 Intake Total 100 118 Balance 100 118 Weight 73.936 kg Intake: IV 100 Oral 118 Other: Voiding Method Toilet # Voids 2 - Labs CBC & Chem 7: 12/10/22 23:03 12/10/22 23:00 Labs: Abnormal Lab Results - Last 24 Hours (Table) 12/11/22 12/12/22 12/12/22 Range/Units 21:22 08:21 12:28 POC Glucose (mg/dL) 119 H 126 H 201 H (70-110) mg/dL
--- NOTE | 2022-12-13 12:47 | P.DS ---
Providers Date of admission: 12/11/22 02:05 Expected date of discharge: 12/13/22 Attending physician: Reji Hernandez Consults: 12/11/22 02:05 Consult Physician Routine Consulting Provider: [facility] Consult Reason/Comments: CP r/o ACS Do you want consulting provider notified?: Yes, Notify in am Primary care physician: Reji Hernandez Hospital Course: HISTORY OF PRESENT ILLNESS: This is a 52-year-old female with a previous medical history significant for hypertension and hypertensive cardio vascular disease, hyperlipidemia, migraine headaches, anxiety and depressive disorder, irritable bowel syndrome without diarrhea, postural orthostatic tachycardia syndrome POTS, GERD with esophagitis, diabetes mellitus type 2, breast cancer of the right breast, patient presented to the emergency department at [facility] with left-sided chest pain associated with increased shortness breath, patient was complaining of mid epigastric abdominal pain associated with significant chest pain associated with no shortness breath, she felt sweaty and clammy at that time, patient was scheduled to go for left heart catheterization as an outpatient, instead of that she was admitted to the hospital for evaluation by cardiology her laboratory evaluation came back negative, patient underwent left heart catheterization that was done by Dr. Linda that was negative and showed normal coronary arteries, with normal left putting pressure, patient continued to have some chest pressure associated with the epigastric pain, she continues to have significant sweating, she was given hospital for observation we will monitor the patient very closely. 12/12: Patient is sitting up in bed she is feeling a bit better today, she continues to be somewhat nauseated, she was started on Protonix 40 mg once every day, she has been taking Zofran 4 mg IV push every 6 hours, ultrasound of the abdomen was ordered still pending at the time of dictation, patient will likely be discharged home in the next 24 hours. Discharge Diagnoses: 1. Chest pain/mid epigastric pain likely noncardiac. 2. Diabetes mellitus type 2. 3. Hypertension and hypertensive vascular disease. 4. Hyperlipidemia. 5. GERD with esophagitis. 6. Postural orthostatic tachycardia syndrome 7. Irritable bowel syndrome without diarrhea. 8. Migraine headaches. 9. Anxiety disorder. 10. Depression. 11. Breast cancer status post bilateral mastectomy currently in remission. 12. mildly decreased and the LV function with an ejection fraction of 45-50% with mild mitral regurgitation and aortic insufficiency. Continue metoprolol ER 25 milligrams orally once every day. Patient Condition at Discharge: Stable Plan - Discharge Summary New Discharge Prescriptions: No Action Zolpidem Tartrate [Ambien Cr] 12.5 mg PO HS clonazePAM [Clonazepam] 1 mg PO BID PRN PRN Reason: Anxiety Sertraline HCl [Zoloft] 150 mg PO HS Metoprolol Succinate (ER) [Toprol Xl] 25 mg PO HS Semaglutide [Ozempic] 1 mg SQ MCGHEE@2100 cloNIDine HCL [Catapres] 0.2 mg PO BID Empagliflozin [Jardiance] 10 mg PO DAILY Cyclobenzaprine [Flexeril] 10 mg PO BID Discharge Medication List Zolpidem Tartrate [Ambien Cr] 12.5 mg PO HS 09/27/14 [History] clonazePAM [Clonazepam] 1 mg PO BID PRN 04/08/16 [History] Sertraline HCl [Zoloft] 150 mg PO HS 12/05/16 [History] cloNIDine HCL [Catapres] 0.2 mg PO BID 06/04/22 [History] Cyclobenzaprine [Flexeril] 10 mg PO BID 12/11/22 [History] Empagliflozin [Jardiance] 10 mg PO DAILY 12/11/22 [History] Metoprolol Succinate (ER) [Toprol Xl] 25 mg PO HS 12/11/22 [History] Semaglutide [Ozempic] 1 mg SQ MCGHEE@2100 12/11/22 [History] Follow up Appointment(s)/Referral(s): Reji Hernandez MD [Primary Care Provider] - 1-2 days
[2022-12-16] MEDS ORDERED: NON FORMULARY DRUG (Semaglutide [Ozempic] 1 MG/0.75 ML Each) SQ SCH (21:00)
== END 2022-12-13 13:56 | disposition home or self-care (01) ==
LOC: EC 22:21 → 6NMEDSUR 12-11 02:05
PROVIDERS: ADMIT Internal Medicine; ATTEND Internal Medicine
DX: R07.89 Other chest pain (principal); I11.9 Hypertensive heart disease without heart failure; E11.9 Type 2 diabetes mellitus without complications; I48.91 Unspecified atrial fibrillation; E78.5 Hyperlipidemia, unspecified; I47.1 Supraventricular tachycardia; K58.9 Irritable bowel syndrome, unspecified; I08.0 Rheumatic disorders of both mitral and aortic valves; G90.A Postural orthostatic tachycardia syndrome [POTS]; L92.0 Granuloma annulare; K21.00 Gastro-esophageal reflux disease with esophagitis, without bleeding; I25.110 Atherosclerotic heart disease of native coronary artery with unstable angina pectoris; F41.9 Anxiety disorder, unspecified; F32.A Depression, unspecified; K76.0 Fatty (change of) liver, not elsewhere classified; I77.819 Aortic ectasia, unspecified site; M35.9 Systemic involvement of connective tissue, unspecified; Z79.899 Other long term (current) drug therapy; Z88.0 Allergy status to penicillin; Z88.5 Allergy status to narcotic agent; Z90.49 Acquired absence of other specified parts of digestive tract; Z90.710 Acquired absence of both cervix and uterus; Z82.49 Family history of ischemic heart disease and other diseases of the circulatory system; Z80.3 Family history of malignant neoplasm of breast; Z80.7 Family history of other malignant neoplasms of lymphoid, hematopoietic and related tissues; Z63.4 Disappearance and death of family member; Z79.84 Long term (current) use of oral hypoglycemic drugs; Z90.13 Acquired absence of bilateral breasts and nipples
CPT/HCPCS: 96376 ×4; 96361 ×2; 96375 ×3; 96374; 99285; 36415; 93005; 93306; 93458; 85379; 83880; 80053 ×2; 83605; 83690; 83735; 84484; 85025 ×2; 71046; 76700; G0378 ×3; C1769; C1894; J2250; J2270 ×3; J2405 ×2; J2001; J3010; J1644; C9113 ×2; Q9950; Q9967

== ENCOUNTER → 2023-02-19 | Outpatient (CLI) | payer MEDICARE, OTHER ==
[2023-02-19 15:52] LABS: African American GFR (CKD) >90 (>60 ml/min/1.73 sqM); Blood Urea Nitrogen 8 mg/dL (7-17); Non-African American GFR(CKD) >90 (>60 ml/min/1.73 sqM)
--- NOTE | 2023-02-19 16:49 | CT ---
EXAMINATION TYPE: CT brain wo/w con CT DLP: 2042.6 mGycm, Automated exposure control for dose reduction was used. DATE OF EXAM: 02/19/2023 4:31 PM COMPARISON: CT head 06/04/2022, CT brain 06/04/2022. CLINICAL INDICATION:Female, 52 years old with history of R41.82 ALTERED MENTAL STATUS; PHH, dizziness , visual changes TECHNIQUE: Axial CT images of the brain were obtained followed by contrast enhanced axial images of t he brain with 100 cc of ISO-view 300 IV contrast. One or more CT dose reduction strategies were utili zed during this examination. Coronal and sagittal reformats reviewed. FINDINGS: Extra-axial spaces: No abnormal extra-axial fluid collections. Ventricular system: Within normal limits Cerebral parenchyma: Mild cerebral volume loss of both frontal lobes. No acute intraparenchymal hemor rhage or mass effect. The rinaldi-white junction is well differentiated. No abnormal enhancement is see n after the administration of intravenous contrast. Cerebellum: Unremarkable. Mass effect: No evidence of midline shift. Intracranial vasculature: unremarkable Soft tissues: Normal. Calvarium/osseous structures: No depressed skull fracture. Paranasal sinuses and mastoid air cells: Clear. Visualized orbits: Bilateral aphakia IMPRESSION: No acute intracranial process or abnormal contrast enhancement. Consider further evaluation with MRI brain if there is continued clinical concern.
== END | disposition home or self-care (01) ==
LOC: RADCTMAIN 14:55
PROVIDERS: ATTEND Internal Medicine
DX: R41.82 Altered mental status, unspecified (principal)
CPT/HCPCS: 82565; 84520; 70470; 36415; Q9967

== ENCOUNTER → 2023-10-11 | Outpatient (CLI) | payer MEDICARE, OTHER ==
[2023-10-11 16:07] LABS: Basophils # (A) 0.04 X 10*3/uL (0.00-0.10); Basophils % (A) 0.4 %; Eosinophils # (A) 0.17 X 10*3/uL (0.04-0.35); Eosinophils % (A) 1.9 %; HCT 47.7 % (37.2-46.3); Lymphocytes # (A) 2.67 X 10*3/uL (0.90-5.00); Lymphocytes % (A) 29.4 %; MCH 29.7 pg (27.0-32.0); MCHC 33.5 g/dL (32.0-37.0); MCV 88.5 FL (80.0-97.0); Mean Platelet Volume 10.3 FL (9.5-12.2); Monocytes # (A) 0.62 X 10*3/uL (0.20-1.00); Monocytes % (A) 6.8 %; NRBC Per 100 WBC 0 X 10*3/uL (0.00-0.01); Neutrophils # (A) 5.53 X 10*3/uL (1.80-7.70); Neutrophils % (A) 61.1 %; Platelet Count 158 X 10*3/uL (140-440); RBC 5.39 X 10*6/uL (4.10-5.20); WBC 9.07 X 10*3/uL (4.50-10.00)
[2023-10-11 16:30] LABS: Erythrocyte Sedimentation Rate 28 mm/Hr (0-30)
== END | disposition home or self-care (01) ==
LOC: LABWHC1 11:05
PROVIDERS: ATTEND Ophthalmology
DX: G45.3 Amaurosis fugax (principal)
CPT/HCPCS: 36415; 85025; 85652; 86140

== ENCOUNTER 2023-10-16 06:15 | Emergency (ER) | payer MEDICARE, OTHER ==
[2023-10-16] MEDS: SODIUM CHLORIDE 0.9% 1,000 ML IV STA (06:53)
--- NOTE | 2023-10-16 06:58 | ED ---
Headache HPI - General Chief Complaint: Dizziness Stated Complaint: Possible TIA Time Seen by Provider: 10/16/23 06:27 Source: patient, RN notes reviewed Mode of arrival: ambulatory Limitations: no limitations - History of Present Illness Initial Comments: This is a 53-year-old female who presents to the emergency department for headaches, dizziness, and weakness. Patient states that about a week ago she had problems with the vision in her right eye and saw her eye doctor. States that her examination did not reveal any irregularities. Since then, she has had intermittent episodes of right-sided weakness and tingling in her right upper and lower extremity. States that today she was holding a jar that she dropped, because she felt like she lost strength in her arm. About an hour before arrival she was on the phone with her friend, and states that her friend could not understand her on the phone. Unsure if she had slurred speech or if she was struggling to explain what was going on. Denies any history of strokes. Not taking any blood thinners. States that she was told to begin taking a baby ASA daily, but has not gotten paid so she has not been able to pick this up yet. Currently has a headache, but otherwise denies any complaints. MD Complaint: headache - Related Data Home Medications Medication Instructions Recorded Confirmed Zolpidem Tartrate [Ambien Cr] 12.5 mg PO HS 09/27/14 10/16/23 clonazePAM [Clonazepam] 1 mg PO BID 04/08/16 10/16/23 Sertraline HCl [Zoloft] 150 mg PO HS 12/05/16 10/16/23 cloNIDine HCL [Catapres] 0.2 mg PO HS 06/04/22 10/16/23 Cyclobenzaprine [Flexeril] 10 mg PO BID 12/11/22 10/16/23 Empagliflozin [Jardiance] 10 mg PO DAILY 12/11/22 10/16/23 Metoprolol Succinate (ER) [Toprol 25 mg PO HS 12/11/22 10/16/23 XL] Atorvastatin Calcium [Lipitor] 40 mg PO HS 10/16/23 10/16/23 Pantoprazole [Protonix] 40 mg PO HS 10/16/23 10/16/23 Semaglutide [Ozempic] 2 mg SQ TU 10/16/23 10/16/23 Allergies Allergy/AdvReac Type Severity Reaction Status Date / Time morphine Allergy Swelling, Verified 10/16/23 09:41 diff breathing oxycodone Allergy Anaphylaxis Verified 10/16/23 09:41 Penicillins Allergy Unknown Verified 10/16/23 09:41 Childhood venom-honey bee Allergy Anaphylaxis-has Verified 10/16/23 09:41 [bee venom (honey bee)] epi-pen baclofen AdvReac Diarrhea Verified 10/16/23 09:41 Review of Systems ROS Statement: Those systems with pertinent positive or pertinent negative responses have been documented in the HPI. ROS Other: All systems not noted in ROS Statement are negative. Past Medical History Past Medical History: Atrial Fibrillation, Coronary Artery Disease (CAD), Cancer, Diabetes Mellitus, Hyperlipidemia, Hypertension, Supraventricular Tachycardia (SVT) Additional Past Medical History / Comment(s): Postural orthostatic tachycardia syndrome (POTS), Hx of SVT, Migraines, IBS/D. 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 History of Any Multi-Drug Resistant Organisms: None Reported, MRSA Date of last positivie culture/infection: Fall 2019 MDRO Source:: Hospital Past Surgical History: Appendectomy, Breast Surgery, Cardiac Ablation, Cholecystectomy, Heart Catheterization, Hysterectomy, Orthopedic Surgery Additional Past Surgical History / Comment(s): BIOPSY- RT BREAST x2, RT LUMPECTOMY; Bilateral Mastectomy with reconstruction, LT KNEE SURGERY X4 (2 arthroscopic), Right ankle x 2, CARDIAC ABLATION X 2. COLONOSCOPY Past Anesthesia/Blood Transfusion Reactions: Previous Problems w/ Anesthesia Additional Past Anesthesia/Blood Transfusion Reaction / Comment(s): DIFFICULT INTUBATION W/ EMERG APPENDECTOMY BY DR CAPUTO 04/08/2016 ([facility])-Can't find letter. Past Psychological History: Anxiety, Depression Smoking Status: Never smoker Past Alcohol Use History: Rare Past Drug Use History: None Reported - Past Family History Father Family Medical History: Hypertension, Myocardial Infarction ([place]), Pulmonary Embolus Mother Family Medical History: Cancer Additional Family Medical History / Comment(s): Breast/Lymphatic CA General Exam Limitations: no limitations General appearance: alert, in no apparent distress Head exam: Present: atraumatic, normocephalic, normal inspection Respiratory exam: Present: normal lung sounds bilaterally. Absent: respiratory distress, wheezes, rales, rhonchi, stridor Cardiovascular Exam: Present: regular rate, normal rhythm, normal heart sounds. Absent: systolic murmur, diastolic murmur, rubs, gallop, clicks Neurological exam: Present: alert, oriented X3, CN II-XII intact Expanded Cerebellar function: Finger to Nose: Normal, Heel to Barrera: Normal, Romberg: Normal Upper motor neuron: Perfecto Neglect: Normal, Pronator Drift: Normal, Babinski Sign: Normal, Sensory Extinction: Normal Sensory exam: Upper Extremity Light Touch: Normal, Upper Extremity Temperature: Normal, UE 2 Point Discrimination: Normal, Lower Extremity Light Touch: Normal, Lower Extremity Temperature: Normal, LE 2 Point Discrimination: Normal Motor strength exam: RUE: 5, LUE: 5, RLE: 5, LLE: 5 Eye Response: (4) open spontaneously Motor Response: (6) obeys commands Verbal Response: (5) oriented Psychiatric exam: Present: normal affect, normal mood Skin exam: Present: warm, dry, intact, normal color. Absent: rash Course Vital Signs 10/16/23 10/16/23 10/16/23 06:20 08:45 12:05 Temperature 97.9 F 97.4 F L Pulse Rate 112 H 81 90 Respiratory 18 16 20 Rate Blood Pressure 120/80 109/73 106/74 O2 Sat by Pulse 97 97 98 Oximetry Medical Decision Making - Medical Decision Making This is a 53 year old female who presents to the emergency department for headaches and weakness. Was pt. sent in by a medical professional or institution? @ -No Did you speak to anyone other than the patient for history? @ -No Did you review nursing and triage notes? @ -Yes, and I agree, it is accurate with regards to the patient's symptoms. Were old charts reviewed? @ -No Differential Diagnosis? @ -Differential Headache: Migraine, tension, cluster, carbon monoxide, central venous thrombosis, pension karma temporal arteritis, acute closure glaucoma, intercranial hemorrhage, mast oiditis, sinusitis, head injury, this is not meant to be an all-inclusive list. EKG interpreted by me (3pts min.)? @ -EKG interpreted by me demonstrating the following: Sinus rhythm. Ventricular rate 98 bpm, DC interval 161 ms, QRS duration 78 ms, QTc 413 ms. X-rays interpreted by me (1pt min.)? @ -Chest x-ray obtained, my interpretation identifies no localized consolidations or infiltrates. CT interpreted by me (1pt min.)? @ -Computed tomography scan of the brain and c-spine obtained. My interpretation identifies no evidence of an acute intracranial hemorrhage, skull fracture, or cervical spine fracture. CTA of the head and neck obtained. My interpretation identifies no evidence of an aneurysm. U/S interpreted by me (1pt. min.)? @ -Not obtained What testing was considered but not performed? (CT, X-rays, U/S, labs)? Why? @ -None What meds were considered but not given? Why? @ -None Did you discuss the management of the patient with other professionals? @ -Yes, her PCP, Dr. Hernandez, who advised that given the normal workup with normal vital signs and patient currently exhibiting no neurological deficits, she can be discharged home with plan to follow-up in the office and follow-up for her outpatient testing. Did you reconcile home meds? @ -No Was smoking cessation discussed for >3mins.? @ -No Was critical care preformed (if so, how long)? @ -No Were there social determinants of health that impacted care today? How? (Homelessness, low income, unemployed, alcoholism, drug addiction, transportation, low edu. Level, literacy, decrease access to med. care, fdc, rehab)? @ -No Was there de-escalation of care discussed even if they declined? (Discuss DNR or withdrawal of care, Hospice)? @ -No What co-morbidities impacted this encounter? (DM, HTN, Smoking, COPD, CAD, Cancer, CVA, Hep., AIDS, mental health diagnosis, sleep apnea, morbid obesity)? @ -A-fib, CAD, HLD, HTN Was patient admitted / discharged? @ -Discharged. Lab work demonstrates mild leukocytosis, mildly elevated LFTs, and a mildly elevated lactic acid of 2.1. Chest x-ray reveals no acute process. CT scan of the brain/C-spine and CTA of the head and neck obtained revealing no acute process. Patient had an NIH of 0. She was able to ambulate without difficulty and exhibited no neurological deficits. Case discussed with patient's PCP, Dr. Hernandez. He advised that given her unremarkable workup and lack of any neurological deficits, she can be discharged home with plan to follow-up in the office. She does also have several outpatient tests she will need to follow-up on that were previously ordered, which she was advised to do. Patient discharged home in stable condition. Undiagnosed new problem with uncertain prognosis? @ -None Drug Therapy requiring intensive monitoring for toxicity (Heparin, Nitro, Insulin, Cardizem)? @ -None Were any procedures done? @ -None Diagnosis/symptom? @ -Headache, dizziness Acute, or Chronic, or Acute on Chronic? @ -Acute Uncomplicated (without systemic symptoms) or Complicated (systemic symptoms)? @ -Uncomplicated Side effects of treatment? @ -None Exacerbation, Progression, or Severe Exacerbation] @ -Not applicable Poses a threat to life or bodily function? @ -No Return precautions reviewed in depth, the patient is instructed to return to the emergency department with any new, worsening, or concerning symptoms. Patient verbalized understanding. This case was discussed in detail with the attending ED physician, Dr. Lynn. Presentation, findings, and treatment plan discussed in detail as well. - Lab Data Result diagrams: 10/16/23 06:47 10/16/23 06:47 Lab Results 10/16/23 10/16/23 10/16/23 Range/Units 06:47 06:47 06:47 WBC 11.8 H (3.8-10.6) k/uL RBC 5.84 H (3.80-5.40) m/uL Hgb 17.4 H (11.4-16.0) gm/dL Hct 53.0 H (34.0-46.0) % MCV 90.7 (80.0-100.0) fL MCH 29.8 (25.0-35.0) pg MCHC 32.8 (31.0-37.0) g/dL RDW 14.4 (11.5-15.5) % Plt Count 150 (150-450) k/uL MPV 8.0 Neutrophils % 65 % Lymphocytes % 27 % Monocytes % 4 % Eosinophils % 2 % Basophils % 0 % Neutrophils # 7.7 (1.3-7.7) k/uL Lymphocytes # 3.2 (1.0-4.8) k/uL Monocytes # 0.5 (0-1.0) k/uL Eosinophils # 0.2 (0-0.7) k/uL Basophils # 0.0 (0-0.2) k/uL PT 11.1 (10.0-12.5) sec INR 1.0 (<1.2) APTT 25.0 (22.0-30.0) sec Sodium 142 (137-145) mmol/L Potassium 3.8 (3.5-5.1) mmol/L Chloride 107 (98-107) mmol/L Carbon Dioxide 22 (22-30) mmol/L Anion Gap 13 mmol/L BUN 8 (7-17) mg/dL Creatinine 0.59 (0.52-1.04) mg/dL Est GFR (CKD-EPI)AfAm >90 (>60 ml/min/1.73 sqM) Est GFR (CKD-EPI)NonAf >90 (>60 ml/min/1.73 sqM) Glucose 140 H (74-99) mg/dL Lactic Ac Sepsis Rflx Plasma Lactic Acid Rom (0.7-2.0) mmol/L Calcium 9.4 (8.4-10.2) mg/dL Total Bilirubin 0.6 (0.2-1.3) mg/dL AST 56 H (14-36) U/L ALT 51 H (4-34) U/L Alkaline Phosphatase 126 (38-126) U/L Troponin I (0.000-0.034) ng/mL Total Protein 8.2 (6.3-8.2) g/dL Albumin 5.0 (3.5-5.0) g/dL Urine Color Urine Appearance (Clear) Urine pH (5.0-8.0) Ur Specific [place] (1.001-1.035) Urine Protein (Negative) Urine Glucose (UA) (Negative) Urine Ketones (Negative) Urine Blood (Negative) Urine Nitrite (Negative) Urine Bilirubin (Negative) Urine Urobilinogen (<2.0) mg/dL Ur Leukocyte Esterase (Negative) Urine RBC (0-5) /hpf Urine WBC (0-5) /hpf Ur Squamous Epith Cells (0-4) /hpf Urine Bacteria (None) /hpf Hyaline Casts (0-2) /lpf Urine Mucus (None) /hpf Urine Opiates Screen (NotDetected) Ur Oxycodone Screen (NotDetected) Urine Methadone Screen (NotDetected) Ur Barbiturates Screen (NotDetected) U Tricyclic Antidepress (NotDetected) Ur Phencyclidine Scrn (NotDetected) Ur Amphetamines Screen (NotDetected) U Methamphetamines Scrn (NotDetected) U Benzodiazepines Scrn (NotDetected) Urine Cocaine Screen (NotDetected) U Marijuana (THC) Screen (NotDetected) 10/16/23 10/16/23 10/16/23 Range/Units 06:47 06:47 07:15 WBC (3.8-10.6) k/uL RBC (3.80-5.40) m/uL Hgb (11.4-16.0) gm/dL Hct (34.0-46.0) % MCV (80.0-100.0) fL MCH (25.0-35.0) pg MCHC (31.0-37.0) g/dL RDW (11.5-15.5) % Plt Count (150-450) k/uL MPV Neutrophils % % Lymphocytes % % Monocytes % % Eosinophils % % Basophils % % Neutrophils # (1.3-7.7) k/uL Lymphocytes # (1.0-4.8) k/uL Monocytes # (0-1.0) k/uL Eosinophils # (0-0.7) k/uL Basophils # (0-0.2) k/uL PT (10.0-12.5) sec INR (<1.2) APTT (22.0-30.0) sec Sodium (137-145) mmol/L Potassium (3.5-5.1) mmol/L Chloride (98-107) mmol/L Carbon Dioxide (22-30) mmol/L Anion Gap mmol/L BUN (7-17) mg/dL Creatinine (0.52-1.04) mg/dL Est GFR (CKD-EPI)AfAm (>60 ml/min/1.73 sqM) Est GFR (CKD-EPI)NonAf (>60 ml/min/1.73 sqM) Glucose (74-99) mg/dL Lactic Ac Sepsis Rflx Y Plasma Lactic Acid Rom 2.1 H* (0.7-2.0) mmol/L Calcium (8.4-10.2) mg/dL Total Bilirubin (0.2-1.3) mg/dL AST (14-36) U/L ALT (4-34) U/L Alkaline Phosphatase (38-126) U/L Troponin I <0.012 (0.000-0.034) ng/mL Total Protein (6.3-8.2) g/dL Albumin (3.5-5.0) g/dL Urine Color Urine Appearance (Clear) Urine pH (5.0-8.0) Ur Specific [place] (1.001-1.035) Urine Protein (Negative) Urine Glucose (UA) (Negative) Urine Ketones (Negative) Urine Blood (Negative) Urine Nitrite (Negative) Urine Bilirubin (Negative) Urine Urobilinogen (<2.0) mg/dL Ur Leukocyte Esterase (Negative) Urine RBC (0-5) /hpf Urine WBC (0-5) /hpf Ur Squamous Epith Cells (0-4) /hpf Urine Bacteria (None) /hpf Hyaline Casts (0-2) /lpf Urine Mucus (None) /hpf Urine Opiates Screen (NotDetected) Ur Oxycodone Screen (NotDetected) Urine Methadone Screen (NotDetected) Ur Barbiturates Screen (NotDetected) U Tricyclic Antidepress (NotDetected) Ur Phencyclidine Scrn (NotDetected) Ur Amphetamines Screen (NotDetected) U Methamphetamines Scrn (NotDetected) U Benzodiazepines Scrn (NotDetected) Urine Cocaine Screen (NotDetected) U Marijuana (THC) Screen (NotDetected) 10/16/23 Range/Units 09:14 WBC (3.8-10.6) k/uL RBC (3.80-5.40) m/uL Hgb (11.4-16.0) gm/dL Hct (34.0-46.0) % MCV (80.0-100.0) fL MCH (25.0-35.0) pg MCHC (31.0-37.0) g/dL RDW (11.5-15.5) % Plt Count (150-450) k/uL MPV Neutrophils % % Lymphocytes % % Monocytes % % Eosinophils % % Basophils % % Neutrophils # (1.3-7.7) k/uL Lymphocytes # (1.0-4.8) k/uL Monocytes # (0-1.0) k/uL Eosinophils # (0-0.7) k/uL Basophils # (0-0.2) k/uL PT (10.0-12.5) sec INR (<1.2) APTT (22.0-30.0) sec Sodium (137-145) mmol/L Potassium (3.5-5.1) mmol/L Chloride (98-107) mmol/L Carbon Dioxide (22-30) mmol/L Anion Gap mmol/L BUN (7-17) mg/dL Creatinine (0.52-1.04) mg/dL Est GFR (CKD-EPI)AfAm (>60 ml/min/1.73 sqM) Est GFR (CKD-EPI)NonAf (>60 ml/min/1.73 sqM) Glucose (74-99) mg/dL Lactic Ac Sepsis Rflx Plasma Lactic Acid Rom (0.7-2.0) mmol/L Calcium (8.4-10.2) mg/dL Total Bilirubin (0.2-1.3) mg/dL AST (14-36) U/L ALT (4-34) U/L Alkaline Phosphatase (38-126) U/L Troponin I (0.000-0.034) ng/mL Total Protein (6.3-8.2) g/dL Albumin (3.5-5.0) g/dL Urine Color Colorless Urine Appearance Clear (Clear) Urine pH 6.0 (5.0-8.0) Ur Specific [place] 1.044 H (1.001-1.035) Urine Protein Negative (Negative) Urine Glucose (UA) 4+ H (Negative) Urine Ketones Negative (Negative) Urine Blood Small H (Negative) Urine Nitrite Negative (Negative) Urine Bilirubin Negative (Negative) Urine Urobilinogen <2.0 (<2.0) mg/dL Ur Leukocyte Esterase Negative (Negative) Urine RBC 13 H (0-5) /hpf Urine WBC 2 (0-5) /hpf Ur Squamous Epith Cells 1 (0-4) /hpf Urine Bacteria Occasional H (None) /hpf Hyaline Casts 3 H (0-2) /lpf Urine Mucus Rare H (None) /hpf Urine Opiates Screen Not Detected (NotDetected) Ur Oxycodone Screen Not Detected (NotDetected) Urine Methadone Screen Not Detected (NotDetected) Ur Barbiturates Screen Not Detected (NotDetected) U Tricyclic Antidepress Detected H (NotDetected) Ur Phencyclidine Scrn Not Detected (NotDetected) Ur Amphetamines Screen Not Detected (NotDetected) U Methamphetamines Scrn Not Detected (NotDetected) U Benzodiazepines Scrn Not Detected (NotDetected) Urine Cocaine Screen Not Detected (NotDetected) U Marijuana (THC) Screen Not Detected (NotDetected) - Radiology Data Radiology results: report reviewed, image reviewed Disposition Clinical Impression: Headache, Dizziness Disposition: HOME SELF-CARE Instructions (If sedation given, give patient instructions): Acute Headache (ED), Dizziness (ED) Additional Instructions: Return to the emergency department with any new, worsening, or concerning symptoms. Make sure you follow-up for all of the tests ordered by your primary care provider and begin taking a baby aspirin daily as previously instructed. Alternate with ibuprofen and Tylenol as needed for any additional headaches. Is patient prescribed a controlled substance at d/c from ED?: No Referrals: Reji Hernandez MD [Primary Care Provider] - 1-2 days
[2023-10-16 06:59] LABS: Basophils % (A) 0 %; Eosinophils # (A) 0.2 k/uL (0-0.7); Eosinophils % (A) 2 %; HGB 17.4 gm/dL (11.4-16.0); Lymphocytes # (A) 3.2 k/uL (1.0-4.8); Lymphocytes % (A) 27 %; MCH 29.8 pg (25.0-35.0); MCHC 32.8 g/dL (31.0-37.0); MCV 90.7 fL (80.0-100.0); Monocytes # (A) 0.5 k/uL (0-1.0); Monocytes % (A) 4 %; Neutrophils # (A) 7.7 k/uL (1.3-7.7); Neutrophils % (A) 65 %; Platelet Count 150 k/uL (150-450); RBC 5.84 m/uL (3.80-5.40); RDW 14.4 % (11.5-15.5); WBC 11.8 k/uL (3.8-10.6)
[2023-10-16 07:13] LABS: ALT 51 U/L (4-34); AST 56 U/L (14-36); African American GFR (CKD) >90 (>60 ml/min/1.73 sqM); Alkaline Phosphatase 126 U/L (38-126); Anion Gap 13 mmol/L; Blood Urea Nitrogen 8 mg/dL (7-17); Calcium 9.4 mg/dL (8.4-10.2); Carbon Dioxide 22 mmol/L (22-30); Chloride 107 mmol/L (98-107); Glucose 140 mg/dL (74-99); Non-African American GFR(CKD) >90 (>60 ml/min/1.73 sqM); Potassium 3.8 mmol/L (3.5-5.1); Sodium 142 mmol/L (137-145); Total Bilirubin 0.6 mg/dL (0.2-1.3); Total Protein 8.2 g/dL (6.3-8.2)
[2023-10-16 07:26] LABS: Prothrombin Time 11.1 sec (10.0-12.5)
--- NOTE | 2023-10-16 08:35 | XR ---
EXAMINATION TYPE: XR chest 2V DATE OF EXAM: 10/16/2023 COMPARISON: 12/10/2022 HISTORY: Shortness of breath TECHNIQUE: Frontal and lateral views of the chest are obtained. FINDINGS: Scattered senescent parenchymal changes noted. No evidence for infiltrate. No evidence for atelectasis. Heart size is stable. Mediastinal structures are stable and grossly unremarkable. No evidence for hilar prominence. Degenerative changes dorsal spine. IMPRESSION: 1. No evidence for acute pulmonary disease.
[2023-10-16] MEDS: HYDROmorphone 0.5 MG/0.5 ML SYRINGE IVP STA (08:58)
[2023-10-16] MEDS: diphenhydrAMINE 50 MG/ML 1 ML VIAL IVP STA (09:02)
[2023-10-16] MEDS: DEXAMETHASONE SOD PHOSPHATE 10 MG/ML 1 ML VIAL IVP STA (09:03)
[2023-10-16 09:16] VITALS: TEMP 97.4
--- NOTE | 2023-10-16 09:28 | CT ---
EXAMINATION TYPE: CT angio head neck DATE OF EXAM: 10/16/2023 COMPARISON: HISTORY: Right sided weakness and dizziness x [address] DLP: 624.2 mGycm CONTRAST: Performed without and with IV Contrast, patient injected with 65 ml mL of Isovue 370. Combination Contrast CTA cervical carotids and [place] CTA cervical carotids with 3-D recons truction Contrast CTA of the cervical carotids was performed 3-D reconstruction imaging obtained at a separate workstation. Right carotid system: Mild plaque is seen of the right common carotid artery. There is mild plaque a lso noted at the carotid bulb and proximal ICA. No significant diameter reduction. ECA is patent. Right vertebral artery appears unremarkable. Left carotid system: Mild plaque is seen of the left common carotid artery. There is mild plaque als o noted at the carotid bulb and proximal ICA. No significant diameter reduction. ECA is patent. Lef t vertebral artery appears unremarkable. IMPRESSION: 1. No significant diameter reduction to account for the patient's symptoms. CTA [place] with 3-D reconstruction Contrast CTA of the [place] was performed 3-D reconstruction imaging obtained at a separate workstation. Vertebrobasilar system as well as intracranial portions of the internal carotid arteries and their ma yvon tributaries are patent. I do not see evidence for sizable aneurysm or vascular malformation. Pl ease note MRI provides greater sensitivity and specificity. Visualized brain appears grossly unremar kable. IMPRESSION: 1. No significant abnormality. NASCET criteria was used in interpretation of this exam?
[2023-10-16 09:36] LABS: Appearance,Urine Clear (Clear); Bacteria,Urine Occasional /hpf; Bilirubin,Urine Negative (Negative); Blood,Urine Small (Negative); Color,Urine Colorless; Glucose,Urine (UA) 4+ (Negative); Hyaline Casts,Urine 3 /lpf (0-2); Ketones,Urine Negative (Negative); Leukocyte Esterase,Urine Negative (Negative); Mucus,Urine Rare /hpf; Nitrite,Urine Negative (Negative); Protein,Urine Negative (Negative); RBC,Urine 13 /hpf (0-5); Specific Gravity,Urine 1.044 (1.001-1.035); Squamous Epithelial Cell,Urine 1 /hpf (0-4); Urobilinogen,Urine <2.0 mg/dL (<2.0); WBC,Urine 2 /hpf (0-5)
[2023-10-16 09:44] LABS: Amphetamine Screen,Urine Not Detected (NotDetected); Barbiturate Screen,Urine Not Detected (NotDetected); Benzodiazepines Screen,Urine Not Detected (NotDetected); Cocaine Screen,Urine Not Detected (NotDetected); Methadone Screen, Urine Not Detected (NotDetected); Opiate Screen,Urine Not Detected (NotDetected); Oxycodone Screen, Urine Not Detected (NotDetected); Phencyclidine Screen,Urine Not Detected (NotDetected); Tricyclic Antidepressant,Urine Detected (NotDetected); Urn Cannabinoid Scrn Not Detected (NotDetected)
--- NOTE | 2023-10-16 10:06 | CT ---
EXAMINATION TYPE: CT brain jim mars con DATE OF EXAM: 10/16/2023 COMPARISON: 02/19/2023 HISTORY: Right sided weakness and dizziness x [address] DLP: 1394.[address] of the brain was performed. The ventricles, basal cisterns and sulci overlying the cerebral convexities demonstrate mild enlargem ent. There is no evidence for intracranial hemorrhage or sulcal effacement. There is decreased attenuatio n about the periventricular white matter and deep white matter of both cerebral hemispheres, compatib le with chronic small vessel ischemia. No mass effects are seen. If symptoms persist consider MRI. Osseous calvarium is intact. IMPRESSION: 1. Age related atrophic and chronic small vessel ischemic change without acute intracranial process seen at this time. CT Cervical Spine: Unenhanced CT of the cervical spine was performed with bone and soft tissue window settings submitted . Coronal and sagittal reconstruction is obtained. There is normal alignment and prevertebral soft tissues. No evidence for acute cervical fracture . Scattered degenerative disc disease and spondylosis. Biapical scarring. IMPRESSION: 1. No evidence for acute fracture or subluxation of the cervical spine.
[2023-10-16] MEDS: KETOROLAC 15 MG/ML 1 ML VIAL IVP STA ×2 (10:15→10:57)
[2023-10-16] MEDS: METOCLOPRAMIDE 5 MG/ML 2 ML VIAL IVP STA (10:52)
[2023-10-16] MEDS: ASPIRIN 81 MG PO STA (11:02)
[2023-10-16 12:35] VITALS: BP 106/74; PULSE 90; RESP 20
== END 2023-10-16 12:15 | disposition home or self-care (01) ==
LOC: EC 06:15
DX: R42 Dizziness and giddiness (principal); R51.9 Headache, unspecified; Z88.5 Allergy status to narcotic agent; Z88.0 Allergy status to penicillin; Z91.030 Bee allergy status; Z88.6 Allergy status to analgesic agent
CPT/HCPCS: 36415; 93005; 80053; 83605; 84484; 85025; 85610; 85730; 81001; 80306; 71046; 72125; 70496; 70450; 70498; 96374; 96375 ×4; 96376; 96361 ×4; 99285; J1200; J1100; J2765; J1885; J1170; Q9967

== ENCOUNTER → 2023-11-01 | Outpatient (CLI) | payer MEDICARE ==
--- NOTE | 2023-11-02 10:20 | MR ---
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 COMPARISON: Same day MRA MRV TECHNIQUE: Multi planar, multi sequence imaging was performed through the brain including: T1, T2, In version recovery, susceptibility weighted imaging and gradient echo imaging and Diffusion weighted im aging. The patient was then given intravenous contrast and multi planar, T1 fat-saturation images wer e obtained. IV Contrast: 7.5 cc Gadavist FINDINGS: The rinaldi-white junctions, ventricular system, basal cisterns appear unremarkable. Diffusion-weighted imaging shows no evidence of restricted diffusion to suggest acute/subacute infarct. Intracranial ar terial flow voids are maintained. Midline structures show no abnormality. Scattered foci of high T2 s ignal intensity are seen within the periventricular white matter. The susceptibility weighted images do not reveal any evidence for micro-hemorrhage. After administration of gadolinium, no abnormal enha ncement is seen. The bone marrow signal is within normal limits. Paranasal sinuses and mastoid air cells: Mild scattered paranasal sinus disease. Visualized orbits: Bilateral aphakia IMPRESSION: 1. No evidence of intracranial mass, acute/subacute infarct, or abnormal enhancement. 2. Nonspecific white matter changes, likely related to small vessel ischemic disease.
--- NOTE | 2023-11-02 11:14 | MR ---
EXAMINATION TYPE: MR MRA/MRV head wo con DATE OF EXAM: 11/01/2023 7:27 PM CLINICAL INDICATION:Female, 53 years old with history of G45.9 OCCLUSION AND STENOSIS OF BILATERAL CA ROTID; PHH, Headaches, intermittent vision loss right eye, history of breast cancer 2020. COMPARISON: MRA brain same day TECHNIQUE: MRA brain: 3-D [id number] Axial with MIP and 3-D reconstruction performed on a separate workstati on. MRV of the brain: performed utilizing two-dimensional [id number] technique MIP and 3-D reconstruc tion. Performed on a separate workstation. IV Contrast: cc (None if empty) Findings: Vertebral arteries: The vertebral arteries are patent. The left vertebral artery is dominant. Basilar artery: The basilar artery is intact. The basilar artery bifurcation is normal. Internal Carotid arteries: The cervical, petrous, cavernous and supraclinoid segments are normal. JAMAL: Patent without evidence of aneurysm. ACOM: Patent without evidence of aneurysm. MCA: Patent without evidence of aneurysm. PHYSICIAN OFFICE NURSE: Patent without evidence of aneurysm. PCOM: Hypoplastic left normal caliber. There is no evidence of venous occlusion or collateral circulation. There is no evidence of sinus th rombosis. IMPRESSION: 1. No evidence of venous sinus thrombosis. 2. No evidence of intracranial aneurysm or significant stenosis.
== END | disposition home or self-care (01) ==
LOC: RADMRIMAIN 17:55
PROVIDERS: ATTEND Internal Medicine
DX: G93.89 Other specified disorders of brain (principal); G45.9 Transient cerebral ischemic attack, unspecified; H54.61 Unqualified visual loss, right eye, normal vision left eye; Z85.3 Personal history of malignant neoplasm of breast
CPT/HCPCS: 70553; 70544; A9585

== ENCOUNTER 2023-11-29 13:21 | Day surgery (SDC) | payer MEDICARE ==
[2023-11-29] MEDS: LACTATED RINGERS 1,000 ML IV SCH (14:00)
[2023-11-29 14:01] LABS: Glucose,Whole Blood 117 mg/dL (70-110)
[2023-11-29] MEDS: DEXAMETHASONE SOD PHOSPHATE 4 MG/ML 1 ML VIAL IV ONE (14:02)
[2023-11-29] MEDS: ONDANSETRON 4 MG/2 ML VIAL IVP ONE (14:03)
[2023-11-29] MEDS: MIDAZOLAM 2 MG/2 ML VIAL IVP ONE ×3 (14:05→14:26)
[2023-11-29] MEDS ORDERED: PHENYLEPHRINE 10 MG/ML VIAL ONE (14:48)
[2023-11-29] MEDS ORDERED: PROPOFOL 10 MG/ML 20 ML VIAL IV ONE (14:48)
[2023-11-29] MEDS ORDERED: ceFAZolin 1 GM/50 ML BAG (PMX) ONE (14:48)
[2023-11-29] MEDS ORDERED: HYDROmorphone (PF) 1 MG/ML ONE (14:48)
[2023-11-29] MEDS ORDERED: fentaNYL (PF) 50 MCG/ML 2 ML AMP ONE (14:48)
[2023-11-29] MEDS ORDERED: LIDOCAINE 1% INJ 10MG/ML (20 ML MDV) ONE (14:48)
[2023-11-29] MEDS ORDERED: MIDAZOLAM 2 MG/2 ML VIAL ONE (14:48)
[2023-11-29] MEDS: LIDOCAINE 1% INJ 10MG/ML (30 ML VIAL-PF) SQ ONE ×2 (14:58)
[2023-11-29] MEDS: SODIUM CHLORIDE 0.9% 50 ML with ceFAZolin 2 GM IV ONE (15:00)
[2023-11-29 17:12] LABS: Glucose,Whole Blood 131 mg/dL (70-110)
--- NOTE | 2023-11-29 17:17 | P.OP ---
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 She has has been treated with multiple rounds of steroids without any significant improvement and her pain has been extending to her eyes bilaterally. She has been worked up thoroughly by neurology without any etiology of her symptoms and therefore presents today for biopsy. Description of Procedure: After written and informed consent was obtained for the patient and all risk, benefits and complications were described the patient was brought to the operative suite and laid in supine position. The area of the bilateral temporal regions were prepped and draped in usual sterile fashion after appropriate anesthetic was performed per the anesthesiologist. A small incision was then created anterior to the ear at the hairline with a 15 blade scalpel and dissection was carried down to the temporal artery which was located and dissected free in a circumferential manner. Approximately 2 cm of artery was dissected free and branches were ligated with 4-0 silk suture. The right and left temporal artery was then clamped and suture-ligated and sent off for pathology. The area was then irrigated, hemostasis was ensured and incision was then closed in a multilayer fashion. The skin was cleansed and dressed with glue. Patient tolerated the procedure well and was sent to PACU for recovery. Plan - Discharge Summary Discharge Rx Participant: No New Discharge Prescriptions: No Action Zolpidem Tartrate [Ambien Cr] 12.5 mg PO HS clonazePAM [Clonazepam] 1 mg PO BID Sertraline HCl [Zoloft] 150 mg PO HS Metoprolol Succinate (ER) [Toprol XL] 25 mg PO HS Pantoprazole [Protonix] 40 mg PO HS cloNIDine HCL [Catapres] 0.2 mg PO BID Empagliflozin [Jardiance] 10 mg PO DAILY Cyclobenzaprine [Flexeril] 10 mg PO BID Atorvastatin Calcium [Lipitor] 40 mg PO HS Semaglutide [Ozempic] 2 mg SQ WEEKLY predniSONE [Deltasone] 10 mg PO DAILY Discharge Medication List Zolpidem Tartrate [Ambien Cr] 12.5 mg PO HS 09/27/14 [History] clonazePAM [Clonazepam] 1 mg PO BID 04/08/16 [History] Sertraline HCl [Zoloft] 150 mg PO HS 12/05/16 [History] cloNIDine HCL [Catapres] 0.2 mg PO BID 06/04/22 [History] Cyclobenzaprine [Flexeril] 10 mg PO BID 12/11/22 [History] Empagliflozin [Jardiance] 10 mg PO DAILY 12/11/22 [History] Metoprolol Succinate (ER) [Toprol XL] 25 mg PO HS 12/11/22 [History] Atorvastatin Calcium [Lipitor] 40 mg PO HS 10/16/23 [History] Pantoprazole [Protonix] 40 mg PO HS 10/16/23 [History] Semaglutide [Ozempic] 2 mg SQ WEEKLY 10/16/23 [History] predniSONE [Deltasone] 10 mg PO DAILY 11/25/23 [History]
[2023-11-29] MEDS: fentaNYL (PF) 50 MCG/ML 2 ML AMP IV PRN (18:29)
[2023-11-29] MEDS ORDERED: HYDROmorphone 1 MG/ML 1 ML SYRINGE IVP PRN (18:55)
[2023-11-29] MEDS: MEPERIDINE 50 MG/ML SYRINGE IVP ONE ×2 (19:15→19:22)
[2023-11-29] MEDS: CYCLOBENZAPRINE 10 MG TAB PO SCH (21:24)
[2023-11-29] MEDS: ATORVASTATIN 40 MG TAB PO SCH (21:24)
[2023-11-29] MEDS: cloNIDine HCL 0.2 MG TAB PO SCH (21:24)
[2023-11-29] MEDS: clonazePAM 1 MG TAB PO SCH (21:24)
[2023-11-29] MEDS: PANTOPRAZOLE 40 MG TABLET PO SCH (21:24)
[2023-11-29] MEDS: METOPROLOL SUCCINATE (ER) 25 MG TAB.ER.24H PO SCH (21:24)
[2023-11-29] MEDS: ZOLPIDEM 5 MG TAB PO SCH (21:24)
[2023-11-29] MEDS: SERTRALINE 100 MG TAB PO SCH (21:24)
[2023-11-29] MEDS: HYDROmorphone 1 MG/ML 1 ML SYRINGE IVP PRN (21:53)
[2023-11-30] MEDS: SODIUM CHLORIDE 0.9% 1,000 ML IV SCH (01:29)
[2023-11-30] MEDS: Pre Op ABX Message 1 EACH MISC MISCELLANE ONE (08:00)
[2023-11-30] MEDS: DAPAGLIFLOZIN PROPANEDIOL 5 MG TABLET PO SCH (08:18)
[2023-11-30] MEDS ORDERED: predniSONE 10 MG TAB PO SCH (09:00)
[2023-11-30] MEDS: predniSONE 10 MG TAB PO SCH (12:19)
--- NOTE | 2023-11-30 18:01 | P.CONS ---
History of Present Illness - Reason for Consult Consult date: 11/30/23 medical management - History of Present Illness HISTORY OF PRESENT ILLNESS: This is a 53-year-old female with a previous medical history significant for hypertension and hypertensive cardio vascular disease, hype rlipidemia, migraine headaches, anxiety and depressive disorder, irritable bowel syndrome without diarrhea, postural orthostatic tachycardia syndrome POTS, GERD with esophagitis, diabetes mellitus type 2, breast cancer of the right breast. Patient had bilateral temporal artery biopsies yesterday afternoon with vascular surgery. Postoperatively she was not well enough for discharge and was subseq uently admitted for uncontrolled pain at the biopsy sites. Patient is lying in bed in the dark, complains of severe bilateral temporal pain and headache. Continue Dilaudid 1 mg IV push every 3 hours as needed. We were consulted for medical management, we will continue her home medications and plan for discharge tomorrow. REVIEW OF SYSTEMS: Constitutional: No documented fever, no chills, no night sweats. No weight change. No weakness, fatigue or lethargy. No daytime sleepiness. HEENT: Positive headache. No blurred vision or double vision, no loss of vision. No loss of Hearing, no ringing in the ears, no dizziness. No nasal drainage or congestion. No epistaxis. No sore throat. Lungs: No shortness of breath, no cough, no sputum production. No wheezing. Reports dyspnea with activity. Cardiovascular: positive for chest pain, no lower extremity edema. No palpitations. No paroxysmal nocturnal dyspnea. No orthopnea. No lightheadedness or dizziness. No syncopal episodes. Abdominal: Reports abdominal pain. No nausea, vomiting. occasional diarrhea. No constipation. No bloody or tarry stools reports loss of appetite. Genitourinary: No dysuria, increased frequency, urgency. No urinary retention. Musculoskeletal: No myalgias. No muscle weakness, no gait dysfunction, no frequent falls. No back pain. No neck pain. Integumentary: No wounds, no lesions. No rash or pruritus. No unusual bruising. No change in hair or nails. Neurologic: No aphasia. No facial droop. No change in mentation. No head injury. No headache. No paralysis. No paresthesia. Psychiatric: positive for depression and anxiety. No mood swings. Endocrine: No abnormal blood sugars. No weight change. PAST MEDICAL HISTORY: Hypertension and hypertensive cardio vascular disease. Hyperlipidemia. Migraine headaches. Right breast cancer. Anxiety. IBS. Depression. Postural orthostatic tachycardia syndrome Diabetes Mellitus type 2. GERD. Mild decrease in systolic function ejection fraction 45-50% possible nonischemic cardiomyopathy Aortic insufficiency Mitral insufficiency PAST SURGICAL HISTORY: Appendectomy. Back surgery. Left arthroscopic meniscal tear repair 4. Laparoscopic cholecystectomy. Right ankle surgery. Colonoscopy 2017. Bilateral tubal ligation. Breast biopsy. Hysterectomy with one ovary left. Bilateral mastectomy. SOCIAL HISTORY: Patient is a lifelong nonsmoker, she denies any alcohol ingestion, she denies any drug use or abuse. FAMILY HISTORY: Father at age of 49 from NH and had CABG 4 at the age of 44 and he had a history of hypertension mother at age of 62 from breast cancer she had a history of hypertension, patient has one brother who is alive 54-year-old and okay patient has 2 sons no major medical problems and 2 daughters with clotting disorder. PHYSICAL EXAMINATION: General: 53-year-old female in out of bed in no apparent distress HEENT: Head is atraumatic, normocephalic, pupils were equal round reactive to light and recommendation, extraocular muscle movement were intact, sclera nonicteric, conjunctivae were pale, mucous membranes of the mouth are somewhat dry. Neck: Supple, no JVP, normal carotid upstroke bilaterally, no lymphadenopathy. Chest: Decreased breath sounds at the bases, few rhonchi, no expiratory wheezes, no chest wall tenderness, no intercostal retractions. Heart: First heart sound is normal, second heart sound is normal there is no gallop or murmur. Abdomen: Soft, nontender, nondistended, positive bowel sounds. Extremities: There is no edema no calf tenderness DP +2 bilaterally. Neurologic examination: Patient is awake alert and oriented X3, cranial nerves II-12 appear grossly intact, muscle power were 5 out of 5 in upper extremities and 5 out of 5 in bilateral lower extremities, deep tendon reflexes normal bilaterally. ASSESSMENT AND PLAN: 1. Uncontrolled pain status post bilateral temporal artery biopsy. Continue Dilaudid 1 mg IV push every 3 hours as needed. 2. Diabetes mellitus type 2. Patient has been on Ozempic 2 mg subcu density once every week, continue patient on Jardiance 10 mg orally once every day, monitor the patient blood glucose levels before each meal and at bedtime. 3. Hypertension and hypertensive vascular disease, continue patient on low-salt diet, continue patient on metoprolol ER 25 mg once every day, continue clonidine 0.25 mg orally twice every day continue to monitor the patient blood pressure very closely. 4. Hyperlipidemia. Continue patient on low-cholesterol diet, keep LDL 55-70. Continue atorvastatin 20 mg once daily. 5. GERD with esophagitis. Continue patient on Protonix 40 mg orally once every day. 6. Postural orthostatic tachycardia syndrome has been under the care of cardiology. 7. Irritable bowel syndrome without diarrhea. Has been stable at this time. 8. Migraine headaches. Continue Emgality 120 mg SC q month. 9. Anxiety disorder. Continue patient on Klonopin 1 mg orally twice every day as well as Sertraline 100 mg orally once every day. 10. Depression. Continue patient on sertraline 100 Mg orally once every day. 11. Breast cancer status post bilateral mastectomy currently in remission. 12. Mildly decreased and the LV function with an ejection fraction of 45-50% with mild mitral regurgitation and aortic insufficiency. Continue metoprolol ER 25 milligrams orally once every day. 13. Admit to inpatient. Estimate a length of stay 2 midnights. 14. Full code. Impression and plan of care have been directed as dictated by the signing physician. Kia Garcia, nurse practitioner acting as scribe for signing physician. Past Medical History Past Medical History: Atrial Fibrillation, Coronary Artery Disease (CAD), Cancer, CVA/TIA, Diabetes Mellitus, Hyperlipidemia, Hypertension, Liver Disease, Supraventricular Tachycardia (SVT) Additional Past Medical History / Comment(s): Postural orthostatic tachycardia syndrome (POTS), Hx of SVT- currently feels herself go in SVT twice a day; Migraines. IBS/D. Autoimmune disease - Granuloma annulare; Ruptured disc with back pain. Right breast ca 2019 - surgery, no chemo or radiation. Fatty liver disease. Recently in October 2023 for possible TIA. Currently losing vision in right eye and constant headache x 3 months. History of Any Multi-Drug Resistant Organisms: None Reported, MRSA Year Discovered:: Fall 2019 MDRO Source:: left breast Past Surgical History: Appendectomy, Breast Surgery, Cardiac Ablation, Cholecystectomy, Heart Catheterization, Hysterectomy, Orthopedic Surgery Additional Past Surgical History / Comment(s): BIOPSY- RT BREAST x2, RT LUMPECTOMY; Bilateral Mastectomy with reconstruction, LT KNEE SURGERY X4 (2 arthroscopic), Right ankle x 2, CARDIAC ABLATION X 2. COLONOSCOPY. Wu cataract surg Past Anesthesia/Blood Transfusion Reactions: Previous Problems w/ Anesthesia, Postoperative Nausea & Vomiting (PONV) Additional Past Anesthesia/Blood Transfusion Reaction / Comm: DIFFICULT INTUBATION W/ EMERG APPENDECTOMY BY DR CAPUTO 04/08/2016 ([facility])-Can't find letter. PONV after breast reconstruction surgery. Past Psychological History: Anxiety, Depression Smoking Status: Never smoker Past Alcohol Use History: None Reported Past Drug Use History: None Reported - Past Family History Father Family Medical History: Hypertension, Myocardial Infarction (NH), Pulmonary Embolus Mother Family Medical History: Cancer Additional Family Medical History / Comment(s): Breast/Lymphatic CA Medications and Allergies Home Medications Medication Instructions Recorded Confirmed Type Zolpidem Tartrate [Ambien Cr] 12.5 mg PO HS 09/27/14 11/25/23 History clonazePAM [Clonazepam] 1 mg PO BID 04/08/16 11/25/23 History Sertraline HCl [Zoloft] 150 mg PO HS 12/05/16 11/25/23 History cloNIDine HCL [Catapres] 0.2 mg PO BID 06/04/22 11/25/23 History Cyclobenzaprine [Flexeril] 10 mg PO BID 12/11/22 11/25/23 History Empagliflozin [Jardiance] 10 mg PO DAILY 12/11/22 11/25/23 History Metoprolol Succinate (ER) [Toprol 25 mg PO HS 12/11/22 11/25/23 History XL] Atorvastatin Calcium [Lipitor] 40 mg PO HS 10/16/23 11/25/23 History Pantoprazole [Protonix] 40 mg PO HS 10/16/23 11/25/23 History Semaglutide [Ozempic] 2 mg SQ WEEKLY 10/16/23 11/25/23 History predniSONE [Deltasone] 10 mg PO DAILY 11/25/23 11/25/23 History Allergies Allergy/AdvReac Type Severity Reaction Status Date / Time Penicillins Allergy Unknown Verified 11/29/23 13:38 Childhood venom-honey bee Allergy Anaphylaxis-has Verified 11/29/23 13:38 [bee venom (honey bee)] epi-pen baclofen AdvReac Diarrhea Verified 11/29/23 13:38 Physical Exam Vitals: Vital Signs Temp Pulse Resp BP Pulse Ox 11/30/23 17:43 98.2 F 92 18 120/70 97 11/30/23 14:11 101/65 11/30/23 11:45 83 16 85/51 99 11/30/23 08:16 98.1 F 94 18 105/67 96 11/30/23 04:00 100 16 112/73 95 11/29/23 23:47 108 H 16 134/73 93 L 11/29/23 20:45 98.2 F 116 H 16 119/72 95 11/29/23 20:15 107 H 16 127/72 96 11/29/23 19:45 117 H 16 124/65 97 11/29/23 19:30 115 H 16 123/65 98 11/29/23 19:15 118 H 16 138/78 98 11/29/23 19:00 119 H 16 137/76 98 11/29/23 18:45 110 H 16 141/77 97 11/29/23 18:30 113 H 16 137/81 97 11/29/23 18:15 106 H 16 120/71 97 11/29/23 18:00 116 H 16 121/70 94 L Intake and Output 11/30/23 11/30/23 11/30/23 06:59 14:59 22:59 Intake Total 520 Balance 520 Intake: Oral 520 Other: Voiding Method Toilet Toilet # Voids 1
[2023-11-30] MEDS: diphenhydrAMINE 25 MG CAP PO PRN (19:49)
[2023-12-01 09:55] VITALS: RESP 20
--- NOTE | 2023-12-01 13:55 | P.PN ---
Subjective Progress Note Date: 12/01/23 HISTORY OF PRESENT ILLNESS: This is a 53-year-old female with a previous medical history signif icant for hypertension and hypertensive cardio vascular disease, hyperlipidemia, migraine headaches, anxiety and depressive disorder, irritable bowel syndrome without diarrhea, postural orthostatic tachycardia syndrome POTS, GERD with esophagitis, diabetes mellitus type 2, breast cancer of the right breast. Patient had bilateral temporal artery biopsies yesterday afternoon with vascular surgery. Postoperatively she was not well enough for discharge and was subsequently admitted for uncontrolled pain at the biopsy sites. Patient is lying in bed in the dark, complains of severe bilateral temporal pain and headache. Continue Dilaudid 1 mg IV push every 3 hours as needed. We were consulted for medical management, we will continue her home medications and plan for discharge tomorrow. 11/30: Patient lying in bed at this time, states that her pain has improved since yesterday. Bilateral temporal incision sites are well-approximated, clean and dry, no redness, warmth, or drainage noted. Patient is medically stable for discharge and we will see her in the office in the next 1 to 2 days. REVIEW OF SYSTEMS: Constitutional: No documented fever, no chills, no night sweats. No weight c hange. No weakness, fatigue or lethargy. No daytime sleepiness. HEENT: Positive headache. No blurred vision or double vision, no loss of vision. No loss of Hearing, no ringing in the ears, no dizziness. No nasal drainage or congestion. No epistaxis. No sore throat. Lungs: No shortness of breath, no cough, no sputum production. No wheezing. Reports dyspnea with activity. Cardiovascular: positive for chest pain, no lower extremity edema. No palpitations. No paroxysmal nocturnal dyspnea. No orthopnea. No lightheadedness or dizziness. No syncopal episodes. Abdominal: Reports abdominal pain. No nausea, vomiting. occasional diarrhea. No constipation. No bloody or tarry stools reports loss of appetite. Genitourinary: No dysuria, increased frequency, urgency. No urinary retention. Musculoskeletal: No myalgias. No muscle weakness, no gait dysfunction, no frequent falls. No back pain. No neck pain. Integumentary: No wounds, no lesions. No rash or pruritus. No unusual brui sing. No change in hair or nails. Neurologic: No aphasia. No facial droop. No change in mentation. No head injury. No headache. No paralysis. No paresthesia. Psychiatric: positive for depression and anxiety. No mood swings. Endocrine: No abnormal blood sugars. No weight change. PHYSICAL EXAMINATION: General: 53-year-old female in out of bed in no apparent distress HEENT: Head is atraumatic, normocephalic, pupils were equal round reactive to light and recommendation, extraocular muscle movement were intact, sclera nonicteric, conjunctivae were pale, mucous membranes of the mouth are somewhat dry. Neck: Supple, no JVP, normal carotid upstroke bilaterally, no lymphadenopathy. Chest: Decreased breath sounds at the bases, few rhonchi, no expiratory wheezes, no chest wall tenderness, no intercostal retractions. Heart: First heart sound is normal, second heart sound is normal there is no gallop or murmur. Abdomen: Soft, nontender, nondistended, positive bowel sounds. Extremities: There is no edema no calf tenderness DP +2 bilaterally. Neurologic examination: Patient is awake alert and oriented X3, cranial nerves II-12 appear grossly intact, muscle power were 5 out of 5 in upper extremities and 5 out of 5 in bilateral lower extremities, deep tendon reflexes normal bilaterally. ASSESSMENT AND PLAN: 1. Uncontrolled pain status post bilateral temporal artery biopsy. Continue Dilaudid 1 mg IV push every 3 hours as needed. 2. Diabetes mellitus type 2. Patient has been on Ozempic 2 mg subcu density once every week, continue patient on Jardiance 10 mg orally once every day, monitor the patient blood glucose levels before each meal and at bedtime. 3. Hypertension and hypertensive vascular disease, continue patient on low-salt diet, continue patient on metoprolol ER 25 mg once every day, continue clonidine 0.25 mg orally twice every day continue to monitor the patient blood pressure very closely. 4. Hyperlipidemia. Continue patient on low-cholesterol diet, keep LDL 55-70. Continue atorvastatin 20 mg once daily. 5. GERD with esophagitis. Continue patient on Protonix 40 mg orally once every day. 6. Postural orthostatic tachycardia syndrome has been under the care of cardiology. 7. Irritable bowel syndrome without diarrhea. Has been stable at this time. 8. Migraine headaches. Continue Emgality 120 mg SC q month. 9. Anxiety disorder. Continue patient on Klonopin 1 mg orally twice every day as well as Sertraline 100 mg orally once every day. 10. Depression. Continue patient on sertraline 100 Mg orally once every day. 11. Breast cancer status post bilateral mastectomy currently in remission. 12. Mildly decreased and the LV function with an ejection fraction of 45-50% with mild mitral regurgitation and aortic insufficiency. Continue metoprolol ER 25 milligrams orally once every day. 13. Patient is medically stable for discharge. Impression and plan of care have been directed as dictated by the signing robert wolfe. Kia Garcia, nurse practitioner acting as scribe for signing physician. Objective - Vital Signs Vital signs: Vital Signs Temp 98.3 F 12/01/23 11:30 Pulse 93 12/01/23 11:30 Resp 20 12/01/23 11:30 BP 96/61 12/01/23 11:30 Pulse Ox 93 L 12/01/23 11:30 FiO2 Intake & Output 11/30/23 12/01/23 12/01/23 18:59 06:59 18:59 Intake Total 520 540 240 Balance 520 540 240 Intake: Oral 520 540 240 Other: Voiding Method Toilet Toilet # Voids 2
[2023-12-01 17:17] VITALS: BP 116/78; PULSE 97; TEMP 98.5
== END 2023-12-01 17:36 | disposition home or self-care (01) ==
LOC: OR 13:21 → 3SCARD 20:45 → OR 12-01 17:36
PROVIDERS: ATTEND Internal Medicine
DX: R51.9 Headache, unspecified (principal); I10 Essential (primary) hypertension; E11.9 Type 2 diabetes mellitus without complications; E78.5 Hyperlipidemia, unspecified; F41.9 Anxiety disorder, unspecified; F32.A Depression, unspecified; K58.9 Irritable bowel syndrome, unspecified; K21.9 Gastro-esophageal reflux disease without esophagitis; Z79.899 Other long term (current) drug therapy; Z79.84 Long term (current) use of oral hypoglycemic drugs
CPT/HCPCS: 37609; 88305; J2250; J1100; J2175; J0690 ×2; J2405; J2001 ×2; J3010; J1170 ×3; J2704; J2371

== ENCOUNTER → 2024-03-18 | Day surgery (SDC) | payer MEDICARE ==
--- NOTE | 2024-03-25 11:46 | MM ---
Reason for Exam: Post Procedure Mammogram. Last mammogram was performed 4 year(s) and 7 month(s) ago. Patient History: Menarche at age 10. First Full-Term at age 22. Right ovary removed at age 36. Hysterectomy at age 36. Breast cancer, age 37. 2007, Excisional Biopsy on the Right side. 05/05/2007, Benign Excisional Biopsy on the right side. 2006, Lumpectomy on the Right side. 09/07/2021, Benign Core Biopsy on the right side. 12/07/2020, Benign Core Biopsy on the left side. 07/29/2013, Bilateral Benign Excisional Biopsy. Maternal aunt had breast cancer. Mother had breast cancer, age 59. Prior Study Comparison: 09/22/2018 Bilateral Diagnostic Mammogram, [facility]. 09/02/2019 Bilateral Diagnostic Mammogram, [facility]. 12/07/2020 Left Diagnostic Mammogram, [facility]. Tissue Density: Right: The breasts are heterogeneously dense, which may obscure small masses. Pathology Description: Location: 3 o'clock. Marker Left Behind. Needle Type: Bard 14g x 10cm Cores: 2 Skin Nicks: 1 Gauge: 14 Pathology Description: Location: 2 o'clock. Marker Left Behind. Needle Type: Mammotome Cores: 3 Skin Nicks: 1 Gauge: 13 The procedure of ultrasound guided core biopsy was explained to the patient. Benefits, alternatives, and risks were discussed. An informed consent was then obtained. A time out was performed/ The patient was placed in supine positioning for imaging and for the procedure. The overlying skin was prepped and draped in usual sterile fashion. 2 ml 1% lidocaine buffered with bicarbonate was used as anesthetic into the skin and subcutaneous tissue up to area of concern in the anterior coccyx centimeters from the nipple. A racheal was made with surgical scalpel. Under ultrasound guidance, a 18-gauge biopsy gun device was used to obtain 2 core samples. Following this, a butterfly biopsy clip was left in the lesion. A post procedure mammogram was performed, clip seen and correlates with the mammographic finding. The patient tolerated the procedure well without any immediate complication. The patient was discharged home in stable condition. Impression: Successful, uncomplicated ultrasound guided core biopsy of area of concern in the right breast. Pathology Results: Result: Benign, Fat necrosis. A. RIGHT BREAST, TWO O'CLOCK, CORE BIOPSY: Fibroadipose tissue with focal fibrosis/scar, mild chronic inflammation and fat necrosis. Negative for malignancy. B. RIGHT BREAST, THREE O'CLOCK, CORE BIOPSY: Fibrosis/scar and fat necrosis. Negative for malignancy. C. LEFT BREAST, EIGHT O'CLOCK, CORE BIOPSY: Fibrosis/scar and fat necrosis. Negative for malignancy. Overall Assessment: Benign Assessment: MG diagnostic mammo RT wo CAD - Right: Benign, BI-RAD 2. Management: Diagnostic Breast Ultrasound of both breasts in 6 months. Electronically signed and approved by: Sai Thomas DO
--- NOTE | 2024-03-25 11:46 | MM ---
Reason for Exam: Post Procedure Mammogram. Last mammogram was performed 4 year(s) and 7 month(s) ago. Patient History: Menarche at age 10. First Full-Term at age 22. Right ovary removed at age 36. Hysterectomy at age 36. Breast cancer, age 37. 2007, Excisional Biopsy on the Right side. 05/05/2007, Benign Excisional Biopsy on the right side. 2006, Lumpectomy on the Right side. 09/07/2021, Benign Core Biopsy on the right side. 12/07/2020, Benign Core Biopsy on the left side. 07/29/2013, Bilateral Benign Excisional Biopsy. Maternal aunt had breast cancer. Mother had breast cancer, age 59. Prior Study Comparison: 09/22/2018 Bilateral Diagnostic Mammogram, [facility]. 09/02/2019 Bilateral Diagnostic Mammogram, [facility]. 09/02/2019 Right Diagnostic Ultrasound, [facility]. 11/27/2019 Bilateral Diagnostic Breast MRI, [facility]. 11/17/2020 Bilateral Diagnostic Ultrasound, [facility]. 12/07/2020 Left Diagnostic Mammogram, [facility]. 08/22/2021 Right Diagnostic Ultrasound, [facility]. Tissue Density: Left: The breasts are heterogeneously dense, which may obscure small masses. Pathology Description: Location: 8 o'clock. Marker Left Behind. Needle Type: Mammotome Cores: 6 Skin Nicks: 1 Gauge: 13 The procedure of ultrasound guided core biopsy was explained to the patient. Benefits, alternatives, and risks were discussed. An informed consent was then obtained. The patient was placed in supine positioning for imaging and for the procedure. The overlying skin was prepped and draped in usual sterile fashion. Lidocaine buffered with bicarbonate was used as anesthetic into the skin and subcutaneous tissue up to area of concern in the left breast 8:00 6 cm from the nipple. A racheal was made with surgical scalpel. Under ultrasound guidance, a 12-gauge vacuum assisted biopsy gun device was used to obtain 6 core samples. Following this, a coil clip was left in lesion. The patient tolerated the procedure well without any immediate complication. The patient was kept in the radiology department for short stay after the procedure and then discharged home in stable condition. Postprocedure mammogram: The patient was transferred to mammography for physician ordered post procedure mammogram for clip placement verification. Impression: Successful, uncomplicated ultrasound guided core biopsy of area of concern in the left breast, full pathology results to follow. Pathology Results: Result: Benign, Fat necrosis. Pathology and radiology were reviewed. Findings are concordant. A. RIGHT BREAST, TWO O'CLOCK, CORE BIOPSY: Fibroadipose tissue with focal fibrosis/scar, mild chronic inflammation and fat necrosis. Negative for malignancy. B. RIGHT BREAST, THREE O'CLOCK, CORE BIOPSY: Fibrosis/scar and fat necrosis. Negative for malignancy. C. LEFT BREAST, EIGHT O'CLOCK, CORE BIOPSY: Fibrosis/scar and fat necrosis. Negative for malignancy. Overall Assessment: Benign Assessment: MG diagnostic mammo LT wo CAD. - Left: Benign, BI-RAD 2. Management: Diagnostic Breast Ultrasound of both breasts in 6 months. Electronically signed and approved by: Sai Thomas DO
== END ==
LOC: RADUSWWP 07:46
PROVIDERS: ATTEND Internal Medicine
DX: N63.10 Unspecified lump in the right breast, unspecified quadrant (principal); N63.20 Unspecified lump in the left breast, unspecified quadrant; N60.32 Fibrosclerosis of left breast; N60.31 Fibrosclerosis of right breast; N61.0 Mastitis without abscess; L90.5 Scar conditions and fibrosis of skin; Z85.3 Personal history of malignant neoplasm of breast; Z90.721 Acquired absence of ovaries, unilateral; Z80.3 Family history of malignant neoplasm of breast
CPT/HCPCS: 77065; 88305

== ENCOUNTER → 2024-05-01 | Outpatient (CLI) | payer MEDICARE ==
--- NOTE | 2024-05-01 23:49 | MR ---
EXAMINATION TYPE: MR brain wo/w con DATE OF EXAM: 05/01/2024 COMPARISON: 11/01/2023 HISTORY: Vision loss half of right eye, starting left by nose. CONTRAST: Performed utilizing 7.5 mL intravenous Gadavist gadolinium contrast. TECHNIQUE: Multiplanar, multiecho imaging on a 3.0 Dian magnet is performed through the brain. Stud y is performed within 24 hours of arrival to the hospital. The craniovertebral junction is normal. The pituitary is normal. Optic chiasm as visualized is norm al. Diffusion-weighted imaging is performed. No abnormal hyperintensity is present to suggest an acute i ntracranial infarct or acute ischemic change. There are scattered punctate areas of hyperintensity on T2 and Inversion Recovery weighted sequences which are non-specific but can be related to microvascular ischemic changes. Ventricles and sulci are appropriate for the patient age. Following contrast administration, no abnormal enhancement is evident. Occipital lobes and moody rad iata appear normal. There is mucosal thickening within the right maxillary sinus. Remaining paranasal sinuses and mastoid air cells are clear. IMPRESSION: 1. Few small punctate areas of hyperintensity in the subcortical white matter are nonspecific but can be related to microvascular ischemic change. 2. No suspicious changes to account for loss of vision right eye. [facility], Workstation: [facility], 05/01/2024 11:47 PM
== END | disposition home or self-care (01) ==
LOC: RADMRIMAIN 23:40
PROVIDERS: ATTEND Ophthalmology
CPT/HCPCS: 70553

== ENCOUNTER → 2024-09-16 | Outpatient (CLI) | payer MEDICARE, OTHER ==
--- NOTE | 2024-09-17 08:07 | MR ---
EXAMINATION TYPE: MR orbits wo/w con DATE OF EXAM: 09/16/2024 9:49 PM COMPARISON: None. 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 Post contrast imaging was performed after the administration of 7.5 mL Gadobutrol FINDINGS: The globes appear symmetrical. Orbital contents are intact. Signal intensity of the optic nerves are within normal limits. The intraorbital fat appears preserved. Both lacrimal glands are u nremarkable. The extraocular muscles appear symmetric. After administration of contrast, no abnormal enhancement is seen. The bone marrow signal is within normal limits. Paranasal sinuses and mastoid air cells: No significant paranasal sinus disease. Visualized orbits: Bilateral aphakia IMPRESSION: 1. No evidence of intraorbital mass or significant abnormality. 2. No evidence of intracranial mass nor acute/subacute CVA accident. [facility], , 09/17/2024 8:05 AM
== END | disposition home or self-care (01) ==
LOC: RADMRIMAIN 20:45
PROVIDERS: ATTEND Internal Medicine
DX: H53.461 Homonymous bilateral field defects, right side (principal); R42 Dizziness and giddiness
CPT/HCPCS: 70543; A9585

== ENCOUNTER → 2024-09-16 | Outpatient (CLI) | payer MEDICARE, OTHER ==
[2024-09-16 18:17] LABS: Basophils # (A) 0.05 X 10*3/uL (0.00-0.10); Basophils % (A) 0.6 %; Eosinophils # (A) 0.13 X 10*3/uL (0.04-0.35); Eosinophils % (A) 1.6 %; HGB 16.3 g/dL (12.0-15.0); Lymphocytes # (A) 2.18 X 10*3/uL (0.90-5.00); MCH 29.4 pg (27.0-32.0); MCHC 33.3 g/dL (32.0-37.0); MCV 88.3 FL (80.0-97.0); Mean Platelet Volume 9.8 FL (9.5-12.2); Monocytes # (A) 0.38 X 10*3/uL (0.20-1.00); Monocytes % (A) 4.7 %; NRBC Per 100 WBC 0 X 10*3/uL (0.00-0.01); Neutrophils # (A) 5.29 X 10*3/uL (1.80-7.70); Neutrophils % (A) 65.7 %; Platelet Count 149 X 10*3/uL (140-440); RBC 5.55 X 10*6/uL (4.10-5.20); RDW 15.2 % (11.5-14.5); WBC 8.06 X 10*3/uL (4.50-10.00)
[2024-09-16 18:44] LABS: C Reactive Protein 3.8 mg/dL (0.00-0.80)
[2024-09-16 19:36] LABS: Erythrocyte Sedimentation Rate 34 mm/Hr (0-30)
== END | disposition home or self-care (01) ==
LOC: LABWHC1 12:49
PROVIDERS: ATTEND Internal Medicine
DX: H53.461 Homonymous bilateral field defects, right side (principal)
CPT/HCPCS: 36415; 82607; 82746; 84445; 85025; 85652; 86038; 86140

== ENCOUNTER → 2024-11-17 | Outpatient (CLI) | payer MEDICARE, OTHER ==
--- NOTE | 2024-11-17 17:21 | CA ---
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 67 - 155 / 56 - 104 cm??? LV Systolic Volume MOD BP 29.3 cm??? 22 - 58 / 19 - 49 cm??? LV Ejection Fraction MOD BP 58.8 % >= 55 % LV Cardiac Index MOD BP 2235.5 cm???/min???m??? LV Diastolic Volume MOD 4C 69.4 cm??? LV Systolic Volume MOD 4C 30.6 cm??? LV Ejection Fraction MOD 4C 55.8 % LV Cardiac Index MOD 4C 2067.8 cm???/min???m??? LV Diastolic Length 4C 6.3 cm LV Systolic Length 4C 5.3 cm LV Diastolic Volume MOD 2C 71.1 cm??? LV Systolic Volume MOD 2C 27.4 cm??? LV Ejection Fraction MOD 2C 61.4 % LV Cardiac Index MOD 2C 2333.3 cm???/min???m??? LV Diastolic Length 2C 6.5 cm LV Systolic Length 2C 5.0 cm LA Volume 28.1 cm??? 18 - 58 / 22 - 52 cm??? LA Volume Index 15.3 cm???/m??? 16 - 28 cm???/m??? M-MODE Aortic Root Diameter MM 2.9 cm AV Cusp Separation MM 1.9 cm DOPPLER AV Peak Velocity 104.3 cm/s AV Peak Gradient 4.4 mmHg MV Area PHT 4.4 cm??? Mitral E Point Velocity 57.1 cm/s Mitral A Point Velocity 79.4 cm/s Mitral E to A Ratio 0.7 MV Deceleration Time 171.6 ms FINDINGS Left Ventricle Left ventricular ejection fraction is estimated at 55 %. Left ventricular cavity size normal. Left ventricular wall thickness normal. Right Ventricle Normal right ventricular size and function. Unable to estimate the right ventricular systolic pressure. Right Atrium Normal right atrial size. No right atrial thrombus or mass seen. Left Atrium Normal left atrial size. No left atrial thrombus or mass present. Mitral Valve Structurally normal mitral valve. No mitral stenosis, regurgitation or prolapse. Aortic Valve Trileaflet aortic valve. No aortic valve stenosis or regurgitation. Tricuspid Valve Structurally normal tricuspid valve. No tricuspid stenosis, regurgitation or prolapse. Pulmonic Valve Structurally normal pulmonic valve. No pulmonic regurgitation. No pulmonic stenosis. Pericardium No pericardial effusion. Aorta Normal size aortic root and proximal ascending aorta. CONCLUSIONS Normal LV size and systolic function. No significant abnormality on the Doppler exam. No pericardial effusion. Right-sided pressures are not well quantified. Patient is tachycardic Previewed by: Dr. Nelly Branes MD (Electronically Signed) Final Date: 17 Nov 2024 17:20
== END | disposition home or self-care (01) ==
LOC: RADECHMAIN 15:35
PROVIDERS: ATTEND Internal Medicine
DX: G31.9 Degenerative disease of nervous system, unspecified (principal); G90.A Postural orthostatic tachycardia syndrome [POTS]
CPT/HCPCS: 93306

== ENCOUNTER → 2025-01-08 | Outpatient (CLI) | payer MEDICARE, OTHER ==
[2025-01-08 19:14] LABS: Basophils # (A) 0.06 X 10*3/uL (0.00-0.10); Basophils % (A) 0.6 %; Eosinophils # (A) 0.13 X 10*3/uL (0.04-0.35); Eosinophils % (A) 1.3 %; HCT 48.4 % (37.2-46.3); HGB 16.1 g/dL (12.0-15.0); Lymphocytes # (A) 2.67 X 10*3/uL (0.90-5.00); Lymphocytes % (A) 27.4 %; MCH 29.1 pg (27.0-32.0); MCHC 33.3 g/dL (32.0-37.0); MCV 87.5 FL (80.0-97.0); Mean Platelet Volume 10.5 FL (9.5-12.2); Monocytes # (A) 0.66 X 10*3/uL (0.20-1.00); Monocytes % (A) 6.8 %; NRBC Per 100 WBC 0 X 10*3/uL (0.00-0.01); Neutrophils % (A) 63.7 %; Platelet Count 151 X 10*3/uL (140-440); RBC 5.53 X 10*6/uL (4.10-5.20); RDW 15.1 % (11.5-14.5); WBC 9.74 X 10*3/uL (4.50-10.00)
[2025-01-08 20:27] LABS: ALT 48 U/L (8-44); AST 60 U/L (13-35); Alkaline Phosphatase 123 U/L (41-126); BUN/Creat Ratio 10.86 Ratio (12.00-20.00); Blood Urea Nitrogen 7.6 mg/dL (9.0-27.0); Calcium 9.5 mg/dL (8.7-10.3); Carbon Dioxide 22.1 mmol/L (21.6-31.8); Chloride 105 mmol/L (96-109); Glucose 98 mg/dL (70-110); Sodium 142 mmol/L (135-145); Total Bilirubin 0.6 mg/dL (0.3-1.2); Total Protein 7.6 g/dL (6.2-8.2)
[2025-01-08 20:28] LABS: Albumin 4.7 g/dL (3.8-4.9); Albumin/Globulin Ratio 1.62 Ratio (1.60-3.17); Globulin 2.9 g/dL (1.6-3.3)
== END | disposition home or self-care (01) ==
LOC: LABWHC1 15:25
PROVIDERS: ATTEND Psychiatry & Neurology Neurology
DX: H54.3 Unqualified visual loss, both eyes (principal); G31.9 Degenerative disease of nervous system, unspecified; R41.3 Other amnesia
CPT/HCPCS: 36415; 80053; 82607; 84443; 85025; 86780